=== PATIENT | male | born 1955 | race Caucasian/White ===

== ENCOUNTER → 2017-10-15 | Outpatient (CLI) | payer OTHER ==
[2017-10-15 14:40] LABS: HCT 49.4 % (39.0-53.0); HGB 15.8 gm/dL (13.0-17.5); MCHC 31.9 g/dL (31.0-37.0); Mean Platelet Volume 8.1; Platelet Count 183 k/uL (150-450); RBC 5.43 m/uL (4.30-5.90); RDW 12.6 % (11.5-15.5); WBC 7.9 k/uL (3.8-10.6)
[2017-10-15 14:46] LABS: Anion Gap 11 mmol/L; Blood Urea Nitrogen 20 mg/dL (9-20); Carbon Dioxide 27 mmol/L (22-30); Chloride 101 mmol/L (98-107); Potassium 4.7 mmol/L (3.5-5.1); Sodium 139 mmol/L (137-145)
== END | disposition home or self-care (01) ==
LOC: LABPAT 14:04
PROVIDERS: ATTEND Internal Medicine Interventional Cardiology
DX: Z01.812 Encounter for preprocedural laboratory examination (principal); I25.10 Atherosclerotic heart disease of native coronary artery without angina pectoris
CPT/HCPCS: 36415; 80051; 82565; 84520; 85027

== ENCOUNTER 2017-10-24 06:21 | Day surgery (SDC) | payer MEDICARE, OTHER ==
[~2017-10-24 06:21] MED LIST: ALPRAZolam 0.25 MG TAB PO PRN; ALPRAZolam 0.5 MG TAB PO PRN; ASPIRIN 325 MG TAB PO STA; ATORVASTATIN 80 MG TAB PO STA; NITROGLYCERIN SL TABS 0.4 MG TAB SUBLINGUAL PRN; SODIUM CHLORIDE 0.9% 1,000 ML in EMPTY BAG 1 BAG IV ONE
[2017-10-24] MEDS ORDERED: INSULIN ASPART 100 UNIT/ML 1 ML 10 ML VIAL SQ ONE (07:03)
[2017-10-24 07:09] LABS: Glucose,Whole Blood 298 mg/dL (75-99)
[2017-10-24] MEDS ORDERED: fentaNYL (PF) 50 MCG/ML 2 ML AMP IV ONE (07:37)
[2017-10-24] MEDS ORDERED: LIDOCAINE 2% INJ 20 MG/ML SQ ONE (07:40)
[2017-10-24] MEDS: VERAPAMIL SYRINGE (5 MG/10 ML) INTRAARTER ONE ×2 (07:48→08:04)
[2017-10-24] MEDS ORDERED: NITROGLYCERIN SL TABS 0.4 MG TAB SUBLINGUAL ONE (07:53)
[2017-10-24] MEDS: MIDAZOLAM 2 MG/2 ML VIAL IVP ONE ×2 (08:03→08:44)
[2017-10-24] MEDS ORDERED: HEPARIN SODIUM 1,000 UN/ML (10ML VL) IV ONE (08:05)
[2017-10-24] MEDS ORDERED: BIVALIRUDIN BOLUS 250 MG/50 ML IV ONE (08:19)
[2017-10-24] MEDS ORDERED: PRASUGREL 10 MG TAB PO ONE (08:21)
[2017-10-24] MEDS ORDERED: BIVALIRUDIN 250 MG in SODIUM CHLORIDE 0.9% 50 ML IV ONE ×2 (08:22→08:50)
[2017-10-24] MEDS ORDERED: NITROGLYCERIN 1000MCG/10ML SYRINGE INTRACORON ONE (08:23)
[2017-10-24] MEDS ORDERED: IOHEXOL 350 MG/ML 125ML BOTTLE INJ ONE (09:07)
[2017-10-24] MEDS ORDERED: ATROPINE SULFATE 0.1 MG/ML 10ML SYRINGE IV PRN (09:21)
[2017-10-24] MEDS ORDERED: MAG HYDROX/AL HYDROX/SIMETH 30 ML CUP PO PRN (09:21)
[2017-10-24] MEDS ORDERED: ZOLPIDEM 5 MG TAB PO PRN (09:21)
[2017-10-24] MEDS ORDERED: NITROGLYCERIN SL TABS 0.4 MG TAB SUBLINGUAL PRN (09:21)
[2017-10-24] MEDS ORDERED: RX INFO: IV CONTRAST WAS GIVEN 1 EACH MISC MISCELLANE PRN (09:21)
[2017-10-24] MEDS ORDERED: SODIUM CHLORIDE 0.9% 1,000 ML IV SCH (09:30)
[2017-10-24 10:27] VITALS: BMI 39.0
[2017-10-24] MEDS ORDERED: MORPHINE SULFATE 4 MG/ML SYRINGE IVP ONE (10:33)
--- NOTE | 2017-10-24 10:33 | CC ---
CARDIAC CATHETERIZATION REPORT Mr. Niño is a 62-year-old male with known history of coronary artery disease, status post percutaneous revascularization in 1991 and 2009, who presented with symptoms of dyspnea and had a myocardial perfusion imaging that was consistent with stress-induced ischemia involving the anterolateral wall. In view of that, recommendation was made regarding cardiac catheterization. The procedures as well as the risks and complications were discussed with the patient who is in full understanding and agreement. PROCEDURE: Patient was brought to medical lab director in a fasting semi-sedated state after receiving fentanyl and Benadryl and achieving moderate conscious sedated state. Using Xylocaine anesthesia in the Seldinger technique, a 6-Finnish sheath was introduced in the right radial artery. Selective right and left coronary angiography performed using 5- Finnish 3.5 bend right Arturo catheter and a 6-Finnish Ashwin catheter. Images of the coronary arteries were obtained. Following that, attempts to perform angioplasty and stenting of the diagonal branch were attempted. Following that and after performing the angioplasty and stenting, a 6-Finnish tight pigtail catheter was introduced in the left ventricle and a 30-degree GAY view of the left ventricle was obtained. Following that, the right radial sheath was removed. Hemostasis was obtained with deployment of a TR band. There was no immediate complication. Patient is returned to his room in stable condition. Of note, the patient received 5000 units of intravenous heparin as well as intraarterial verapamil. FINDINGS: LEFT MAIN: This is a short size vessel bifurcating left circumflex and left anterior descending artery. Left main coronary artery has no evidence of high-grade stenosis. LEFT ANTERIOR DESCENDING ARTERY: This is a large-sized vessel reaching toward the apex with a wraparound apex segment tapers down distal third. The mid segment of the LAD is stented and has 30% in-stent restenosis. The LAD gives rise to a proximal large diagonal branch that has a 90% stenosis in the proximal segment. The rest of the vessel has no high-grade stenosis LEFT CIRCUMFLEX: This is a nondominant vessel giving rise to 4 obtuse marginal branches. The second obtuse marginal branch has a plaque of 50% to 60%. The rest of the vessel has intimal disease without any high-grade stenosis. RIGHT CORONARY ARTERY: This is a large dominant vessel bifurcating PDA posterolateral segment and branches. The distal segment of the RCA is a stented and patent that has a 20% to 30% plaque. There is intimal disease in the proximal and mid right coronary artery. The PDA is small in the mid segment and has a significant stenosis, but beyond that the vessel is quite small LEFT VENTRICULOGRAM: Left ventriculogram is performed in 30-degree GAY view and revealed an anteroapical hypokinesis. Ejection fraction is estimated at 45%. There was no significant mitral regurgitation. HEMODYNAMICS: There was no gradient across the aortic valve. The left ventricle end- diastolic pressure was 16 mmHg. CONCLUSION: 1. Critical stenosis involving the first diagonal branch. 2. Mild to moderate in-stent restenosis of the left anterior descending artery and the right coronary artery. 3. Moderate disease in the obtuse marginal branch. 4. Mildly impaired left ventricular systolic function. RECOMMENDATION: In view of finding anatomy, I recommend proceeding with angioplasty and stenting of the diagonal branch. The procedure as well as the risks and complication were discussed with the patient who is in full understanding and agreement. DAVID / KAITLYNN: [id number] / MTDDc
--- NOTE | 2017-10-24 10:48 | PTCA ---
PERCUTANEOUSTRANS CORORONARY ANGIOGRAPHY Mr. Niño is a 62-year-old male with a known history of coronary artery disease who had an abnormal myocardial perfusion imaging and symptoms of dyspnea on exertion. Underwent cardiac catheterization, was found to have significant obstructive disease involving the first diagonal branch. In view of that, recommendation was made regarding angioplasty and stenting. The procedure as well as the risks and complications were discussed with the patient who is in full understanding and agreement. PROCEDURE: A 6-Nigerian EBU 3.75 guiding catheter was introduced in the system. After cannulating the left main, a 0.014 balanced medium weight J-wire was advanced across the lesion, attempt to advance a 2.25 x 15 mm Xience Alpine stent was unsuccessful and resulted in disengagement of the guiding catheter. An attempt to recannulate the LAD left main were unsuccessful with the EBU guiding catheter as well as well as a Ikari_3.75 left. At that point, a 6 Nigerian sheath using Xylocaine anesthesia in the Seldinger technique was introduced in the right femoral artery. Left coronary angiography was performed using 6-Nigerian FR4 guiding catheter. After cannulating the left main, a 0.014 balanced medium weight J-wire was advanced across the lesion and positioned distally. Then a 2.5 x 12 mm Trek balloon was advanced 1 inflation to 10 atmospheres was done. Following that, the balloon was removed and a 2.25 x 15 mm Xience Alpine stent was deployed, postdilated at 14 atmospheres. After the last inflation, after appropriate wait , the balloon and the guidewire were withdrawn back in the guiding catheter. Images were obtained, repeated. Those images reveal stable successful stenting. At that point, the guiding catheter, the balloon and the guidewire were removed and left ventriculogram was performed. Following that, catheter and sheath were removed. Hemostasis was obtained with deployment of a TR band on the right radial artery and suturing of the right femoral artery. Of note, the patient received Angiomax per protocol as well as oral loading dose of Effient. He had no chest discomfort or significant EKG changes with the inflations. RESULTS: Successful stenting of the first diagonal branch with reduction in stenosis from 90% to 0%. RECOMMENDATION: The patient will be continued on aspirin, Effient, beta howie, GHADA inhibitor, statin. The importance of dual antiplatelet treatment was discussed with the patient and his family and they are in full understand and agreement. Duration of procedure: 95 minutes. RIVERAL / VININ: [id number] / VIKY
--- NOTE | 2017-10-24 10:48 | LTR ---
October 24, 2017 Re: Naresh Niño Dear Dr. Naqvi: I had the opportunity to perform cardiac catheterization including angioplasty and stenting on Mr. Niño at [facility] on the 24 of October and a full copy of the procedure note will be forwarded to you. In brief, he was found to have significant stenosis involving the first diagonal branch and he underwent successful stenting of that vessel using drug-eluting stent. I am hopeful that this procedure will stabilize his status. Thank you again for allowing me the opportunity to participate in his care. Please feel free to call for any questions. Sincerely yours, MD RIVERA MendozaL / VININ: [id number] /
[2017-10-24 11:55] LABS: Glucose,Whole Blood 274 mg/dL (75-99)
[2017-10-24] MEDS: INSULIN ASPART 100 UNIT/ML 1 ML 10 ML VIAL SQ SCH ×2 (12:44→16:56)
[2017-10-24] MEDS: CARVEDILOL 6.25 MG TAB PO SCH (16:56)
[2017-10-24 17:01] LABS: Glucose,Whole Blood 333 mg/dL (75-99)
[2017-10-24] MEDS ORDERED: PANTOPRAZOLE 40 MG TABLET PO SCH (18:00)
[2017-10-24] MEDS: hydrALAZINE HCL 50 MG TAB PO SCH (20:09)
[2017-10-24] MEDS ORDERED: INSULIN DETEMIR 100 UNIT/ML 10 ML VIAL SQ SCH (21:00)
[2017-10-24] MEDS ORDERED: ATORVASTATIN 40 MG TAB PO SCH (21:00)
[2017-10-24 21:22] LABS: Glucose,Whole Blood 281 mg/dL (75-99)
[2017-10-25 06:07] LABS: Glucose,Whole Blood 242 mg/dL (75-99)
[2017-10-25 06:27] LABS: Anion Gap 8 mmol/L; Blood Urea Nitrogen 13 mg/dL (9-20); Calcium 8.6 mg/dL (8.4-10.2); Carbon Dioxide 27 mmol/L (22-30); Chloride 101 mmol/L (98-107); Glucose 246 mg/dL (74-99); Sodium 136 mmol/L (137-145)
[2017-10-25] MEDS ORDERED: LEVOTHYROXINE 137 MCG TAB PO SCH (06:30)
[2017-10-25] MEDS: CARVEDILOL 6.25 MG TAB PO SCH (06:31)
[2017-10-25] MEDS: INSULIN ASPART 100 UNIT/ML 1 ML 10 ML VIAL SQ SCH (06:32)
[2017-10-25] MEDS: hydrALAZINE HCL 50 MG TAB PO SCH (07:43)
--- NOTE | 2017-10-25 07:49 | PN ---
PROGRESS NOTE Mr. Niño is a 62-year-old male with known history of coronary artery disease who presented with symptoms of dyspnea and abnormal myocardial perfusion imaging, underwent cardiac catheterization and stenting of his first diagonal branch. He Is doing well this morning. Denying any chest pain. His breathing has been stable. He is denying any dizziness or palpitation. No nausea. He continued to be on aspirin once a day, Effient 10 mg daily, Lipitor 40 mg daily, Coreg 6.5 mg twice a day, hydralazine 50 mg twice a day, insulin, levothyroxine, Zestril 40 mg daily, Protonix 40 mg daily. PHYSICAL EXAMINATION: Blood pressure in the 140s to 150s with the heart rate in the 60s. LUNGS: Clear. HEART: Regular rate and rhythm. S1, S2. No S3. No rub. ABDOMEN: Soft, nontender. Right groin, no hematoma. Right radial pulse intact. EKG revealed no acute changes. LAB DATA: Lab data revealed BUN and creatinine 13 and 0.8. Potassium 4.0. IMPRESSION: 1. Status post stenting of the diagonal branch. 2. Hypertension. 3. Hyperlipidemia. 4. Diabetes mellitus. RECOMMENDATION: Patient will be discharged home today and followed as an outpatient. MMODL / IJN: [id number] /
[2017-10-25 07:53] VITALS: BP 131/80; PULSE 63; RESP 18; TEMP 97.4
[2017-10-25] MEDS ORDERED: ASPIRIN 81 MG PO SCH (09:00)
[2017-10-25] MEDS ORDERED: LISINOPRIL 20 MG TAB PO SCH (09:00)
[2017-10-25] MEDS ORDERED: PRASUGREL 10 MG TAB PO SCH (09:23)
== END 2017-10-25 09:20 | disposition home or self-care (01) ==
LOC: CATHCVL 06:21 → 6SEL 09:12 → CATHCVL 10-25 09:20
PROVIDERS: ATTEND Internal Medicine Interventional Cardiology
DX: T82.855A Stenosis of coronary artery stent, initial encounter (principal); I25.10 Atherosclerotic heart disease of native coronary artery without angina pectoris; R94.39 Abnormal result of other cardiovascular function study; I25.5 Ischemic cardiomyopathy; Z95.0 Presence of cardiac pacemaker; I10 Essential (primary) hypertension; E78.2 Mixed hyperlipidemia; E11.9 Type 2 diabetes mellitus without complications; Z95.5 Presence of coronary angioplasty implant and graft; Z82.49 Family history of ischemic heart disease and other diseases of the circulatory system; Z88.5 Allergy status to narcotic agent; Z79.82 Long term (current) use of aspirin; Z79.890 Hormone replacement therapy; Z79.4 Long term (current) use of insulin; Z79.899 Other long term (current) drug therapy; Z79.84 Long term (current) use of oral hypoglycemic drugs
CPT/HCPCS: 93458; 85347; 80048; C9600; C1769 ×3; C1887 ×3; C1894 ×2; C1725; C1874; J2001; J2250; J2270; J3010; J1644; J0583; Q9967

== ENCOUNTER → 2017-11-07 | Outpatient (CLI) | payer MEDICARE ==
[2017-11-07 11:05] LABS: ALT 35 U/L (21-72); AST 33 U/L (17-59); Cholesterol 101 mg/dL (<200); Creatine Kinase 53 U/L (55-170); HDL Cholesterol 31 mg/dL (40-60); LDL Cholesterol,Calculated 37 mg/dL (0-99); Triglycerides 165 mg/dL (<150)
== END | disposition home or self-care (01) ==
LOC: LABWHC1 09:55
PROVIDERS: ATTEND Internal Medicine Interventional Cardiology
DX: E78.2 Mixed hyperlipidemia (principal)
CPT/HCPCS: 36415; 80061; 82550; 84450; 84460

== ENCOUNTER → 2017-11-29 | Outpatient (CLI) | payer MEDICARE | END | disposition home or self-care (01) | LOC: LABWHC1 11:17 | PROVIDERS: ATTEND Internal Medicine Endocrinology, Diabetes & Metabolism | DX: E11.65 Type 2 diabetes mellitus with hyperglycemia (principal) | CPT/HCPCS: 36415; 82947; 84681 ==

== ENCOUNTER 2018-01-22 14:40 | Emergency (ER) | payer MEDICARE ==
[2018-01-22 14:43] VITALS: TEMP 97.8
[2018-01-22] MEDS ORDERED: SODIUM CHLORIDE 0.9% 500 ML IV STA (14:51)
[2018-01-22] MEDS ORDERED: MORPHINE SULFATE 4 MG/ML SYRINGE IV STA (14:51)
[2018-01-22] MEDS ORDERED: SODIUM CHLORIDE 0.9% 1,000 ML IV STA (14:51)
--- NOTE | 2018-01-22 15:23 | ED ---
General Adult HPI - General Chief complaint: Abdominal Pain Stated complaint: Kidney stone Time Seen by Provider: 01/22/18 14:49 Source: patient, RN notes reviewed, old records reviewed Mode of arrival: ambulatory Limitations: no limitations - History of Present Illness Initial comments: This is a 62-year-old male to the ER for evaluation today. The patient presents for evaluation of flank pain. Left-sided flank pain and thinks he may have kidney stone. Patient does have history of kidney stone also suffers with history of heart disease. Denies any blood in his urine. Mild nausea no vomiting. No fevers. - Related Data Home Medications Medication Instructions Recorded Confirmed Aspirin [Adult Low Dose Aspirin EC] 81 mg PO DAILY 10/22/17 01/22/18 Carvedilol [Coreg] 6.25 mg PO BID 10/22/17 01/22/18 Enalapril [Vasotec] 20 mg PO DAILY 10/22/17 01/22/18 Omeprazole Magnesium [PriLOSEC OTC] 20 mg PO DAILY 10/22/17 01/22/18 hydrALAZINE HCL [Apresoline] 50 mg PO BID 10/22/17 01/22/18 metFORMIN HCL 1,000 mg PO BID 10/22/17 01/22/18 Levothyroxine Sodium [Synthroid] 137 mcg PO DAILY 10/24/17 01/22/18 Chlorthalidone 25 mg PO MOTH 01/22/18 01/22/18 Glimepiride [Amaryl] 4 mg PO AC-BRKFST 01/22/18 01/22/18 Losartan Potassium 100 mg PO DAILY 01/22/18 01/22/18 Pioglitazone [Actos] 30 mg PO DAILY 01/22/18 01/22/18 Previous Rx's Medication Instructions Recorded Atorvastatin [Lipitor] 40 mg PO HS #90 tab 10/25/17 Prasugrel [Effient] 10 mg PO DAILY #90 tab 10/25/17 Allergies Allergy/AdvReac Type Severity Reaction Status Date / Time codeine AdvReac Nausea & Verified 01/22/18 15:17 Vomiting Review of Systems ROS Statement: Those systems with pertinent positive or pertinent negative responses have been documented in the HPI. ROS Other: All systems not noted in ROS Statement are negative. Past Medical History Past Medical History: Coronary Artery Disease (CAD), Diabetes Mellitus, GERD/ Reflux, Hyperlipidemia, Hypertension, Myocardial Infarction (AL), Sleep Apnea/ CPAP/BIPAP, Thyroid Disorder Additional Past Medical History / Comment(s): hx migraines, hx gout, flu/ bronchitis 3 weeks ago Last Myocardial Infarction Date:: 1983 History of Any Multi-Drug Resistant Organisms: MRSA Date of last positivie culture/infection: 2007 MDRO Source:: under left arm Past Surgical History: Back Surgery, Heart Catheterization With Stent, Joint Replacement, Pacemaker Additional Past Surgical History / Comment(s): 3 cardiac stents, left ankle tendon surgery, left knee "partial" replacement, radha shoulder surgery, rt hand surgery -laceration, laminectomy L5, cyst removed from back of neck, radha cataracts, Past Anesthesia/Blood Transfusion Reactions: No Reported Reaction Date of Last Stent Placement:: 2007 Type of Cardiac Device: Permanent Pacemaker Device Placement Date:: unknown Past Psychological History: No Psychological Hx Reported Smoking Status: Never smoker Past Alcohol Use History: None Reported Past Drug Use History: None Reported - Past Family History Mother Family Medical History: Cancer Father Family Medical History: Cancer General Exam Limitations: no limitations General appearance: alert, in no apparent distress Head exam: Present: atraumatic, normocephalic, normal inspection Eye exam: Present: normal appearance, PERRL, EOMI. Absent: scleral icterus, conjunctival injection, periorbital swelling ENT exam: Present: normal exam, mucous membranes moist Neck exam: Present: normal inspection. Absent: tenderness, meningismus, lymphadenopathy Respiratory exam: Present: normal lung sounds bilaterally. Absent: respiratory distress, wheezes, rales, rhonchi, stridor Cardiovascular Exam: Present: regular rate, normal rhythm, normal heart sounds. Absent: systolic murmur, diastolic murmur, rubs, gallop, clicks GI/Abdominal exam: Present: soft, normal bowel sounds. Absent: distended, tenderness, guarding, rebound, rigid Extremities exam: Present: normal inspection, full ROM, normal capillary refill. Absent: tenderness, pedal edema, joint swelling, calf tenderness Back exam: Present: normal inspection Neurological exam: Present: alert, oriented X3, CN II-XII intact Psychiatric exam: Present: normal affect, normal mood Skin exam: Present: warm, dry, intact, normal color. Absent: rash Course Vital Signs 01/22/18 14:42 Temperature 97.8 F Pulse Rate 70 Respiratory 20 Rate Blood Pressure 168/86 O2 Sat by Pulse 97 Oximetry - Reevaluation(s) Reevaluation #1: 01/22/18 16:46 Spoke with radiology, they feel clear that there is no aortic issue going on Medical Decision Making - Medical Decision Making 59 female the ER for evaluation regarding nonspecific abdominal pain. Patient states he does have a history of kidney stones which this feels similar to. No tenderness on exam. Labwork is normal, CT abdomen and pelvis is negative Patient can be discharged home - Lab Data Result diagrams: 01/22/18 15:34 01/22/18 15:34 Lab Results 01/22/18 01/22/18 01/22/18 Range/Units 15:34 15:34 15:34 WBC 6.2 (3.8-10.6) k/uL RBC 4.99 (4.30-5.90) m/uL Hgb 14.6 (13.0-17.5) gm/dL Hct 44.5 (39.0-53.0) % MCV 89.3 (80.0-100.0) fL MCH 29.4 (25.0-35.0) pg MCHC 32.9 (31.0-37.0) g/dL RDW 13.6 (11.5-15.5) % Plt Count 183 (150-450) k/uL Neutrophils % 51 % Lymphocytes % 33 % Monocytes % 8 % Eosinophils % 3 % Basophils % 1 % Neutrophils # 3.2 (1.3-7.7) k/uL Lymphocytes # 2.1 (1.0-4.8) k/uL Monocytes # 0.5 (0-1.0) k/uL Eosinophils # 0.2 (0-0.7) k/uL Basophils # 0.1 (0-0.2) k/uL Sodium 146 H (137-145) mmol/L Potassium 4.6 (3.5-5.1) mmol/L Chloride 107 (98-107) mmol/L Carbon Dioxide 24 (22-30) mmol/L Anion Gap 15 mmol/L BUN 31 H (9-20) mg/dL Creatinine 1.10 (0.66-1.25) mg/dL Est GFR (CKD-EPI)AfAm 82 (>60 ml/min/1.73 sqM) Est GFR (CKD-EPI)NonAf 71 (>60 ml/min/1.73 sqM) Glucose 74 (74-99) mg/dL Calcium 9.7 (8.4-10.2) mg/dL Total Bilirubin 1.1 (0.2-1.3) mg/dL AST 33 (17-59) U/L ALT 34 (21-72) U/L Alkaline Phosphatase 71 (38-126) U/L Total Protein 7.4 (6.3-8.2) g/dL Albumin 4.2 (3.5-5.0) g/dL Amylase 92 (30-110) U/L Lipase 128 (23-300) U/L Urine Color Yellow Urine Appearance Clear (Clear) Urine pH 5.5 (5.0-8.0) Ur Specific [place] 1.031 (1.001-1.035) Urine Protein 1+ H (Negative) Urine Glucose (UA) Negative (Negative) Urine Ketones Trace H (Negative) Urine Blood Negative (Negative) Urine Nitrite Negative (Negative) Urine Bilirubin Negative (Negative) Urine Urobilinogen 3.0 (<2.0) mg/dL Ur Leukocyte Esterase Negative (Negative) Urine RBC <1 (0-5) /hpf Urine WBC 2 (0-5) /hpf Ur Squamous Epith Cells 1 (0-4) /hpf Hyaline Casts 7 H (0-2) /lpf Urine Mucus Few H (None) /hpf - Radiology Data Radiology results: report reviewed (CT abdomen and pelvis negative for acute disease), image reviewed Disposition Clinical Impression: Abdominal pain Disposition: HOME SELF-CARE Condition: Good Is patient prescribed a controlled substance at d/c from ED?: No Referrals: Mikal Naqvi DO [Primary Care Provider] - 1-2 days
--- NOTE | 2018-01-22 15:37 | CT ---
EXAMINATION TYPE: CT abdomen pelvis wo con DATE OF EXAM: 01/22/2018 HISTORY: Right flank pain CT DLP: 1637.9 mGycm. Automated Exposure Control for Dose Reduction was Utilized. TECHNIQUE: CT scan of the abdomen and pelvis is performed without oral or IV contrast. COMPARISON: NONE FINDINGS: Within the limitations of a non-contrast study, the following observations are made. LUNG BASES: There is partial visualization of multilead pacemaker/defibrillator. LIVER/GB: Liver is diffusely low dense suggesting fatty infiltration. PANCREAS: No significant abnormality is seen. SPLEEN: No significant abnormality is seen. ADRENALS: No significant abnormality is seen. KIDNEYS: No renal stones or hydronephrosis is present bilaterally. Bladder is poorly distended and th us suboptimally evaluated. No intraluminal calculus is clearly seen. BOWEL: A few diverticula are seen in the left and sigmoid colon. There is no suspicious small or larg e bowel dilatation. Normal-appearing appendix is seen from base of cecum. There is some prominence of fecal material in the right and transverse colon. GENITAL ORGANS: No gross abnormality seen. LYMPH NODES: No greater than 1cm abdominal or pelvic lymph nodes are appreciated. OSSEOUS STRUCTURES: There is multilevel vacuum disc phenomenon in the lower lumbar spine. There is tr ansitional-type L6 vertebra at lumbosacral junction. Multilevel spurring in the spine is present. Pos terior spur disc complexes are effacing anterior thecal sac at L3-L4 and L4-L5 levels on sagittal dedra ge 62. There is multilevel facet arthropathy in the lower lumbar spine. OTHER: There is moderate to severe calcified plaque of aorta extending into branch vessels. IMPRESSION: 1. No renal stones or hydronephrosis is seen bilaterally. 2. Perhaps mild proximal colonic fecal stasis. No bowel obstruction. No significant acute finding oth erwise seen to account for patient's symptoms.
[2018-01-22 15:52] LABS: Basophils # (A) 0.1 k/uL (0-0.2); Basophils % (A) 1 %; Eosinophils # (A) 0.2 k/uL (0-0.7); Eosinophils % (A) 3 %; HCT 44.5 % (39.0-53.0); HGB 14.6 gm/dL (13.0-17.5); Lymphocytes # (A) 2.1 k/uL (1.0-4.8); Lymphocytes % (A) 33 %; MCH 29.4 pg (25.0-35.0); MCHC 32.9 g/dL (31.0-37.0); MCV 89.3 fL (80.0-100.0); Mean Platelet Volume 7.6; Monocytes # (A) 0.5 k/uL (0-1.0); Monocytes % (A) 8 %; Neutrophils # (A) 3.2 k/uL (1.3-7.7); Neutrophils % (A) 51 %; Platelet Count 183 k/uL (150-450); RBC 4.99 m/uL (4.30-5.90); RDW 13.6 % (11.5-15.5); WBC 6.2 k/uL (3.8-10.6)
[2018-01-22 15:59] LABS: Appearance,Urine Clear (Clear); Bilirubin,Urine Negative (Negative); Blood,Urine Negative (Negative); Color,Urine Yellow; Glucose,Urine (UA) Negative (Negative); Hyaline Casts,Urine 7 /lpf (0-2); Ketones,Urine Trace (Negative); Leukocyte Esterase,Urine Negative (Negative); Mucus,Urine Few /hpf; Nitrite,Urine Negative (Negative); PH, Urine 5.5 (5.0-8.0); Protein,Urine 1+ (Negative); RBC,Urine <1 /hpf (0-5); Specific Gravity,Urine 1.031 (1.001-1.035); Squamous Epithelial Cell,Urine 1 /hpf (0-4); WBC,Urine 2 /hpf (0-5)
[2018-01-22 16:05] LABS: Albumin 4.2 g/dL (3.5-5.0); Calcium 9.7 mg/dL (8.4-10.2); Potassium 4.6 mmol/L (3.5-5.1); Total Bilirubin 1.1 mg/dL (0.2-1.3); Total Protein 7.4 g/dL (6.3-8.2)
[2018-01-22] MEDS ORDERED: RX INFO: IV CONTRAST WAS GIVEN 1 EACH MISC MISCELLANE PRN (16:40)
[2018-01-22 17:10] VITALS: BP 163/83; PULSE 63; RESP 18
== END 2018-01-22 17:10 | disposition home or self-care (01) ==
LOC: EC 14:40
DX: R10.9 Unspecified abdominal pain (principal); R11.0 Nausea; I10 Essential (primary) hypertension; I25.10 Atherosclerotic heart disease of native coronary artery without angina pectoris; E11.9 Type 2 diabetes mellitus without complications; K21.9 Gastro-esophageal reflux disease without esophagitis; E07.9 Disorder of thyroid, unspecified; M10.9 Gout, unspecified; G47.30 Sleep apnea, unspecified; I25.2 Old myocardial infarction; Z79.82 Long term (current) use of aspirin; Z79.84 Long term (current) use of oral hypoglycemic drugs; Z79.899 Other long term (current) drug therapy; Z88.5 Allergy status to narcotic agent; Z86.14 Personal history of Methicillin resistant Staphylococcus aureus infection; Z87.442 Personal history of urinary calculi; Z99.89 Dependence on other enabling machines and devices
CPT/HCPCS: 36415; 80053; 82150; 83690; 85025; 81001; 87086; 74176; 99284; 96374; 96361; J2270

== ENCOUNTER → 2018-09-24 | Outpatient (CLI) | payer MEDICARE ==
[2018-09-24 16:29] LABS: Albumin/Globulin Ratio 1.74 (1.20-2.10); Anion Gap 9.3 mmol/L (4.00-12.00); Calcium 9.1 mg/dL (8.7-10.3); Carbon Dioxide 26.7 mmol/L (21.6-31.8); Globulin 2.3 g/dL (1.6-3.3); Potassium 4.8 mmol/L (3.5-5.5); Total Bilirubin 0.7 mg/dL (0.2-1.2); Total Protein 6.3 g/dL (6.2-8.2)
[2018-09-24 17:39] LABS: Hemoglobin A1C 7.1 % (4.0-6.0)
== END | disposition home or self-care (01) ==
LOC: LABWHC1 08:55
PROVIDERS: ATTEND Internal Medicine Endocrinology, Diabetes & Metabolism
DX: E11.65 Type 2 diabetes mellitus with hyperglycemia (principal)
CPT/HCPCS: 36415; 80053; 80061; 82043; 82570; 83036; 84443

== ENCOUNTER → 2019-01-08 | Outpatient (CLI) | payer MEDICARE ==
[2019-01-08 16:42] LABS: Albumin 4.2 g/dL (3.80-4.90); Albumin/Globulin Ratio 1.68 (1.60-3.17); Anion Gap 8.2 mmol/L (4.00-12.00); Calcium 9.2 mg/dL (8.7-10.3); Carbon Dioxide 26.8 mmol/L (21.6-31.8); Globulin 2.5 g/dL (1.6-3.3); LDL Cholesterol,Calculated 60.4 mg/dL (0.0-131.0); Potassium 4.5 mmol/L (3.5-5.5); Total Protein 6.7 g/dL (6.2-8.2); VLDL Calculation 23.6 mg/dL (5.00-40.00)
== END | disposition home or self-care (01) ==
LOC: LABWHC1 09:27
PROVIDERS: ATTEND Internal Medicine Endocrinology, Diabetes & Metabolism
DX: E11.65 Type 2 diabetes mellitus with hyperglycemia (principal)
CPT/HCPCS: 36415; 80053; 80061; 82043; 82570; 83036; 84443

== ENCOUNTER → 2019-05-02 | Outpatient (CLI) | payer MEDICARE ==
[2019-05-02 16:19] LABS: African American GFR (CKD) 66.4 (60.0-200.0); Albumin 4.1 g/dL (3.80-4.90); Albumin/Globulin Ratio 1.78 (1.60-3.17); BUN/Creat Ratio 26.15 Ratio (12.00-20.00); Calcium 9.3 mg/dL (8.7-10.3); Chol/HDL Ratio 3.31; Globulin 2.3 g/dL (1.6-3.3); LDL Cholesterol,Calculated 67.4 mg/dL (0.0-131.0); Potassium 4.7 mmol/L (3.5-5.5); Total Protein 6.4 g/dL (6.2-8.2); VLDL Calculation 22.6 mg/dL (5.00-40.00)
== END | disposition home or self-care (01) ==
LOC: LABWHC1 10:07
PROVIDERS: ATTEND Internal Medicine Interventional Cardiology
DX: E78.2 Mixed hyperlipidemia (principal)
CPT/HCPCS: 36415; 80053; 80061

== ENCOUNTER → 2019-12-30 | Outpatient (CLI) | payer MEDICARE ==
[2019-12-30 16:03] LABS: African American GFR (CKD) 66.4 (60.0-200.0); Albumin 3.9 g/dL (3.80-4.90); Albumin/Globulin Ratio 1.56 (1.60-3.17); Anion Gap 11.6 mmol/L (4.00-12.00); BUN/Creat Ratio 20.77 Ratio (12.00-20.00); Calcium 8.9 mg/dL (8.7-10.3); Carbon Dioxide 26.4 mmol/L (21.6-31.8); Chol/HDL Ratio 5.05; Globulin 2.5 g/dL (1.6-3.3); LDL Cholesterol,Calculated 143.4 mg/dL (0.0-131.0); Non-African American GFR(CKD) 57.3 (60.0-200.0); Potassium 4.8 mmol/L (3.5-5.5); Total Bilirubin 0.7 mg/dL (0.3-1.2); Total Protein 6.4 g/dL (6.2-8.2); VLDL Calculation 26.6 mg/dL (5.00-40.00)
== END | disposition home or self-care (01) ==
LOC: LABWHC1 09:31
PROVIDERS: ATTEND Internal Medicine Interventional Cardiology
DX: E78.2 Mixed hyperlipidemia (principal)
CPT/HCPCS: 36415; 80053; 80061

== ENCOUNTER → 2020-07-02 | Outpatient (CLI) | payer MEDICARE ==
[2020-07-02 19:56] LABS: African American GFR (CKD) 65.9 (60.0-200.0); Albumin 4.1 g/dL (3.80-4.90); Albumin/Globulin Ratio 1.58 (1.60-3.17); Anion Gap 7.6 mmol/L (4.00-12.00); BUN/Creat Ratio 23.08 Ratio (12.00-20.00); Calcium 9.2 mg/dL (8.7-10.3); Carbon Dioxide 26.4 mmol/L (21.6-31.8); Globulin 2.6 g/dL (1.6-3.3); LDL Cholesterol,Calculated 93.4 mg/dL (0.0-131.0); Non-African American GFR(CKD) 56.9 (60.0-200.0); Potassium 4.4 mmol/L (3.5-5.5); Total Bilirubin 1.1 mg/dL (0.2-1.2); Total Protein 6.7 g/dL (6.2-8.2); VLDL Calculation 34.6 mg/dL (5.00-40.00)
== END | disposition home or self-care (01) ==
LOC: LABWHC1 10:17
PROVIDERS: ATTEND Nurse Practitioner Adult Health
DX: E78.2 Mixed hyperlipidemia (principal)
CPT/HCPCS: 36415; 80053; 80061

== ENCOUNTER → 2020-07-12 | Outpatient (CLI) | payer MEDICARE ==
[2020-07-12 20:45] LABS: Hemoglobin A1C 10.1 % (4.0-6.0)
== END | disposition home or self-care (01) ==
LOC: LABWHC1 10:53
PROVIDERS: ATTEND Internal Medicine Endocrinology, Diabetes & Metabolism
DX: E03.8 Other specified hypothyroidism (principal); E11.65 Type 2 diabetes mellitus with hyperglycemia
CPT/HCPCS: 36415; 82043; 82570; 83036; 84443

== ENCOUNTER 2021-05-02 19:22 | Inpatient (IN) | payer MEDICARE ==
[2021-05-02] MEDS ORDERED: ACETAMINOPHEN TAB 500 MG TAB PO STA (19:51)
[2021-05-02] MEDS ORDERED: ALBUTEROL HFA INHALER INHALATION STA (19:51)
--- NOTE | 2021-05-02 20:31 | ED ---
General Adult HPI - General Chief complaint: Fever Stated complaint: fever Time Seen by Provider: 05/02/21 19:44 Source: patient Mode of arrival: wheelchair Limitations: no limitations - History of Present Illness Initial comments: 66 year-old male patient presents to the emergency department for evaluation for evaluation of fever, chills, cough, and congestion for the last 11 days. States that symptoms seem to be worsening rather than getting better. States that he has had some nausea and vomiting. Reports diarrhea. Denies taking any medication for fever today. Denies history of lung conditions. States he does have a pacemaker and history of diabetes controlled with oral medications. Has been exposed to RSV. Has not had COVID-19 vaccine. Reports white foamy sputum production. Denies wheezing. States he does get short of breath. Patient de nies any recent rash, chest pain, abdominal pain, constipation, back pain, numbness, tingling, dizziness, weakness, hematuria, dysuria, urinary urgency, urinary frequency, headache, visual changes, or any other complaints. - Related Data Home Medications Medication Instructions Recorded Confirmed Aspirin [Adult Low Dose Aspirin EC] 81 mg PO DAILY 10/22/17 05/02/21 Enalapril [Vasotec] 20 mg PO DAILY 10/22/17 05/02/21 hydrALAZINE HCL [Apresoline] 50 mg PO BID 10/22/17 05/02/21 metFORMIN HCL [Glucophage] 1,000 mg PO BID 10/22/17 05/02/21 Levothyroxine Sodium [Synthroid] 137 mcg PO DAILY 10/24/17 05/02/21 Chlorthalidone 25 mg PO MOTH 01/22/18 05/02/21 Losartan Potassium 100 mg PO DAILY 01/22/18 05/02/21 Pioglitazone [Actos] 30 mg PO DAILY 01/22/18 05/02/21 Atorvastatin Calcium [Lipitor] 10 mg PO HS 05/02/21 05/02/21 Carvedilol [Coreg] 25 mg PO BID 05/02/21 05/02/21 Ezetimibe [Zetia] 10 mg PO DAILY 05/02/21 05/02/21 Glimepiride [Amaryl] 2 mg PO DAILY 05/02/21 05/02/21 Allergies Allergy/AdvReac Type Severity Reaction Status Date / Time codeine AdvReac Nausea & Verified 05/02/21 22:39 Vomiting Review of Systems ROS Statement: Those systems with pertinent positive or pertinent negative responses have been documented in the HPI. ROS Other: All systems not noted in ROS Statement are negative. Past Medical History Past Medical History: Coronary Artery Disease (CAD), Diabetes Mellitus, GERD/Reflux, Hyperlipidemia, Hypertension, Myocardial Infarction ([place]), Sleep Apnea/CPAP/BIPAP, Thyroid Disorder Additional Past Medical History / Comment(s): hx migraines, hx gout, flu/bronchitis 3 weeks ago Last Myocardial Infarction Date:: 1983 History of Any Multi-Drug Resistant Organisms: MRSA Date of last positivie culture/infection: 2007 MDRO Source:: under left arm Past Surgical History: Back Surgery, Heart Catheterization With Stent, Joint Replacement, Pacemaker Additional Past Surgical History / Comment(s): 3 cardiac stents, left ankle tendon surgery, left knee "partial" replacement, radha shoulder surgery, rt hand surgery -laceration, laminectomy L5, cyst removed from back of neck, radha cataracts, Past Anesthesia/Blood Transfusion Reactions: No Reported Reaction Date of Last Stent Placement:: 2007 Type of Cardiac Device: Permanent Pacemaker Device Placement Date:: unknown Past Psychological History: No Psychological Hx Reported Smoking Status: Never smoker Past Alcohol Use History: None Reported Past Drug Use History: None Reported - Past Family History Mother Family Medical History: Cancer Father Family Medical History: Cancer General Exam Limitations: no limitations General appearance: alert, in no apparent distress, other (This is a well- developed, well-nourished adult male patient in no acute distress. Vital signs upon presentation are temperature 103.1F, pulse 100, respirations 24, blood pressure 146/79, pulse ox 90% on room air.) Eye exam: Present: normal appearance, PERRL, EOMI. Absent: scleral icterus, conjunctival injection, periorbital swelling ENT exam: Present: normal exam, mucous membranes moist. Absent: normal oropharynx (Pharyngeal erythema, no tonsillar hypertrophy or exudate. Uvula is midline and tonsils are symmetric.) Respiratory exam: Present: normal lung sounds bilaterally. Absent: respiratory distress, wheezes, rales, rhonchi, stridor Cardiovascular Exam: Present: normal rhythm, normal heart sounds. Absent: tachycardia, systolic murmur, diastolic murmur, rubs, gallop, clicks GI/Abdominal exam: Present: soft, normal bowel sounds. Absent: distended, tenderness, guarding, rebound, rigid Neurological exam: Present: alert, oriented X3, CN II-XII intact Psychiatric exam: Present: normal affect, normal mood Skin exam: Present: warm, dry, intact, normal color. Absent: rash Course Vital Signs 05/02/21 05/02/21 05/02/21 19:38 20:24 20:30 Temperature 103.1 F H Pulse Rate 100 109 H Respiratory 24 20 22 Rate Blood Pressure 146/79 159/77 O2 Sat by Pulse 90 L 92 L Oximetry 05/02/21 05/02/21 21:29 23:06 Temperature 99.4 F Pulse Rate 105 H 103 H Respiratory 18 18 Rate Blood Pressure 123/74 142/67 O2 Sat by Pulse 97 97 Oximetry EKG Findings - EKG Comments: EKG Findings:: EKG obtained at 2037 shows sinus tachycardia with a ventricular rate of 103, KS interval 162, QRS duration 84, QT 328, QTC 429. No evidence of ST elevation or depression. Medical Decision Making - Medical Decision Making 66-year-old male patient presents to the emergency department today for evaluation of cough, congestion, shortness of breath, fevers. He also reported vomiting and diarrhea. Physical examination did reveal clear equal lung sounds. Oxygen saturation on arrival was between 89 and 90%. Chest x-ray was unremarkable. Labs reviewed and did reveal elevated CRP and LDH. His Covid test was positive. He is given dexamethasone to the IV. Inhaler. He'll be admitted to the hospital for further evaluation and monitoring. He is agreeable with this plan. Case discussed with my attending Dr. Hammer. - Lab Data Result diagrams: 05/02/21 20:30 05/02/21 20:30 Lab Results 05/02/21 05/02/21 05/02/21 Range/Units 20:30 20:30 20:30 WBC 2.6 L (3.8-10.6) k/uL RBC 4.65 (4.30-5.90) m/uL Hgb 14.6 (13.0-17.5) gm/dL Hct 42.3 (39.0-53.0) % MCV 91.0 (80.0-100.0) fL MCH 31.5 (25.0-35.0) pg MCHC 34.6 (31.0-37.0) g/dL RDW 13.6 (11.5-15.5) % Plt Count (150-450) k/uL MPV 9.1 Neutrophils % 71 % Lymphocytes % 20 % Monocytes % 7 % Eosinophils % 0 % Basophils % 1 % Neutrophils # 1.9 (1.3-7.7) k/uL Lymphocytes # 0.5 L (1.0-4.8) k/uL Monocytes # 0.2 (0-1.0) k/uL Eosinophils # 0.0 (0-0.7) k/uL Basophils # 0.0 (0-0.2) k/uL Manual Slide Review Performed PT (9.0-12.0) sec INR (<1.2) APTT (22.0-30.0) sec Sodium 135 L (137-145) mmol/L Potassium 4.9 (3.5-5.1) mmol/L Chloride 98 (98-107) mmol/L Carbon Dioxide 26 (22-30) mmol/L Anion Gap 11 mmol/L BUN 23 H (9-20) mg/dL Creatinine 1.43 H (0.66-1.25) mg/dL Est GFR (CKD-EPI)AfAm 59 (>60 ml/min/1.73 sqM) Est GFR (CKD-EPI)NonAf 51 (>60 ml/min/1.73 sqM) Glucose 246 H (74-99) mg/dL Plasma Lactic Acid Heber 1.9 (0.7-2.0) mmol/L Calcium 8.3 L (8.4-10.2) mg/dL Magnesium 1.9 (1.6-2.3) mg/dL Total Bilirubin 0.8 (0.2-1.3) mg/dL AST 74 H (17-59) U/L ALT 42 (4-49) U/L Alkaline Phosphatase 72 (38-126) U/L Lactate Dehydrogenase 954 H (313-618) U/L C-Reactive Protein 8.3 H (<1.0) mg/dL Total Protein 6.7 (6.3-8.2) g/dL Albumin 3.7 (3.5-5.0) g/dL Coronavirus (PCR) (Not Detectd) 05/02/21 05/02/21 Range/Units 20:30 21:46 WBC (3.8-10.6) k/uL RBC (4.30-5.90) m/uL Hgb (13.0-17.5) gm/dL Hct (39.0-53.0) % MCV (80.0-100.0) fL MCH (25.0-35.0) pg MCHC (31.0-37.0) g/dL RDW (11.5-15.5) % Plt Count (150-450) k/uL MPV Neutrophils % % Lymphocytes % % Monocytes % % Eosinophils % % Basophils % % Neutrophils # (1.3-7.7) k/uL Lymphocytes # (1.0-4.8) k/uL Monocytes # (0-1.0) k/uL Eosinophils # (0-0.7) k/uL Basophils # (0-0.2) k/uL Manual Slide Review PT 10.1 (9.0-12.0) sec INR 0.9 (<1.2) APTT 23.0 (22.0-30.0) sec Sodium (137-145) mmol/L Potassium (3.5-5.1) mmol/L Chloride (98-107) mmol/L Carbon Dioxide (22-30) mmol/L Anion Gap mmol/L BUN (9-20) mg/dL Creatinine (0.66-1.25) mg/dL Est GFR (CKD-EPI)AfAm (>60 ml/min/1.73 sqM) Est GFR (CKD-EPI)NonAf (>60 ml/min/1.73 sqM) Glucose (74-99) mg/dL Plasma Lactic Acid Heber (0.7-2.0) mmol/L Calcium (8.4-10.2) mg/dL Magnesium (1.6-2.3) mg/dL Total Bilirubin (0.2-1.3) mg/dL AST (17-59) U/L ALT (4-49) U/L Alkaline Phosphatase (38-126) U/L Lactate Dehydrogenase (313-618) U/L C-Reactive Protein (<1.0) mg/dL Total Protein (6.3-8.2) g/dL Albumin (3.5-5.0) g/dL Coronavirus (PCR) Detected A (Not Detectd) - Radiology Data Radiology results: report reviewed, image reviewed Two-view x-ray of the chest is obtained. Report was reviewed in its entirety. Impression by Dr. Calvert shows no acute process per Disposition Clinical Impression: COVID-19, Hypoxia Disposition: ADMITTED IP TO THIS [facility] Condition: Serious Referrals: Mikal Naqvi DO [Primary Care Provider] - 1-2 days Decision to Admit Reason: Admit from EC Decision Date: 05/02/21 Decision Time: 23:14
[2021-05-02 21:35] LABS: Albumin 3.7 g/dL (3.5-5.0); Basophils % (A) 1 %; C Reactive Protein 8.3 mg/dL (<1.0); Calcium 8.3 mg/dL (8.4-10.2); Eosinophils % (A) 0 %; HCT 42.3 % (39.0-53.0); HGB 14.6 gm/dL (13.0-17.5); Lymphocytes # (A) 0.5 k/uL (1.0-4.8); Lymphocytes % (A) 20 %; MCH 31.5 pg (25.0-35.0); MCHC 34.6 g/dL (31.0-37.0); Magnesium 1.9 mg/dL (1.6-2.3); Mean Platelet Volume 9.1; Monocytes # (A) 0.2 k/uL (0-1.0); Monocytes % (A) 7 %; Neutrophils # (A) 1.9 k/uL (1.3-7.7); Neutrophils % (A) 71 %; Potassium 4.9 mmol/L (3.5-5.1); RBC 4.65 m/uL (4.30-5.90); RDW 13.6 % (11.5-15.5); Total Bilirubin 0.8 mg/dL (0.2-1.3); Total Protein 6.7 g/dL (6.3-8.2); WBC 2.6 k/uL (3.8-10.6)
[2021-05-02 22:15] LABS: INR 0.9 (<1.2); Prothrombin Time 10.1 sec (9.0-12.0)
--- NOTE | 2021-05-02 22:28 | XR ---
EXAMINATION TYPE: XR chest 1V portable DATE OF EXAM: 05/02/2021 COMPARISON: NONE HISTORY: Fever TECHNIQUE: Single frontal view of the chest is obtained. FINDINGS: Dual lead pacemaker is present. Cardiomediastinal silhouette appears within normal limits. No dense focal consolidation, pleural effusion, or pneumothorax. Osseous structures appear intact. IMPRESSION: No acute process.
[2021-05-02] MEDS ORDERED: NALOXONE 0.4 MG/ML 1 ML VIAL IV PRN (23:11)
[2021-05-02] MEDS ORDERED: DEXAMETHASONE SOD PHOSPHATE 10 MG/ML 1 ML VIAL IV STA (23:11)
[2021-05-02] MEDS ORDERED: ONDANSETRON 4 MG/2 ML VIAL IVP PRN (23:11)
[2021-05-03] MEDS: SODIUM CHLORIDE 0.9% 1,000 ML IV SCH ×2 (00:05→12:51)
[2021-05-03] MEDS: DEXAMETHASONE SOD PHOSPHATE 10 MG/ML 1 ML VIAL IV SCH (09:21)
[2021-05-03 11:49] LABS: Ferritin 375.8 ng/mL (22.0-322.0)
[2021-05-03 12:36] LABS: Glucose,Whole Blood 330 mg/dL (75-99)
[2021-05-03] MEDS: ENOXAPARIN 40 MG/0.4 ML SYRINGE SQ SCH (12:49)
[2021-05-03] MEDS: INSULIN ASPART (NovoLOG) 100 UNIT/ML VIAL SQ SCH ×3 (12:50→21:47)
[2021-05-03 13:22] LABS: C Reactive Protein 8.8 mg/dL (<1.0)
[2021-05-03 16:38] LABS: Glucose,Whole Blood 325 mg/dL (75-99)
--- NOTE | 2021-05-03 17:58 | P.CNPUL ---
History of Present Illness Consult date: 05/03/21 Reason for consult: dyspnea, pneumonia History of present illness: 66-year-old male patient who presented to the emergency department because of ongoing difficulties with increased fever and chills and cough has been going on for the past 11 days. The patient stated that he was not vaccinated for COVID19. No change in taste or smell. No nausea. No vomiting. No diarrhea. No abdominal pain. No skin rashes. No altered mentation. He presented to the hospital where the patient was found to be febrile with a temperature 103.1. Hemodynamically stable. He was hypoxic and he was supplemented with oxygen and currently is on 4 L of oxygen by nasal cannula. EKG was sinus rhythm. Rest of the blood work shows a white cell count of 2.6. BMI was 23 with a creatinine of 1.4. Rest of the electrolytes were normal. There was a component of mild transaminitis with an AST of 74, ALT of 42, his LDH level was 954, and the patient had a lactic acid level of 1.9. He is COVID 19 testing was positive. The patient was hospitalized accordingly. Chest x-ray showed bilateral pulmonary infiltrates consistent with Covid 19 related pneumonia. On examination, the patient is crackles in lung bases bilaterally. Start the patient on Decadron 6 mg IV every 24 hours. Outpatient medications been ordered resume. Place the metformin and Actos on hold because of his underlying renal insufficiency. Place the patient on a sliding scale coverage. He is currently on Lovenox 40 mg subcu every 24 hours. His pro calcitonin level is at 0.32. C RP level was at 8.8. LDH level was 905. D-dimer has not been checked. Review of Systems Constitutional: Reports fatigue, Reports fever, Reports weakness Eyes: denies as per HPI, denies blurred vision, denies bulging eye, denies decre ased vision, denies diplopia, denies discharge, denies dry eye, denies irritation, denies itching, denies pain, denies photophobia, denies loss of peripheral vision, denies loss of vision, denies tunnel vision/blind spots Ears: deny: decreased hearing, ear discharge, earache, tinnitus Ears, nose, mouth and throat: Reports as per HPI Breasts: absent: as per HPI, gynecomastia Cardiovascular: Reports decreased exercise tolerance Respiratory: Reports as per HPI, Reports cough, Reports dyspnea Gastrointestinal: Reports as per HPI Genitourinary: Reports as per HPI Musculoskeletal: Reports as per HPI Musculoskeletal: absent: ankle pain, ankle stiffness, ankle swelling Integumentary: Reports as per HPI Neurological: Reports as per HPI Psychiatric: Reports as per HPI Endocrine: Reports as per HPI Hematologic/Lymphatic: Reports as per HPI Allergic/Immunologic: Reports as per HPI Past Medical History Past Medical History: Coronary Artery Disease (CAD), Diabetes Mellitus, GERD/Reflux, Hyperlipidemia, Hypertension, Myocardial Infarction ([place]), Sleep Apnea/CPAP/BIPAP, Thyroid Disorder Additional Past Medical History / Comment(s): hx migraines, hx gout, Obesity, DANIEL and the patient uses a CPAP machine Last Myocardial Infarction Date:: 1983 History of Any Multi-Drug Resistant Organisms: MRSA Date of last positivie culture/infection: 2007 MDRO Source:: under left arm Past Surgical History: Back Surgery, Heart Catheterization With Stent, Joint Replacement, Pacemaker Additional Past Surgical History / Comment(s): 3 cardiac stents, left ankle tendon surgery, left knee "partial" replacement, radha shoulder surgery, rt hand surgery -laceration, laminectomy L5, cyst removed from back of neck, radha cataracts, Past Anesthesia/Blood Transfusion Reactions: No Reported Reaction Date of Last Stent Placement:: 2007 Type of Cardiac Device: Permanent Pacemaker Device Placement Date:: unknown Smoking Status: Never smoker - Past Family History Mother Family Medical History: Cancer Father Family Medical History: Cancer Medications and Allergies Home Medications Medication Instructions Recorded Confirmed Type Aspirin [Adult Low Dose Aspirin EC] 81 mg PO DAILY 10/22/17 05/02/21 History Enalapril [Vasotec] 20 mg PO DAILY 10/22/17 05/02/21 History hydrALAZINE HCL [Apresoline] 50 mg PO BID 10/22/17 05/02/21 History metFORMIN HCL [Glucophage] 1,000 mg PO BID 10/22/17 05/02/21 History Levothyroxine Sodium [Synthroid] 137 mcg PO DAILY 10/24/17 05/02/21 History Chlorthalidone 25 mg PO MOTH 01/22/18 05/02/21 History Losartan Potassium 100 mg PO DAILY 01/22/18 05/02/21 History Pioglitazone [Actos] 30 mg PO DAILY 01/22/18 05/02/21 History Atorvastatin Calcium [Lipitor] 10 mg PO HS 05/02/21 05/02/21 History Carvedilol [Coreg] 25 mg PO BID 05/02/21 05/02/21 History Ezetimibe [Zetia] 10 mg PO DAILY 05/02/21 05/02/21 History Glimepiride [Amaryl] 2 mg PO DAILY 05/02/21 05/02/21 History Allergies Allergy/AdvReac Type Severity Reaction Status Date / Time codeine AdvReac Nausea & Verified 05/02/21 22:39 Vomiting Physical Exam Vitals: Vital Signs Temp Pulse Pulse Resp BP BP Pulse Ox 05/03/21 08:23 98 F 69 18 178/85 92 L 05/03/21 08:15 95 05/03/21 06:58 98.0 F 65 18 141/68 96 05/03/21 02:30 71 18 160/85 95 05/03/21 00:11 83 18 96 05/02/21 23:06 99.4 F 103 H 18 142/67 97 05/02/21 21:29 105 H 18 123/74 97 05/02/21 20:30 22 05/02/21 20:24 109 H 20 159/77 92 L 05/02/21 19:38 103.1 F H 100 24 146/79 90 L Intake and Output 05/02/21 05/03/21 05/03/21 22:59 06:59 14:59 Other: Weight 126.099 kg 126.099 kg Gen. appearance the patient is calm and comfortable, the patient is does not seem to be in acute respiratory distress, BMI 42.3 Head exam was generally normal. There was no scleral icterus or corneal arcus. Mucous membranes were moist. Neck was supple and without jugular venous distension, thyromegaly, or carotid bruits. Carotids were easily palpable bilaterally. There was no adenopathy. Lungs sounds are diminished in the patient's crackles in the lung bases bilaterally Cardiac exam revealed the PMI to be normally situated and sized. The rhythm was regular and no extrasystoles were noted during several minutes of auscultation. The first and second heart sounds were normal and physiologic splitting of the second heart sound was noted. There were no murmurs, rubs, clicks, or gallops. Abdominal exam revealed normal bowel sounds. The abdomen was soft, non-tender, and without masses, organomegaly, or appreciable enlargement of the abdominal aorta. Examination of the extremities revealed easily palpable radial, femoral and pedal pulses. There was no cyanosis, clubbing or edema. Examination of the skin revealed no evidence of significant rashes, suspicious appearing nevi or other concerning lesions. Neurologically, the patient is awake and alert and the patient does not have any focal neurological deficit. Cranial nerves are essentially intact. Results - Laboratory Findings CBC and BMP: 05/02/21 20:30 05/02/21 20:30 PT/INR, D-dimer PT 10.1 sec (9.0-12.0) 05/02/21 21:46 INR 0.9 (<1.2) 05/02/21 21:46 Abnormal lab findings: Abnormal Labs 05/02/21 05/02/21 05/02/21 20:30 20:30 20:30 WBC 2.6 L Lymphocytes # 0.5 L Sodium 135 L BUN 23 H Creatinine 1.43 H Glucose 246 H Calcium 8.3 L Ferritin 375.8 H AST 74 H Lactate Dehydrogenase 954 H C-Reactive Protein 8.3 H Coronavirus (PCR) Detected A Assessment and Plan Plan: 1 acute COVID 19 infection/pneumonia with secondary hypoxic respiratory failure, as the patient became symptomatic approximately 11-12 days ago. Condition progressed and the patient is currently presented with worsening shortness of breath currently on 42 x 2 by nasal cannula. 2 acute hypoxic respiratory failure, currently on 4 L of oxygen by nasal cannula 3 coronary artery disease with previous coronary stenting 4 history of pacemaker insertion 5 hypertension 6 hyperlipidemia 7 history obstructive sleep apnea maintained on CPAP on outpatient basis 8 migraines 9 gout 10 obesity with BMI 42.3 11 acute on chronic kidney injury, creatinine of 1.4 12 acute elevation of inflammatory markers secondary to COVID 19 related pneumonia 13 leukopenia 14 hypothyroidism Plan Continue Decadron 6 mg IV every 24 hours Monitor the oxygenation Monitor inflammatory markers Monitor the blood sugar and cover this patient with a sliding scale insulin coverage Monitor the patient's renal function Resume the rest of the home medication Allow the patient utilizes CPAP machine from home Wean down the FiO2 as tolerated to maintain a saturation above 90% We'll continue to follow.
[2021-05-03 20:00] LABS: Glucose,Whole Blood 329 mg/dL (75-99)
[2021-05-03] MEDS ORDERED: TEMAZEPAM 7.5 MG CAP PO PRN (20:36)
[2021-05-03] MEDS ORDERED: NON FORMULARY DRUG (Metformin Hcl [Glucophage] 1,000 MG Tablet) PO SCH (21:00)
[2021-05-03] MEDS: ATORVASTATIN 10 MG TAB PO SCH (21:47)
[2021-05-03] MEDS: hydrALAZINE HCL 50 MG TAB PO SCH (21:47)
[2021-05-03] MEDS: carvediloL 12.5 MG TAB PO SCH (21:47)
[2021-05-04] MEDS: SODIUM CHLORIDE 0.9% 1,000 ML IV SCH ×2 (03:53→19:57)
[2021-05-04] MEDS: LEVOTHYROXINE 137 MCG TAB PO SCH (05:48)
[2021-05-04 06:49] LABS: Glucose,Whole Blood 253 mg/dL (75-99)
[2021-05-04] MEDS ORDERED: PIOGLITAZONE 30 MG TAB PO SCH (09:00)
[2021-05-04] MEDS: DEXAMETHASONE SOD PHOSPHATE 10 MG/ML 1 ML VIAL IV SCH (09:09)
[2021-05-04] MEDS: lisinopriL 20 MG TAB PO SCH (09:10)
[2021-05-04] MEDS: INSULIN ASPART (NovoLOG) 100 UNIT/ML VIAL SQ SCH ×4 (09:10→21:27)
[2021-05-04] MEDS: carvediloL 12.5 MG TAB PO SCH ×2 (09:10→21:28)
[2021-05-04] MEDS: ASPIRIN 81 MG PO SCH (09:10)
[2021-05-04] MEDS: LOSARTAN 50 MG TAB PO SCH (09:10)
[2021-05-04] MEDS: EZETIMIBE 10 MG TAB PO SCH (09:11)
[2021-05-04] MEDS: ENOXAPARIN 40 MG/0.4 ML SYRINGE SQ SCH (09:11)
[2021-05-04] MEDS: hydrALAZINE HCL 50 MG TAB PO SCH ×2 (09:11→21:28)
[2021-05-04 11:36] LABS: Glucose,Whole Blood 294 mg/dL (75-99)
--- NOTE | 2021-05-04 11:56 | XR ---
EXAMINATION TYPE: XR chest 1V DATE OF EXAM: 05/04/2021 COMPARISON: 05/02/2021 HISTORY: Cough TECHNIQUE: Single frontal view of the chest is obtained. FINDINGS: Bilateral diffuse infiltrates are seen with Limited inspiration. Tiny effusions not exclud ed. Heart size stable. Cardiac device noted with no pneumothorax. IMPRESSION: Diffuse bilateral infiltrates appear progressed.
[2021-05-04] MEDS: GLIMEPIRIDE 2 MG TAB PO SCH (13:26)
--- NOTE | 2021-05-04 16:21 | P.PN ---
Subjective Progress Note Date: 05/04/21 This is 66-year-old gentleman admitted with acute hypoxic respiratory failure secondary to COVID-19 infection. Afebrile. Maintained on Covid cocktail, including Decadron IV.Inflammatory markers trending down.He stated this morning with exertion from 88% tone to 75%. Currently placed on 6 L nasal cannula, O2 sat pending. Chest x-ray reporting progression of diffuse bilateral infiltrates.Blood sugars uncontrolled, A1c 9.1. Objective - Vital Signs Vital signs: Vital Signs Temp 98.8 F 05/04/21 09:53 Pulse 64 05/04/21 09:53 Resp 17 05/04/21 09:53 BP 137/74 05/04/21 09:53 Pulse Ox 88 L 05/04/21 09:53 Intake & Output 05/03/21 05/04/21 05/04/21 18:59 06:59 18:59 Weight 126.099 kg Other: Voiding Method Toilet Toilet Urinal Urinal # Voids 1 1 # Bowel Movements 0 - Exam PHYSICAL EXAM: VITAL SIGNS: As above GENERAL: Sitting up in bed, respiratory effort increased. HEENT: Conjunctivae normal. eyes normal. NECK: No JVD. No thyroid enlargement. No LNs CARDIOVASCULAR: S1, S2 regular. No murmur RESPIRATION: Breath sounds diminished in the bases. Coarse rhonchi with bibasilar crackles. ABDOMEN: Soft, nontender. No guarding. no masses palpable. No ascites, No hepatosplenomegaly.Bowel sounds heard. LEGS: No edema. no swelling PSYCHIATRY: Alert and oriented X3, mood and affect normal. NERVOUS SYSTEM: Cranial N 2-12 grossly normal. Moves all 4 limbs. Diffuse weakness No focal deficits. Strength and sensation grossly intact.. Skin: no lesions, no rash Joints: No active swelling. No inflammation. Lymphatic system. No LN neck axilla or groin. - Labs CBC & Chem 7: 05/02/21 20:30 05/02/21 20:30 Labs: Abnormal Lab Results - Last 24 Hours (Table) 05/02/21 05/03/21 05/03/21 Range/Units 20:30 16:35 18:18 D-Dimer 0.66 H (<0.60) mg/L FEU POC Glucose (mg/dL) 325 H (75-99) mg/dL Hemoglobin A1c (4.0-6.0) % Lactate Dehydrogenase (120-246) U/L C-Reactive Protein (0.0-0.8) mg/dL Procalcitonin 0.32 H (0.02-0.09) ng/mL 05/03/21 05/04/21 05/04/21 Range/Units 19:57 06:30 06:30 D-Dimer (<0.60) mg/L FEU POC Glucose (mg/dL) 329 H (75-99) mg/dL Hemoglobin A1c 9.1 H (4.0-6.0) % Lactate Dehydrogenase 392 H (120-246) U/L C-Reactive Protein 6.0 H (0.0-0.8) mg/dL Procalcitonin (0.02-0.09) ng/mL 05/04/21 05/04/21 Range/Units 06:46 11:34 D-Dimer (<0.60) mg/L FEU POC Glucose (mg/dL) 253 H 294 H (75-99) mg/dL Hemoglobin A1c (4.0-6.0) % Lactate Dehydrogenase (120-246) U/L C-Reactive Protein (0.0-0.8) mg/dL Procalcitonin (0.02-0.09) ng/mL Microbiology - Last 24 Hours (Table) 05/02/21 20:30 Blood Culture - Preliminary Blood No Growth after 24 hours 05/02/21 20:30 Blood Culture - Preliminary Blood No Growth after 24 hours Assessment and Plan Assessment: Acute COVID-19 infection, pneumonia Acute hypoxic respiratory failure secondary to the above Acute on chronic kidney failure, stage III Leukopenia Diabetes mellitus, uncontrolled, hyperglycemic, hemoglobin A1c 9.1 Obstructive sleep apnea, on CPAP outpatient CAD with history of stenting, permanent pacemaker Hypertension Hyperlipidemia Hypothyroidism Morbid obesity, BMI 42.3 Plan: Continue on current medication regime ,monitoring and symptomatic treatment. Levemir added to med.regimen, close monitoring of Accu-Cheks. Maintain COVID cocktail/Decadron. Close monitoring of renal function. electrolytes, with repeat labs ordered for a.m. follow closely with pulmonary. Prognosis guarded given multiple complex medical issues. The impression and plan of care has been dictated as directed. : I performed a history and examination of this patient, discussed the same with the dictator. I agree with the dictator's note ,documented as a scribe. Any additional findings or plans will be noted.
[2021-05-04 16:35] LABS: Glucose,Whole Blood 318 mg/dL (75-99)
--- NOTE | 2021-05-04 19:16 | P.PN ---
Subjective Progress Note Date: 05/04/21 Principal diagnosis: On 05/04/2021 patient seen in follow-up on selective care unit. His oxygen demand has increased, he is currently on 100 percent nonrebreather, his oxygen saturations are ranging between 82 and 88%, is having low-grade fevers this afternoon, blood pressures stable. Inflammatory markers are improving on today's labs, LDH is down to 392, CRP is 6.0, pro calcitonin level was 0.32. D- dimer was 0.66. Blood cultures have been negative. Patient remains on de xamethasone 6 mg daily, he is on prophylactic dose Lovenox 40 mg daily. His chest x-ray point diffuse bilateral infiltrates that appear to be progress. Objective - Vital Signs Vital signs: Vital Signs Temp 99 F 05/04/21 17:14 Pulse 68 05/04/21 17:14 Resp 17 05/04/21 17:14 BP 150/78 05/04/21 17:14 Pulse Ox 88 L 05/04/21 17:30 Intake & Output 05/04/21 05/04/21 05/05/21 06:59 18:59 06:59 Intake Total 975 Balance 975 Intake: Intake, IV Titration 600 Amount Sodium Chloride 0.9% 1, 600 000 ml @ 75 mls/hr IV . [id number] [facility] Rx#:[id number] Oral 375 Other: Voiding Method Toilet Toilet Urinal Urinal # Voids 1 4 # Bowel Movements 0 - Exam GENERAL EXAM: Alert, very pleasant, 66-year-old white female, on 100% nonrebreather with a pulse ox between 82-88%, comfortable in no apparent distress. HEAD: Normocephalic/atraumatic. EYES: Normal reaction of pupils, equal size. Conjunctiva pink, sclera white. NOSE: Clear with pink turbinates. THROAT: No erythema or exudates. NECK: No masses, no JVD, no thyroid enlargement, no adenopathy. CHEST: No chest wall deformity. Symmetrical expansion. LUNGS: Equal air entry with diffuse crackles CVS: Regular rate and rhythm, normal S1 and S2, no gallops, no murmurs, no rubs ABDOMEN: Soft, nontender. No hepatosplenomegaly, normal bowel sounds, no guar ding or rigidity. EXTREMITIES: No clubbing, no edema, no cyanosis, 2+ pulses and upper and lower extremities. MUSCULOSKELETAL: Muscle strength and tone normal. SPINE: No scoliosis or deformity SKIN: No rashes CENTRAL NERVOUS SYSTEM: Alert and oriented -3. No focal deficits, tone is normal in all 4 extremities. PSYCHIATRIC: Alert and oriented -3. Appropriate affect. Intact judgment and insight. - Labs CBC & Chem 7: 05/02/21 20:30 05/02/21 20:30 Labs: Abnormal Lab Results - Last 24 Hours (Table) 05/03/21 05/04/21 05/04/21 Range/Units 19:57 06:30 06:30 POC Glucose (mg/dL) 329 H (75-99) mg/dL Hemoglobin A1c 9.1 H (4.0-6.0) % Lactate Dehydrogenase 392 H (120-246) U/L C-Reactive Protein 6.0 H (0.0-0.8) mg/dL 05/04/21 05/04/21 05/04/21 Range/Units 06:46 11:34 16:32 POC Glucose (mg/dL) 253 H 294 H 318 H (75-99) mg/dL Hemoglobin A1c (4.0-6.0) % Lactate Dehydrogenase (120-246) U/L C-Reactive Protein (0.0-0.8) mg/dL Microbiology - Last 24 Hours (Table) 05/02/21 20:30 Blood Culture - Preliminary Blood No Growth after 24 hours 05/02/21 20:30 Blood Culture - Preliminary Blood No Growth after 24 hours Assessment and Plan Plan: Assessment: #1. Acute COVID-19 pneumonia, with acute hypoxic respiratory failure, with symptom onset 11-12 days after presentation. Patient is of the window for Remdesivir. His hypoxia has progressed, and patient will be considered for Bariticinib #2. Increased inflammatory markers, related to the above, improved since ad mission #3. Coronary artery disease with previous coronary artery stenting #4. History of permanent pacemaker insertion #5. History of hypertension 6. Hyperlipidemia #7. History of obstructive sleep apnea on CPAP on an outpatient basis #8. Migraine headache #9. Acute on chronic kidney injury #10. Obesity with BMI 42.3 #11. Acute elevation of inflammatory markers, currently improving #12. Hypothyroidism Plan: Patient's oxygenation has worsened, and patient is currently requiring nonrebreather mask Today's chest x-ray shows progression of bilateral infiltrates However patient is not in any respiratory distress Continue Decadron, Continue Lovenox His inflammatory markers seem to be improving In view of his worsening oxygenation we will consider the patient for Baricitini b Continue monitoring for worsening dyspnea Obtain inflammatory markers obtain CBC and BMP tomorrow I performed a history & physical examination of the patient and discussed their management with my nurse practitioner, Penelope Vallejo. I reviewed the nurse practitioner's note and agree with the documented findings and plan of care. Lung sounds are positive for bibasilar infiltrates throughout the lung gaviria. The findings and the impression was discussed with the patient. I attest to the documentation by the nurse practitioner. Time with Patient: Less than 30
[2021-05-04 20:46] LABS: Glucose,Whole Blood 304 mg/dL (75-99)
[2021-05-04] MEDS: ATORVASTATIN 10 MG TAB PO SCH (21:28)
[2021-05-04] MEDS: BARICITINIB 2 MG TABLET PO SCH (21:29)
[2021-05-04] MEDS: ALPRAZolam 0.5 MG TAB PO PRN (23:12)
[2021-05-05] MEDS: SODIUM CHLORIDE 0.9% 1,000 ML IV SCH ×2 (06:24→17:45)
[2021-05-05] MEDS: LEVOTHYROXINE 137 MCG TAB PO SCH (06:24)
[2021-05-05 06:45] LABS: Glucose,Whole Blood 231 mg/dL (75-99)
[2021-05-05] MEDS: INSULIN ASPART (NovoLOG) 100 UNIT/ML VIAL SQ SCH ×5 (08:18→21:19)
[2021-05-05] MEDS: INSULIN DETEMIR (LEVEMIR) 100 UNIT/ML SYR SQ SCH (08:18)
[2021-05-05] MEDS: ENOXAPARIN 40 MG/0.4 ML SYRINGE SQ SCH (08:19)
[2021-05-05] MEDS: lisinopriL 20 MG TAB PO SCH (08:19)
[2021-05-05] MEDS: DEXAMETHASONE SOD PHOSPHATE 10 MG/ML 1 ML VIAL IV SCH (08:19)
[2021-05-05] MEDS: LOSARTAN 50 MG TAB PO SCH (08:19)
[2021-05-05] MEDS: ALPRAZolam 0.5 MG TAB PO PRN (08:19)
[2021-05-05] MEDS: ASPIRIN 81 MG PO SCH (08:19)
[2021-05-05] MEDS: hydrALAZINE HCL 50 MG TAB PO SCH ×3 (08:19→21:20)
[2021-05-05] MEDS: carvediloL 12.5 MG TAB PO SCH ×2 (08:19→21:20)
[2021-05-05] MEDS: GLIMEPIRIDE 2 MG TAB PO SCH (08:20)
[2021-05-05] MEDS: EZETIMIBE 10 MG TAB PO SCH (08:20)
[2021-05-05 09:17] LABS: Basophils # (A) 0.01 X 10*3/uL (0.00-0.10); Basophils % (A) 0.1 %; Eosinophils # (A) 0 X 10*3/uL (0.04-0.35); Eosinophils % (A) 0 %; HCT 39.9 % (39.6-50.0); HGB 12.6 g/dL (13.0-17.0); Lymphocytes # (A) 1.27 X 10*3/uL (0.90-5.00); Lymphocytes % (A) 15.9 %; MCH 28.7 pg (27.0-32.0); MCHC 31.6 g/dL (32.0-37.0); MCV 90.9 fL (80.0-97.0); Mean Platelet Volume 11.6 fL (9.5-12.2); Monocytes # (A) 0.54 X 10*3/uL (0.20-1.00); Monocytes % (A) 6.8 %; Neutrophils # (A) 6.12 X 10*3/uL (1.80-7.70); Neutrophils % (A) 76.6 %; Platelet Count 193 X 10*3/uL (140-440); RBC 4.39 X 10*6/uL (4.40-5.60); RDW 13.3 % (11.5-14.5); WBC 7.99 X 10*3/uL (4.50-10.00)
--- NOTE | 2021-05-05 10:00 | XR ---
EXAMINATION TYPE: XR chest 1V portable DATE OF EXAM: 05/05/2021 COMPARISON: 05/04/2021 HISTORY: Cough TECHNIQUE: Single frontal view of the chest is obtained. FINDINGS: Diffuse bilateral infiltrate stable. Cardiac device noted. Limited inspiration. Heart size stable. No sizable pneumothorax. IMPRESSION: Stable diffuse bilateral infiltrate
[2021-05-05 11:37] LABS: Glucose,Whole Blood 291 mg/dL (75-99)
[2021-05-05] MEDS ORDERED: CHLORTHALIDONE 25 MG TAB PO SCH (12:18)
[2021-05-05 14:15] LABS: Glucose,Whole Blood 270 mg/dL (75-99)
[2021-05-05 14:44] LABS: African American GFR (CKD) 50.9 (60.0-200.0); Albumin 3.5 g/dL (3.80-4.90); Albumin/Globulin Ratio 1.46 (1.60-3.17); Anion Gap 5.7 mmol/L (4.00-12.00); BUN/Creat Ratio 22.5 Ratio (12.00-20.00); C Reactive Protein 6.8 mg/dL (0.0-0.8); Calcium 7.9 mg/dL (8.7-10.3); Carbon Dioxide 27.3 mmol/L (21.6-31.8); Globulin 2.4 g/dL (1.6-3.3); Non-African American GFR(CKD) 43.9 (60.0-200.0); Potassium 4.7 mmol/L (3.5-5.5); Total Bilirubin 0.5 mg/dL (0.2-1.2); Total Protein 5.9 g/dL (6.2-8.2)
[2021-05-05] MEDS ORDERED: LORazepam 1 MG TAB PO PRN (16:15)
--- NOTE | 2021-05-05 16:33 | P.PN ---
Subjective Progress Note Date: 05/05/21 This is 66-year-old gentleman admitted with acute hypoxic respiratory failure secondary to COVID-19 infection. Afebrile. Maintained on Covid cocktail, including Decadron IV.Inflammatory markers trending down.He stated this morning with exertion from 88% tone to 75%. Currently placed on 6 L nasal cannula, O2 sat pending. Chest x-ray reporting progression of diffuse bilateral infiltrates.Blood sugars uncontrolled, A1c 9.1. 05/05/2021 respiratory status worsened yesterday, requiring nonrebreather. Th roughout the night, increased anxiety, patient pulling off masks, requiring minimal of 45 minutes to recover O2 saturation. Xanax initiated for anxiety, patient unable to tolerate, reported nausea/ vomiting. Received Ativan, tolerated well. Currently on BiPAP maintaining O2 sats in the 80s. Continues on Covid regimen. Renal function trending up, creatinine 1.6. Denies chest pain, palpitations. Objective - Vital Signs Vital signs: Vital Signs Temp 98.8 F 05/05/21 14:15 Pulse 68 05/05/21 16:00 Resp 26 H 05/05/21 16:00 BP 147/77 05/05/21 16:00 Pulse Ox 89 L 05/05/21 16:00 Intake & Output 05/04/21 05/05/21 05/05/21 18:59 06:59 18:59 Intake Total 975 40 Output Total 500 Balance 975 -500 40 Weight 126.099 kg Intake: Intake, IV Titration 600 40 Amount Sodium Chloride 0.9% 1, 600 40 000 ml @ 75 mls/hr IV . [id number] [facility] Rx#:[id number] Oral 375 Output: Urine 500 Other: Voiding Method Toilet Urinal Urinal Urinal # Voids 4 - Exam PHYSICAL EXAM: VITAL SIGNS: As above GENERAL: Sitting up in bed, respiratory effort increased. HEENT: Conjunctivae normal. eyes normal. Wearing BiPAP NECK: No JVD. No thyroid enlargement. No LNs CARDIOVASCULAR: S1, S2 regular. No murmur RESPIRATION: Breath sounds diminished in the bases. Coarse rhonchi with bibasilar crackles. ABDOMEN: Soft, nontender. No guarding. no masses palpable. Bowel sounds heard. LEGS: No edema. no swelling. PSYCHIATRY: Alert and oriented X3, mood and affect normal. NERVOUS SYSTEM: Cranial N 2-12 grossly normal. Moves all 4 limbs.No focal deficits. Strength and sensation grossly intact.. Skin: Warm and dry, no rash - Labs CBC & Chem 7: 05/05/21 06:41 05/05/21 06:41 Labs: Abnormal Lab Results - Last 24 Hours (Table) 05/04/21 05/04/21 05/05/21 Range/Units 16:32 20:44 06:41 RBC 4.39 L (4.40-5.60) X 10*6/uL Hgb 12.6 L (13.0-17.0) g/dL MCHC 31.6 L (32.0-37.0) g/dL Immature Gran # 0.05 H (0.00-0.04) X 10*3/uL Eosinophils # 0 L (0.04-0.35) X 10*3/uL BUN (9.0-27.0) mg/dL Creatinine (0.6-1.5) mg/dL Est GFR (CKD-EPI)AfAm (60.0-200.0) Est GFR (CKD-EPI)NonAf (60.0-200.0) BUN/Creatinine Ratio (12.00-20.00) Ratio Glucose (70-110) mg/dL POC Glucose (mg/dL) 318 H 304 H (75-99) mg/dL Calcium (8.7-10.3) mg/dL AST (14-35) U/L Lactate Dehydrogenase (120-246) U/L C-Reactive Protein (0.0-0.8) mg/dL Total Protein (6.2-8.2) g/dL Albumin (3.80-4.90) g/dL Albumin/Globulin Ratio (1.60-3.17) g/dL 05/05/21 05/05/21 05/05/21 Range/Units 06:41 06:42 11:35 RBC (4.40-5.60) X 10*6/uL Hgb (13.0-17.0) g/dL MCHC (32.0-37.0) g/dL Immature Gran # (0.00-0.04) X 10*3/uL Eosinophils # (0.04-0.35) X 10*3/uL BUN 36.0 H (9.0-27.0) mg/dL Creatinine 1.6 H (0.6-1.5) mg/dL Est GFR (CKD-EPI)AfAm 50.9 L (60.0-200.0) Est GFR (CKD-EPI)NonAf 43.9 L (60.0-200.0) BUN/Creatinine Ratio 22.50 H (12.00-20.00) Ratio Glucose 241 H (70-110) mg/dL POC Glucose (mg/dL) 231 H 291 H (75-99) mg/dL Calcium 7.9 L (8.7-10.3) mg/dL AST 63 H (14-35) U/L Lactate Dehydrogenase 560 H (120-246) U/L C-Reactive Protein 6.8 H (0.0-0.8) mg/dL Total Protein 5.9 L (6.2-8.2) g/dL Albumin 3.50 L (3.80-4.90) g/dL Albumin/Globulin Ratio 1.46 L (1.60-3.17) g/dL /05/17 Range/Units 14:14 RBC (4.40-5.60) X 10*6/uL Hgb (13.0-17.0) g/dL MCHC (32.0-37.0) g/dL Immature Gran # (0.00-0.04) X 10*3/uL Eosinophils # (0.04-0.35) X 10*3/uL BUN (9.0-27.0) mg/dL Creatinine (0.6-1.5) mg/dL Est GFR (CKD-EPI)AfAm (60.0-200.0) Est GFR (CKD-EPI)NonAf (60.0-200.0) BUN/Creatinine Ratio (12.00-20.00) Ratio Glucose (70-110) mg/dL POC Glucose (mg/dL) 270 H (75-99) mg/dL Calcium (8.7-10.3) mg/dL AST (14-35) U/L Lactate Dehydrogenase (120-246) U/L C-Reactive Protein (0.0-0.8) mg/dL Total Protein (6.2-8.2) g/dL Albumin (3.80-4.90) g/dL Albumin/Globulin Ratio (1.60-3.17) g/dL Microbiology - Last 24 Hours (Table) 05/02/21 20:30 Blood Culture - Preliminary Blood No Growth after 48 hours 05/02/21 20:30 Blood Culture - Preliminary Blood No Growth after 48 hours Assessment and Plan Assessment: Acute COVID-19 infection, pneumonia Acute hypoxic respiratory failure secondary to the above Acute on chronic kidney failure, stage III Leukopenia Diabetes mellitus, uncontrolled, hyperglycemic, hemoglobin A1c 9.1 Obstructive sleep apnea, on CPAP outpatient CAD with history of stenting, permanent pacemaker Hypertension Hyperlipidemia Hypothyroidism Morbid obesity, BMI 42.3 Plan: Continue on current medication regime ,monitoring and symptomatic treatment. Levemir added to med.regimen yesterday, apparently did not receive first dose until today-therefore will not increase dose at this time. close monitoring of Accu-Cheks. Premeal insulin added. Maintain COVID cocktail.Close monitoring of renal function. electrolytes, with repeat labs ordered for a.m. follow closely with pulmonary. GHADA inhibitor, Cozaar discontinued, hydralazine increased secondary to worsening renal function. Prognosis guarded given m ultiple complex medical issues. The impression and plan of care has been dictated as directed. : I performed a history and examination of this patient, discussed the same with the dictator. I agree with the dictator's note ,documented as a scribe. Any additional findings or plans will be noted.
--- NOTE | 2021-05-05 16:36 | P.PN ---
Subjective Progress Note Date: 05/05/21 Principal diagnosis: On 05/04/2021 patient seen in follow-up on selective care unit. His oxygen demand has increased, he is currently on 100 percent nonrebreather, his oxygen saturations are ranging between 82 and 88%, is having low-grade fevers this afternoon, blood pressures stable. Inflammatory markers are improving on today's labs, LDH is down to 392, CRP is 6.0, pro calcitonin level was 0.32. D- dimer was 0.66. Blood cultures have been negative. Patient remains on de xamethasone 6 mg daily, he is on prophylactic dose Lovenox 40 mg daily. His chest x-ray point diffuse bilateral infiltrates that appear to be progress. Patient could not tolerate high flow nasal cannula and was desaturating on it. On today's evaluation of 05/05/2021 patient seen in follow-up on medical surgical floor. Overnight patient was placed on BiPAP support for worsening dyspnea and hypoxia, with pressures of 12/5, and FiO2 of 100%, and his pulse ox is around 89%. Patient is currently up in the chair, is short of breath with any exertion, he was started on bariticinib yesterday, and he continues on Decadron 6 mg daily, and Lovenox 80 mg once daily, his chest x-ray has been reviewed showing stable diffuse bilateral infiltrates. Today's labs have been reviewed, white blood cell count is not 7.9, hemoglobin is 12.6, his lymphocyte count is 1.27, electrolytes are within normal limits, B1 is 36, creatinine is 1.6, his LDH is up slightly to 560 from 392 one yesterday his labs, CRP is relatively stable with 6.8. Pro-calcitonin level was 0.32. His had no fever or chills overnight, but cultures were negative. In view of his progressive oxygen demand and shortness of breath, we recommended transfer to the intensive care unit for closer monitoring Objective - Vital Signs Vital signs: Vital Signs Temp 98.8 F 05/05/21 14:15 Pulse 68 05/05/21 16:00 Resp 26 H 05/05/21 16:00 BP 147/77 05/05/21 16:00 Pulse Ox 89 L 05/05/21 16:00 Intake & Output 05/04/21 05/05/21 05/05/21 18:59 06:59 18:59 Intake Total 975 40 Output Total 500 Balance 975 -500 40 Weight 126.099 kg Intake: Intake, IV Titration 600 40 Amount Sodium Chloride 0.9% 1, 600 40 000 ml @ 75 mls/hr IV . [id number] [facility] Rx#:[id number] Oral 375 Output: Urine 500 Other: Voiding Method Toilet Urinal Urinal Urinal # Voids 4 - Exam GENERAL EXAM: Alert, very pleasant, 66-year-old white female, on on First Wave s upport, with pressures of 12/5, and FiO2 of 100% comfortable in no apparent distress. HEAD: Normocephalic/atraumatic. EYES: Normal reaction of pupils, equal size. Conjunctiva pink, sclera white. NOSE: Clear with pink turbinates. THROAT: No erythema or exudates. NECK: No masses, no JVD, no thyroid enlargement, no adenopathy. CHEST: No chest wall deformity. Symmetrical expansion. LUNGS: Equal air entry with diffuse crackles CVS: Regular rate and rhythm, normal S1 and S2, no gallops, no murmurs, no rubs ABDOMEN: Soft, nontender. No hepatosplenomegaly, normal bowel sounds, no guarding or rigidity. EXTREMITIES: No clubbing, no edema, no cyanosis, 2+ pulses and upper and lower extremities. MUSCULOSKELETAL: Muscle strength and tone normal. SPINE: No scoliosis or deformity SKIN: No rashes CENTRAL NERVOUS SYSTEM: Alert and oriented -3. No focal deficits, tone is normal in all 4 extremities. PSYCHIATRIC: Alert and oriented -3. Appropriate affect. Intact judgment and insight. - Labs CBC & Chem 7: 05/05/21 06:41 05/05/21 06:41 Labs: Abnormal Lab Results - Last 24 Hours (Table) 05/04/21 05/04/21 05/05/21 Range/Units 16:32 20:44 06:41 RBC 4.39 L (4.40-5.60) X 10*6/uL Hgb 12.6 L (13.0-17.0) g/dL MCHC 31.6 L (32.0-37.0) g/dL Immature Gran # 0.05 H (0.00-0.04) X 10*3/uL Eosinophils # 0 L (0.04-0.35) X 10*3/uL BUN (9.0-27.0) mg/dL Creatinine (0.6-1.5) mg/dL Est GFR (CKD-EPI)AfAm (60.0-200.0) Est GFR (CKD-EPI)NonAf (60.0-200.0) BUN/Creatinine Ratio (12.00-20.00) Ratio Glucose (70-110) mg/dL POC Glucose (mg/dL) 318 H 304 H (75-99) mg/dL Calcium (8.7-10.3) mg/dL AST (14-35) U/L Lactate Dehydrogenase (120-246) U/L C-Reactive Protein (0.0-0.8) mg/dL Total Protein (6.2-8.2) g/dL Albumin (3.80-4.90) g/dL Albumin/Globulin Ratio (1.60-3.17) g/dL 05/05/21 05/05/21 05/05/21 Range/Units 06:41 06:42 11:35 RBC (4.40-5.60) X 10*6/uL Hgb (13.0-17.0) g/dL MCHC (32.0-37.0) g/dL Immature Gran # (0.00-0.04) X 10*3/uL Eosinophils # (0.04-0.35) X 10*3/uL BUN 36.0 H (9.0-27.0) mg/dL Creatinine 1.6 H (0.6-1.5) mg/dL Est GFR (CKD-EPI)AfAm 50.9 L (60.0-200.0) Est GFR (CKD-EPI)NonAf 43.9 L (60.0-200.0) BUN/Creatinine Ratio 22.50 H (12.00-20.00) Ratio Glucose 241 H (70-110) mg/dL POC Glucose (mg/dL) 231 H 291 H (75-99) mg/dL Calcium 7.9 L (8.7-10.3) mg/dL AST 63 H (14-35) U/L Lactate Dehydrogenase 560 H (120-246) U/L C-Reactive Protein 6.8 H (0.0-0.8) mg/dL Total Protein 5.9 L (6.2-8.2) g/dL Albumin 3.50 L (3.80-4.90) g/dL Albumin/Globulin Ratio 1.46 L (1.60-3.17) g/dL 05/05/21 Range/Units 14:14 RBC (4.40-5.60) X 10*6/uL Hgb (13.0-17.0) g/dL MCHC (32.0-37.0) g/dL Immature Gran # (0.00-0.04) X 10*3/uL Eosinophils # (0.04-0.35) X 10*3/uL BUN (9.0-27.0) mg/dL Creatinine (0.6-1.5) mg/dL Est GFR (CKD-EPI)AfAm (60.0-200.0) Est GFR (CKD-EPI)NonAf (60.0-200.0) BUN/Creatinine Ratio (12.00-20.00) Ratio Glucose (70-110) mg/dL POC Glucose (mg/dL) 270 H (75-99) mg/dL Calcium (8.7-10.3) mg/dL AST (14-35) U/L Lactate Dehydrogenase (120-246) U/L C-Reactive Protein (0.0-0.8) mg/dL Total Protein (6.2-8.2) g/dL Albumin (3.80-4.90) g/dL Albumin/Globulin Ratio (1.60-3.17) g/dL Microbiology - Last 24 Hours (Table) 05/02/21 20:30 Blood Culture - Preliminary Blood No Growth after 48 hours 05/02/21 20:30 Blood Culture - Preliminary Blood No Growth after 48 hours Assessment and Plan Plan: Assessment: #1. Acute COVID-19 pneumonia, with acute hypoxic respiratory failure, with symptom onset 11-12 days after presentation. Patient is of the window for Remdesivir. His hypoxia has progressed, and patient will be considered for Bariticinib #2. Increased inflammatory markers, related to the above, improved since admission #3. Coronary artery disease with previous coronary artery stenting #4. History of permanent pacemaker insertion #5. History of hypertension 6. Hyperlipidemia #7. History of obstructive sleep apnea on CPAP on an outpatient basis #8. Migraine headache #9. Acute on chronic kidney injury #10. Obesity with BMI 42.3 #11. Acute elevation of inflammatory markers, currently improving #12. Hypothyroidism Plan: Patient's oxygenation has worsened, and patient is currently on BiPAP support, with FiO2 100% Yesterday's chest x-ray shows progression of bilateral infiltrates Continue Decadron, Continue Lovenox Continue Baricitinib In view of worsening oxygenation, we'll transfer the patient to the intensive care unit for closer monitoring Obtain inflammatory markers obtain CBC and BMP tomorrow I performed a history & physical examination of the patient and discussed their management with my nurse practitioner, Penelope Vallejo. I reviewed the nurse practitioner's note and agree with the documented findings and plan of care. Lung sounds are positive for bibasilar infiltrates throughout the lung gaviria. The findings and the impression was discussed with the patient. I attest to the documentation by the nurse practitioner. Time with Patient: Less than 30
[2021-05-05 17:23] LABS: Glucose,Whole Blood 281 mg/dL (75-99)
[2021-05-05] MEDS: BARICITINIB 2 MG TABLET PO SCH (17:47)
[2021-05-05 21:14] LABS: Glucose,Whole Blood 262 mg/dL (75-99)
[2021-05-05] MEDS: ATORVASTATIN 10 MG TAB PO SCH (21:20)
--- NOTE | 2021-05-05 21:37 | P.HPIM ---
History of Present Illness H&P Date: 05/03/21 66 year-old male patient admitted from the emergency department for evaluation for evaluation of fever, chills, cough, and congestion for the last 11 days. States that symptoms seem to be worsening rather than getting better. States that he has had some nausea and vomiting. Reports diarrhea. Denies taking any medication for fever today. Denies history of lung conditions. States he does have a pacemaker and history of diabetes controlled with oral medications. Has been exposed to RSV. Has not had COVID-19 vaccine. Reports white foamy sputum production. Denies wheezing. States he does get short of breath. He tested positive for Covid 19.. Review of Systems GENERAL: Patient denies fever. Denies chills. EYES: Denies blurred vision. Denies vision changes. Denies eye pain. EARS, NOSE, MOUTH, & THROAT: Denies headache. he has sore throat. Denies ear pain. RESPIRATORY: Admits to cough, shortness of breath. Denies sputum production. Denies hemoptysis. CARDIOVASCULAR: Denies chest pain or pressure. Denies palpitations. has pacemaker. GASTROINTESTINAL: Denies abdominal pain. Denies diarrhea. Denies constipation. Denies nausea. Denies vomiting. Denies heartburn. Denies blood in the stool. GENITOURINARY: Denies urinary frequency. Denies burning. Denies dysuria. Denies cloudy urine. Denies blood in the urine. MUSCULOSKELETAL: Denies myalgias. Denies joint swelling. Denies decreased range of motion beyond patients baseline. INTEGUMENTARY: Denies pruitis. Denies rash. PSYCHIATRIC: Denies suicidal or homicial ideations. ENDOCRINE: admits to obesity Denies polydipsia. Denies polyuria. HEMATOLOGIC: Denies bleeding disorders. Past Medical History Past Medical History: Coronary Artery Disease (CAD), Diabetes Mellitus, GERD/Reflux, Hyperlipidemia, Hypertension, Myocardial Infarction (AL), Sleep Apnea/CPAP/BIPAP, Thyroid Disorder Additional Past Medical History / Comment(s): hx migraines, hx gout, Obesity, DANIEL and the patient uses a CPAP machine Last Myocardial Infarction Date:: 1983 History of Any Multi-Drug Resistant Organisms: MRSA Date of last positivie culture/infection: 2007 MDRO Source:: under left arm Past Surgical History: Back Surgery, Heart Catheterization With Stent, Joint Replacement, Pacemaker Additional Past Surgical History / Comment(s): 3 cardiac stents, left ankle tendon surgery, left knee "partial" replacement, radha shoulder surgery, rt hand surgery -laceration, laminectomy L5, cyst removed from back of neck, radha cataracts, Past Anesthesia/Blood Transfusion Reactions: No Reported Reaction Date of Last Stent Placement:: 2007 Type of Cardiac Device: Permanent Pacemaker Device Placement Date:: unknown Smoking Status: Never smoker - Past Family History Mother Family Medical History: Cancer Father Family Medical History: Cancer Medications and Allergies Home Medications Medication Instructions Recorded Confirmed Type Aspirin [Adult Low Dose Aspirin EC] 81 mg PO DAILY 10/22/17 05/02/21 History Enalapril [Vasotec] 20 mg PO DAILY 10/22/17 05/02/21 History hydrALAZINE HCL [Apresoline] 50 mg PO BID 10/22/17 05/02/21 History metFORMIN HCL [Glucophage] 1,000 mg PO BID 10/22/17 05/02/21 History Levothyroxine Sodium [Synthroid] 137 mcg PO DAILY 10/24/17 05/02/21 History Chlorthalidone 25 mg PO MOTH 01/22/18 05/02/21 History Losartan Potassium 100 mg PO DAILY 01/22/18 05/02/21 History Pioglitazone [Actos] 30 mg PO DAILY 01/22/18 05/02/21 History Atorvastatin Calcium [Lipitor] 10 mg PO HS 05/02/21 05/02/21 History Carvedilol [Coreg] 25 mg PO BID 05/02/21 05/02/21 History Ezetimibe [Zetia] 10 mg PO DAILY 05/02/21 05/02/21 History Glimepiride [Amaryl] 2 mg PO DAILY 05/02/21 05/02/21 History Allergies Allergy/AdvReac Type Severity Reaction Status Date / Time codeine AdvReac Nausea & Verified 05/02/21 22:39 Vomiting Physical Exam Osteopathic Statement: *. No significant issues noted on an osteopathic structu ral exam other than those noted in the History and Physical/Consult. Vitals: Vital Signs Temp Pulse Pulse Resp BP BP Pulse Ox 05/03/21 17:34 98.7 F 66 17 169/74 94 L 05/03/21 13:39 98.3 F 66 18 170/69 95 05/03/21 08:23 98 F 69 18 178/85 92 L 05/03/21 08:15 95 05/03/21 06:58 98.0 F 65 18 141/68 96 05/03/21 02:30 71 18 160/85 95 05/03/21 00:11 83 18 96 05/02/21 23:06 99.4 F 103 H 18 142/67 97 05/02/21 21:29 105 H 18 123/74 97 05/02/21 20:30 22 05/02/21 20:24 109 H 20 159/77 92 L 05/02/21 19:38 103.1 F H 100 24 146/79 90 L Intake and Output 05/03/21 05/03/21 05/03/21 06:59 14:59 22:59 Other: # Voids 1 Weight 126.099 kg VITAL SIGNS: As above GENERAL: Sitting up in bed, respiratory effort increased. HEENT: Conjunctivae normal. eyes normal. NECK: No JVD. No thyroid enlargement. No LNs CARDIOVASCULAR: S1, S2 regular. No murmur RESPIRATION: Breath sounds diminished in the bases. Coarse rhonchi with bibasilar crackles. ABDOMEN: Soft, nontender. No guarding. no masses palpable. No ascites, No hepatosplenomegaly.Bowel sounds heard. LEGS: No edema. no swelling PSYCHIATRY: Alert and oriented X3, mood and affect normal. NERVOUS SYSTEM: Cranial N 2-12 grossly normal. Moves all 4 limbs. Diffuse weakness No focal deficits. Strength and sensation grossly intact.. Skin: no lesions, no rash Joints: No active swelling. No inflammation. Lymphatic system. No LN neck axilla or groin. Results CBC & Chem 7: 05/05/21 06:41 05/05/21 06:41 Labs: Abnormal Lab Results - Last 24 Hours (Table) 05/02/21 05/02/21 05/02/21 Range/Units 20:30 20:30 20:30 WBC 2.6 L (3.8-10.6) k/uL Lymphocytes # 0.5 L (1.0-4.8) k/uL D-Dimer (<0.60) mg/L FEU Sodium 135 L (137-145) mmol/L BUN 23 H (9-20) mg/dL Creatinine 1.43 H (0.66-1.25) mg/dL Glucose 246 H (74-99) mg/dL POC Glucose (mg/dL) (75-99) mg/dL Calcium 8.3 L (8.4-10.2) mg/dL Ferritin 375.8 H (22.0-322.0) ng/mL AST 74 H (17-59) U/L Lactate Dehydrogenase 954 H (313-618) U/L C-Reactive Protein 8.3 H (<1.0) mg/dL Procalcitonin (0.02-0.09) ng/mL Coronavirus (PCR) Detected A (Not Detectd) 05/02/21 05/03/21 05/03/21 Range/Units 20:30 12:34 12:52 WBC (3.8-10.6) k/uL Lymphocytes # (1.0-4.8) k/uL D-Dimer (<0.60) mg/L FEU Sodium (137-145) mmol/L BUN (9-20) mg/dL Creatinine (0.66-1.25) mg/dL Glucose (74-99) mg/dL POC Glucose (mg/dL) 330 H (75-99) mg/dL Calcium (8.4-10.2) mg/dL Ferritin (22.0-322.0) ng/mL AST (17-59) U/L Lactate Dehydrogenase 905 H (313-618) U/L C-Reactive Protein 8.8 H (<1.0) mg/dL Procalcitonin 0.32 H (0.02-0.09) ng/mL Coronavirus (PCR) (Not Detectd) 05/03/21 05/03/21 Range/Units 16:35 18:18 WBC (3.8-10.6) k/uL Lymphocytes # (1.0-4.8) k/uL D-Dimer 0.66 H (<0.60) mg/L FEU Sodium (137-145) mmol/L BUN (9-20) mg/dL Creatinine (0.66-1.25) mg/dL Glucose (74-99) mg/dL POC Glucose (mg/dL) 325 H (75-99) mg/dL Calcium (8.4-10.2) mg/dL Ferritin (22.0-322.0) ng/mL AST (17-59) U/L Lactate Dehydrogenase (313-618) U/L C-Reactive Protein (<1.0) mg/dL Procalcitonin (0.02-0.09) ng/mL Coronavirus (PCR) (Not Detectd) Thrombosis Risk Factor Assmnt - Choose All That Apply Any of the Below Risk Factors Present?: Yes Each Factor Represents 1 point: Obesity (BMI >25), Serious lung disease incl. pneumonia (< 1month) Other Risk Factors: Yes Each Risk Factor Represents 2 Points: Age 61-74 years Other congenital or acquired thrombophilia - If yes, enter type in comment: No Thrombosis Risk Factor Assessment Total Risk Factor Score: 4 Thrombosis Risk Factor Assessment Level: Moderate Risk Assessment and Plan (1) COVID-19 Current Visit: Yes Status: Acute Code(s): U07.1 - COVID-19 SNOMED Code(s): 221989175 (2) Hypoxia Current Visit: Yes Status: Acute Code(s): R09.02 - HYPOXEMIA SNOMED Code(s): 641370504 (3) [id number] kidney injury Current Visit: Yes Status: Acute Code(s): N17.9 - ACUTE KIDNEY FAILURE, UNSPECIFIED; N18.9 - CHRONIC KIDNEY DISEASE, UNSPECIFIED SNOMED Code(s): 247833692 (4) Coronary artery disease Current Visit: Yes Status: Acute Code(s): I25.10 - ATHSCL HEART DISEASE OF [place] CORONARY ARTERY W/O ANG PCTRS SNOMED Code(s): 79486589 (5) Morbid exogenous obesity Current Visit: Yes Status: Acute Code(s): E66.01 - MORBID (SEVERE) OBESITY DUE TO EXCESS CALORIES SNOMED Code(s): 173817554 (6) Acute respiratory disease due to COVID-19 virus Current Visit: Yes Status: Acute Code(s): U07.1 - COVID-19; J06.9 - ACUTE UPPER RESPIRATORY INFECTION, UNSPECIFIED SNOMED Code(s): 139550602 Plan: Admit patient to the hospital with pulmonary support and IV hydration steroids and oxygen patient has multiple core morbid conditions and is at high risk for developing severe problems.
[2021-05-06 05:09] LABS: Basophils % (A) 0 %; Eosinophils % (A) 0 %; HCT 41.2 % (39.0-53.0); HGB 13.8 gm/dL (13.0-17.5); Lymphocytes % (A) 11 %; MCH 30.2 pg (25.0-35.0); MCHC 33.6 g/dL (31.0-37.0); MCV 90.1 fL (80.0-100.0); Mean Platelet Volume 8.7; Monocytes # (A) 0.6 k/uL (0-1.0); Monocytes % (A) 6 %; Neutrophils # (A) 7.6 k/uL (1.3-7.7); Neutrophils % (A) 82 %; Platelet Count 226 k/uL (150-450); RBC 4.57 m/uL (4.30-5.90); RDW 13.1 % (11.5-15.5); WBC 9.4 k/uL (3.8-10.6)
[2021-05-06 05:24] LABS: C Reactive Protein 6.9 mg/dL (<1.0); Calcium 8.4 mg/dL (8.4-10.2); Potassium 4.7 mmol/L (3.5-5.1)
[2021-05-06 06:36] LABS: Glucose,Whole Blood 233 mg/dL (75-99)
[2021-05-06] MEDS: SODIUM CHLORIDE 0.9% 1,000 ML IV SCH ×2 (06:42→21:20)
[2021-05-06] MEDS: LEVOTHYROXINE 137 MCG TAB PO SCH (06:42)
[2021-05-06] MEDS: INSULIN DETEMIR (LEVEMIR) 100 UNIT/ML SYR SQ SCH ×2 (06:42→21:21)
[2021-05-06] MEDS: INSULIN ASPART (NovoLOG) 100 UNIT/ML VIAL SQ SCH ×7 (06:42→21:21)
[2021-05-06] MEDS: carvediloL 12.5 MG TAB PO SCH ×2 (07:50→21:20)
[2021-05-06] MEDS: hydrALAZINE HCL 50 MG TAB PO SCH ×3 (07:50→21:20)
[2021-05-06] MEDS: DEXAMETHASONE SOD PHOSPHATE 10 MG/ML 1 ML VIAL IV SCH (07:51)
[2021-05-06] MEDS: EZETIMIBE 10 MG TAB PO SCH (07:51)
[2021-05-06] MEDS: ASPIRIN 81 MG PO SCH (07:54)
--- NOTE | 2021-05-06 08:23 | XR ---
EXAMINATION TYPE: XR chest 1V portable DATE OF EXAM: 05/06/2021 COMPARISON: 9921 HISTORY: Cough TECHNIQUE: Single frontal view of the chest is obtained. FINDINGS: Diffuse bilateral infiltrates with small effusion. No pneumothorax. Heart size stable. Car diac device noted. IMPRESSION: Diffuse bilateral infiltrate stable.
[2021-05-06] MEDS: ENOXAPARIN 40 MG/0.4 ML SYRINGE SQ SCH (09:11)
[2021-05-06] MEDS: ACETAMINOPHEN TAB 325 MG TAB PO PRN (09:21)
--- NOTE | 2021-05-06 10:04 | P.PN ---
Subjective Progress Note Date: 05/06/21 Principal diagnosis: On 05/04/2021 patient seen in follow-up on [facility] care unit. His oxygen demand has increased, he is currently on 100 percent nonrebreather, his oxygen saturations are ranging between 82 and 88%, is having low-grade fevers this afternoon, blood pressures stable. Inflammatory markers are improving on today's labs, LDH is down to 392, CRP is 6.0, pro calcitonin level was 0.32. D- dimer was 0.66. Blood cultures have been negative. Patient remains on de xamethasone 6 mg daily, he is on prophylactic dose Lovenox 40 mg daily. His chest x-ray point diffuse bilateral infiltrates that appear to be progress. Patient could not tolerate high flow nasal cannula and was desaturating on it. On today's evaluation of 05/05/2021 patient seen in follow-up on medical surgical floor. Overnight patient was placed on BiPAP support for worsening dyspnea and hypoxia, with pressures of 12/5, and FiO2 of 100%, and his pulse ox is around 89%. Patient is currently up in the chair, is short of breath with any exertion, he was started on bariticinib yesterday, and he continues on Decadron 6 mg daily, and Lovenox 80 mg once daily, his chest x-ray has been reviewed showing stable diffuse bilateral infiltrates. Today's labs have been reviewed, white blood cell count is not 7.9, hemoglobin is 12.6, his lymphocyte count is 1.27, electrolytes are within normal limits, B1 is 36, creatinine is 1.6, his LDH is up slightly to 560 from 392 one yesterday his labs, CRP is relatively stable with 6.8. Pro-calcitonin level was 0.32. His had no fever or chills overnight, but cultures were negative. In view of his progressive oxygen demand and shortness of breath, we recommended transfer to the intensive care unit for closer monitoring On 05/06/2021 patient seen in follow-up in the intensive care unit where she was transferred yesterday from [facility]. in view of his worsening hypoxia, patient is currently on BiPAP support with pressures of 12/10 and FiO2 100%, his pulse ox is ranging between 86-91%, he sitting up in the recliner where he slept last night, he does not appear to be in any acute distress, however he does desaturate down to 68 when he removes the BiPAP mask even briefly to take a bite of food, or his medication. Is currently on IV fluids with 0.9, secondary to 20 ML per hour. He continues on Baricitinib 2 mg daily, and today is day 2 of charlie tment, in addition he is on IV Decadron 6 mg daily, is on prophylactic dose of Lovenox 40 mg daily, he is receiving when necessary doses of Ativan for anxiety and breathlessness. Today's chest x-ray has been reviewed showing diffuse bilateral infiltrates that are stable in appearance. Today's labs have been reviewed showing CBC within normal limits, electrolytes were unremarkable, BUN is 39, creatinine is 1.41. Inflammatory markers seems to have increased as far as LDH is up to 1792, and CRP is relatively stable 6.9. His d-dimer today is 0.59. He appears to be sleepy, but no acute distress, he is answering questions appropriately, denies any chest discomfort. He is been in his chair for the most part. His been using the urinal to urinate, he is trying to keep up his oral intake and take bites of food. No other acute events overnight. Objective - Vital Signs Vital signs: Vital Signs Temp 98.5 F 05/06/21 08:00 Pulse 68 05/06/21 09:00 Resp 24 05/06/21 09:00 BP 133/76 05/06/21 09:00 Pulse Ox 92 L 05/06/21 09:00 Intake & Output 05/05/21 05/06/21 05/06/21 18:59 06:59 18:59 Intake Total 100 290 60 Output Total 450 300 Balance 100 -160 -240 Weight 126.099 kg Intake: IV 220 60 0.9 220 60 Intake, IV Titration 100 20 Amount Sodium Chloride 0.9% 1, 100 20 000 ml @ 75 mls/hr IV . [id number] MYLES Rx#:[id number] Oral 50 Output: Urine 450 300 Other: Voiding Method Urinal Urinal # Voids 1 - Exam GENERAL EXAM: Alert, very pleasant, 66-year-old white male, on on BiPAP support, with pressures of 12/10, and FiO2 of 100% comfortable in no apparent distress. HEAD: Normocephalic/atraumatic. EYES: Normal reaction of pupils, equal size. Conjunctiva pink, sclera white. NOSE: Clear with pink turbinates. THROAT: No erythema or exudates. NECK: No masses, no JVD, no thyroid enlargement, no adenopathy. CHEST: No chest wall deformity. Symmetrical expansion. LUNGS: Equal air entry with diffuse crackles CVS: Regular rate and rhythm, normal S1 and S2, no gallops, no murmurs, no rubs ABDOMEN: Soft, nontender. No hepatosplenomegaly, normal bowel sounds, no guarding or rigidity. EXTREMITIES: No clubbing, no edema, no cyanosis, 2+ pulses and upper and lower extremities. MUSCULOSKELETAL: Muscle strength and tone normal. SPINE: No scoliosis or deformity SKIN: No rashes CENTRAL NERVOUS SYSTEM: Alert and oriented -3. No focal deficits, tone is normal in all 4 extremities. PSYCHIATRIC: Alert and oriented -3. Appropriate affect. Intact judgment and insight. - Labs CBC & Chem 7: 05/06/21 04:34 05/06/21 04:34 Labs: Abnormal Lab Results - Last 24 Hours (Table) 05/05/21 05/05/21 05/05/21 Range/Units 06:41 11:35 14:14 BUN 36.0 H (9.0-27.0) mg/dL Creatinine 1.6 H (0.6-1.5) mg/dL Est GFR (CKD-EPI)AfAm 50.9 L (60.0-200.0) Est GFR (CKD-EPI)NonAf 43.9 L (60.0-200.0) BUN/Creatinine Ratio 22.50 H (12.00-20.00) Ratio Glucose 241 H (70-110) mg/dL POC Glucose (mg/dL) 291 H 270 H (75-99) mg/dL Calcium 7.9 L (8.7-10.3) mg/dL AST 63 H (14-35) U/L Lactate Dehydrogenase 560 H (120-246) U/L C-Reactive Protein 6.8 H (0.0-0.8) mg/dL Total Protein 5.9 L (6.2-8.2) g/dL Albumin 3.50 L (3.80-4.90) g/dL Albumin/Globulin Ratio 1.46 L (1.60-3.17) g/dL 05/05/21 05/05/21 05/06/21 Range/Units 17:21 21:13 04:34 BUN 39 H (9.0-27.0) mg/dL Creatinine 1.41 H (0.6-1.5) mg/dL Est GFR (CKD-EPI)AfAm (60.0-200.0) Est GFR (CKD-EPI)NonAf (60.0-200.0) BUN/Creatinine Ratio (12.00-20.00) Ratio Glucose 227 H (70-110) mg/dL POC Glucose (mg/dL) 281 H 262 H (75-99) mg/dL Calcium (8.7-10.3) mg/dL AST (14-35) U/L Lactate Dehydrogenase 1792 H (120-246) U/L C-Reactive Protein 6.9 H (0.0-0.8) mg/dL Total Protein (6.2-8.2) g/dL Albumin (3.80-4.90) g/dL Albumin/Globulin Ratio (1.60-3.17) g/dL 05/06/21 Range/Units 06:35 BUN (9.0-27.0) mg/dL Creatinine (0.6-1.5) mg/dL Est GFR (CKD-EPI)AfAm (60.0-200.0) Est GFR (CKD-EPI)NonAf (60.0-200.0) BUN/Creatinine Ratio (12.00-20.00) Ratio Glucose (70-110) mg/dL POC Glucose (mg/dL) 233 H (75-99) mg/dL Calcium (8.7-10.3) mg/dL AST (14-35) U/L Lactate Dehydrogenase (120-246) U/L C-Reactive Protein (0.0-0.8) mg/dL Total Protein (6.2-8.2) g/dL Albumin (3.80-4.90) g/dL Albumin/Globulin Ratio (1.60-3.17) g/dL Microbiology - Last 24 Hours (Table) 05/02/21 20:30 Blood Culture - Preliminary Blood No Growth after 72 hours 05/02/21 20:30 Blood Culture - Preliminary Blood No Growth after 72 hours Assessment and Plan Plan: Assessment: #1. Acute COVID-19 pneumonia, with acute hypoxic respiratory failure, with symptom onset 11-12 days after presentation. Patient is of the window for Shaniqua rockwell. His hypoxia has progressed, and patient was started on Bariticinib on 05/03/2021. Transfer to the intensive care unit on 05/05/2021 #2. Increased inflammatory markers, related to the above, improved since admission #3. Coronary artery disease with previous coronary artery stenting #4. History of permanent pacemaker insertion #5. History of hypertension 6. Hyperlipidemia #7. History of obstructive sleep apnea on CPAP on an outpatient basis #8. Migraine headache #9. Acute on chronic kidney injury #10. Obesity with BMI 42.3 #11. Acute elevation of inflammatory markers, currently improving #12. Hypothyroidism Plan: Patient is tolerating BiPAP support Desats quite rapidly off the BiPAP, and at this time she is pretty much BiPAP dependent Continue Decadron, Continue Lovenox Continue Baricitinib Today's chest x-ray showing stable pulmonary infiltrates Vital signs have been stable no fever Today's labs have been noted, LDH is on the rise Clinically he appears to be the same, does not seem to be in any acute distress Continue close monitoring in the intensive care unit I performed a history & physical examination of the patient and discussed their management with my nurse practitioner, Penelope Vallejo. I reviewed the nurse practitioner's note and agree with the documented findings and plan of care. Lung sounds are positive for bibasilar infiltrates throughout the lung gaviria. The findings and the impression was discussed with the patient. I attest to the documentation by the nurse practitioner. Time with Patient: Less than 30
[2021-05-06 10:56] LABS: Ferritin 765.8 ng/mL (22.0-322.0)
[2021-05-06] MEDS ORDERED: LIDOCAINE 1% INJ 10MG/ML (20 ML MDV) ONE (11:32)
[2021-05-06 11:59] LABS: Glucose,Whole Blood 214 mg/dL (75-99)
[2021-05-06] MEDS: LIDOCAINE 1% INJ 10MG/ML (20 ML MDV) SQ ONE ×2 (12:20→12:39)
--- NOTE | 2021-05-06 13:05 | XR ---
EXAMINATION TYPE: XR chest 1V confirm line plcmt, XR chest 1V confirm line plcmt DATE OF EXAM: 05/06/2021 HISTORY: Shortness of breath. COMPARISON: 05/06/21 12:26pm and 12:42 pm TECHNIQUE: Single view of the chest is submitted. FINDINGS: Second radiograph obtained demonstrates a right-sided PICC line overlies the distal SVC. No pneumotho rax seen. Bilateral infiltrates persist. The heart is stable. Hilar and mediastinal structures are within normal limits. Degenerative changes are seen of the dorsal spine. IMPRESSION: 1. Second radiograph obtained demonstrates a right-sided PICC line overlies the distal SVC. No pneum othorax seen. Bilateral infiltrates persist.
--- NOTE | 2021-05-06 13:12 | IR ---
PICC LINE PLACEMENT: HISTORY: Infection requiring long-term antibiotic therapy PROCEDURE: Ultrasound guidance of PICC line placement. 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 1% Lidocaine locally. FINDINGS/TECHNIQUE: The procedure was explained to the patient. The risks, complications, benefits and alternatives were discussed and any questions were answered. Informed consent was obtained. The patient was placed supine on the fluoroscopic table and prepped and draped in the usual sterile fash ion. Utilizing a 21 gauge needle and sonographic guidance, access in the right basilic vein was ach ieved and there is placement of a 0.018 guidewire. The vein is patent. A 5-F. sheath was placed ove r the guidewire. The guidewire and dilator were removed and a 5-F. Double lumen PICC line was placed through the sheath with the chest x-ray confirming the tip at the level of the SVC. The sheath was removed, the catheter was flushed and sutured into position. The patient was stable throughout the p rocedure and remained stable upon discharge from the Department of Radiology. The vein puncture was patent under ultrasound. A flores scale image was obtained to document patency of the vein punctured. All elements of the maximal barrier technique were utilized. IMPRESSION: 1. Successful PICC line placement under ultrasound performed bedside within the ICU.
--- NOTE | 2021-05-06 13:23 | P.PN ---
Subjective Progress Note Date: 05/06/21 This is 66-year-old gentleman admitted with acute hypoxic respiratory failure secondary to COVID-19 infection. Afebrile. Maintained on Covid cocktail, including Decadron IV.Inflammatory markers trending down.He stated this morning with exertion from 88% tone to 75%. Currently placed on 6 L nasal cannula, O2 sat pending. Chest x-ray reporting progression of diffuse bilateral infiltrates.Blood sugars uncontrolled, A1c 9.1. 05/05/2021 respiratory status worsened yesterday, requiring nonrebreather. Th roughout the night, increased anxiety, patient pulling off masks, requiring minimal of 45 minutes to recover O2 saturation. Xanax initiated for anxiety, patient unable to tolerate, reported nausea/ vomiting. Received Ativan, tolerated well. Currently on BiPAP maintaining O2 sats in the 80s. Continues on Covid regimen. Renal function trending up, creatinine 1.6. Denies chest pain, palpitations. 05/06/2021 transferred into the ICU yesterday afternoon related to worsening hypoxia on BiPAP. Slept in the recliner, maintaining O2 sats mid 80s to low 90s. Chest x-ray reporting persistent bilateral infiltrates. Reports feels less shortness of breath, less anxiety on oral Ativan. Maintained on Covid regimen including Baricitinib. Inflammatory markers increased with the exception of d-dimer. Afebrile, normal WBC. Yesterday GHADA inhibitor, Cozaar discontinued, hydralazine increased secondary to worsening renal function-renal function improving. Hyperglycemic, blood sugars in the mid to low 200s. Objective - Vital Signs Vital signs: Vital Signs Temp 98.5 F 05/06/21 08:00 Pulse 61 05/06/21 12:00 Resp 31 H 05/06/21 12:00 BP 137/68 05/06/21 12:00 Pulse Ox 88 L 05/06/21 12:00 Intake & Output 05/05/21 05/06/21 05/06/21 18:59 06:59 18:59 Intake Total 100 290 120 Output Total 450 300 Balance 100 -160 -180 Weight 126.099 kg Intake: IV 220 120 0.9 220 120 Intake, IV Titration 100 20 Amount Sodium Chloride 0.9% 1, 100 20 000 ml @ 75 mls/hr IV . [id number] [facility] Rx#:[id number] Oral 50 Output: Urine 450 300 Other: Voiding Method Urinal Urinal Urinal # Voids 1 - Exam PHYSICAL EXAM: VITAL SIGNS: As above GENERAL: Sitting up in chair, respiratory effort increased. HEENT: Conjunctivae normal. eyes normal. Wearing BiPAP NECK: Supple No JVD. CARDIOVASCULAR: S1, S2 regular. No murmur RESPIRATION: Breath sounds diminished in the bases with bibasilar crackles. ABDOMEN: Soft, nontender. No guarding. no masses palpable. Bowel sounds heard. LEGS: No edema. no swelling. PSYCHIATRY: Alert and oriented X3, mood and affect normal. NERVOUS SYSTEM: Cranial N 2-12 grossly normal. Moves all 4 limbs.No focal deficits. Strength and sensation grossly intact. Skin: Warm and dry, no rash - Labs CBC & Chem 7: 05/06/21 04:34 05/06/21 04:34 Labs: Abnormal Lab Results - Last 24 Hours (Table) 05/05/21 05/05/21 05/05/21 Range/Units 06:41 14:14 17:21 BUN 36.0 H (9.0-27.0) mg/dL Creatinine 1.6 H (0.6-1.5) mg/dL Est GFR (CKD-EPI)AfAm 50.9 L (60.0-200.0) Est GFR (CKD-EPI)NonAf 43.9 L (60.0-200.0) BUN/Creatinine Ratio 22.50 H (12.00-20.00) Ratio Glucose 241 H (70-110) mg/dL POC Glucose (mg/dL) 270 H 281 H (75-99) mg/dL Calcium 7.9 L (8.7-10.3) mg/dL Ferritin (22.0-322.0) ng/mL AST 63 H (14-35) U/L Lactate Dehydrogenase 560 H (120-246) U/L C-Reactive Protein 6.8 H (0.0-0.8) mg/dL Total Protein 5.9 L (6.2-8.2) g/dL Albumin 3.50 L (3.80-4.90) g/dL Albumin/Globulin Ratio 1.46 L (1.60-3.17) g/dL 05/05/21 05/06/21 05/06/21 Range/Units 21:13 04:34 06:35 BUN 39 H (9.0-27.0) mg/dL Creatinine 1.41 H (0.6-1.5) mg/dL Est GFR (CKD-EPI)AfAm (60.0-200.0) Est GFR (CKD-EPI)NonAf (60.0-200.0) BUN/Creatinine Ratio (12.00-20.00) Ratio Glucose 227 H (70-110) mg/dL POC Glucose (mg/dL) 262 H 233 H (75-99) mg/dL Calcium (8.7-10.3) mg/dL Ferritin 765.8 H (22.0-322.0) ng/mL AST (14-35) U/L Lactate Dehydrogenase 1792 H (120-246) U/L C-Reactive Protein 6.9 H (0.0-0.8) mg/dL Total Protein (6.2-8.2) g/dL Albumin (3.80-4.90) g/dL Albumin/Globulin Ratio (1.60-3.17) g/dL 05/06/21 Range/Units 11:57 BUN (9.0-27.0) mg/dL Creatinine (0.6-1.5) mg/dL Est GFR (CKD-EPI)AfAm (60.0-200.0) Est GFR (CKD-EPI)NonAf (60.0-200.0) BUN/Creatinine Ratio (12.00-20.00) Ratio Glucose (70-110) mg/dL POC Glucose (mg/dL) 214 H (75-99) mg/dL Calcium (8.7-10.3) mg/dL Ferritin (22.0-322.0) ng/mL AST (14-35) U/L Lactate Dehydrogenase (120-246) U/L C-Reactive Protein (0.0-0.8) mg/dL Total Protein (6.2-8.2) g/dL Albumin (3.80-4.90) g/dL Albumin/Globulin Ratio (1.60-3.17) g/dL Microbiology - Last 24 Hours (Table) 05/02/21 20:30 Blood Culture - Preliminary Blood No Growth after 72 hours 05/02/21 20:30 Blood Culture - Preliminary Blood No Growth after 72 hours Assessment and Plan Assessment: Acute COVID-19 infection, pneumonia. Acute hypoxic respiratory failure secondary to the above, progressed requiring transfer to ICU. Acute on chronic kidney failure, stage III Leukopenia Diabetes mellitus, uncontrolled, hyperglycemic, hemoglobin A1c 9.1 Obstructive sleep apnea, on CPAP outpatient CAD with history of stenting, permanent pacemaker Hypertension Hyperlipidemia Hypothyroidism Morbid obesity, BMI 42.3 Anxiety Plan: Continue on current medication regime ,monitoring and symptomatic treatment. Additional Levemir added to med.regimen at bedtime, close monitoring of Accu-Cheks. Maintain COVID cocktail, including Baricitinib.Close monitoring of renal function. ICU management as per drug and alcohol counselor. Prognosis gu arded given multiple complex medical issues. The impression and plan of care has been dictated as directed. : I performed a history and examination of this patient, discussed the same with the dictator. I agree with the dictator's note ,documented as a scribe. Any additional findings or plans will be noted.
[2021-05-06 16:45] LABS: Glucose,Whole Blood 184 mg/dL (75-99)
[2021-05-06] MEDS: BARICITINIB 2 MG TABLET PO SCH (17:02)
[2021-05-06 21:15] LABS: Glucose,Whole Blood 152 mg/dL (75-99)
[2021-05-06] MEDS: ATORVASTATIN 10 MG TAB PO SCH (21:20)
[2021-05-07] MEDS: ACETAMINOPHEN TAB 325 MG TAB PO PRN ×2 (02:04→21:26)
[2021-05-07 04:43] LABS: Basophils % (A) 0 %; Eosinophils % (A) 0 %; HCT 41.7 % (39.0-53.0); HGB 13.9 gm/dL (13.0-17.5); Lymphocytes # (A) 0.8 k/uL (1.0-4.8); Lymphocytes % (A) 8 %; MCH 29.9 pg (25.0-35.0); MCHC 33.2 g/dL (31.0-37.0); Mean Platelet Volume 8.1; Monocytes # (A) 0.6 k/uL (0-1.0); Monocytes % (A) 6 %; Neutrophils # (A) 9.2 k/uL (1.3-7.7); Neutrophils % (A) 85 %; Platelet Count 304 k/uL (150-450); RBC 4.64 m/uL (4.30-5.90); RDW 13.6 % (11.5-15.5); WBC 10.9 k/uL (3.8-10.6)
[2021-05-07 04:58] LABS: Calcium 8.4 mg/dL (8.4-10.2); Potassium 4.5 mmol/L (3.5-5.1)
[2021-05-07 05:51] LABS: C Reactive Protein 6.9 mg/dL (<1.0)
--- NOTE | 2021-05-07 06:37 | XR ---
EXAMINATION TYPE: XR chest 1V portable DATE OF EXAM: 05/07/2021 CLINICAL HISTORY: Difficulty breathing progress study. TECHNIQUE: Single AP portable upright view of the chest is obtained. COMPARISON: Chest x-ray from one day earlier FINDINGS: Stable right-sided PICC line. Persistent low lung volumes and cardiomegaly with dual lead pacemaker. Persistent bilateral multifocal areas of increased opacity with some improved appearance o f the upper lungs. IMPRESSION: As above. Findings consistent with covid-19 infection. Improved opacities upper lungs tavares pected product of change from supine to upright technique versus resolving infiltrates.
[2021-05-07] MEDS: INSULIN ASPART (NovoLOG) 100 UNIT/ML VIAL SQ SCH ×7 (06:39→21:26)
[2021-05-07 06:40] LABS: Glucose,Whole Blood 128 mg/dL (75-99)
[2021-05-07] MEDS: LEVOTHYROXINE 137 MCG TAB PO SCH (06:42)
[2021-05-07] MEDS: INSULIN DETEMIR (LEVEMIR) 100 UNIT/ML SYR SQ SCH ×2 (06:42→21:26)
[2021-05-07] MEDS: hydrALAZINE HCL 50 MG TAB PO SCH ×3 (09:18→21:26)
[2021-05-07] MEDS: EZETIMIBE 10 MG TAB PO SCH (09:18)
[2021-05-07] MEDS: ASPIRIN 81 MG PO SCH (09:18)
[2021-05-07] MEDS: carvediloL 12.5 MG TAB PO SCH ×2 (09:18→21:25)
[2021-05-07] MEDS: ENOXAPARIN 40 MG/0.4 ML SYRINGE SQ SCH (09:18)
[2021-05-07] MEDS: DEXAMETHASONE SOD PHOSPHATE 10 MG/ML 1 ML VIAL IV SCH (09:19)
[2021-05-07] MEDS ORDERED: FUROSEMIDE 10 MG/ML 4 ML VIAL IV STA (09:24)
[2021-05-07 11:56] LABS: Glucose,Whole Blood 211 mg/dL (75-99)
--- NOTE | 2021-05-07 13:03 | P.PN ---
Subjective Progress Note Date: 05/07/21 Principal diagnosis: Acute hypoxic respiratory failure secondary to COVID-19 pneumonia. On 05/04/2021 patient seen in follow-up on selective care unit. His oxygen demand has increased, he is currently on 100 percent nonrebreather, his oxygen saturations are ranging between 82 and 88%, is having low-grade fevers this afternoon, blood pressures stable. Inflammatory markers are improving on today's labs, LDH is down to 392, CRP is 6.0, pro calcitonin level was 0.32. D- dimer was 0.66. Blood cultures have been negative. Patient remains on dexamethasone 6 mg daily, he is on prophylactic dose Lovenox 40 mg daily. His chest x-ray point diffuse bilateral infiltrates that appear to be progress. Patient could not tolerate high flow nasal cannula and was desaturating on it. On today's evaluation of 05/05/2021 patient seen in follow-up on medical surgical floor. Overnight patient was placed on BiPAP support for worsening dyspnea and hypoxia, with pressures of 12/5, and FiO2 of 100%, and his pulse ox is around 89%. Patient is currently up in the chair, is short of breath with any exertion, he was started on bariticinib yesterday, and he continues on Decadron 6 mg daily, and Lovenox 80 mg once daily, his chest x-ray has been reviewed showing stable diffuse bilateral infiltrates. Today's labs have been reviewed, white blood cell count is not 7.9, hemoglobin is 12.6, his lymphocyte count is 1.27, electrolytes are within normal limits, B1 is 36, creatinine is 1.6, his LDH is up slightly to 560 from 392 one yesterday his labs, CRP is relatively stable with 6.8. Pro-calcitonin level was 0.32. His had no fever or chills overnight, but cultures were negative. In view of his progressive oxygen demand and shortness of breath, we recommended transfer to the intensive care unit for closer monitoring On 05/06/2021 patient seen in follow-up in the intensive care unit where she was transferred yesterday from [facility]. in view of his worsening hypoxia, patient is cu rrently on BiPAP support with pressures of 12/10 and FiO2 100%, his pulse ox is ranging between 86-91%, he sitting up in the recliner where he slept last night, he does not appear to be in any acute distress, however he does desaturate down to 68 when he removes the BiPAP mask even briefly to take a bite of food, or his medication. Is currently on IV fluids with 0.9, secondary to 20 ML per hour. He continues on Baricitinib 2 mg daily, and today is day 2 of treatment, in addition he is on IV Decadron 6 mg daily, is on prophylactic dose of Lovenox 40 mg daily, he is receiving when necessary doses of Ativan for anxiety and breathlessness. Today's chest x-ray has been reviewed showing diffuse bilateral infiltrates that are stable in appearance. Today's labs have been reviewed showing CBC within normal limits, electrolytes were unremarkable, BUN is 39, creatinine is 1.41. Inflammatory markers seems to have increased as far as LDH is up to 1792, and CRP is relatively stable 6.9. His d-dimer today is 0.59. He appears to be sleepy, but no acute distress, he is answering questions appr opriately, denies any chest discomfort. He is been in his chair for the most part. His been using the urinal to urinate, he is trying to keep up his oral intake and take bites of food. No other acute events overnight. Reevaluated today on 05/07/2021, patient remains in the ICU, his pulmonary status is marginal at best. Patient is on BiPAP 08/03 he is also on 100% FiO2, with O2 saturation in the high 80s at best. Surprisingly however the patient seems to be in no distress, he is comfortable, sitting at a bedside chair, alert oriented 3, and I have increased his IPAP 14 instead of 12, patient seems to be extremely comfortable. Chest x-ray continues to show bilateral interstitial infiltrates. WBC count is 10.9 hemoglobin 13.9 d-dimer is 0.96 electrolytes are normal LDH 2093 and C-reactive protein is 6. Objective - Vital Signs Vital signs: Vital Signs Temp 98.5 F 05/07/21 08:00 Pulse 64 05/07/21 12:00 Resp 35 H 05/07/21 12:00 BP 166/83 05/07/21 12:00 Pulse Ox 87 L 05/07/21 12:00 Intake & Output 05/06/21 05/07/21 05/07/21 18:59 06:59 18:59 Intake Total 240 290 270 Output Total 958 527 2914 Balance -772 -221 -3313 Intake: IV 240 240 120 0.9 240 240 120 Oral 50 150 Output: Urine 360 042 6850 Other: Voiding Method Urinal Urinal Urinal # Voids 1 1 - Exam GENERAL EXAM: Alert, very pleasant, 66-year-old white male, on on BiPAP support, not noted to be in distress. HEAD: Normocephalic/atraumatic. HEENT: PERRLA, EOMI, anicteric, no neck masses, no JVD, no stridor, patient does have short obese neck. CHEST: No chest wall deformity. Symmetrical expansion. LUNGS: Equal air entry fine crackles at the bases. CVS: Regular rate and rhythm, normal S1 and S2, no gallops, no murmurs, no rubs ABDOMEN: Soft, nontender. No hepatosplenomegaly, normal bowel sounds, no guarding or rigidity. EXTREMITIES: No clubbing, no edema, no cyanosis, 2+ pulses and upper and lower extremities. MUSCULOSKELETAL: Muscle strength and tone normal. SPINE: No scoliosis or deformity SKIN: No rashes CENTRAL NERVOUS SYSTEM: Alert and oriented 3 focal deficits.. PSYCHIATRIC: Normal mood, affect and normal mental status examination. - Labs CBC & Chem 7: 05/07/21 04:28 05/07/21 04:28 Labs: Abnormal Lab Results - Last 24 Hours (Table) 05/06/21 05/06/21 05/07/21 Range/Units 16:44 21:12 04:28 WBC 10.9 H (3.8-10.6) k/uL Neutrophils # 9.2 H (1.3-7.7) k/uL Lymphocytes # 0.8 L (1.0-4.8) k/uL D-Dimer (<0.60) mg/L FEU Chloride (98-107) mmol/L BUN (9-20) mg/dL Glucose (74-99) mg/dL POC Glucose (mg/dL) 184 H 152 H (75-99) mg/dL Lactate Dehydrogenase (313-618) U/L C-Reactive Protein (<1.0) mg/dL 05/07/21 05/07/21 05/07/21 Range/Units 04:28 04:28 06:37 WBC (3.8-10.6) k/uL Neutrophils # (1.3-7.7) k/uL Lymphocytes # (1.0-4.8) k/uL D-Dimer 0.96 H (<0.60) mg/L FEU Chloride 108 H (98-107) mmol/L BUN 40 H (9-20) mg/dL Glucose 139 H (74-99) mg/dL POC Glucose (mg/dL) 128 H (75-99) mg/dL Lactate Dehydrogenase 2093 H (313-618) U/L C-Reactive Protein 6.9 H (<1.0) mg/dL 05/07/21 Range/Units 11:55 WBC (3.8-10.6) k/uL Neutrophils # (1.3-7.7) k/uL Lymphocytes # (1.0-4.8) k/uL D-Dimer (<0.60) mg/L FEU Chloride (98-107) mmol/L BUN (9-20) mg/dL Glucose (74-99) mg/dL POC Glucose (mg/dL) 211 H (75-99) mg/dL Lactate Dehydrogenase (313-618) U/L C-Reactive Protein (<1.0) mg/dL Microbiology - Last 24 Hours (Table) 05/02/21 20:30 Blood Culture - Preliminary Blood No Growth after 96 hours 05/02/21 20:30 Blood Culture - Preliminary Blood No Growth after 96 hours Assessment and Plan Assessment: #1. Acute COVID-19 pneumonia, with acute hypoxic respiratory failure, with symptom onset 11-12 days after presentation. Patient is of the window for Remdesivir. His hypoxia has progressed, and patient was started on Bariticinib on 05/03/2021. Transfer to the intensive care unit on 05/05/2021 #2. Increased inflammatory markers, related to the above, improved since admission #3. Coronary artery disease with previous coronary artery stenting #4. History of permanent pacemaker insertion #5. History of hypertension 6. Hyperlipidemia #7. History of obstructive sleep apnea on CPAP on an outpatient basis #8. Migraine headache #9. Acute on chronic kidney injury #10. Obesity with BMI 42.3 #11. Acute elevation of inflammatory markers, currently improving #12. Hypothyroidism Recommendation: Continue to monitor the patient is ICU. Continue BiPAP. Continue Decadron. Continue baricitinib Continue to monitor inflammatory markers. Adjust Lovenox dose based on the d-dimer level. Prognosis remains poor and guarded, patient is marginal at best. We'll continue to monitor and treat in the ICU. Time with Patient: Less than 30
--- NOTE | 2021-05-07 15:21 | P.PN ---
Subjective Progress Note Date: 05/07/21 Principal diagnosis: Acute hypoxic respiratory failure secondary to COVID-19 pneumonia This is 66-year-old gentleman admitted with acute hypoxic respiratory failure secondary to COVID-19 infection. Afebrile. Maintained on Covid cocktail, including Decadron IV.Inflammatory markers trending down.He stated this morning with exertion from 88% tone to 75%. Currently placed on 6 L nasal cannula, O2 sat pending. Chest x-ray reporting progression of diffuse bilateral infiltrates.Blood sugars uncontrolled, A1c 9.1. 05/05/2021 respiratory status worsened yesterday, requiring nonrebreather. Throughout the night, increased anxiety, patient pulling off masks, requiring minimal of 45 minutes to recover O2 saturation. Xanax initiated for anxiety, patient unable to tolerate, reported nausea/ vomiting. Received Ativan, tolerated well. Currently on BiPAP maintaining O2 sats in the 80s. Continues on Covid regimen. Renal function trending up, creatinine 1.6. Denies chest pain, palpitations. 05/06/2021 transferred into the ICU yesterday afternoon related to worsening hypoxia on BiPAP. Slept in the recliner, maintaining O2 sats mid 80s to low 90s. Chest x-ray reporting persistent bilateral infiltrates. Reports feels less shortness of breath, less anxiety on oral Ativan. Maintained on Covid regimen including Baricitinib. Inflammatory markers increased with the exception of d- dimer. Afebrile, normal WBC. Yesterday GHADA inhibitor, Cozaar discontinued, hydralazine increased secondary to worsening renal function-renal function improving. Hyperglycemic, blood sugars in the mid to low 200s. 05/07/2021 Patient is currently on BiPAP. Sitting on a chair. Awake alert and oriented 3. No complaints of chest pain. Patient has been afebrile. Chest x-ray showed bilateral interstitial infiltrates. Patient is being continued on Baricitanib, dexamethasone Lovenox. Continued on breathing treatments and insulin regimen. Laboratory data showed WBC 10.9 hemoglobin 13.9 and platelets 304, d-dimer 0.96 Sodium 141 potassium 4.5 chloride 108 BUN 40 and creatinine 1.25, LDH 2093 CRP 6.9 Active Medications Generic Name Dose Route Start Last Admin Trade Name Freq PRN Reason Stop Dose Admin Acetaminophen 650 mg 05/06/21 08:35 05/07/21 02:04 Acetaminophen Tab 325 Mg Tab PO 650 mg Q6HR PRN Administration Fever and/ or Pain Aspirin 81 mg 05/04/21 09:00 05/07/21 09:18 Aspirin 81 Mg PO 81 mg DAILY MYLES Administration Atorvastatin Calcium 10 mg 05/03/21 21:00 05/06/21 21:20 Atorvastatin 10 Mg Tab PO 10 mg HS MYLES Administration Baricitinib 2 mg 05/04/21 20:00 05/06/21 17:02 Baricitinib 2 Mg Tablet PO 05/17/21 18:01 2 mg DAILY@1800 MYLES Administration Carvedilol 25 mg 05/03/21 21:00 05/07/21 09:18 Carvedilol 12.5 Mg Tab PO 25 mg BID MYLES Administration Dexamethasone Sodium Phosphate 6 mg 05/03/21 09:00 05/07/21 09:19 Dexamethasone Sod Phosphate 10 Mg/Ml 1 Ml Vial IV 6 mg DAILY MYLES Administration Ezetimibe 10 mg 05/04/21 09:00 05/07/21 09:18 Ezetimibe 10 Mg Tab PO 10 mg DAILY MYLES Administration Enoxaparin Sodium 40 mg 05/03/21 12:30 05/07/21 09:18 Enoxaparin 40 Mg/0.4 Ml Syringe SQ 40 mg DAILY MYLES Administration Hydralazine HCl 50 mg 05/05/21 16:45 05/07/21 09:18 Hydralazine Hcl 50 Mg Tab PO 50 mg TID MYLES Administration Sodium Chloride 1,000 mls @ 20 mls/hr 05/02/21 23:15 05/06/21 21:20 Saline 0.9% IV 75 mls/hr .Q24H MYLES Administration Insulin Aspart 0 unit 05/03/21 12:30 05/07/21 12:38 Insulin Aspart (Novolog) 100 Unit/Ml Vial SQ 4 unit ACHS MYLES Administration Protocol Insulin Aspart 10 unit 05/06/21 17:30 05/07/21 12:38 Insulin Aspart (Novolog) 100 Unit/Ml Vial SQ 10 unit AC-TID MYLES Administration Insulin Detemir 25 unit 05/05/21 07:00 05/07/21 06:42 Insulin Detemir (Levemir) 100 Unit/Ml Syr SQ 25 unit DAILY@0700 MYLES Administration Insulin Detemir 10 unit 05/06/21 21:00 05/06/21 21:21 Insulin Detemir (Levemir) 100 Unit/Ml Syr SQ 10 unit HS MYLES Administration Levothyroxine Sodium 137 mcg 05/04/21 06:30 05/07/21 06:42 Levothyroxine 137 Mcg Tab PO 137 mcg DAILY@0630 MYLES Administration Lorazepam 0.5 mg 05/05/21 16:19 Lorazepam 0.5 Mg Tab PO Q8HR PRN Anxiety Naloxone HCl 0.2 mg 05/02/21 23:11 Naloxone 0.4 Mg/Ml 1 Ml Vial IV Q2M PRN Opioid Reversal Ondansetron HCl 4 mg 05/02/21 23:11 Ondansetron 4 Mg/2 Ml Vial IVP Q8HR PRN Nausea And Vomiting Objective - Vital Signs Vital signs: Vital Signs Temp 98.4 F 05/07/21 14:00 Pulse 64 05/07/21 15:00 Resp 37 H 05/07/21 15:00 BP 153/78 05/07/21 15:00 Pulse Ox 85 L 05/07/21 15:00 Intake & Output 05/06/21 05/07/21 05/07/21 18:59 06:59 18:59 Intake Total 240 290 310 Output Total 355 927 9356 Balance -560 -260 -1390 Intake: IV 240 240 160 0.9 240 240 160 Oral 50 150 Output: Urine 053 142 2051 Other: Voiding Method Urinal Urinal Urinal # Voids 1 1 - Exam PHYSICAL EXAMINATION: Patient is lying in the bed comfortably, no acute distress, awake alert and oriented.. Patient is on BiPAP. HEENT: Normocephalic. Neck is supple. Pupils reactive. Nostrils clear. Oral cavity is moist. Neck reveals no JVD, carotid bruits, or thyromegaly. CHEST EXAMINATION: Trachea is central. Symmetrical expansion. Bibasilar diminished sounds and basilar crackles.. CARDIAC: Normal S1, S2 with no gallops. No murmurs ABDOMEN: Soft. Bowel sounds normal. No organomegaly. No abdominal bruits. Extremities: reveal no edema. No clubbing or cyanosis Neurologically awake, alert, oriented x3 with well-coordinated movements. No focal deficits noted Skin: No rash or skin lesions. Psychiatric: Coperative. Nonsuicidal Musculoskeletal: No joint swelling or deformity. Normal range of motion. - Labs CBC & Chem 7: 05/07/21 04:28 05/07/21 04:28 Labs: Abnormal Lab Results - Last 24 Hours (Table) 05/06/21 05/06/21 05/07/21 Range/Units 16:44 21:12 04:28 WBC 10.9 H (3.8-10.6) k/uL Neutrophils # 9.2 H (1.3-7.7) k/uL Lymphocytes # 0.8 L (1.0-4.8) k/uL D-Dimer (<0.60) mg/L FEU Chloride (98-107) mmol/L BUN (9-20) mg/dL Glucose (74-99) mg/dL POC Glucose (mg/dL) 184 H 152 H (75-99) mg/dL Lactate Dehydrogenase (313-618) U/L C-Reactive Protein (<1.0) mg/dL 05/07/21 05/07/21 05/07/21 Range/Units 04:28 04:28 06:37 WBC (3.8-10.6) k/uL Neutrophils # (1.3-7.7) k/uL Lymphocytes # (1.0-4.8) k/uL D-Dimer 0.96 H (<0.60) mg/L FEU Chloride 108 H (98-107) mmol/L BUN 40 H (9-20) mg/dL Glucose 139 H (74-99) mg/dL POC Glucose (mg/dL) 128 H (75-99) mg/dL Lactate Dehydrogenase 2093 H (313-618) U/L C-Reactive Protein 6.9 H (<1.0) mg/dL 05/07/21 Range/Units 11:55 WBC (3.8-10.6) k/uL Neutrophils # (1.3-7.7) k/uL Lymphocytes # (1.0-4.8) k/uL D-Dimer (<0.60) mg/L FEU Chloride (98-107) mmol/L BUN (9-20) mg/dL Glucose (74-99) mg/dL POC Glucose (mg/dL) 211 H (75-99) mg/dL Lactate Dehydrogenase (313-618) U/L C-Reactive Protein (<1.0) mg/dL Microbiology - Last 24 Hours (Table) 05/02/21 20:30 Blood Culture - Preliminary Blood No Growth after 96 hours 05/02/21 20:30 Blood Culture - Preliminary Blood No Growth after 96 hours Assessment and Plan Assessment: Acute COVID-19 infection, pneumonia. Acute hypoxic respiratory failure secondary to COVID-19 pneumonia requiring BiPAP. Acute on chronic kidney failure, stage III Leukopenia Diabetes mellitus, uncontrolled, hyperglycemic, hemoglobin A1c 9.1 Obstructive sleep apnea, on CPAP outpatient CAD with history of stenting, permanent pacemaker Hypertension Hyperlipidemia Hypothyroidism Morbid obesity, BMI 42.3 Anxiety DVT prophylaxis on Lovenox Plan: Continue on current medication regime ,monitoring and symptomatic treatment. Patient is being continued on Levemir 25 units subcu daily and insulin sliding scale.. Continue with dexamethasone, Lovenox, including Baricitinib. Close monitoring of renal function. ICU management as per sighter. Follow-up information. Prognosis guarded given multiple complex medical issues. Time with Patient: Greater than 30
[2021-05-07] MEDS: SODIUM CHLORIDE 0.9% 1,000 ML IV SCH (15:28)
[2021-05-07 16:48] LABS: Glucose,Whole Blood 239 mg/dL (75-99)
[2021-05-07] MEDS: BARICITINIB 2 MG TABLET PO SCH (17:23)
[2021-05-07 21:12] LABS: Glucose,Whole Blood 234 mg/dL (75-99)
[2021-05-07] MEDS: ATORVASTATIN 10 MG TAB PO SCH (21:26)
[2021-05-08 04:55] LABS: Basophils % (A) 0 %; Eosinophils % (A) 0 %; HCT 40.4 % (39.0-53.0); HGB 13.8 gm/dL (13.0-17.5); Lymphocytes # (A) 0.8 k/uL (1.0-4.8); Lymphocytes % (A) 7 %; MCH 30.3 pg (25.0-35.0); MCV 89.1 fL (80.0-100.0); Mean Platelet Volume 8.6; Monocytes # (A) 0.6 k/uL (0-1.0); Monocytes % (A) 5 %; Neutrophils # (A) 10.1 k/uL (1.3-7.7); Neutrophils % (A) 87 %; Platelet Count 315 k/uL (150-450); RBC 4.54 m/uL (4.30-5.90); WBC 11.6 k/uL (3.8-10.6)
[2021-05-08 05:09] LABS: Calcium 8.5 mg/dL (8.4-10.2); Potassium 4.5 mmol/L (3.5-5.1)
[2021-05-08 06:45] LABS: Glucose,Whole Blood 144 mg/dL (75-99)
[2021-05-08] MEDS: INSULIN DETEMIR (LEVEMIR) 100 UNIT/ML SYR SQ SCH ×2 (06:49→21:29)
[2021-05-08] MEDS: LEVOTHYROXINE 137 MCG TAB PO SCH (06:49)
[2021-05-08] MEDS: INSULIN ASPART (NovoLOG) 100 UNIT/ML VIAL SQ SCH ×7 (06:49→21:30)
--- NOTE | 2021-05-08 07:30 | XR ---
EXAMINATION TYPE: XR chest 1V portable DATE OF EXAM: 05/08/2021 CLINICAL HISTORY: Difficulty breathing progress study. TECHNIQUE: Single AP portable upright view of the chest is obtained. COMPARISON: Chest x-ray from one day earlier and older studies. FINDINGS: Stable right-sided PICC line. Persistent low lung volumes and cardiomegaly with dual lead pacemaker. Persistent bilateral multifoca l and confluent areas of increased opacities. Osseous structures are intact. IMPRESSION: Low lung volumes and cardiomegaly with bilateral multifocal and confluent opacities consi stent with covid-19 infection, no significant change from one day earlier.
[2021-05-08] MEDS: hydrALAZINE HCL 50 MG TAB PO SCH ×3 (08:01→21:29)
[2021-05-08] MEDS: carvediloL 12.5 MG TAB PO SCH ×2 (08:01→21:29)
[2021-05-08] MEDS: ASPIRIN 81 MG PO SCH (08:01)
[2021-05-08] MEDS: ENOXAPARIN 40 MG/0.4 ML SYRINGE SQ SCH (08:03)
[2021-05-08] MEDS: EZETIMIBE 10 MG TAB PO SCH (08:04)
[2021-05-08] MEDS ORDERED: FUROSEMIDE 10 MG/ML 4 ML VIAL IV STA (08:13)
[2021-05-08] MEDS: DEXAMETHASONE SOD PHOSPHATE 10 MG/ML 1 ML VIAL IV SCH (09:56)
[2021-05-08 11:40] LABS: Glucose,Whole Blood 195 mg/dL (75-99)
[2021-05-08] MEDS: SODIUM CHLORIDE 0.9% 1,000 ML IV SCH (12:13)
--- NOTE | 2021-05-08 13:18 | P.PN ---
Subjective Progress Note Date: 05/08/21 Principal diagnosis: Acute hypoxic respiratory failure secondary to COVID-19 pneumonia. On 05/04/2021 patient seen in follow-up on selective care unit. His oxygen demand has increased, he is currently on 100 percent nonrebreather, his oxygen saturations are ranging between 82 and 88%, is having low-grade fevers this afternoon, blood pressures stable. Inflammatory markers are improving on today's labs, LDH is down to 392, CRP is 6.0, pro calcitonin level was 0.32. D- dimer was 0.66. Blood cultures have been negative. Patient remains on dexamethasone 6 mg daily, he is on prophylactic dose Lovenox 40 mg daily. His chest x-ray point diffuse bilateral infiltrates that appear to be progress. Patient could not tolerate high flow nasal cannula and was desaturating on it. On today's evaluation of 05/05/2021 patient seen in follow-up on medical surgical floor. Overnight patient was placed on BiPAP support for worsening dyspnea and hypoxia, with pressures of 12/5, and FiO2 of 100%, and his pulse ox is around 89%. Patient is currently up in the chair, is short of breath with any exertion, he was started on bariticinib yesterday, and he continues on Decadron 6 mg daily, and Lovenox 80 mg once daily, his chest x-ray has been reviewed showing stable diffuse bilateral infiltrates. Today's labs have been reviewed, white blood cell count is not 7.9, hemoglobin is 12.6, his lymphocyte count is 1.27, electrolytes are within normal limits, B1 is 36, creatinine is 1.6, his LDH is up slightly to 560 from 392 one yesterday his labs, CRP is relatively stable with 6.8. Pro-calcitonin level was 0.32. His had no fever or chills overnight, but cultures were negative. In view of his progressive oxygen demand and shortness of breath, we recommended transfer to the intensive care unit for closer monitoring On 05/06/2021 patient seen in follow-up in the intensive care unit where she was transferred yesterday from [facility]. in view of his worsening hypoxia, patient is cu rrently on BiPAP support with pressures of 12/10 and FiO2 100%, his pulse ox is ranging between 86-91%, he sitting up in the recliner where he slept last night, he does not appear to be in any acute distress, however he does desaturate down to 68 when he removes the BiPAP mask even briefly to take a bite of food, or his medication. Is currently on IV fluids with 0.9, secondary to 20 ML per hour. He continues on Baricitinib 2 mg daily, and today is day 2 of treatment, in addition he is on IV Decadron 6 mg daily, is on prophylactic dose of Lovenox 40 mg daily, he is receiving when necessary doses of Ativan for anxiety and breathlessness. Today's chest x-ray has been reviewed showing diffuse bilateral infiltrates that are stable in appearance. Today's labs have been reviewed showing CBC within normal limits, electrolytes were unremarkable, BUN is 39, creatinine is 1.41. Inflammatory markers seems to have increased as far as LDH is up to 1792, and CRP is relatively stable 6.9. His d-dimer today is 0.59. He appears to be sleepy, but no acute distress, he is answering questions appr opriately, denies any chest discomfort. He is been in his chair for the most part. His been using the urinal to urinate, he is trying to keep up his oral intake and take bites of food. No other acute events overnight. Reevaluated today on 05/07/2021, patient remains in the ICU, his pulmonary status is marginal at best. Patient is on BiPAP 08/03 he is also on 100% FiO2, with O2 saturation in the high 80s at best. Surprisingly however the patient seems to be in no distress, he is comfortable, sitting at a bedside chair, alert oriented 3, and I have increased his IPAP 14 instead of 12, patient seems to be extremely comfortable. Chest x-ray continues to show bilateral interstitial infiltrates. WBC count is 10.9 hemoglobin 13.9 d-dimer is 0.96 electrolytes are normal LDH 2092 and C-reactive protein is 6. Reevaluated today on 05/08/2021, remains in the ICU, remains on BiPAP, he is on IPAP of 14 and EPAP of 8 and FiO2 of 100%. Patient O2 saturation is marginal in the 80s most of the time. Surprisingly, the patient is not complaining of any shortness of breath, he seems to be comfortable, and relatively asymptomatic. Does not seem to be in distress. Chest x-ray is basically about the same, hence I ordered another Lasix dose to be given today 40 mg IV push 1, although BNP level is not elevated, but I would like to keep him on the dry side as much as possible. Patient remains on Lovenox 40 mg subcu daily, he is on Decadron, Glucerna was ordered, and he remains on baricitinib. CBC is relatively normal left lites are normal renal profile showed a BUN of 45 creatinine 1.16. Improving compared to his baseline on admission Objective - Vital Signs Vital signs: Vital Signs Temp 99.1 F 05/08/21 12:00 Pulse 64 05/08/21 13:00 Resp 12 05/08/21 13:00 BP 109/64 05/08/21 13:00 Pulse Ox 92 L 05/08/21 13:00 Intake & Output 05/07/21 05/08/21 05/08/21 18:59 06:59 18:59 Intake Total 590 240 140 Output Total 2225 450 1250 Balance -1635 -210 -1110 Weight 132.9 kg Intake: IV 240 240 140 0.9 240 240 140 Oral 350 Output: Urine 2225 450 1250 Other: Voiding Method Urinal Urinal Urinal # Voids 1 1 1 - Exam GENERAL EXAM: Alert, very pleasant, 66-year-old white male, on BiPAP not in distress. HEAD: Normocephalic/atraumatic. HEENT: PERRLA, EOMI, anicteric, no neck masses, no JVD, no stridor, patient does have short obese neck. CHEST: No chest wall deformity. Symmetrical expansion. LUNGS: Equal air entry fine crackles at the bases. CVS: Regular rate and rhythm, normal S1 and S2, no gallops, no murmurs, no rubs ABDOMEN: Soft, nontender. No hepatosplenomegaly, normal bowel sounds, no guarding or rigidity. EXTREMITIES: No clubbing, no edema, no cyanosis, 2+ pulses and upper and lower extremities. MUSCULOSKELETAL: Muscle strength and tone normal. SPINE: No scoliosis or deformity SKIN: No rashes CENTRAL NERVOUS SYSTEM: Alert and oriented 3 focal deficits.. PSYCHIATRIC: Normal mood, affect and normal mental status examination. - Labs CBC & Chem 7: 05/08/21 04:38 05/08/21 04:38 Labs: Abnormal Lab Results - Last 24 Hours (Table) 05/07/21 05/07/21 05/08/21 Range/Units 16:46 21:11 04:38 WBC 11.6 H (3.8-10.6) k/uL Neutrophils # 10.1 H (1.3-7.7) k/uL Lymphocytes # 0.8 L (1.0-4.8) k/uL D-Dimer (<0.60) mg/L FEU BUN (9-20) mg/dL Glucose (74-99) mg/dL POC Glucose (mg/dL) 239 H 234 H (75-99) mg/dL 05/08/21 05/08/21 05/08/21 Range/Units 04:38 04:38 06:44 WBC (3.8-10.6) k/uL Neutrophils # (1.3-7.7) k/uL Lymphocytes # (1.0-4.8) k/uL D-Dimer 1.66 H (<0.60) mg/L FEU BUN 45 H (9-20) mg/dL Glucose 167 H (74-99) mg/dL POC Glucose (mg/dL) 144 H (75-99) mg/dL 05/08/21 Range/Units 11:39 WBC (3.8-10.6) k/uL Neutrophils # (1.3-7.7) k/uL Lymphocytes # (1.0-4.8) k/uL D-Dimer (<0.60) mg/L FEU BUN (9-20) mg/dL Glucose (74-99) mg/dL POC Glucose (mg/dL) 195 H (75-99) mg/dL Microbiology - Last 24 Hours (Table) 05/02/21 20:30 Blood Culture - Preliminary Blood No Growth after 120 hours 05/02/21 20:30 Blood Culture - Preliminary Blood No Growth after 120 hours Assessment and Plan Assessment: #1. Acute COVID-19 pneumonia, with acute hypoxic respiratory failure, with symptom onset 11-12 days after presentation. Patient is out of the window for Remdesivir. His hypoxia has progressed, and patient was started on Bariticinib on 05/03/2021. Transferwd to the intensive care unit on 05/05/2021 #2. Increased inflammatory markers, related to the above, improved since admission #3. Coronary artery disease with previous coronary artery stenting #4. History of permanent pacemaker insertion #5. History of hypertension 6. Hyperlipidemia #7. History of obstructive sleep apnea on CPAP on an outpatient basis #8. Migraine headache #9. Acute on chronic kidney injury #10. Obesity with BMI 42.3 #11. Acute elevation of inflammatory markers, currently improving #12. Hypothyroidism Recommendation: Trial of Lasix 40 mg IV push 1. Continue to monitor the patient is ICU. Continue BiPAP. Continue Decadron. Continue baricitinib Continue to monitor inflammatory markers. Adjust Lovenox dose based on the d-dimer level. Is clear on 40 mg subcu daily. Prognosis remains poor and guarded, patient is marginal at best. We'll continue to monitor and treat in the ICU. Time with Patient: Less than 30
[2021-05-08] MEDS: ACETAMINOPHEN TAB 325 MG TAB PO PRN (13:27)
[2021-05-08 17:08] LABS: Glucose,Whole Blood 254 mg/dL (75-99)
[2021-05-08] MEDS: BARICITINIB 2 MG TABLET PO SCH (17:41)
[2021-05-08 20:27] LABS: Glucose,Whole Blood 262 mg/dL (75-99)
[2021-05-08] MEDS: ATORVASTATIN 10 MG TAB PO SCH (21:29)
[2021-05-08] MEDS ORDERED: INSULIN DETEMIR (LEVEMIR) 100 UNIT/ML SYR SQ ONE (21:45)
--- NOTE | 2021-05-08 22:57 | P.PN ---
Subjective Progress Note Date: 05/08/21 Principal diagnosis: Acute hypoxic respiratory failure secondary to COVID-19 pneumonia This is 66-year-old gentleman admitted with acute hypoxic respiratory failure secondary to COVID-19 infection. Afebrile. Maintained on Covid cocktail, including Decadron IV.Inflammatory markers trending down.He stated this morning with exertion from 88% tone to 75%. Currently placed on 6 L nasal cannula, O2 sat pending. Chest x-ray reporting progression of diffuse bilateral infiltrates.Blood sugars uncontrolled, A1c 9.1. 05/05/2021 respiratory status worsened yesterday, requiring nonrebreather. Throughout the night, increased anxiety, patient pulling off masks, requiring minimal of 45 minutes to recover O2 saturation. Xanax initiated for anxiety, patient unable to tolerate, reported nausea/ vomiting. Received Ativan, tolerated well. Currently on BiPAP maintaining O2 sats in the 80s. Continues on Covid regimen. Renal function trending up, creatinine 1.6. Denies chest pain, palpitations. 05/06/2021 transferred into the ICU yesterday afternoon related to worsening hypoxia on BiPAP. Slept in the recliner, maintaining O2 sats mid 80s to low 90s. Chest x-ray reporting persistent bilateral infiltrates. Reports feels less shortness of breath, less anxiety on oral Ativan. Maintained on Covid regimen including Baricitinib. Inflammatory markers increased with the exception of d- dimer. Afebrile, normal WBC. Yesterday GHADA inhibitor, Cozaar discontinued, hydralazine increased secondary to worsening renal function-renal function improving. Hyperglycemic, blood sugars in the mid to low 200s. 05/07/2021 Patient is currently on BiPAP. Sitting on a chair. Awake alert and oriented 3. No complaints of chest pain. Patient has been afebrile. Chest x-ray showed bilateral interstitial infiltrates. Patient is being continued on Baricitanib, dexamethasone Lovenox. Continued on breathing treatments and insulin regimen. Laboratory data showed WBC 10.9 hemoglobin 13.9 and platelets 304, d-dimer 0.96 Sodium 141 potassium 4.5 chloride 108 BUN 40 and creatinine 1.25, LDH 2093 CRP 6.9 05/08/2021 Patient is currently sitting in chair and on BiPAP 12 x 8. Patient has been afebrile. Denies any complaints of shortness of breath. No chest pain. Chest x-ray today showed low lung volumes and cardiomegaly with bilateral multifocal and confluent opacities., Consistent with COVID-19 infection. No significant change from 1 day earlier. Patient is medically dexamethasone, Lovenox and blood pressure medication. Laboratory data showed WBC 11.6 hemoglobin 13.8 and platelets 87 D-dimer is 1.66 BUN 45 creatinine 1.16 and blood sugar is 167 this morning proBNP 686. Active Medications Generic Name Dose Route Start Last Admin Trade Name Freawais PRN Reason Stop Dose Admin Acetaminophen 650 mg 05/06/21 08:35 05/07/21 02:04 Acetaminophen Tab 325 Mg Tab PO 650 mg Q6HR PRN Administration Fever and/ or Pain Aspirin 81 mg 05/04/21 09:00 05/07/21 09:18 Aspirin 81 Mg PO 81 mg DAILY MYLES Administration Atorvastatin Calcium 10 mg 05/03/21 21:00 05/06/21 21:20 Atorvastatin 10 Mg Tab PO 10 mg HS MYLES Administration Baricitinib 2 mg 05/04/21 20:00 05/06/21 17:02 Baricitinib 2 Mg Tablet PO 05/17/21 18:01 2 mg DAILY@1800 MYLES Administration Carvedilol 25 mg 05/03/21 21:00 05/07/21 09:18 Carvedilol 12.5 Mg Tab PO 25 mg BID MYLES Administration Dexamethasone Sodium Phosphate 6 mg 05/03/21 09:00 05/07/21 09:19 Dexamethasone Sod Phosphate 10 Mg/Ml 1 Ml Vial IV 6 mg DAILY MYLES Administration Ezetimibe 10 mg 05/04/21 09:00 05/07/21 09:18 Ezetimibe 10 Mg Tab PO 10 mg DAILY MYLES Administration Enoxaparin Sodium 40 mg 05/03/21 12:30 05/07/21 09:18 Enoxaparin 40 Mg/0.4 Ml Syringe SQ 40 mg DAILY MYLES Administration Hydralazine HCl 50 mg 05/05/21 16:45 05/07/21 09:18 Hydralazine Hcl 50 Mg Tab PO 50 mg TID MYLES Administration Sodium Chloride 1,000 mls @ 20 mls/hr 05/02/21 23:15 05/06/21 21:20 Saline 0.9% IV 75 mls/hr .Q24H MYLES Administration Insulin Aspart 0 unit 05/03/21 12:30 05/07/21 12:38 Insulin Aspart (Novolog) 100 Unit/Ml Vial SQ 4 unit ACHS MYLES Administration Protocol Insulin Aspart 10 unit 05/06/21 17:30 05/07/21 12:38 Insulin Aspart (Novolog) 100 Unit/Ml Vial SQ 10 unit AC-TID MYLES Administration Insulin Detemir 25 unit 05/05/21 07:00 05/07/21 06:42 Insulin Detemir (Levemir) 100 Unit/Ml Syr SQ 25 unit DAILY@0700 MYLES Administration Insulin Detemir 10 unit 05/06/21 21:00 05/06/21 21:21 Insulin Detemir (Levemir) 100 Unit/Ml Syr SQ 10 unit HS MYLES Administration Levothyroxine Sodium 137 mcg 05/04/21 06:30 05/07/21 06:42 Levothyroxine 137 Mcg Tab PO 137 mcg DAILY@0630 [facility] Administration Lorazepam 0.5 mg 05/05/21 16:19 Lorazepam 0.5 Mg Tab PO Q8HR PRN Anxiety Naloxone HCl 0.2 mg 05/02/21 23:11 Naloxone 0.4 Mg/Ml 1 Ml Vial IV Q2M PRN Opioid Reversal Ondansetron HCl 4 mg 05/02/21 23:11 Ondansetron 4 Mg/2 Ml Vial IVP Q8HR PRN Nausea And Vomiting Objective - Vital Signs Vital signs: Vital Signs Temp 99.6 F 05/08/21 16:00 Pulse 64 05/08/21 20:00 Resp 3 L 05/08/21 20:00 BP 151/70 05/08/21 20:00 Pulse Ox 88 L 05/08/21 20:00 Intake & Output 05/08/21 05/08/21 05/09/21 06:59 18:59 06:59 Intake Total 240 240 40 Output Total 450 1250 0 Balance -210 -1010 40 Weight 132.9 kg Intake: IV 240 240 40 0.9 240 240 40 Output: Urine 450 1250 0 Other: Voiding Method Urinal Urinal # Voids 1 1 - Exam PHYSICAL EXAMINATION: Patient is lying in the bed comfortably, no acute distress, awake alert and oriented.. Patient is on BiPAP. HEENT: Normocephalic. Neck is supple. Pupils reactive. Nostrils clear. Oral cavity is moist. Neck reveals no JVD, carotid bruits, or thyromegaly. CHEST EXAMINATION: Trachea is central. Symmetrical expansion. Bibasilar diminished sounds and basilar crackles.. CARDIAC: Normal S1, S2 with no gallops. No murmurs ABDOMEN: Soft. Bowel sounds normal. No organomegaly. No abdominal bruits. Extremities: reveal no edema. No clubbing or cyanosis Neurologically awake, alert, oriented x3 with well-coordinated movements. No focal deficits noted Skin: No rash or skin lesions. Psychiatric: Coperative. Nonsuicidal Musculoskeletal: No joint swelling or deformity. Normal range of motion. - Labs CBC & Chem 7: 05/08/21 04:38 05/08/21 04:38 Labs: Abnormal Lab Results - Last 24 Hours (Table) 05/07/21 05/08/21 05/08/21 Range/Units 21:11 04:38 04:38 WBC 11.6 H (3.8-10.6) k/uL Neutrophils # 10.1 H (1.3-7.7) k/uL Lymphocytes # 0.8 L (1.0-4.8) k/uL D-Dimer (<0.60) mg/L FEU BUN 45 H (9-20) mg/dL Glucose 167 H (74-99) mg/dL POC Glucose (mg/dL) 234 H (75-99) mg/dL 05/08/21 05/08/21 05/08/21 Range/Units 04:38 06:44 11:39 WBC (3.8-10.6) k/uL Neutrophils # (1.3-7.7) k/uL Lymphocytes # (1.0-4.8) k/uL D-Dimer 1.66 H (<0.60) mg/L FEU BUN (9-20) mg/dL Glucose (74-99) mg/dL POC Glucose (mg/dL) 144 H 195 H (75-99) mg/dL 05/08/21 05/08/21 Range/Units 17:06 20:26 WBC (3.8-10.6) k/uL Neutrophils # (1.3-7.7) k/uL Lymphocytes # (1.0-4.8) k/uL D-Dimer (<0.60) mg/L FEU BUN (9-20) mg/dL Glucose (74-99) mg/dL POC Glucose (mg/dL) 254 H 262 H (75-99) mg/dL Microbiology - Last 24 Hours (Table) 05/02/21 20:30 Blood Culture - Preliminary Blood No Growth after 120 hours 05/02/21 20:30 Blood Culture - Preliminary Blood No Growth after 120 hours Assessment and Plan Assessment: Acute COVID-19 infection, pneumonia. Acute hypoxic respiratory failure secondary to COVID-19 pneumonia requiring BiPAP. Acute on chronic kidney failure, stage III Leukopenia Diabetes mellitus, uncontrolled, hyperglycemic, hemoglobin A1c 9.1 Obstructive sleep apnea, on CPAP outpatient CAD with history of stenting, permanent pacemaker Hypertension Hyperlipidemia Hypothyroidism Morbid obesity, BMI 42.3 Anxiety DVT prophylaxis on Lovenox Plan: Continue on current medication regime ,monitoring and symptomatic treatment. Patient is being continued on Levemir 25 units subcu daily and insulin sliding scale.. Continue with dexamethasone, Lovenox, including Baricitinib. Close monitoring of renal function. 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 Follow-up information. Prognosis guarded given multiple complex medical issues.
[2021-05-09 04:25] LABS: Basophils % (A) 0 %; Eosinophils % (A) 0 %; HCT 42.8 % (39.0-53.0); HGB 14.1 gm/dL (13.0-17.5); Lymphocytes # (A) 0.9 k/uL (1.0-4.8); Lymphocytes % (A) 8 %; MCHC 33.1 g/dL (31.0-37.0); MCV 90.8 fL (80.0-100.0); Mean Platelet Volume 8.3; Monocytes # (A) 0.7 k/uL (0-1.0); Monocytes % (A) 6 %; Neutrophils # (A) 10.4 k/uL (1.3-7.7); Neutrophils % (A) 85 %; Platelet Count 346 k/uL (150-450); RBC 4.71 m/uL (4.30-5.90); WBC 12.3 k/uL (3.8-10.6)
[2021-05-09 04:44] LABS: Calcium 8.9 mg/dL (8.4-10.2); Potassium 4.8 mmol/L (3.5-5.1)
[2021-05-09] MEDS: amLODIPine 5 MG TAB PO SCH ×2 (05:44→08:34)
[2021-05-09 06:04] LABS: Glucose,Whole Blood 121 mg/dL (75-99)
[2021-05-09] MEDS: INSULIN DETEMIR (LEVEMIR) 100 UNIT/ML SYR SQ SCH ×2 (06:30→20:56)
[2021-05-09] MEDS: LEVOTHYROXINE 137 MCG TAB PO SCH (06:30)
[2021-05-09] MEDS: INSULIN ASPART (NovoLOG) 100 UNIT/ML VIAL SQ SCH ×7 (06:30→20:56)
--- NOTE | 2021-05-09 07:46 | XR ---
EXAMINATION TYPE: XR chest 1V portable DATE OF EXAM: 05/09/2021 COMPARISON: 05/08/2021 HISTORY: Shortness of breath TECHNIQUE: Single frontal view of the chest is obtained. FINDINGS: PICC line and cardiac device stable. Diffuse interstitial pattern with basilar infiltrate and tiny effusion noted. No sizable pneumothorax. Heart size stable. Osseous structures stable. Hyper trophic changes of the spine. IMPRESSION: Diffuse predominantly interstitial infiltrate stable correlate for interstitial pneumoni a versus CHF.
[2021-05-09] MEDS: DEXAMETHASONE SOD PHOSPHATE 10 MG/ML 1 ML VIAL IV SCH (08:30)
[2021-05-09] MEDS: ENOXAPARIN 40 MG/0.4 ML SYRINGE SQ SCH (08:30)
[2021-05-09] MEDS: hydrALAZINE HCL 50 MG TAB PO SCH ×3 (08:31→20:00)
[2021-05-09] MEDS: carvediloL 12.5 MG TAB PO SCH ×2 (08:31→20:01)
[2021-05-09] MEDS: ASPIRIN 81 MG PO SCH (08:31)
[2021-05-09] MEDS: EZETIMIBE 10 MG TAB PO SCH (08:32)
[2021-05-09] MEDS: LORazepam 0.5 MG TAB PO PRN ×2 (08:50→20:01)
[2021-05-09 11:51] LABS: Glucose,Whole Blood 202 mg/dL (75-99)
--- NOTE | 2021-05-09 14:20 | P.PN ---
Subjective Progress Note Date: 05/09/21 Principal diagnosis: Acute hypoxic respiratory failure secondary to COVID-19 pneumonia. On 05/04/2021 patient seen in follow-up on selective care unit. His oxygen demand has increased, he is currently on 100 percent nonrebreather, his oxygen saturations are ranging between 82 and 88%, is having low-grade fevers this afternoon, blood pressures stable. Inflammatory markers are improving on today's labs, LDH is down to 392, CRP is 6.0, pro calcitonin level was 0.32. D- dimer was 0.66. Blood cultures have been negative. Patient remains on dexamethasone 6 mg daily, he is on prophylactic dose Lovenox 40 mg daily. His chest x-ray point diffuse bilateral infiltrates that appear to be progress. Patient could not tolerate high flow nasal cannula and was desaturating on it. On today's evaluation of 05/05/2021 patient seen in follow-up on medical surgical floor. Overnight patient was placed on BiPAP support for worsening dyspnea and hypoxia, with pressures of 12/5, and FiO2 of 100%, and his pulse ox is around 89%. Patient is currently up in the chair, is short of breath with any exertion, he was started on bariticinib yesterday, and he continues on Decadron 6 mg daily, and Lovenox 80 mg once daily, his chest x-ray has been reviewed showing stable diffuse bilateral infiltrates. Today's labs have been reviewed, white blood cell count is not 7.9, hemoglobin is 12.6, his lymphocyte count is 1.27, electrolytes are within normal limits, B1 is 36, creatinine is 1.6, his LDH is up slightly to 560 from 392 one yesterday his labs, CRP is relatively stable with 6.8. Pro-calcitonin level was 0.32. His had no fever or chills overnight, but cultures were negative. In view of his progressive oxygen demand and shortness of breath, we recommended transfer to the intensive care unit for closer monitoring On 05/06/2021 patient seen in follow-up in the intensive care unit where she was transferred yesterday from [facility]. in view of his worsening hypoxia, patient is cu rrently on BiPAP support with pressures of 12/10 and FiO2 100%, his pulse ox is ranging between 86-91%, he sitting up in the recliner where he slept last night, he does not appear to be in any acute distress, however he does desaturate down to 68 when he removes the BiPAP mask even briefly to take a bite of food, or his medication. Is currently on IV fluids with 0.9, secondary to 20 ML per hour. He continues on Baricitinib 2 mg daily, and today is day 2 of treatment, in addition he is on IV Decadron 6 mg daily, is on prophylactic dose of Lovenox 40 mg daily, he is receiving when necessary doses of Ativan for anxiety and breathlessness. Today's chest x-ray has been reviewed showing diffuse bilateral infiltrates that are stable in appearance. Today's labs have been reviewed showing CBC within normal limits, electrolytes were unremarkable, BUN is 39, creatinine is 1.41. Inflammatory markers seems to have increased as far as LDH is up to 1792, and CRP is relatively stable 6.9. His d-dimer today is 0.59. He appears to be sleepy, but no acute distress, he is answering questions appr opriately, denies any chest discomfort. He is been in his chair for the most part. His been using the urinal to urinate, he is trying to keep up his oral intake and take bites of food. No other acute events overnight. Reevaluated today on 05/07/2021, patient remains in the ICU, his pulmonary status is marginal at best. Patient is on BiPAP 08/03 he is also on 100% FiO2, with O2 saturation in the high 80s at best. Surprisingly however the patient seems to be in no distress, he is comfortable, sitting at a bedside chair, alert oriented 3, and I have increased his IPAP 14 instead of 12, patient seems to be extremely comfortable. Chest x-ray continues to show bilateral interstitial infiltrates. WBC count is 10.9 hemoglobin 13.9 d-dimer is 0.96 electrolytes are normal LDH 2092 and C-reactive protein is 6. Reevaluated today on 05/08/2021, remains in the ICU, remains on BiPAP, he is on IPAP of 14 and EPAP of 8 and FiO2 of 100%. Patient O2 saturation is marginal in the 80s most of the time. Surprisingly, the patient is not complaining of any shortness of breath, he seems to be comfortable, and relatively asymptomatic. Does not seem to be in distress. Chest x-ray is basically about the same, hence I ordered another Lasix dose to be given today 40 mg IV push 1, although BNP level is not elevated, but I would like to keep him on the dry side as much as possible. Patient remains on Lovenox 40 mg subcu daily, he is on Decadron, Glucerna was ordered, and he remains on baricitinib. CBC is relatively normal left lites are normal renal profile showed a BUN of 45 creatinine 1.16. Improving compared to his baseline on admission Reevaluated today on 05/09/2021, patient remains in the ICU, remains on BiPAP 14/8/100% FiO2 patient is basically about the same not much of a change noted over the last 24 hours. Chest x-ray is basically about the same. Patient seems to be comfortable, O2 saturations are marginal basically as high, 92%. Remains on Decadron, Lovenox, and on baricitinib WBC count is 12.3 hemoglobin is 14.1 lites are normal BUN is 53 creatinine 1.15, no Lasix was ordered today as the patient seems to be a bit prerenal Objective - Vital Signs Vital signs: Vital Signs Temp 98.2 F 05/09/21 12:00 Pulse 66 05/09/21 13:00 Resp 20 05/09/21 13:00 BP 123/67 05/09/21 13:00 Pulse Ox 87 L 05/09/21 13:00 Intake & Output 05/08/21 05/09/21 05/09/21 18:59 06:59 18:59 Intake Total 240 240 140 Output Total 1250 625 350 Balance -1010 -385 -210 Weight 133.2 kg Intake: IV 240 240 140 0.9 240 240 140 Output: Urine 1250 625 350 Other: Voiding Method Urinal Urinal # Voids 1 - Exam GENERAL EXAM: Alert, very pleasant, 66-year-old white male, on BiPAP not in distress. HEAD: Normocephalic/atraumatic. HEENT: PERRLA, EOMI, anicteric, no neck masses, no JVD, no stridor, patient does have short obese neck. CHEST: No chest wall deformity. Symmetrical expansion. LUNGS: Equal air entry fine crackles at the bases. CVS: Regular rate and rhythm, normal S1 and S2, no gallops, no murmurs, no rubs ABDOMEN: Soft, nontender. No hepatosplenomegaly, normal bowel sounds, no guarding or rigidity. EXTREMITIES: No clubbing, no edema, no cyanosis, 2+ pulses and upper and lower extremities. MUSCULOSKELETAL: Muscle strength and tone normal. SPINE: No scoliosis or deformity SKIN: No rashes CENTRAL NERVOUS SYSTEM: Alert and oriented 3 focal deficits.. PSYCHIATRIC: Normal mood, affect and normal mental status examination. - Labs CBC & Chem 7: 05/09/21 03:59 05/09/21 03:59 Labs: Abnormal Lab Results - Last 24 Hours (Table) 05/08/21 05/08/21 05/09/21 Range/Units 17:06 20:26 03:59 WBC 12.3 H (3.8-10.6) k/uL Neutrophils # 10.4 H (1.3-7.7) k/uL Lymphocytes # 0.9 L (1.0-4.8) k/uL BUN (9-20) mg/dL Glucose (74-99) mg/dL POC Glucose (mg/dL) 254 H 262 H (75-99) mg/dL 05/09/21 05/09/21 05/09/21 Range/Units 03:59 06:01 11:50 WBC (3.8-10.6) k/uL Neutrophils # (1.3-7.7) k/uL Lymphocytes # (1.0-4.8) k/uL BUN 53 H (9-20) mg/dL Glucose 146 H (74-99) mg/dL POC Glucose (mg/dL) 121 H 202 H (75-99) mg/dL Microbiology - Last 24 Hours (Table) 05/02/21 20:30 Blood Culture - Final Blood No Growth after 144 hours 05/02/21 20:30 Blood Culture - Final Blood No Growth after 144 hours Assessment and Plan Assessment: #1. Acute COVID-19 pneumonia, with acute hypoxic respiratory failure, with symptom onset 11-12 days after presentation. Patient is out of the window for Remdesivir. His hypoxia has progressed, and patient was started on Bariticinib on 05/03/2021. Transfered to the intensive care unit on 05/05/2021 #2. Increased inflammatory markers, related to the above, improved since admission #3. Coronary artery disease with previous coronary artery stenting #4. History of permanent pacemaker insertion #5. History of hypertension 6. Hyperlipidemia #7. History of obstructive sleep apnea on CPAP on an outpatient basis #8. Migraine headache #9. Acute on chronic kidney injury #10. Obesity with BMI 42.3 #11. Acute elevation of inflammatory markers, currently improving #12. Hypothyroidism Recommendation: Continue present supportive care measures. Continue to monitor the patient is ICU. Continue BiPAP. Continue Decadron. Continue baricitinib Continue to monitor inflammatory markers. Continue Lovenox. And adjust accordingly. Prognosis remains poor and guarded We'll continue to monitor and treat in the ICU. Time with Patient: Less than 30
--- NOTE | 2021-05-09 14:56 | P.PN ---
Subjective Progress Note Date: 05/09/21 This is 66-year-old gentleman admitted with acute hypoxic respiratory failure secondary to COVID-19 infection. Afebrile. Maintained on Covid cocktail, including Decadron IV.Inflammatory markers trending down.He stated this morning with exertion from 88% tone to 75%. Currently placed on 6 L nasal cannula, O2 sat pending. Chest x-ray reporting progression of diffuse bilateral infiltrates.Blood sugars uncontrolled, A1c 9.1. 05/05/2021 respiratory status worsened yesterday, requiring nonrebreather. Th roughout the night, increased anxiety, patient pulling off masks, requiring minimal of 45 minutes to recover O2 saturation. Xanax initiated for anxiety, patient unable to tolerate, reported nausea/ vomiting. Received Ativan, tolerated well. Currently on BiPAP maintaining O2 sats in the 80s. Continues on Covid regimen. Renal function trending up, creatinine 1.6. Denies chest pain, palpitations. 05/06/2021 transferred into the ICU yesterday afternoon related to worsening hypoxia on BiPAP. Slept in the recliner, maintaining O2 sats mid 80s to low 90s. Chest x-ray reporting persistent bilateral infiltrates. Reports feels less shortness of breath, less anxiety on oral Ativan. Maintained on Covid regimen including Baricitinib. Inflammatory markers increased with the exception of d-dimer. Afebrile, normal WBC. Yesterday GHADA inhibitor, Cozaar discontinued, hydralazine increased secondary to worsening renal function-renal function improving. Hyperglycemic, blood sugars in the mid to low 200s. 05/09/2021 remains on 100% BiPAP, chest x-ray reporting stable diffuse predominant interstitial infiltrates. T-max 99.1, WBC 12.3. continues on Covid regimen including Olumiant. Reports anxiety, depression. BUN 53, creatinine 1.15. Blood sugars elevated. Objective - Vital Signs Vital signs: Vital Signs Temp 97.8 F 05/09/21 00:00 Pulse 68 05/09/21 11:00 Resp 24 05/09/21 11:00 BP 139/76 05/09/21 11:00 Pulse Ox 85 L 05/09/21 11:00 Intake & Output 05/08/21 05/09/21 05/09/21 18:59 06:59 18:59 Intake Total 240 240 100 Output Total 1250 625 350 Balance -3290 -446 -051 Weight 133.2 kg Intake: IV 240 240 100 0.9 240 240 100 Output: Urine 1250 625 350 Other: Voiding Method Urinal Urinal # Voids 1 - Exam PHYSICAL EXAM: VITAL SIGNS: As above GENERAL: Sitting up in chair, respiratory effort increased. HEENT: Conjunctivae normal. eyes normal. Wearing BiPAP NECK: Supple No JVD. CARDIOVASCULAR: S1, S2 regular. No murmur RESPIRATION: Breath sounds diminished in the bases with fine bibasilar crackles. ABDOMEN: Soft, nontender. No guarding. no masses palpable. Bowel sounds heard. LEGS: No edema. no swelling. PSYCHIATRY: Alert and oriented X3, mood and affect normal. NERVOUS SYSTEM: Cranial N 2-12 grossly normal. Moves all 4 limbs.No focal deficits. Strength and sensation grossly intact. Skin: Warm and dry, no rash - Labs CBC & Chem 7: 05/09/21 03:59 05/09/21 03:59 Labs: Abnormal Lab Results - Last 24 Hours (Table) 05/08/21 05/08/21 05/09/21 Range/Units 17:06 20:26 03:59 WBC 12.3 H (3.8-10.6) k/uL Neutrophils # 10.4 H (1.3-7.7) k/uL Lymphocytes # 0.9 L (1.0-4.8) k/uL BUN (9-20) mg/dL Glucose (74-99) mg/dL POC Glucose (mg/dL) 254 H 262 H (75-99) mg/dL 05/09/21 05/09/21 05/09/21 Range/Units 03:59 06:01 11:50 WBC (3.8-10.6) k/uL Neutrophils # (1.3-7.7) k/uL Lymphocytes # (1.0-4.8) k/uL BUN 53 H (9-20) mg/dL Glucose 146 H (74-99) mg/dL POC Glucose (mg/dL) 121 H 202 H (75-99) mg/dL Microbiology - Last 24 Hours (Table) 05/02/21 20:30 Blood Culture - Final Blood No Growth after 144 hours 05/02/21 20:30 Blood Culture - Final Blood No Growth after 144 hours Assessment and Plan Assessment: Acute COVID-19 pneumonia, on Baricitinib. Acute hypoxic respiratory failure secondary to the above, progressed requiring transfer to ICU. Acute on chronic kidney failure, stage III Leukopenia Diabetes mellitus, uncontrolled, hyperglycemic, hemoglobin A1c 9.1 Obstructive sleep apnea, on CPAP outpatient CAD with history of stenting, permanent pacemaker Hypertension Hyperlipidemia Hypothyroidism Morbid obesity, BMI 42.3 Depression, Anxiety Plan: Continue on current medication regime ,monitoring and symptomatic treatment. Lexapro added to med regimen,PRN Ativan in place for anxieity. Levemir dose increased ,Close monitoring of Accu-Cheks. Maintain COVID cocktail, including Baricitinib.Close monitoring of renal function. ICU management as per straight cutter. Prognosis guarded given multiple complex medical issues. The impression and plan of care has been dictated as directed. : I performed a history and examination of this patient, discussed the same with the dictator. I agree with the dictator's note ,documented as a scribe. Any additional findings or plans will be noted.
[2021-05-09] MEDS: ESCITALOPRAM 10 MG TAB PO SCH (14:59)
[2021-05-09 16:44] LABS: Glucose,Whole Blood 239 mg/dL (75-99)
[2021-05-09] MEDS: SODIUM CHLORIDE 0.9% 1,000 ML IV SCH (16:59)
[2021-05-09] MEDS: BARICITINIB 2 MG TABLET PO SCH (17:00)
[2021-05-09 17:58] LABS: Ferritin 1020.9 ng/mL (22.0-322.0)
[2021-05-09] MEDS: ATORVASTATIN 10 MG TAB PO SCH (20:01)
[2021-05-09 20:10] LABS: Glucose,Whole Blood 215 mg/dL (75-99)
[2021-05-10 06:29] LABS: Glucose,Whole Blood 165 mg/dL (75-99)
[2021-05-10] MEDS: LEVOTHYROXINE 137 MCG TAB PO SCH (06:51)
[2021-05-10] MEDS: INSULIN DETEMIR (LEVEMIR) 100 UNIT/ML SYR SQ SCH ×2 (06:51→21:32)
[2021-05-10] MEDS: INSULIN ASPART (NovoLOG) 100 UNIT/ML VIAL SQ SCH ×7 (06:52→21:14)
[2021-05-10 07:10] LABS: Basophils # (A) 0.1 k/uL (0-0.2); Basophils % (A) 0 %; Eosinophils % (A) 0 %; HCT 43.2 % (39.0-53.0); HGB 14.5 gm/dL (13.0-17.5); Lymphocytes # (A) 0.8 k/uL (1.0-4.8); Lymphocytes % (A) 6 %; MCH 30.3 pg (25.0-35.0); MCHC 33.5 g/dL (31.0-37.0); MCV 90.6 fL (80.0-100.0); Mean Platelet Volume 8.2; Monocytes # (A) 0.5 k/uL (0-1.0); Monocytes % (A) 3 %; Neutrophils # (A) 13.8 k/uL (1.3-7.7); Neutrophils % (A) 90 %; Platelet Count 437 k/uL (150-450); RBC 4.77 m/uL (4.30-5.90); RDW 13.4 % (11.5-15.5); WBC 15.4 k/uL (3.8-10.6)
[2021-05-10 07:27] LABS: Calcium 8.8 mg/dL (8.4-10.2); Potassium 4.8 mmol/L (3.5-5.1)
[2021-05-10] MEDS: DEXAMETHASONE SOD PHOSPHATE 10 MG/ML 1 ML VIAL IV SCH (09:20)
[2021-05-10] MEDS: ASPIRIN 81 MG PO SCH (09:20)
[2021-05-10] MEDS: ENOXAPARIN 40 MG/0.4 ML SYRINGE SQ SCH (09:20)
[2021-05-10] MEDS: hydrALAZINE HCL 50 MG TAB PO SCH ×3 (09:20→21:32)
[2021-05-10] MEDS: amLODIPine 5 MG TAB PO SCH (09:21)
[2021-05-10] MEDS: carvediloL 12.5 MG TAB PO SCH ×2 (09:21→21:32)
[2021-05-10] MEDS: ESCITALOPRAM 10 MG TAB PO SCH (09:23)
[2021-05-10] MEDS: EZETIMIBE 10 MG TAB PO SCH (09:23)
[2021-05-10] MEDS ORDERED: propofoL 100 ML IV ONE (10:37)
--- NOTE | 2021-05-10 10:50 | XR ---
EXAMINATION TYPE: XR chest 1V portable DATE OF EXAM: 05/10/2021 COMPARISON: 05/09/2021 HISTORY: Shortness of breath TECHNIQUE: Single frontal view of the chest is obtained. FINDINGS: Cardiac catheter leads are noted and there is diffuse pleural-parenchymal changes with sma ll effusion. No pneumothorax. Heart size stable. IMPRESSION: Table diffuse pulmonary infiltrates correlate for CHF versus diffuse pneumonia.
[2021-05-10] MEDS ORDERED: PROPOFOL 10 MG/ML 20 ML VIAL IV ONE (10:55)
[2021-05-10] MEDS ORDERED: SUCCINYLCHOLINE CHLORIDE 100 MG/5 ML SYR IV ONE (10:55)
[2021-05-10] MEDS ORDERED: ROCURONIUM 10 MG/ML (5 ML VIAL) IV ONE (10:55)
[2021-05-10] MEDS ORDERED: NOREPINEPHRIN 4 MG-0.9% NS PMX 4 MG/250 ML ML IV ONE (11:02)
[2021-05-10] MEDS ORDERED: CISATRACURIUM 2 MG/ML 5 ML VIAL IV ONE ×2 (11:17)
[2021-05-10 11:50] LABS: ABG Base Excess 5.2 mmol/L; ABG HCO3 30 mmol/L (21-25); ABG Oxygen Saturation 85.2 % (94-97); ABG PCO2 46 mmHg (35-45); ABG PH 7.42 (7.35-7.45); ABG TCO2 31 mmol/L (19-24)
[2021-05-10 11:53] LABS: ABG PO2 51 mmHg (83-108); Allen Test Performed? no
[2021-05-10 12:00] LABS: Glucose,Whole Blood 93 mg/dL (75-99)
[2021-05-10] MEDS ORDERED: SODIUM CHLORIDE 0.9% 2,000 ML IV ONE (12:00)
[2021-05-10] MEDS ORDERED: HYDROmorphone 0.5 MG/0.5 ML SYRINGE IVP SCH (12:00)
--- NOTE | 2021-05-10 12:09 | P.PN ---
Subjective Progress Note Date: 05/10/21 Principal diagnosis: Acute COVID-19 pneumonia On 05/04/2021 patient seen in follow-up on selective care unit. His oxygen demand has increased, he is currently on 100 percent nonrebreather, his oxygen saturations are ranging between 82 and 88%, is having low-grade fevers this af ternoon, blood pressures stable. Inflammatory markers are improving on today's labs, LDH is down to 392, CRP is 6.0, pro calcitonin level was 0.32. D-dimer was 0.66. Blood cultures have been negative. Patient remains on dexamethasone 6 mg daily, he is on prophylactic dose Lovenox 40 mg daily. His chest x-ray point diffuse bilateral infiltrates that appear to be progress. Patient could not tolerate high flow nasal cannula and was desaturating on it. On today's evaluation of 05/05/2021 patient seen in follow-up on medical surgical floor. Overnight patient was placed on BiPAP support for worsening dyspnea and hypoxia, with pressures of 12/5, and FiO2 of 100%, and his pulse ox is around 89%. Patient is currently up in the chair, is short of breath with any exertion, he was started on bariticinib yesterday, and he continues on Decadron 6 mg daily, and Lovenox 80 mg once daily, his chest x-ray has been reviewed showing stable diffuse bilateral infiltrates. Today's labs have been reviewed, white blood cell count is not 7.9, hemoglobin is 12.6, his lymphocyte count is 1.27, electrolytes are within normal limits, B1 is 36, creatinine is 1.6, his LDH is up slightly to 560 from 392 one yesterday his labs, CRP is relatively stable with 6.8. Pro-calcitonin level was 0.32. His had no fever or chills overnight, but cultures were negative. In view of his progressive oxygen demand and shortness of breath, we recommended transfer to the intensive care unit for closer monitoring On 05/06/2021 patient seen in follow-up in the intensive care unit where she was transferred yesterday from [facility]. in view of his worsening hypoxia, patient is currently on BiPAP support with pressures of 12/10 and FiO2 100%, his pulse ox is ranging between 86-91%, he sitting up in the recliner where he slept last night, he does not appear to be in any acute distress, however he does desaturate down to 68 when he removes the BiPAP mask even briefly to take a bite of food, or his medication. Is currently on IV fluids with 0.9, secondary to 20 ML per hour. He continues on Baricitinib 2 mg daily, and today is day 2 of treatment, in addition he is on IV Decadron 6 mg daily, is on prophylactic dose of Lovenox 40 mg daily, he is receiving when necessary doses of Ativan for anxiety and breathlessness. Today's chest x-ray has been reviewed showing diffuse bilateral infiltrates that are stable in appearance. Today's labs have been reviewed showing CBC within normal limits, electrolytes were unremarkable, BUN is 39, creatinine is 1.41. Inflammatory markers seems to have increased as far as LDH is up to 1792, and CRP is relatively stable 6.9. His d-dimer today is 0.59. He appears to be sleepy, but no acute distress, he is answering questions appropriately, denies any chest discomfort. He is been in his chair for the most part. His been using the urinal to urinate, he is trying to keep up his oral intake and take bites of food. No other acute events overnight. Reevaluated today on 05/07/2021, patient remains in the ICU, his pulmonary status is marginal at best. Patient is on BiPAP 08/03 he is also on 100% FiO2, with O2 saturation in the high 80s at best. Surprisingly however the patient seems to be in no distress, he is comfortable, sitting at a bedside chair, alert oriented 3, and I have increased his IPAP 14 instead of 12, patient seems to be extremely comfortable. Chest x-ray continues to show bilateral interstitial infiltrates. WBC count is 10.9 hemoglobin 13.9 d-dimer is 0.96 electrolytes are normal LDH 2092 and C-reactive protein is 6. Reevaluated today on 05/08/2021, remains in the ICU, remains on BiPAP, he is on IPAP of 14 and EPAP of 8 and FiO2 of 100%. Patient O2 saturation is marginal in the 80s most of the time. Surprisingly, the patient is not complaining of any shortness of breath, he seems to be comfortable, and relatively asymptomatic. Does not seem to be in distress. Chest x-ray is basically about the same, hence I ordered another Lasix dose to be given today 40 mg IV push 1, although BNP level is not elevated, but I would like to keep him on the dry side as much as possible. Patient remains on Lovenox 40 mg subcu daily, he is on Decadron, Glucerna was ordered, and he remains on baricitinib. CBC is relatively normal left lites are normal renal profile showed a BUN of 45 creatinine 1.16. Improving compared to his baseline on admission Reevaluated today on 05/09/2021, patient remains in the ICU, remains on BiPAP 14/8/100% FiO2 patient is basically about the same not much of a change noted over the last 24 hours. Chest x-ray is basically about the same. Patient seems to be comfortable, O2 saturations are marginal basically as high, 92%. Remains on Decadron, Lovenox, and on baricitinib WBC count is 12.3 hemoglobin is 14.1 lites are normal BUN is 53 creatinine 1.15, no Lasix was ordered today as the patient seems to be a bit prerenal The patient is seen today 05/10/2021 in follow-up in the intensive care unit. Boo clay is currently sitting up in bed. Awake and alert. Initially on BiPAP support at 14/8 and 100% FiO2 to maintain O2 saturations in the high 70s low 80s. This x-ray continues to revealed diffuse pulmonary infiltrates. He remains in sinus rhythm. He is 0.9 normal saline at 20 ML's per hour. The patient is quite marginal at best. Respiratory rate in the 30s. White count 15.4. Hemoglobin 14.5. Lymphocyte 0.8. Sodium 140. Potassium 4.8. Creatinine 1.08. Throughout the morning the patient became more hypoxemic and required intubation and mechanical ventilatory support. Currently on assist control mode. Respiratory rate of 30, tidal volume 450, FiO2 100% and a PEEP of 15. Blood gases revealed a PaO2 of 51, pCO2 46, pH 7.42. He is sedated with propofol. May require paralytics. He is continued on Decadron, Lovenox, Bariticinib, vitamin supplements. Objective - Vital Signs Vital signs: Vital Signs Temp 100.4 F H 05/10/21 00:00 Pulse 60 05/10/21 07:00 Resp 20 05/10/21 07:00 BP 151/83 05/10/21 07:00 Pulse Ox 80 L 05/10/21 07:00 Intake & Output 05/09/21 05/10/21 05/10/21 18:59 06:59 18:59 Intake Total 240 240 20 Output Total 1000 650 200 Balance -760 -410 -180 Weight 126.3 kg Intake: IV 240 240 20 0.9 240 240 20 Output: Urine 1000 650 200 Other: Voiding Method Urinal Urinal - Exam GENERAL EXAM: Intubated, sedated 66-year-old male patient on the mechanical ventilator. HEAD: Normocephalic. EYES: Sluggish reaction of pupils, equal size. NOSE: Clear with pink turbinates. THROAT: Oral endotracheal and gastric tube secured in place. No erythema or exudates. NECK: No masses, no JVD. CHEST: No chest wall deformity. LUNGS: Equal air entry with crackles in the bilateral posterior bases. CVS: S1 and S2 normal with no audible murmur, regular rhythm. ABDOMEN: No hepatosplenomegaly, normal bowel sounds, no guarding or rigidity. SPINE: No scoliosis or deformity SKIN: No rashes CENTRAL NERVOUS SYSTEM: Sedated, tone is normal in all 4 extremities. EXTREMITIES: There is trace peripheral edema. No clubbing, no cyanosis. Peripheral pulses are intact. - Labs CBC & Chem 7: 05/10/21 06:37 05/10/21 06:37 Labs: Abnormal Lab Results - Last 24 Hours (Table) 05/07/21 05/09/21 05/09/21 Range/Units 04:28 16:43 20:09 WBC (3.8-10.6) k/uL Neutrophils # (1.3-7.7) k/uL Lymphocytes # (1.0-4.8) k/uL ABG pCO2 (35-45) mmHg ABG pO2 (83-108) mmHg ABG HCO3 (21-25) mmol/L ABG Total CO2 (19-24) mmol/L ABG O2 Saturation (94-97) % BUN (9-20) mg/dL Glucose (74-99) mg/dL POC Glucose (mg/dL) 239 H 215 H (75-99) mg/dL Ferritin 1020.9 H (22.0-322.0) ng/mL 05/10/21 05/10/21 05/10/21 Range/Units 06:27 06:37 06:37 WBC 15.4 H (3.8-10.6) k/uL Neutrophils # 13.8 H (1.3-7.7) k/uL Lymphocytes # 0.8 L (1.0-4.8) k/uL ABG pCO2 (35-45) mmHg ABG pO2 (83-108) mmHg ABG HCO3 (21-25) mmol/L ABG Total CO2 (19-24) mmol/L ABG O2 Saturation (94-97) % BUN 49 H (9-20) mg/dL Glucose 168 H (74-99) mg/dL POC Glucose (mg/dL) 165 H (75-99) mg/dL Ferritin (22.0-322.0) ng/mL 05/10/21 Range/Units 11:48 WBC (3.8-10.6) k/uL Neutrophils # (1.3-7.7) k/uL Lymphocytes # (1.0-4.8) k/uL ABG pCO2 46 H (35-45) mmHg ABG pO2 51 L* (83-108) mmHg ABG HCO3 30 H (21-25) mmol/L ABG Total CO2 31 H (19-24) mmol/L ABG O2 Saturation 85.2 L (94-97) % BUN (9-20) mg/dL Glucose (74-99) mg/dL POC Glucose (mg/dL) (75-99) mg/dL Ferritin (22.0-322.0) ng/mL Assessment and Plan Assessment: 1 Acute COVID-19 pneumonia, with acute hypoxic respiratory failure, with symptom onset 11-12 days before presentation. Outside the window for Remdesivir. His hypoxia has progressed, and patient was started on Bariticinib on 05/03/2021. Transferred to the intensive care unit on 05/05/2021, initially on BiPAP, then required intubation and mechanical ventilatory support on 05/10/2021. 2 Increased inflammatory markers, related to the above, improved since admission 3 Coronary artery disease with previous coronary artery stenting 4 History of permanent pacemaker insertion 5 History of hypertension 6 Hyperlipidemia 7 History of obstructive sleep apnea on CPAP on an outpatient basis 8 Migraine headache 9 Acute on chronic kidney injury 10 Obesity with BMI 42.3 11 Acute elevation of inflammatory markers, currently improving 12 Hypothyroidism Plan: The patient was seen and evaluated by Dr. Natacha The patient required intubation mechanical ventilatory support this morning Titrate the FiO2 as tolerated, currently on 100% with a PEEP of 15 Continue Baricitinib, Decadron, Lovenox Follow-up chest x-ray, ABGs and labs in a.m. Overall prognosis is quite guarded We will continue to follow and make further recommendations based on his clinical status Critical care time not including procedures: 36 minutes I, the cosigning physician, performed a history & physical examination of the patient. Lungs sounds echoes in the bilateral posterior bases. Maintaining O2 saturations in the 90s on 100% FiO2 and 15 of PEEP via mechanical ventilator. I discussed the assessment and plan of care with my nurse practitioner, Tali Rubi. I attest to the above note as dictated by her. Time with Patient: Greater than 30
[2021-05-10] MEDS: ARTIFICIAL TEARS-HYPROMELLOSE DROPS 15 ML BTL BOTH EYES SCH ×3 (12:11→21:08)
--- NOTE | 2021-05-10 12:27 | XR ---
EXAMINATION TYPE: XR chest 1V portable DATE OF EXAM: 05/10/2021 COMPARISON: 05/10/2021 HISTORY: ET tube placement TECHNIQUE: Single frontal view of the chest is obtained. FINDINGS: Diffuse interstitial pattern with bilateral infiltrates. ET tube is approximately 1.5 cm a keysha nata. NG tube seen coursing in the abdomen. Cardiac device noted. No sizable pneumothorax. PIC C line noted in good position. IMPRESSION: 1. Diffuse bilateral lung disease stable. ET tube only 1.5 cm above nata correlate clinically.
[2021-05-10] MEDS: CISATRACURIUM 200 MG in SODIUM CHLORIDE 0.9% 180 ML IV SCH (12:30)
--- NOTE | 2021-05-10 12:39 | P.PN ---
Subjective Progress Note Date: 05/10/21 This is 66-year-old gentleman admitted with acute hypoxic respiratory failure secondary to COVID-19 infection. Afebrile. Maintained on Covid cocktail, including Decadron IV.Inflammatory markers trending down.He stated this morning with exertion from 88% tone to 75%. Currently placed on 6 L nasal cannula, O2 sat pending. Chest x-ray reporting progression of diffuse bilateral infiltrates.Blood sugars uncontrolled, A1c 9.1. 05/05/2021 respiratory status worsened yesterday, requiring nonrebreather. Th roughout the night, increased anxiety, patient pulling off masks, requiring minimal of 45 minutes to recover O2 saturation. Xanax initiated for anxiety, patient unable to tolerate, reported nausea/ vomiting. Received Ativan, tolerated well. Currently on BiPAP maintaining O2 sats in the 80s. Continues on Covid regimen. Renal function trending up, creatinine 1.6. Denies chest pain, palpitations. 05/06/2021 transferred into the ICU yesterday afternoon related to worsening hypoxia on BiPAP. Slept in the recliner, maintaining O2 sats mid 80s to low 90s. Chest x-ray reporting persistent bilateral infiltrates. Reports feels less shortness of breath, less anxiety on oral Ativan. Maintained on Covid regimen including Baricitinib. Inflammatory markers increased with the exception of d-dimer. Afebrile, normal WBC. Yesterday GHADA inhibitor, Cozaar discontinued, hydralazine increased secondary to worsening renal function-renal function improving. Hyperglycemic, blood sugars in the mid to low 200s. 05/09/2021 remains on 100% BiPAP, chest x-ray reporting stable diffuse predominant interstitial infiltrates. T-max 99.1, WBC 12.3. continues on Covid regimen including Olumiant. Reports anxiety, depression. BUN 53, creatinine 1.15. Blood sugars elevated. 05/10/2021 maintained on COVID cocktail, including Baricitinib. Continues on 100% BiPAP, maintaining O2 sat 76-79%, respiratory rate in the 20s. ABGs ordered. Chest x-ray reporting persistent diffuse pulmonary infiltrates. Te lemetry sinus rhythm. T-max 100.4, WBC increased to 15.4. Blood sugars controlled. Renal function improving. Objective - Vital Signs Vital signs: Vital Signs Temp 100.4 F H 05/10/21 00:00 Pulse 60 05/10/21 07:00 Resp 20 05/10/21 07:00 BP 151/83 05/10/21 07:00 Pulse Ox 80 L 05/10/21 07:00 Intake & Output 05/09/21 05/10/21 05/10/21 18:59 06:59 18:59 Intake Total 240 240 20 Output Total 1000 650 200 Balance -760 -410 -180 Weight 126.3 kg Intake: IV 240 240 20 0.9 240 240 20 Output: Urine 1000 650 200 Other: Voiding Method Urinal Urinal - Exam PHYSICAL EXAM: VITAL SIGNS: As above GENERAL: Sitting up in chair, respiratory effort increased. HEENT: Conjunctivae normal. eyes normal. Continues on BiPAP NECK: Supple No JVD. CARDIOVASCULAR: S1, S2 regular. No murmur RESPIRATION: Breath sounds diminished in the bases with fine bibasilar crackles. ABDOMEN: Soft, nontender. No guarding. no masses palpable. Bowel sounds heard. LEGS: No edema. no swelling. PSYCHIATRY: Alert and oriented X3, mood and affect normal. NERVOUS SYSTEM: Cranial N 2-12 grossly normal.No focal deficits. Strength and sensation grossly intact. Skin: Warm and dry, no rash - Labs CBC & Chem 7: 05/10/21 06:37 05/10/21 06:37 Labs: Abnormal Lab Results - Last 24 Hours (Table) 05/07/21 05/09/21 05/09/21 Range/Units 04:28 16:43 20:09 WBC (3.8-10.6) k/uL Neutrophils # (1.3-7.7) k/uL Lymphocytes # (1.0-4.8) k/uL ABG pCO2 (35-45) mmHg ABG pO2 (83-108) mmHg ABG HCO3 (21-25) mmol/L ABG Total CO2 (19-24) mmol/L ABG O2 Saturation (94-97) % BUN (9-20) mg/dL Glucose (74-99) mg/dL POC Glucose (mg/dL) 239 H 215 H (75-99) mg/dL Ferritin 1020.9 H (22.0-322.0) ng/mL 05/10/21 05/10/21 05/10/21 Range/Units 06:27 06:37 06:37 WBC 15.4 H (3.8-10.6) k/uL Neutrophils # 13.8 H (1.3-7.7) k/uL Lymphocytes # 0.8 L (1.0-4.8) k/uL ABG pCO2 (35-45) mmHg ABG pO2 (83-108) mmHg ABG HCO3 (21-25) mmol/L ABG Total CO2 (19-24) mmol/L ABG O2 Saturation (94-97) % BUN 49 H (9-20) mg/dL Glucose 168 H (74-99) mg/dL POC Glucose (mg/dL) 165 H (75-99) mg/dL Ferritin (22.0-322.0) ng/mL 05/10/21 Range/Units 11:48 WBC (3.8-10.6) k/uL Neutrophils # (1.3-7.7) k/uL Lymphocytes # (1.0-4.8) k/uL ABG pCO2 46 H (35-45) mmHg ABG pO2 51 L* (83-108) mmHg ABG HCO3 30 H (21-25) mmol/L ABG Total CO2 31 H (19-24) mmol/L ABG O2 Saturation 85.2 L (94-97) % BUN (9-20) mg/dL Glucose (74-99) mg/dL POC Glucose (mg/dL) (75-99) mg/dL Ferritin (22.0-322.0) ng/mL Assessment and Plan Assessment: Acute COVID-19 pneumonia, on Baricitinib. Acute hypoxic respiratory failure secondary to the above, progressed requiring transfer to ICU. Acute on chronic kidney failure, stage III Leukopenia Diabetes mellitus, uncontrolled, hyperglycemic, hemoglobin A1c 9.1 Obstructive sleep apnea, on CPAP outpatient CAD with history of stenting, permanent pacemaker Hypertension Hyperlipidemia Hypothyroidism Morbid obesity, BMI 42.3 Depression, Anxiety Plan: Continue on current medication regime ,monitoring and symptomatic treatment. Anticipate intubation, currently unable to maintain O2 sats greater than 80%. ABGs pending. Maintain COVID cocktail, including Baricitinib. ICU management as per lead assembler. Prognosis guarded given multiple complex medical issues. The impression and plan of care has been dictated as directed. : I performed a history and examination of this patient, discussed the same with the dictator. I agree with the dictator's note ,documented as a scribe. Any additional findings or plans will be noted.
[2021-05-10] MEDS: NOREPINEPHRINE 8 MG in SODIUM CHLORIDE 0.9% 250 ML IV SCH (14:00)
[2021-05-10] MEDS: SODIUM CHLORIDE 0.9% 1,000 ML IV SCH ×2 (14:37→17:22)
[2021-05-10] MEDS: fentaNYL (PF). 1,000 MCG in SODIUM CHLORIDE 0.9% 80 ML IV SCH (15:52)
[2021-05-10] MEDS ORDERED: SODIUM CHLORIDE 0.9% 1,000 ML IV ONE (17:11)
[2021-05-10 18:02] LABS: Glucose,Whole Blood 104 mg/dL (75-99)
[2021-05-10] MEDS: BARICITINIB 2 MG TABLET PO SCH (18:08)
[2021-05-10 21:15] LABS: Glucose,Whole Blood 121 mg/dL (75-99)
[2021-05-10] MEDS: CHLORHEXIDINE GLUCONATE 15 ML CUP MUCOUS MEM SCH (21:32)
[2021-05-10] MEDS: ATORVASTATIN 10 MG TAB PO SCH (21:32)
[2021-05-11] MEDS: fentaNYL (PF). 1,000 MCG in SODIUM CHLORIDE 0.9% 80 ML IV SCH ×3 (02:46→17:46)
[2021-05-11] MEDS: CISATRACURIUM 200 MG in SODIUM CHLORIDE 0.9% 180 ML IV SCH (02:47)
[2021-05-11 05:22] LABS: ABG Base Excess 0.3 mmol/L; ABG HCO3 26 mmol/L (21-25); ABG Oxygen Saturation 96.2 % (94-97); ABG PCO2 46 mmHg (35-45); ABG PH 7.36 (7.35-7.45); ABG PO2 86 mmHg (83-108); ABG TCO2 27 mmol/L (19-24); Allen Test Performed? Yes
[2021-05-11] MEDS: SODIUM CHLORIDE 0.9% 1,000 ML IV SCH ×2 (05:56→17:49)
[2021-05-11] MEDS: ARTIFICIAL TEARS-HYPROMELLOSE DROPS 15 ML BTL BOTH EYES SCH ×6 (05:57→21:24)
[2021-05-11 06:15] LABS: Glucose,Whole Blood 168 mg/dL (75-99)
[2021-05-11] MEDS: INSULIN ASPART (NovoLOG) 100 UNIT/ML VIAL SQ SCH ×7 (06:25→21:25)
[2021-05-11 06:43] LABS: Basophils % (A) 0 %; Eosinophils % (A) 0 %; HGB 12.1 gm/dL (13.0-17.5); Lymphocytes # (A) 0.8 k/uL (1.0-4.8); Lymphocytes % (A) 5 %; MCH 30.3 pg (25.0-35.0); MCHC 32.8 g/dL (31.0-37.0); MCV 92.4 fL (80.0-100.0); Mean Platelet Volume 8.6; Monocytes # (A) 0.5 k/uL (0-1.0); Monocytes % (A) 3 %; Neutrophils # (A) 14.6 k/uL (1.3-7.7); Neutrophils % (A) 91 %; Platelet Count 372 k/uL (150-450); RDW 12.9 % (11.5-15.5); WBC 16.1 k/uL (3.8-10.6)
[2021-05-11 06:49] LABS: Calcium 7.4 mg/dL (8.4-10.2); Potassium 4.5 mmol/L (3.5-5.1)
[2021-05-11] MEDS: INSULIN DETEMIR (LEVEMIR) 100 UNIT/ML SYR SQ SCH ×2 (06:53→21:25)
[2021-05-11] MEDS: LEVOTHYROXINE 137 MCG TAB PO SCH (06:53)
[2021-05-11 06:55] LABS: Glucose,Whole Blood 170 mg/dL (75-99)
[2021-05-11] MEDS: EZETIMIBE 10 MG TAB PO SCH (08:47)
[2021-05-11] MEDS: ESCITALOPRAM 10 MG TAB PO SCH (08:47)
[2021-05-11] MEDS: ASPIRIN 81 MG PO SCH (08:47)
[2021-05-11] MEDS: CHLORHEXIDINE GLUCONATE 15 ML CUP MUCOUS MEM SCH ×2 (08:47→21:25)
[2021-05-11] MEDS: ENOXAPARIN 40 MG/0.4 ML SYRINGE SQ SCH ×2 (08:47→21:25)
[2021-05-11] MEDS: DEXAMETHASONE SOD PHOSPHATE 10 MG/ML 1 ML VIAL IV SCH (08:47)
[2021-05-11] MEDS: carvediloL 12.5 MG TAB PO SCH ×2 (08:48→21:25)
[2021-05-11] MEDS: amLODIPine 5 MG TAB PO SCH (08:48)
[2021-05-11] MEDS: NOREPINEPHRINE 8 MG in SODIUM CHLORIDE 0.9% 250 ML IV SCH (08:49)
[2021-05-11] MEDS: hydrALAZINE HCL 50 MG TAB PO SCH ×3 (08:52→21:25)
--- NOTE | 2021-05-11 10:56 | XR ---
EXAMINATION TYPE: XR chest 1V portable DATE OF EXAM: 05/11/2021 COMPARISON: 05/10/2021 HISTORY: Tube placement TECHNIQUE: Single frontal view of the chest is obtained. FINDINGS: ET and NG tube stable. Diffuse interstitial and alveolar pattern stable. No pneumothorax. Cardiac device noted. PICC line stable. IMPRESSION: Correlate for interstitial diffuse pneumonitis or CHF. Findings stable
--- NOTE | 2021-05-11 10:59 | P.PN ---
Subjective Progress Note Date: 05/11/21 Principal diagnosis: On 05/04/2021 patient seen in follow-up on [facility] care unit. His oxygen demand has increased, he is currently on 100 percent nonrebreather, his oxygen saturations are ranging between 82 and 88%, is having low-grade fevers this afternoon, blood pressures stable. Inflammatory markers are improving on today's labs, LDH is down to 392, CRP is 6.0, pro calcitonin level was 0.32. D- dimer was 0.66. Blood cultures have been negative. Patient remains on de xamethasone 6 mg daily, he is on prophylactic dose Lovenox 40 mg daily. His chest x-ray point diffuse bilateral infiltrates that appear to be progress. Patient could not tolerate high flow nasal cannula and was desaturating on it. On today's evaluation of 05/05/2021 patient seen in follow-up on medical surgical floor. Overnight patient was placed on BiPAP support for worsening dyspnea and hypoxia, with pressures of 12/5, and FiO2 of 100%, and his pulse ox is around 89%. Patient is currently up in the chair, is short of breath with any exertion, he was started on bariticinib yesterday, and he continues on Decadron 6 mg daily, and Lovenox 80 mg once daily, his chest x-ray has been reviewed showing stable diffuse bilateral infiltrates. Today's labs have been reviewed, white blood cell count is not 7.9, hemoglobin is 12.6, his lymphocyte count is 1.27, electrolytes are within normal limits, B1 is 36, creatinine is 1.6, his LDH is up slightly to 560 from 392 one yesterday his labs, CRP is relatively stable with 6.8. Pro-calcitonin level was 0.32. His had no fever or chills overnight, but cultures were negative. In view of his progressive oxygen demand and shortness of breath, we recommended transfer to the intensive care unit for closer monitoring On 05/06/2021 patient seen in follow-up in the intensive care unit where he was transferred yesterday from [facility]. in view of his worsening hypoxia, patient is currently on BiPAP support with pressures of 12/10 and FiO2 100%, his pulse ox is ranging between 86-91%, he sitting up in the recliner where he slept last night, he does not appear to be in any acute distress, however he does desaturate down to 68 when he removes the BiPAP mask even briefly to take a bite of food, or his medication. Is currently on IV fluids with 0.9, secondary to 20 ML per hour. He continues on Baricitinib 2 mg daily, and today is day 2 of treatment, in addition he is on IV Decadron 6 mg daily, is on prophylactic dose of Lovenox 40 mg daily, he is receiving when necessary doses of Ativan for anxiety and breathlessness. Today's chest x-ray has been reviewed showing diffuse bilateral infiltrates that are stable in appearance. Today's labs have been reviewed showing CBC within normal limits, electrolytes were unremarkable, BUN is 39, creatinine is 1.41. Inflammatory markers seems to have increased as far as LDH is up to 1792, and CRP is relatively stable 6.9. His d-dimer today is 0.59. He appears to be sleepy, but no acute distress, he is answering questions appropriately, denies any chest discomfort. He is been in his chair for the most part. His been using the urinal to urinate, he is trying to keep up his oral intake and take bites of food. No other acute events overnight. On 05/11/2021 patient seen in follow-up in the intensive care unit, he was intubated and placed on mechanical ventilator yesterday on 05/10/2021 for worsening hypoxic respiratory failure, he currently remains sedated, and paralyzed on assist-control mode of ventilation with a rate of 30, tidal I was 450, FiO2 of 90% and PEEP of 15, this morning's blood gas shows pO2 of 86, pCO2 46, and pH of 7.36. He's currently on 0.9 normal saline at 75 ML per hour, fentanyl infusion is at 1 diana per kilo per minute, and then backs is at 1 diana per kilo per minute, and improving and is at 50 mics per kilo per minute, patient has not been started on tube feedings yet. He tolerated protein quite well, this morning he still proned. Today's chest x-ray shows diffuse bilateral lung disease which is stable in appearance, and ET tube at 1.5 cm above nata. Today's labs have been reviewed, showing white blood cell count of 16.1, hemoglobin is 12.1, d-dimer is 4.5, slightly obtunded from previous level, sodium is 141, potassium is 4.5, chloride is 109, CO2 is 24, BUN of 44, creatinine is 1.18, LDH is down to 1175, appendectomy level is still pending for today. Did have some intermittent fevers last night, with a T-max of 101.4F. Remains on Baricitinib, Decadron, and Lovenox 40 mg daily. Objective - Vital Signs Vital signs: Vital Signs Temp 97.5 F L 05/11/21 04:00 Pulse 64 05/11/21 07:00 Resp 30 H 05/11/21 07:00 BP 120/77 05/10/21 11:00 Pulse Ox 96 05/11/21 07:00 Intake & Output 05/10/21 05/11/21 05/11/21 18:59 06:59 18:59 Intake Total 2625 2228.771 393.041 Output Total 560 1150 350 Balance 2065 1078.771 43.041 Weight 126.3 kg Intake: IV 2625 1900 300 0.9 625 900 300 Sodium Chloride 0.9% 1, 2000 1000 000 ml @ 999 mls/hr IV . Q1H1M [facility] Rx#:[id number] Intake, IV Titration 328.771 93.041 Amount Cisatracurium 200 mg In 108.239 Sodium Chloride 0.9% 180 ml @ 1 MCG/KG/MIN 7.578 mls/hr IV .Q24H [facility] Rx#: [id number] fentaNYL (PF). 1,000 mcg 89.462 86.726 In Sodium Chloride 0.9% 80 ml @ Per Protocol IV . Q0M [facility] Rx#:[id number] propofoL 1,000 mg In 131.07 6.315 Empty Bag 1 bag @ Titrate IV .Q0M [facility] Rx#: [id number] Output: Urine 560 1150 350 Other: Voiding Method Indwelling Catheter Indwelling Catheter # Voids 1 # Bowel Movements 0 ABP, PAP, CO, CI - Last Documented Arterial Blood Pressure 166/71 - Exam GENERAL EXAM: Intubated, sedated and paralyzed and proned 66-year-old white male, assist-control mode of ventilation, with FiO2 of 90%, and PEEP of 15 HEAD: Normocephalic/atraumatic. EYES: Normal reaction of pupils, equal size. Conjunctiva pink, sclera white. NOSE: Clear with pink turbinates. THROAT: No erythema or exudates. NECK: No masses, no JVD, no thyroid enlargement, no adenopathy. CHEST: No chest wall deformity. Symmetrical expansion. LUNGS: Equal air entry with diffuse crackles CVS: Regular rate and rhythm, normal S1 and S2, no gallops, no murmurs, no rubs ABDOMEN: Soft, nontender. No hepatosplenomegaly, normal bowel sounds, no guarding or rigidity. EXTREMITIES: No clubbing, no edema, no cyanosis, 2+ pulses and upper and lower extremities. MUSCULOSKELETAL: Muscle strength and tone normal. SPINE: No scoliosis or deformity SKIN: No rashes CENTRAL NERVOUS SYSTEM: Sedated, intubated and paralyzed. No focal deficits, tone is normal in all 4 extremities. - Labs CBC & Chem 7: 05/11/21 06:10 05/11/21 06:10 Labs: Abnormal Lab Results - Last 24 Hours (Table) 05/10/21 05/10/21 05/10/21 Range/Units 11:48 18:01 21:12 WBC (3.8-10.6) k/uL RBC (4.30-5.90) m/uL Hgb (13.0-17.5) gm/dL Hct (39.0-53.0) % Neutrophils # (1.3-7.7) k/uL Lymphocytes # (1.0-4.8) k/uL Fibrinogen (200-500) mg/dL D-Dimer (<0.60) mg/L FEU ABG pCO2 46 H (35-45) mmHg ABG pO2 51 L* (83-108) mmHg ABG HCO3 30 H (21-25) mmol/L ABG Total CO2 31 H (19-24) mmol/L ABG O2 Saturation 85.2 L (94-97) % Chloride (98-107) mmol/L BUN (9-20) mg/dL Glucose (74-99) mg/dL POC Glucose (mg/dL) 104 H 121 H (75-99) mg/dL Calcium (8.4-10.2) mg/dL Lactate Dehydrogenase (313-618) U/L CK-MB (CK-2) (0.0-2.4) ng/mL 05/11/21 05/11/21 05/11/21 Range/Units 05:20 06:10 06:10 WBC 16.1 H (3.8-10.6) k/uL RBC 4.00 L (4.30-5.90) m/uL Hgb 12.1 L (13.0-17.5) gm/dL Hct 37.0 L (39.0-53.0) % Neutrophils # 14.6 H (1.3-7.7) k/uL Lymphocytes # 0.8 L (1.0-4.8) k/uL Fibrinogen (200-500) mg/dL D-Dimer (<0.60) mg/L FEU ABG pCO2 46 H (35-45) mmHg ABG pO2 (83-108) mmHg ABG HCO3 26 H (21-25) mmol/L ABG Total CO2 27 H (19-24) mmol/L ABG O2 Saturation (94-97) % Chloride 109 H (98-107) mmol/L BUN 44 H (9-20) mg/dL Glucose 180 H (74-99) mg/dL POC Glucose (mg/dL) (75-99) mg/dL Calcium 7.4 L (8.4-10.2) mg/dL Lactate Dehydrogenase (313-618) U/L CK-MB (CK-2) (0.0-2.4) ng/mL 05/11/21 05/11/21 05/11/21 Range/Units 06:10 06:10 06:10 WBC (3.8-10.6) k/uL RBC (4.30-5.90) m/uL Hgb (13.0-17.5) gm/dL Hct (39.0-53.0) % Neutrophils # (1.3-7.7) k/uL Lymphocytes # (1.0-4.8) k/uL Fibrinogen 596 H (200-500) mg/dL D-Dimer 4.50 H (<0.60) mg/L FEU ABG pCO2 (35-45) mmHg ABG pO2 (83-108) mmHg ABG HCO3 (21-25) mmol/L ABG Total CO2 (19-24) mmol/L ABG O2 Saturation (94-97) % Chloride (98-107) mmol/L BUN (9-20) mg/dL Glucose (74-99) mg/dL POC Glucose (mg/dL) (75-99) mg/dL Calcium (8.4-10.2) mg/dL Lactate Dehydrogenase 1175 H (313-618) U/L CK-MB (CK-2) 3.0 H (0.0-2.4) ng/mL 05/11/21 05/11/21 Range/Units 06:11 06:54 WBC (3.8-10.6) k/uL RBC (4.30-5.90) m/uL Hgb (13.0-17.5) gm/dL Hct (39.0-53.0) % Neutrophils # (1.3-7.7) k/uL Lymphocytes # (1.0-4.8) k/uL Fibrinogen (200-500) mg/dL D-Dimer (<0.60) mg/L FEU ABG pCO2 (35-45) mmHg ABG pO2 (83-108) mmHg ABG HCO3 (21-25) mmol/L ABG Total CO2 (19-24) mmol/L ABG O2 Saturation (94-97) % Chloride (98-107) mmol/L BUN (9-20) mg/dL Glucose (74-99) mg/dL POC Glucose (mg/dL) 168 H 170 H (75-99) mg/dL Calcium (8.4-10.2) mg/dL Lactate Dehydrogenase (313-618) U/L CK-MB (CK-2) (0.0-2.4) ng/mL Assessment and Plan Plan: Assessment: #1. Acute COVID-19 pneumonia, with acute hypoxic respiratory failure, with symptom onset 11-12 days after presentation. Patient is of the window for Remdesivir. His hypoxia has progressed, and patient was started on Bariticinib on 05/03/2021. Transfer to the intensive care unit on 05/05/2021. Intubated on 05/10/2021, sedated and paralyzed, currently on FiO2 90%, and PEEP of 15 #2. Increased inflammatory markers, related to the above, improved since admission #3. Coronary artery disease with previous coronary artery stenting #4. History of permanent pacemaker insertion #5. History of hypertension #6. Hyperlipidemia #7. History of obstructive sleep apnea on CPAP on an outpatient basis #8. Migraine headache #9. Acute on chronic kidney injury #10. Obesity with BMI 42.3 #11. Acute elevation of inflammatory markers, currently improving #12. Hypothyroidism #13. Increased d-dimer, related to acute viral pneumonia, we will adjust his Lovenox to 40 mg twice daily and follow on a daily basis Plan: Continue same vent settings, wean FiO2 to keep O2 sats at 88% and above Continue Decadron, Increase Lovenox to 40 mg twice daily Continue Baricitinib Today's chest x-ray reviewed Continue proning the patient 16 hours a day if able to tolerate Start nutritional support tube feedings Follow d-dimer on a daily basis, inflammatory markers, basic labs Daily chest x-ray Prognosis is guarded I performed a history & physical examination of the patient and discussed their management with my nurse practitioner, Penelope Vallejo. I reviewed the nurse practitioner's note and agree with the documented findings and plan of care. Lung sounds are positive for bibasilar infiltrates throughout the lung gaviria. The findings and the impression was discussed with the patient. I attest to the documentation by the nurse practitioner. Time with Patient: Greater than 30
[2021-05-11 12:01] LABS: Glucose,Whole Blood 155 mg/dL (75-99)
[2021-05-11] MEDS: BARICITINIB 2 MG TABLET PO SCH (17:48)
[2021-05-11 17:57] LABS: Glucose,Whole Blood 195 mg/dL (75-99)
[2021-05-11 21:19] LABS: Glucose,Whole Blood 188 mg/dL (75-99)
[2021-05-11] MEDS: ATORVASTATIN 10 MG TAB PO SCH (21:25)
--- NOTE | 2021-05-11 22:25 | P.PN ---
Subjective Progress Note Date: 05/11/21 patient seen in follow-up in the intensive care unit, he was intubated and placed on mechanical ventilator yesterday on 05/10/2021 for worsening hypoxic respiratory failure.. Pt is currently prone in bed during exam. Objective - Vital Signs Vital signs: Vital Signs Temp 98.7 F 05/11/21 16:00 Pulse 68 05/11/21 19:00 Resp 30 H 05/11/21 19:00 BP 120/77 05/10/21 11:00 Pulse Ox 97 05/11/21 19:00 Intake & Output 05/11/21 05/11/21 05/12/21 06:59 18:59 06:59 Intake Total 2228.771 1323.368 125.691 Output Total 1150 920 50 Balance 1078.771 403.368 75.691 Weight 126.3 kg Intake: IV 1900 900 75 0.9 900 900 75 Sodium Chloride 0.9% 1, 1000 000 ml @ 999 mls/hr IV . Q1H1M [facility] Rx#:[id number] Intake, IV Titration 328.771 273.368 30.691 Amount Cisatracurium 200 mg In 108.239 Sodium Chloride 0.9% 180 ml @ 1 MCG/KG/MIN 7.578 mls/hr IV .Q24H [facility] Rx#: [id number] fentaNYL (PF). 1,000 mcg 89.462 186.726 In Sodium Chloride 0.9% 80 ml @ Per Protocol IV . Q0M [facility] Rx#:[id number] propofoL 1,000 mg In 131.07 86.642 30.691 Empty Bag 1 bag @ Titrate IV .Q0M [facility] Rx#: [id number] Tube Feeding 120 20 Other 30 Output: Urine 1150 920 50 Other: Voiding Method Indwelling Catheter # Voids 1 # Bowel Movements 0 ABP, PAP, CO, CI - Last Documented Arterial Blood Pressure 135/51 - Exam GENERAL EXAM: Intubated, sedated and paralyzed and proned 66-year-old white male. HEAD: Normocephalic/atraumatic. EYES: Normal reaction of pupils, equal size. Conjunctiva pink, sclera white. NOSE: Clear with pink turbinates. THROAT: No erythema or exudates. NECK: No masses, no JVD, no thyroid enlargement, no adenopathy. CHEST: No chest wall deformity. Symmetrical expansion. LUNGS: Equal air entry with diffuse crackles CVS: Regular rate and rhythm, normal S1 and S2, no gallops, no murmurs, no rubs ABDOMEN: Soft, nontender. No hepatosplenomegaly, normal bowel sounds, no guarding or rigidity. EXTREMITIES: No clubbing, no edema, no cyanosis, 2+ pulses and upper and lower extremities. MUSCULOSKELETAL: Muscle strength and tone normal. SPINE: No scoliosis or deformity SKIN: No rashes CENTRAL NERVOUS SYSTEM: Sedated, intubated and paralyzed. No focal deficits, tone is normal in all 4 extremities. - Labs CBC & Chem 7: 05/11/21 06:10 05/11/21 06:10 Labs: Abnormal Lab Results - Last 24 Hours (Table) 05/11/21 05/11/21 05/11/21 Range/Units 05:20 06:10 06:10 WBC 16.1 H (3.8-10.6) k/uL RBC 4.00 L (4.30-5.90) m/uL Hgb 12.1 L (13.0-17.5) gm/dL Hct 37.0 L (39.0-53.0) % Neutrophils # 14.6 H (1.3-7.7) k/uL Lymphocytes # 0.8 L (1.0-4.8) k/uL Fibrinogen (200-500) mg/dL D-Dimer (<0.60) mg/L FEU ABG pCO2 46 H (35-45) mmHg ABG HCO3 26 H (21-25) mmol/L ABG Total CO2 27 H (19-24) mmol/L Chloride 109 H (98-107) mmol/L BUN 44 H (9-20) mg/dL Glucose 180 H (74-99) mg/dL POC Glucose (mg/dL) (75-99) mg/dL Calcium 7.4 L (8.4-10.2) mg/dL Ferritin (22.0-322.0) ng/mL Lactate Dehydrogenase (313-618) U/L CK-MB (CK-2) (0.0-2.4) ng/mL Procalcitonin (0.02-0.09) ng/mL 05/11/21 05/11/21 05/11/21 Range/Units 06:10 06:10 06:10 WBC (3.8-10.6) k/uL RBC (4.30-5.90) m/uL Hgb (13.0-17.5) gm/dL Hct (39.0-53.0) % Neutrophils # (1.3-7.7) k/uL Lymphocytes # (1.0-4.8) k/uL Fibrinogen 596 H (200-500) mg/dL D-Dimer 4.50 H (<0.60) mg/L FEU ABG pCO2 (35-45) mmHg ABG HCO3 (21-25) mmol/L ABG Total CO2 (19-24) mmol/L Chloride (98-107) mmol/L BUN (9-20) mg/dL Glucose (74-99) mg/dL POC Glucose (mg/dL) (75-99) mg/dL Calcium (8.4-10.2) mg/dL Ferritin 1094.0 H (22.0-322.0) ng/mL Lactate Dehydrogenase 1175 H (313-618) U/L CK-MB (CK-2) 3.0 H (0.0-2.4) ng/mL Procalcitonin (0.02-0.09) ng/mL 05/11/21 05/11/21 05/11/21 Range/Units 06:10 06:11 06:54 WBC (3.8-10.6) k/uL RBC (4.30-5.90) m/uL Hgb (13.0-17.5) gm/dL Hct (39.0-53.0) % Neutrophils # (1.3-7.7) k/uL Lymphocytes # (1.0-4.8) k/uL Fibrinogen (200-500) mg/dL D-Dimer (<0.60) mg/L FEU ABG pCO2 (35-45) mmHg ABG HCO3 (21-25) mmol/L ABG Total CO2 (19-24) mmol/L Chloride (98-107) mmol/L BUN (9-20) mg/dL Glucose (74-99) mg/dL POC Glucose (mg/dL) 168 H 170 H (75-99) mg/dL Calcium (8.4-10.2) mg/dL Ferritin (22.0-322.0) ng/mL Lactate Dehydrogenase (313-618) U/L CK-MB (CK-2) (0.0-2.4) ng/mL Procalcitonin 0.51 H (0.02-0.09) ng/mL 05/11/21 05/11/21 05/11/21 Range/Units 11:59 17:54 21:18 WBC (3.8-10.6) k/uL RBC (4.30-5.90) m/uL Hgb (13.0-17.5) gm/dL Hct (39.0-53.0) % Neutrophils # (1.3-7.7) k/uL Lymphocytes # (1.0-4.8) k/uL Fibrinogen (200-500) mg/dL D-Dimer (<0.60) mg/L FEU ABG pCO2 (35-45) mmHg ABG HCO3 (21-25) mmol/L ABG Total CO2 (19-24) mmol/L Chloride (98-107) mmol/L BUN (9-20) mg/dL Glucose (74-99) mg/dL POC Glucose (mg/dL) 155 H 195 H 188 H (75-99) mg/dL Calcium (8.4-10.2) mg/dL Ferritin (22.0-322.0) ng/mL Lactate Dehydrogenase (313-618) U/L CK-MB (CK-2) (0.0-2.4) ng/mL Procalcitonin (0.02-0.09) ng/mL Assessment and Plan (1) COVID-19 Current Visit: Yes Status: Acute Code(s): U07.1 - COVID-19 SNOMED Code(s): 314334220 (2) Hypoxia Current Visit: Yes Status: Acute Code(s): R09.02 - HYPOXEMIA SNOMED Code(s): 133308824 (3) Wiegy-ce-ficpfam kidney injury Current Visit: Yes Status: Acute Code(s): N17.9 - ACUTE KIDNEY FAILURE, UNSPECIFIED; N18.9 - CHRONIC KIDNEY DISEASE, UNSPECIFIED SNOMED Code(s): 300843644 (4) Coronary artery disease Current Visit: Yes Status: Acute Code(s): I25.10 - ATHSCL HEART DISEASE OF [place] CORONARY ARTERY W/O ANG PCTRS SNOMED Code(s): 36369385 (5) Morbid exogenous obesity Current Visit: Yes Status: Acute Code(s): E66.01 - MORBID (SEVERE) OBESITY DUE TO EXCESS CALORIES SNOMED Code(s): 941536332 (6) Acute respiratory disease due to COVID-19 virus Current Visit: Yes Status: Acute Code(s): U07.1 - COVID-19; J06.9 - ACUTE UPPER RESPIRATORY INFECTION, UNSPECIFIED SNOMED Code(s): 213284085 Plan: Continue Ventilator and ICU support and condition is poor at this time patient has severe covid infection with multiple comorbid conditions.
[2021-05-12] MEDS: fentaNYL (PF). 1,000 MCG in SODIUM CHLORIDE 0.9% 80 ML IV SCH ×4 (00:41→20:45)
[2021-05-12] MEDS: ARTIFICIAL TEARS-HYPROMELLOSE DROPS 15 ML BTL BOTH EYES SCH ×6 (00:42→20:44)
[2021-05-12] MEDS: CISATRACURIUM 200 MG in SODIUM CHLORIDE 0.9% 180 ML IV SCH (00:42)
[2021-05-12 04:24] LABS: Basophils % (A) 0 %; Eosinophils % (A) 0 %; HCT 35.6 % (39.0-53.0); HGB 11.8 gm/dL (13.0-17.5); Lymphocytes # (A) 0.6 k/uL (1.0-4.8); Lymphocytes % (A) 5 %; MCH 29.9 pg (25.0-35.0); MCHC 33.2 g/dL (31.0-37.0); MCV 90.1 fL (80.0-100.0); Mean Platelet Volume 9.2; Monocytes # (A) 0.4 k/uL (0-1.0); Monocytes % (A) 3 %; Neutrophils # (A) 12.2 k/uL (1.3-7.7); Neutrophils % (A) 92 %; Platelet Count 412 k/uL (150-450); RBC 3.95 m/uL (4.30-5.90); RDW 13.2 % (11.5-15.5); WBC 13.3 k/uL (3.8-10.6)
[2021-05-12 04:39] LABS: African American GFR (CKD) >90 (>60 ml/min/1.73 sqM); Anion Gap 4 mmol/L; Blood Urea Nitrogen 39 mg/dL (9-20); Calcium 7.6 mg/dL (8.4-10.2); Carbon Dioxide 25 mmol/L (22-30); Chloride 109 mmol/L (98-107); Glucose 243 mg/dL (74-99); LDH 985 U/L (313-618); Non-African American GFR(CKD) 82 (>60 ml/min/1.73 sqM); Potassium 4.4 mmol/L (3.5-5.1); Sodium 138 mmol/L (137-145)
[2021-05-12] MEDS: SODIUM CHLORIDE 0.9% 1,000 ML IV SCH ×2 (04:48→15:38)
[2021-05-12 04:52] LABS: ABG Base Excess 1.3 mmol/L; ABG HCO3 27 mmol/L (21-25); ABG Oxygen Saturation 89.5 % (94-97); ABG PCO2 49 mmHg (35-45); ABG PH 7.35 (7.35-7.45); ABG TCO2 29 mmol/L (19-24); Allen Test Performed? Yes
[2021-05-12 04:52] LABS: C Reactive Protein 16.1 mg/dL (<1.0)
[2021-05-12 04:58] LABS: ABG PO2 59 mmHg (83-108)
[2021-05-12] MEDS: NOREPINEPHRINE 8 MG in SODIUM CHLORIDE 0.9% 250 ML IV SCH (06:16)
[2021-05-12 06:50] LABS: Glucose,Whole Blood 222 mg/dL (75-99)
[2021-05-12] MEDS: INSULIN ASPART (NovoLOG) 100 UNIT/ML VIAL SQ SCH ×7 (06:53→20:31)
[2021-05-12] MEDS: INSULIN DETEMIR (LEVEMIR) 100 UNIT/ML SYR SQ SCH (06:53)
[2021-05-12] MEDS: LEVOTHYROXINE 137 MCG TAB PO SCH (06:53)
--- NOTE | 2021-05-12 08:34 | XR ---
EXAMINATION TYPE: XR chest 1V portable DATE OF EXAM: 05/12/2021 COMPARISON: Chest x-ray 05/11/2021 HISTORY: Covid pneumonia TECHNIQUE: Single frontal view of the chest is obtained. FINDINGS: Patient is rotated. Endotracheal tube, right-sided PICC line, NG tube are again noted and are overlying stable positions. Pacemaker is unchanged. Cardiac mediastinal silhouette shows a simila r appearance. No evident pneumothorax or pleural effusion. Bilateral airspace disease persists. IMPRESSION: Correlate for pneumonia, edema, ARDS
[2021-05-12] MEDS: ENOXAPARIN 40 MG/0.4 ML SYRINGE SQ SCH ×2 (08:48→20:46)
[2021-05-12] MEDS: carvediloL 12.5 MG TAB PO SCH ×2 (08:49→20:46)
[2021-05-12] MEDS: CHLORHEXIDINE GLUCONATE 15 ML CUP MUCOUS MEM SCH ×2 (08:49→20:46)
[2021-05-12] MEDS: hydrALAZINE HCL 50 MG TAB PO SCH ×3 (08:49→20:45)
[2021-05-12] MEDS: EZETIMIBE 10 MG TAB PO SCH (08:49)
[2021-05-12] MEDS: ESCITALOPRAM 10 MG TAB PO SCH (08:49)
[2021-05-12] MEDS: ASPIRIN 81 MG PO SCH (08:49)
[2021-05-12] MEDS: DEXAMETHASONE SOD PHOSPHATE 10 MG/ML 1 ML VIAL IV SCH (08:49)
[2021-05-12] MEDS: amLODIPine 5 MG TAB PO SCH (08:49)
--- NOTE | 2021-05-12 10:35 | P.PN ---
Subjective Progress Note Date: 05/12/21 This is 66-year-old gentleman admitted with acute hypoxic respiratory failure secondary to COVID-19 infection. Afebrile. Maintained on Covid cocktail, including Decadron IV.Inflammatory markers trending down.He stated this morning with exertion from 88% tone to 75%. Currently placed on 6 L nasal cannula, O2 sat pending. Chest x-ray reporting progression of diffuse bilateral infiltrates.Blood sugars uncontrolled, A1c 9.1. 05/05/2021 respiratory status worsened yesterday, requiring nonrebreather. Th roughout the night, increased anxiety, patient pulling off masks, requiring minimal of 45 minutes to recover O2 saturation. Xanax initiated for anxiety, patient unable to tolerate, reported nausea/ vomiting. Received Ativan, tolerated well. Currently on BiPAP maintaining O2 sats in the 80s. Continues on Covid regimen. Renal function trending up, creatinine 1.6. Denies chest pain, palpitations. 05/06/2021 transferred into the ICU yesterday afternoon related to worsening hypoxia on BiPAP. Slept in the recliner, maintaining O2 sats mid 80s to low 90s. Chest x-ray reporting persistent bilateral infiltrates. Reports feels less shortness of breath, less anxiety on oral Ativan. Maintained on Covid regimen including Baricitinib. Inflammatory markers increased with the exception of d-dimer. Afebrile, normal WBC. Yesterday GHADA inhibitor, Cozaar discontinued, hydralazine increased secondary to worsening renal function-renal function improving. Hyperglycemic, blood sugars in the mid to low 200s. 05/09/2021 remains on 100% BiPAP, chest x-ray reporting stable diffuse predominant interstitial infiltrates. T-max 99.1, WBC 12.3. continues on Covid regimen including Olumiant. Reports anxiety, depression. BUN 53, creatinine 1.15. Blood sugars elevated. 05/10/2021 maintained on COVID cocktail, including Baricitinib. Continues on 100% BiPAP, maintaining O2 sat 76-79%, respiratory rate in the 20s. ABGs ordered. Chest x-ray reporting persistent diffuse pulmonary infiltrates. Te lemetry sinus rhythm. T-max 100.4, WBC increased to 15.4. Blood sugars controlled. Renal function improving. 05/11/21 patient seen in follow-up in the intensive care unit, he was intubated and placed on mechanical ventilator yesterday on 05/10/2021 for worsening hypoxic respiratory failure.. Pt is currently prone in bed during exam. 05/12/2021 and ABGs reporting pO2 59, FiO2 increased to 70%/+15 Peep. Maintained on fentanyl, diprovan, Nimbex drips. Chest x-ray reporting similar appearance, persistent bilateral airspace disease. Maintained on Covid regimen including Baricitinib and Decadron. Blood sugars elevated, in the 200s this morning. D-dimer, LDH decreasing. CRP increased, 16.1. Objective - Vital Signs Vital signs: Vital Signs Temp 97.5 F L 05/12/21 04:00 Pulse 60 05/12/21 07:00 Resp 30 H 05/12/21 07:00 BP 120/77 05/10/21 11:00 Pulse Ox 92 L 05/12/21 07:00 Intake & Output 05/11/21 05/12/21 05/12/21 18:59 06:59 18:59 Intake Total 9625.686 5770.468 297.042 Output Total 920 610 45 Balance 704.169 8033.468 252.042 Weight 126.3 kg 134.9 kg Intake: IV 900 933 78 0.9 900 900 75 Pressure bag 33 3 Intake, IV Titration 273.368 602.468 189.042 Amount Cisatracurium 200 mg In 166.085 Sodium Chloride 0.9% 180 ml @ 1 MCG/KG/MIN 7.578 mls/hr IV .Q24H [facility] Rx#: [id number] Norepinephrine 8 mg In 145.418 Sodium Chloride 0.9% 250 ml @ 0.05 MCG/KG/MIN 12. 22 mls/hr IV .Q21H7M [facility] Rx#:[id number] fentaNYL (PF). 1,000 mcg 186.726 100 100 In Sodium Chloride 0.9% 80 ml @ Per Protocol IV . Q0M [facility] Rx#:[id number] propofoL 1,000 mg In 86.642 190.965 89.042 Empty Bag 1 bag @ Titrate IV .Q0M [facility] Rx#: [id number] Tube Feeding 120 310 30 Other 30 90 Output: Urine 920 610 45 Other: Voiding Method Indwelling Catheter ABP, PAP, CO, CI - Last Documented Arterial Blood Pressure 137/59 - Exam PHYSICAL EXAM: GENERAL EXAM: Intubated, sedated and paralyzed and proned 66-year-old white male. HEENT: Normocephalic/atraumatic.Normal reaction of pupils, equal size. Conjunct negrito pink, sclera white. NECK: Supple, no JVD CHEST: No chest wall deformity. Symmetrical expansion. LUNGS: Equal air entry with diffuse bibasilar crackles. CVS: Regular rate and rhythm, normal S1 and S2, no gallops, no murmurs, no rubs ABDOMEN: Soft, nontender. No hepatosplenomegaly, normal bowel sounds. EXTREMITIES: No clubbing, no edema, no cyanosis, 2+ pulses and upper and lower extremities. SKIN: Warm and dry, No rashes CENTRAL NERVOUS SYSTEM: Sedated, intubated and paralyzed. - Labs CBC & Chem 7: 05/12/21 04:00 05/12/21 04:00 Labs: Abnormal Lab Results - Last 24 Hours (Table) 05/11/21 05/11/21 05/11/21 Range/Units 06:10 06:10 11:59 WBC (3.8-10.6) k/uL RBC (4.30-5.90) m/uL Hgb (13.0-17.5) gm/dL Hct (39.0-53.0) % Neutrophils # (1.3-7.7) k/uL Lymphocytes # (1.0-4.8) k/uL D-Dimer (<0.60) mg/L FEU ABG pCO2 (35-45) mmHg ABG pO2 (83-108) mmHg ABG HCO3 (21-25) mmol/L ABG Total CO2 (19-24) mmol/L ABG O2 Saturation (94-97) % Chloride (98-107) mmol/L BUN (9-20) mg/dL Glucose (74-99) mg/dL POC Glucose (mg/dL) 155 H (75-99) mg/dL Calcium (8.4-10.2) mg/dL Ferritin 1094.0 H (22.0-322.0) ng/mL Lactate Dehydrogenase (313-618) U/L C-Reactive Protein (<1.0) mg/dL Procalcitonin 0.51 H (0.02-0.09) ng/mL 05/11/21 05/11/21 05/12/21 Range/Units 17:54 21:18 04:00 WBC 13.3 H (3.8-10.6) k/uL RBC 3.95 L (4.30-5.90) m/uL Hgb 11.8 L (13.0-17.5) gm/dL Hct 35.6 L (39.0-53.0) % Neutrophils # 12.2 H (1.3-7.7) k/uL Lymphocytes # 0.6 L (1.0-4.8) k/uL D-Dimer (<0.60) mg/L FEU ABG pCO2 (35-45) mmHg ABG pO2 (83-108) mmHg ABG HCO3 (21-25) mmol/L ABG Total CO2 (19-24) mmol/L ABG O2 Saturation (94-97) % Chloride (98-107) mmol/L BUN (9-20) mg/dL Glucose (74-99) mg/dL POC Glucose (mg/dL) 195 H 188 H (75-99) mg/dL Calcium (8.4-10.2) mg/dL Ferritin (22.0-322.0) ng/mL Lactate Dehydrogenase (313-618) U/L C-Reactive Protein (<1.0) mg/dL Procalcitonin (0.02-0.09) ng/mL 05/12/21 05/12/21 05/12/21 Range/Units 04:00 04:00 04:38 WBC (3.8-10.6) k/uL RBC (4.30-5.90) m/uL Hgb (13.0-17.5) gm/dL Hct (39.0-53.0) % Neutrophils # (1.3-7.7) k/uL Lymphocytes # (1.0-4.8) k/uL D-Dimer 3.10 H (<0.60) mg/L FEU ABG pCO2 49 H (35-45) mmHg ABG pO2 59 L* (83-108) mmHg ABG HCO3 27 H (21-25) mmol/L ABG Total CO2 29 H (19-24) mmol/L ABG O2 Saturation 89.5 L (94-97) % Chloride 109 H (98-107) mmol/L BUN 39 H (9-20) mg/dL Glucose 243 H (74-99) mg/dL POC Glucose (mg/dL) (75-99) mg/dL Calcium 7.6 L (8.4-10.2) mg/dL Ferritin (22.0-322.0) ng/mL Lactate Dehydrogenase 985 H (313-618) U/L C-Reactive Protein 16.1 H (<1.0) mg/dL Procalcitonin (0.02-0.09) ng/mL 05/12/21 Range/Units 06:49 WBC (3.8-10.6) k/uL RBC (4.30-5.90) m/uL Hgb (13.0-17.5) gm/dL Hct (39.0-53.0) % Neutrophils # (1.3-7.7) k/uL Lymphocytes # (1.0-4.8) k/uL D-Dimer (<0.60) mg/L FEU ABG pCO2 (35-45) mmHg ABG pO2 (83-108) mmHg ABG HCO3 (21-25) mmol/L ABG Total CO2 (19-24) mmol/L ABG O2 Saturation (94-97) % Chloride (98-107) mmol/L BUN (9-20) mg/dL Glucose (74-99) mg/dL POC Glucose (mg/dL) 222 H (75-99) mg/dL Calcium (8.4-10.2) mg/dL Ferritin (22.0-322.0) ng/mL Lactate Dehydrogenase (313-618) U/L C-Reactive Protein (<1.0) mg/dL Procalcitonin (0.02-0.09) ng/mL Assessment and Plan Assessment: Acute COVID-19 pneumonia, on Baricitinib. Acute hypoxic respiratory failure secondary to the above, mechanical ventilator- dependent Acute on chronic kidney failure, stage III Leukopenia Diabetes mellitus, uncontrolled, hyperglycemic, hemoglobin A1c 9.1 Obstructive sleep apnea, on CPAP outpatient CAD with history of stenting, permanent pacemaker Hypertension Hyperlipidemia Hypothyroidism Morbid obesity, BMI 42.3 Depression, Anxiety Plan: Continue on current medication regime ,monitoring and symptomatic treatment. ICU management as per content engineer. Pronating as tolerated. COVID cocktail, including Baricitinib, Decadron. HS dose of Levemir increased, close monitoring of Accu-Cheks. Prognosis guarded given multiple complex medical issues. The impression and plan of care has been dictated as directed. : I performed a history and examination of this patient, discussed the same with the dictator. I agree with the dictator's note ,documented as a scribe. Any additional findings or plans will be noted.
[2021-05-12 12:05] LABS: Glucose,Whole Blood 221 mg/dL (75-99)
[2021-05-12] MEDS: PANTOPRAZOLE 40 MG/10 ML VIAL IVP SCH (12:20)
--- NOTE | 2021-05-12 12:45 | P.PN ---
Subjective Progress Note Date: 05/12/21 Principal diagnosis: On 05/04/2021 patient seen in follow-up on [facility] care unit. His oxygen demand has increased, he is currently on 100 percent nonrebreather, his oxygen saturations are ranging between 82 and 88%, is having low-grade fevers this afternoon, blood pressures stable. Inflammatory markers are improving on today's labs, LDH is down to 392, CRP is 6.0, pro calcitonin level was 0.32. D- dimer was 0.66. Blood cultures have been negative. Patient remains on de xamethasone 6 mg daily, he is on prophylactic dose Lovenox 40 mg daily. His chest x-ray point diffuse bilateral infiltrates that appear to be progress. Patient could not tolerate high flow nasal cannula and was desaturating on it. On today's evaluation of 05/05/2021 patient seen in follow-up on medical surgical floor. Overnight patient was placed on BiPAP support for worsening dyspnea and hypoxia, with pressures of 12/5, and FiO2 of 100%, and his pulse ox is around 89%. Patient is currently up in the chair, is short of breath with any exertion, he was started on bariticinib yesterday, and he continues on Decadron 6 mg daily, and Lovenox 80 mg once daily, his chest x-ray has been reviewed showing stable diffuse bilateral infiltrates. Today's labs have been reviewed, white blood cell count is not 7.9, hemoglobin is 12.6, his lymphocyte count is 1.27, electrolytes are within normal limits, B1 is 36, creatinine is 1.6, his LDH is up slightly to 560 from 392 one yesterday his labs, CRP is relatively stable with 6.8. Pro-calcitonin level was 0.32. His had no fever or chills overnight, but cultures were negative. In view of his progressive oxygen demand and shortness of breath, we recommended transfer to the intensive care unit for closer monitoring On 05/06/2021 patient seen in follow-up in the intensive care unit where he was transferred yesterday from [facility]. in view of his worsening hypoxia, patient is currently on BiPAP support with pressures of 12/10 and FiO2 100%, his pulse ox is ranging between 86-91%, he sitting up in the recliner where he slept last night, he does not appear to be in any acute distress, however he does desaturate down to 68 when he removes the BiPAP mask even briefly to take a bite of food, or his medication. Is currently on IV fluids with 0.9, secondary to 20 ML per hour. He continues on Baricitinib 2 mg daily, and today is day 2 of treatment, in addition he is on IV Decadron 6 mg daily, is on prophylactic dose of Lovenox 40 mg daily, he is receiving when necessary doses of Ativan for anxiety and breathlessness. Today's chest x-ray has been reviewed showing diffuse bilateral infiltrates that are stable in appearance. Today's labs have been reviewed showing CBC within normal limits, electrolytes were unremarkable, BUN is 39, creatinine is 1.41. Inflammatory markers seems to have increased as far as LDH is up to 1792, and CRP is relatively stable 6.9. His d-dimer today is 0.59. He appears to be sleepy, but no acute distress, he is answering questions appropriately, denies any chest discomfort. He is been in his chair for the most part. His been using the urinal to urinate, he is trying to keep up his oral intake and take bites of food. No other acute events overnight. On 05/11/2021 patient seen in follow-up in the intensive care unit, he was intubated and placed on mechanical ventilator yesterday on 05/10/2021 for worsening hypoxic respiratory failure, he currently remains sedated, and paralyzed on assist-control mode of ventilation with a rate of 30, tidal I was 450, FiO2 of 90% and PEEP of 15, this morning's blood gas shows pO2 of 86, pCO2 46, and pH of 7.36. He's currently on 0.9 normal saline at 75 ML per hour, fentanyl infusion is at 1 diana per kilo per minute, and then backs is at 1 diana per kilo per minute, and improving and is at 50 mics per kilo per minute, patient has not been started on tube feedings yet. He tolerated protein quite well, this morning he still proned. Today's chest x-ray shows diffuse bilateral lung disease which is stable in appearance, and ET tube at 1.5 cm above nata. Today's labs have been reviewed, showing white blood cell count of 16.1, hemoglobin is 12.1, d-dimer is 4.5, slightly obtunded from previous level, sodium is 141, potassium is 4.5, chloride is 109, CO2 is 24, BUN of 44, creatinine is 1.18, LDH is down to 1175, appendectomy level is still pending for today. Did have some intermittent fevers last night, with a T-max of 101.4F. Remains on Baricitinib, Decadron, and Lovenox 40 mg daily. On 05/12/2021 patient seen in follow-up in the intensive care unit, he remains intubated, sedated and paralyzed, on assist-control mode ventilation, with a rate of 30, tacrolimus 450, FiO2 60% and PEEP of 16, this morning's blood gas shows pO2 of 59, pCO2 49, pH is 7.35. Patient is currently on 0.9 normal saline at a rate of 75 ML per hour, fentanyl infusion is at 1 diana per kilo per minute, Nimbex is at 1 diana per kilo per minute, and improving and is at 30 mics per kilo per minute, he is receiving vital high protein at 40 ML per hour with a goal of 65, today's chest x-ray shows no evident pneumothorax, and bilateral airspace disease persistence. Patient tolerated protein well, however he did sustain some blistering in the shearing injury on his face, in his abdomen. He is currently back in the supine position. He is hemodynamically stable, in sinus mechanism with a rate of 64, not requiring any vasopressor support, his FiO2 was dropped down to 60% from 90% from yesterday. He is afebrile. His d-dimer today is 3.10, LDH is 985, and CRP is 16.1, pro-calcitonin level was 0.51. he is on Olumiant, Lovenox 40 mg twice daily, and Decadron 6 mg daily. He has been tolerating tube feedings, no other acute issues overnight. Objective - Vital Signs Vital signs: Vital Signs Temp 97.5 F L 05/12/21 04:00 Pulse 60 05/12/21 07:00 Resp 30 H 05/12/21 07:00 BP 120/77 05/10/21 11:00 Pulse Ox 92 L 05/12/21 07:00 Intake & Output 05/11/21 05/12/21 05/12/21 18:59 06:59 18:59 Intake Total 1753.628 2603.468 424.268 Output Total 920 610 45 Balance 578.488 6754.468 379.268 Weight 126.3 kg 134.9 kg Intake: IV 900 933 78 0.9 900 900 75 Pressure bag 33 3 Intake, IV Titration 273.368 602.468 316.268 Amount Cisatracurium 200 mg In 166.085 Sodium Chloride 0.9% 180 ml @ 1 MCG/KG/MIN 7.578 mls/hr IV .Q24H [facility] Rx#: [id number] Norepinephrine 8 mg In 145.418 Sodium Chloride 0.9% 250 ml @ 0.05 MCG/KG/MIN 12. 22 mls/hr IV .Q21H7M [facility] Rx#:[id number] fentaNYL (PF). 1,000 mcg 186.726 100 144.626 In Sodium Chloride 0.9% 80 ml @ Per Protocol IV . Q0M [facility] Rx#:[id number] propofoL 1,000 mg In 86.642 190.965 171.642 Empty Bag 1 bag @ Titrate IV .Q0M MYLES Rx#: [id number] Tube Feeding 120 310 30 Other 30 90 Output: Urine 920 610 45 Other: Voiding Method Indwelling Catheter ABP, PAP, CO, CI - Last Documented Arterial Blood Pressure 137/59 - Exam GENERAL EXAM: Intubated, sedated and paralyzed and proned 66-year-old white male, assist-control mode of ventilation, with FiO2 of 60%, and PEEP of 15 HEAD: Normocephalic/atraumatic. EYES: Normal reaction of pupils, equal size. Conjunctiva pink, sclera white. NOSE: Clear with pink turbinates. THROAT: No erythema or exudates. NECK: No masses, no JVD, no thyroid enlargement, no adenopathy. CHEST: No chest wall deformity. Symmetrical expansion. LUNGS: Equal air entry with diffuse crackles CVS: Regular rate and rhythm, normal S1 and S2, no gallops, no murmurs, no rubs ABDOMEN: Soft, nontender. No hepatosplenomegaly, normal bowel sounds, no guarding or rigidity. EXTREMITIES: No clubbing, no edema, no cyanosis, 2+ pulses and upper and lower extremities. MUSCULOSKELETAL: Muscle strength and tone normal. SPINE: No scoliosis or deformity SKIN: No rashes CENTRAL NERVOUS SYSTEM: Sedated, intubated and paralyzed. No focal deficits, tone is normal in all 4 extremities. - Labs CBC & Chem 7: 05/12/21 04:00 05/12/21 04:00 Labs: Abnormal Lab Results - Last 24 Hours (Table) 05/11/21 05/11/21 05/11/21 Range/Units 06:10 17:54 21:18 WBC (3.8-10.6) k/uL RBC (4.30-5.90) m/uL Hgb (13.0-17.5) gm/dL Hct (39.0-53.0) % Neutrophils # (1.3-7.7) k/uL Lymphocytes # (1.0-4.8) k/uL D-Dimer (<0.60) mg/L FEU ABG pCO2 (35-45) mmHg ABG pO2 (83-108) mmHg ABG HCO3 (21-25) mmol/L ABG Total CO2 (19-24) mmol/L ABG O2 Saturation (94-97) % Chloride (98-107) mmol/L BUN (9-20) mg/dL Glucose (74-99) mg/dL POC Glucose (mg/dL) 195 H 188 H (75-99) mg/dL Calcium (8.4-10.2) mg/dL Lactate Dehydrogenase (313-618) U/L C-Reactive Protein (<1.0) mg/dL Procalcitonin 0.51 H (0.02-0.09) ng/mL 05/12/21 05/12/21 05/12/21 Range/Units 04:00 04:00 04:00 WBC 13.3 H (3.8-10.6) k/uL RBC 3.95 L (4.30-5.90) m/uL Hgb 11.8 L (13.0-17.5) gm/dL Hct 35.6 L (39.0-53.0) % Neutrophils # 12.2 H (1.3-7.7) k/uL Lymphocytes # 0.6 L (1.0-4.8) k/uL D-Dimer 3.10 H (<0.60) mg/L FEU ABG pCO2 (35-45) mmHg ABG pO2 (83-108) mmHg ABG HCO3 (21-25) mmol/L ABG Total CO2 (19-24) mmol/L ABG O2 Saturation (94-97) % Chloride 109 H (98-107) mmol/L BUN 39 H (9-20) mg/dL Glucose 243 H (74-99) mg/dL POC Glucose (mg/dL) (75-99) mg/dL Calcium 7.6 L (8.4-10.2) mg/dL Lactate Dehydrogenase 985 H (313-618) U/L C-Reactive Protein 16.1 H (<1.0) mg/dL Procalcitonin (0.02-0.09) ng/mL 05/12/21 05/12/21 05/12/21 Range/Units 04:38 06:49 12:04 WBC (3.8-10.6) k/uL RBC (4.30-5.90) m/uL Hgb (13.0-17.5) gm/dL Hct (39.0-53.0) % Neutrophils # (1.3-7.7) k/uL Lymphocytes # (1.0-4.8) k/uL D-Dimer (<0.60) mg/L FEU ABG pCO2 49 H (35-45) mmHg ABG pO2 59 L* (83-108) mmHg ABG HCO3 27 H (21-25) mmol/L ABG Total CO2 29 H (19-24) mmol/L ABG O2 Saturation 89.5 L (94-97) % Chloride (98-107) mmol/L BUN (9-20) mg/dL Glucose (74-99) mg/dL POC Glucose (mg/dL) 222 H 221 H (75-99) mg/dL Calcium (8.4-10.2) mg/dL Lactate Dehydrogenase (313-618) U/L C-Reactive Protein (<1.0) mg/dL Procalcitonin (0.02-0.09) ng/mL Assessment and Plan Plan: Assessment: #1. Acute COVID-19 pneumonia, with acute hypoxic respiratory failure, with symptom onset 11-12 days after presentation. Patient is of the window for Remdesivir. His hypoxia has progressed, and patient was started on Bariticinib on 05/03/2021. Transfer to the intensive care unit on 05/05/2021. Intubated on 05/10/2021, sedated and paralyzed, currently on FiO2 60%, and PEEP of 15 #2. Increased inflammatory markers, related to the above, improved since a dmission #3. Coronary artery disease with previous coronary artery stenting #4. History of permanent pacemaker insertion #5. History of hypertension #6. Hyperlipidemia #7. History of obstructive sleep apnea on CPAP on an outpatient basis #8. Migraine headache #9. Acute on chronic kidney injury #10. Obesity with BMI 42.3 #11. Acute elevation of inflammatory markers, currently improving #12. Hypothyroidism #13. Increased d-dimer, related to acute viral pneumonia, we will adjust his Lovenox to 40 mg twice daily and follow on a daily basis Plan: Continue same vent settings, wean FiO2 to keep O2 sats at 88% and above Currently FiO2 is down to 60% Tolerated proning well, although sustained some shearing injury on his face and abdomen We will hold prone positioning today especially in view of his improving oxygenation Continue Decadron, Increase Lovenox to 40 mg twice daily Continue Baricitinib Today's chest x-ray reviewed Start nutritional support tube feedings Follow d-dimer on a daily basis, inflammatory markers, basic labs Daily chest x-ray Prognosis is guarded I performed a history & physical examination of the patient and discussed their management with my nurse practitioner, Penelope Vallejo. I reviewed the nurse practitioner's note and agree with the documented findings and plan of care. Lung sounds are positive for bibasilar infiltrates throughout the lung gaviria. The findings and the impression was discussed with the patient. I attest to the documentation by the nurse practitioner. Time with Patient: Greater than 30
--- NOTE | 2021-05-12 16:19 | CDI ---
Documentation Clarification Form Date: 05/12/2021 03:39:07 PM From: Prachi Turcios RN, CCDS Admit Date: 05/02/2021 11:46:00 PM Patient Name: Naresh Niño Visit Number: [id number] Discharge Date: ATTENTION: The Clinical Documentation Specialists (CDI) and [facility] Coding Staff appreciate your assistance in clarifying documentation. Please respond to the clarification below the line at the bottom and electronically sign. The CDI & [facility] Coding staff will review the response and follow-up if needed. Please note: Queries are made part of the Legal Health Record. If you have any questions, please contact the author of this message via ITS. Dr. Mikal Naqvi The patient presented on 05/02 with increased fever, chills and cough ongoing for past 11 day with temperature 103.1 on presentation to ED, CXR ruled in for pneumonia, COVID-19 positive. Additional clarification regarding the etiology/cause of the clinical indicators is requested. History/Risk Factors: Covid-19 Pneumonia, Diabetes Mellitus, Morbid obesity Clinical Indicators: 66-year-old male not vaccinated present to ED on 05/02 with fever, chills, COVID-19 positive and chest x-ray showed bilateral pulmonary infiltrates consistent with Covid 19 related pneumonia per pulmonary consult on 05/03/21. He also 05/02 WBC: 2.6, BUN 23, CR 1.43, and LDH 954 05/02 Lactic acid: 1.9 05/02 Vital signs: 146/79 100 24 103.1 90 % RA Blood cultures 05/04 CXR: Diffuse bilateral infiltrates appear progressed Treatment: Monitor O2 Sat's (titrate) Monitor Labs daily Dexamethasone 6 MG IV Q 24 HRS Baricitinib 2 mg po daily 05/04-05/10 change 4 mg po daily In your professional opinion, please clarify if these findings signify one of the following conditions: [ ] Sepsis POA [ ] Sepsis, Not POA [ ] Sepsis ruled out [ ] Severe Sepsis with organ failure [ ] Septic Shock [ ] Other, please specify [ ] Unable to determine SIRS Criteria: 2 or more of the following may indicate SIRS -Temperature < 96.8F (36C) or > 101.0F (38.3C) -Heart Rate > 90 bpm -Respiratory Rate > 20 breaths/min or PaCO2 < 32 mmHg -White Blood Cell Count > 12,000 or < 4,000 cells/mm3 or > 10% bands (Template Last Reviewed: September 2020) Sepsis secondary to progression of Covid, post admission Signed By: <Electronically signed by Marnie WAGNER> 05/13/21 1003 VIKY
[2021-05-12] MEDS: BARICITINIB 2 MG TABLET PO SCH (17:54)
[2021-05-12 18:19] LABS: Glucose,Whole Blood 279 mg/dL (75-99)
[2021-05-12 20:24] LABS: Glucose,Whole Blood 284 mg/dL (75-99)
[2021-05-12] MEDS: ATORVASTATIN 10 MG TAB PO SCH (20:45)
[2021-05-12] MEDS ORDERED: INSULIN DETEMIR (LEVEMIR) 100 UNIT/ML SYR SQ SCH (21:00)
[2021-05-13] MEDS: CISATRACURIUM 200 MG in SODIUM CHLORIDE 0.9% 180 ML IV SCH (00:09)
[2021-05-13] MEDS: ARTIFICIAL TEARS-HYPROMELLOSE DROPS 15 ML BTL BOTH EYES SCH ×7 (00:09→23:33)
[2021-05-13] MEDS: fentaNYL (PF). 1,000 MCG in SODIUM CHLORIDE 0.9% 80 ML IV SCH ×3 (00:09→16:25)
[2021-05-13] MEDS: NOREPINEPHRINE 8 MG in SODIUM CHLORIDE 0.9% 250 ML IV SCH ×2 (03:25→23:33)
[2021-05-13] MEDS: SODIUM CHLORIDE 0.9% 1,000 ML IV SCH ×2 (03:53→20:52)
[2021-05-13 04:28] LABS: Basophils % (A) 0 %; Eosinophils % (A) 0 %; HCT 37.2 % (39.0-53.0); HGB 11.9 gm/dL (13.0-17.5); Lymphocytes # (A) 0.6 k/uL (1.0-4.8); Lymphocytes % (A) 5 %; MCH 30.1 pg (25.0-35.0); MCHC 31.9 g/dL (31.0-37.0); MCV 94.1 fL (80.0-100.0); Mean Platelet Volume 9.4; Monocytes # (A) 0.4 k/uL (0-1.0); Monocytes % (A) 3 %; Neutrophils # (A) 11.5 k/uL (1.3-7.7); Neutrophils % (A) 92 %; Platelet Count 420 k/uL (150-450); RBC 3.95 m/uL (4.30-5.90); RDW 13.1 % (11.5-15.5); WBC 12.5 k/uL (3.8-10.6)
[2021-05-13 04:48] LABS: Albumin 2.2 g/dL (3.5-5.0); C Reactive Protein 6.8 mg/dL (<1.0); Calcium 7.7 mg/dL (8.4-10.2); Potassium 4.7 mmol/L (3.5-5.1); Total Bilirubin 0.3 mg/dL (0.2-1.3); Total Protein 5.1 g/dL (6.3-8.2)
[2021-05-13 06:04] LABS: ABG Base Excess 0.2 mmol/L; ABG HCO3 27 mmol/L (21-25); ABG Oxygen Saturation 92.7 % (94-97); ABG PCO2 57 mmHg (35-45); ABG PH 7.28 (7.35-7.45); ABG PO2 69 mmHg (83-108); ABG TCO2 29 mmol/L (19-24)
[2021-05-13 06:22] LABS: Allen Test Performed? no
[2021-05-13 06:45] LABS: Glucose,Whole Blood 279 mg/dL (75-99)
[2021-05-13] MEDS: INSULIN DETEMIR (LEVEMIR) 100 UNIT/ML SYR SQ SCH (06:48)
[2021-05-13] MEDS: INSULIN ASPART (NovoLOG) 100 UNIT/ML VIAL SQ SCH ×7 (06:48→21:03)
[2021-05-13] MEDS: LEVOTHYROXINE 137 MCG TAB PO SCH (06:48)
--- NOTE | 2021-05-13 08:31 | XR ---
EXAMINATION TYPE: XR chest 1V portable DATE OF EXAM: 05/13/2021 COMPARISON: Chest x-ray 05/12/2021 HISTORY: Intubated TECHNIQUE: Single frontal view of the chest is obtained. FINDINGS: Right-sided PICC line, pacemaker, NG tube are again noted and are overlying appropriate po sitions. Bilateral interstitial and airspace disease is again noted, patient is rotated. There is no evident pneumothorax or pleural effusion. IMPRESSION: Correlate for pneumonia, ARDS, congestive heart failure
[2021-05-13] MEDS: CHLORHEXIDINE GLUCONATE 15 ML CUP MUCOUS MEM SCH ×2 (09:17→21:02)
[2021-05-13] MEDS: DEXAMETHASONE SOD PHOSPHATE 10 MG/ML 1 ML VIAL IV SCH (09:17)
[2021-05-13] MEDS: ENOXAPARIN 40 MG/0.4 ML SYRINGE SQ SCH ×2 (09:17→21:03)
[2021-05-13] MEDS: ASPIRIN 81 MG PO SCH (09:17)
[2021-05-13] MEDS: PANTOPRAZOLE 40 MG/10 ML VIAL IVP SCH (09:17)
[2021-05-13] MEDS: ESCITALOPRAM 10 MG TAB PO SCH (09:18)
[2021-05-13] MEDS: EZETIMIBE 10 MG TAB PO SCH (09:18)
--- NOTE | 2021-05-13 10:03 | P.PN ---
Subjective Progress Note Date: 05/13/21 This is 66-year-old gentleman admitted with acute hypoxic respiratory failure secondary to COVID-19 infection. Afebrile. Maintained on Covid cocktail, including Decadron IV.Inflammatory markers trending down.He stated this morning with exertion from 88% tone to 75%. Currently placed on 6 L nasal cannula, O2 sat pending. Chest x-ray reporting progression of diffuse bilateral infiltrates.Blood sugars uncontrolled, A1c 9.1. 05/05/2021 respiratory status worsened yesterday, requiring nonrebreather. Th roughout the night, increased anxiety, patient pulling off masks, requiring minimal of 45 minutes to recover O2 saturation. Xanax initiated for anxiety, patient unable to tolerate, reported nausea/ vomiting. Received Ativan, tolerated well. Currently on BiPAP maintaining O2 sats in the 80s. Continues on Covid regimen. Renal function trending up, creatinine 1.6. Denies chest pain, palpitations. 05/06/2021 transferred into the ICU yesterday afternoon related to worsening hypoxia on BiPAP. Slept in the recliner, maintaining O2 sats mid 80s to low 90s. Chest x-ray reporting persistent bilateral infiltrates. Reports feels less shortness of breath, less anxiety on oral Ativan. Maintained on Covid regimen including Baricitinib. Inflammatory markers increased with the exception of d-dimer. Afebrile, normal WBC. Yesterday GHADA inhibitor, Cozaar discontinued, hydralazine increased secondary to worsening renal function-renal function improving. Hyperglycemic, blood sugars in the mid to low 200s. 05/09/2021 remains on 100% BiPAP, chest x-ray reporting stable diffuse predominant interstitial infiltrates. T-max 99.1, WBC 12.3. continues on Covid regimen including Olumiant. Reports anxiety, depression. BUN 53, creatinine 1.15. Blood sugars elevated. 05/10/2021 maintained on COVID cocktail, including Baricitinib. Continues on 100% BiPAP, maintaining O2 sat 76-79%, respiratory rate in the 20s. ABGs ordered. Chest x-ray reporting persistent diffuse pulmonary infiltrates. Te lemetry sinus rhythm. T-max 100.4, WBC increased to 15.4. Blood sugars controlled. Renal function improving. 05/11/21 patient seen in follow-up in the intensive care unit, he was intubated and placed on mechanical ventilator yesterday on 05/10/2021 for worsening hypoxic respiratory failure.. Pt is currently prone in bed during exam. 05/12/2021 and ABGs reporting pO2 59, FiO2 increased to 70%/+15 Peep. Maintained on fentanyl, diprovan, Nimbex drips. Chest x-ray reporting similar appearance, persistent bilateral airspace disease. Maintained on Covid regimen including Baricitinib and Decadron. Blood sugars elevated, in the 200s this morning. D-dimer, LDH decreasing. CRP increased, 16.1. 05/13/2021 FiO2 of 50%/+15 of PEEP. Cuff leak present.Chest x-ray reporting bilateral interstitial and airspace disease. Continues on Nimbex, diprovan fentanyl. Continues on Covid regimen with Decadron,Baricitinib. Blood sugars in the 200s. BUN 50, creatinine 1.03. Inflammatory markers trending down. Afebrile, and WBC trending down, 12.5. Objective - Vital Signs Vital signs: Vital Signs Temp 97.5 F L 05/13/21 04:00 Pulse 64 05/13/21 07:00 Resp 36 H 05/13/21 07:00 BP 120/77 05/10/21 11:00 Pulse Ox 92 L 05/13/21 07:00 Intake & Output 05/12/21 05/13/21 05/13/21 18:59 06:59 18:59 Intake Total 7678.045 3377.476 73 Output Total 575 620 40 Balance 6190.550 1349.476 33 Weight 138 kg Intake: IV 936 826 23 0.9 900 790 20 Pressure bag 36 36 3 Intake, IV Titration 439.789 510.476 Amount Cisatracurium 200 mg In 170.253 Sodium Chloride 0.9% 180 ml @ 1 MCG/KG/MIN 7.578 mls/hr IV .Q24H [facility] Rx#: [id number] fentaNYL (PF). 1,000 mcg 144.626 100 In Sodium Chloride 0.9% 80 ml @ Per Protocol IV . Q0M [facility] Rx#:[id number] propofoL 1,000 mg In 295.163 240.223 Empty Bag 1 bag @ Titrate IV .Q0M [facility] Rx#: [id number] Tube Feeding 470 590 50 Other 90 90 Output: Urine 575 620 40 Other: Voiding Method Indwelling Catheter Indwelling Catheter Indwelling Catheter ABP, PAP, CO, CI - Last Documented Arterial Blood Pressure 128/57 - Exam PHYSICAL EXAM: GENERAL EXAM: Intubated, sedated and paralyzed. HEENT: Normocephalic/atraumatic.Normal reaction of pupils, equal size. Conjunctiva pink, sclera white. NECK: Supple, no JVD CHEST: No chest wall deformity. Symmetrical expansion. LUNGS: Equal air entry with diffuse bibasilar crackles. CVS: Regular rate and rhythm, normal S1 and S2, no gallops, no murmurs, no rubs ABDOMEN: Soft, nontender. No hepatosplenomegaly, normal bowel sounds. EXTREMITIES: No clubbing, no edema, no cyanosis, 2+ pulses and upper and lower extremities. SKIN: Warm and dry, No rashes CENTRAL NERVOUS SYSTEM: Sedated, intubated and paralyzed. - Labs CBC & Chem 7: 05/13/21 04:05 05/13/21 04:05 Labs: Abnormal Lab Results - Last 24 Hours (Table) 05/12/21 05/12/21 05/12/21 Range/Units 12:04 18:17 20:22 WBC (3.8-10.6) k/uL RBC (4.30-5.90) m/uL Hgb (13.0-17.5) gm/dL Hct (39.0-53.0) % Neutrophils # (1.3-7.7) k/uL Lymphocytes # (1.0-4.8) k/uL D-Dimer (<0.60) mg/L FEU ABG pH (7.35-7.45) ABG pCO2 (35-45) mmHg ABG pO2 (83-108) mmHg ABG HCO3 (21-25) mmol/L ABG Total CO2 (19-24) mmol/L ABG O2 Saturation (94-97) % Chloride (98-107) mmol/L BUN (9-20) mg/dL Glucose (74-99) mg/dL POC Glucose (mg/dL) 221 H 279 H 284 H (75-99) mg/dL Calcium (8.4-10.2) mg/dL Lactate Dehydrogenase (313-618) U/L C-Reactive Protein (<1.0) mg/dL Total Protein (6.3-8.2) g/dL Albumin (3.5-5.0) g/dL 05/13/21 05/13/21 05/13/21 Range/Units 04:05 04:05 04:05 WBC 12.5 H (3.8-10.6) k/uL RBC 3.95 L (4.30-5.90) m/uL Hgb 11.9 L (13.0-17.5) gm/dL Hct 37.2 L (39.0-53.0) % Neutrophils # 11.5 H (1.3-7.7) k/uL Lymphocytes # 0.6 L (1.0-4.8) k/uL D-Dimer 2.52 H (<0.60) mg/L FEU ABG pH (7.35-7.45) ABG pCO2 (35-45) mmHg ABG pO2 (83-108) mmHg ABG HCO3 (21-25) mmol/L ABG Total CO2 (19-24) mmol/L ABG O2 Saturation (94-97) % Chloride 109 H (98-107) mmol/L BUN 50 H (9-20) mg/dL Glucose 288 H (74-99) mg/dL POC Glucose (mg/dL) (75-99) mg/dL Calcium 7.7 L (8.4-10.2) mg/dL Lactate Dehydrogenase 812 H (313-618) U/L C-Reactive Protein 6.8 H (<1.0) mg/dL Total Protein 5.1 L (6.3-8.2) g/dL Albumin 2.2 L (3.5-5.0) g/dL 05/13/21 05/13/21 Range/Units 06:03 06:44 WBC (3.8-10.6) k/uL RBC (4.30-5.90) m/uL Hgb (13.0-17.5) gm/dL Hct (39.0-53.0) % Neutrophils # (1.3-7.7) k/uL Lymphocytes # (1.0-4.8) k/uL D-Dimer (<0.60) mg/L FEU ABG pH 7.28 L (7.35-7.45) ABG pCO2 57 H (35-45) mmHg ABG pO2 69 L (83-108) mmHg ABG HCO3 27 H (21-25) mmol/L ABG Total CO2 29 H (19-24) mmol/L ABG O2 Saturation 92.7 L (94-97) % Chloride (98-107) mmol/L BUN (9-20) mg/dL Glucose (74-99) mg/dL POC Glucose (mg/dL) 279 H (75-99) mg/dL Calcium (8.4-10.2) mg/dL Lactate Dehydrogenase (313-618) U/L C-Reactive Protein (<1.0) mg/dL Total Protein (6.3-8.2) g/dL Albumin (3.5-5.0) g/dL Assessment and Plan Assessment: Acute COVID-19 pneumonia, on Baricitinib. Acute hypoxic respiratory failure secondary to the above, mechanical ventilator- dependent Sepsis secondary to progression of Covid, post admission Acute on chronic kidney failure, stage III Leukopenia Diabetes mellitus, uncontrolled, hyperglycemic, hemoglobin A1c 9.1 Obstructive sleep apnea, on CPAP outpatient CAD with history of stenting, permanent pacemaker Hypertension Hyperlipidemia Hypothyroidism Morbid obesity, BMI 42.3 Depression, Anxiety Plan: Continue on current medication regime ,monitoring and symptomatic treatment. ICU management as per health counselor. COVID cocktail, including Baricitinib. Further increase HS dose of Levemir. close monitoring of Accu- Cheks. Prognosis guarded given multiple complex medical issues. The impression and plan of care has been dictated as directed. : I performed a history and examination of this patient, discussed the same with the dictator. I agree with the dictator's note ,documented as a scribe. Any additional findings or plans will be noted.
[2021-05-13] MEDS: amLODIPine 5 MG TAB PO SCH (11:09)
[2021-05-13] MEDS: hydrALAZINE HCL 50 MG TAB PO SCH ×3 (11:09→21:03)
[2021-05-13 11:44] LABS: Glucose,Whole Blood 282 mg/dL (75-99)
--- NOTE | 2021-05-13 13:28 | P.PN ---
Subjective Progress Note Date: 05/13/21 Principal diagnosis: Acute COVID-19 pneumonia On 05/04/2021 patient seen in follow-up on selective care unit. His oxygen demand has increased, he is currently on 100 percent nonrebreather, his oxygen saturations are ranging between 82 and 88%, is having low-grade fevers this af ternoon, blood pressures stable. Inflammatory markers are improving on today's labs, LDH is down to 392, CRP is 6.0, pro calcitonin level was 0.32. D-dimer was 0.66. Blood cultures have been negative. Patient remains on dexamethasone 6 mg daily, he is on prophylactic dose Lovenox 40 mg daily. His chest x-ray point diffuse bilateral infiltrates that appear to be progress. Patient could not tolerate high flow nasal cannula and was desaturating on it. On today's evaluation of 05/05/2021 patient seen in follow-up on medical surgical floor. Overnight patient was placed on BiPAP support for worsening dyspnea and hypoxia, with pressures of 12/5, and FiO2 of 100%, and his pulse ox is around 89%. Patient is currently up in the chair, is short of breath with any exertion, he was started on bariticinib yesterday, and he continues on Decadron 6 mg daily, and Lovenox 80 mg once daily, his chest x-ray has been reviewed showing stable diffuse bilateral infiltrates. Today's labs have been reviewed, white blood cell count is not 7.9, hemoglobin is 12.6, his lymphocyte count is 1.27, electrolytes are within normal limits, B1 is 36, creatinine is 1.6, his LDH is up slightly to 560 from 392 one yesterday his labs, CRP is relatively stable with 6.8. Pro-calcitonin level was 0.32. His had no fever or chills overnight, but cultures were negative. In view of his progressive oxygen demand and shortness of breath, we recommended transfer to the intensive care unit for closer monitoring On 05/06/2021 patient seen in follow-up in the intensive care unit where she was transferred yesterday from [facility]. in view of his worsening hypoxia, patient is currently on BiPAP support with pressures of 12/10 and FiO2 100%, his pulse ox is ranging between 86-91%, he sitting up in the recliner where he slept last night, he does not appear to be in any acute distress, however he does desaturate down to 68 when he removes the BiPAP mask even briefly to take a bite of food, or his medication. Is currently on IV fluids with 0.9, secondary to 20 ML per hour. He continues on Baricitinib 2 mg daily, and today is day 2 of treatment, in addition he is on IV Decadron 6 mg daily, is on prophylactic dose of Lovenox 40 mg daily, he is receiving when necessary doses of Ativan for anxiety and breathlessness. Today's chest x-ray has been reviewed showing diffuse bilateral infiltrates that are stable in appearance. Today's labs have been reviewed showing CBC within normal limits, electrolytes were unremarkable, BUN is 39, creatinine is 1.41. Inflammatory markers seems to have increased as far as LDH is up to 1792, and CRP is relatively stable 6.9. His d-dimer today is 0.59. He appears to be sleepy, but no acute distress, he is answering questions appropriately, denies any chest discomfort. He is been in his chair for the most part. His been using the urinal to urinate, he is trying to keep up his oral intake and take bites of food. No other acute events overnight. Reevaluated today on 05/07/2021, patient remains in the ICU, his pulmonary status is marginal at best. Patient is on BiPAP 08/03 he is also on 100% FiO2, with O2 saturation in the high 80s at best. Surprisingly however the patient seems to be in no distress, he is comfortable, sitting at a bedside chair, alert oriented 3, and I have increased his IPAP 14 instead of 12, patient seems to be extremely comfortable. Chest x-ray continues to show bilateral interstitial infiltrates. WBC count is 10.9 hemoglobin 13.9 d-dimer is 0.96 electrolytes are normal LDH 2092 and C-reactive protein is 6. Reevaluated today on 05/08/2021, remains in the ICU, remains on BiPAP, he is on IPAP of 14 and EPAP of 8 and FiO2 of 100%. Patient O2 saturation is marginal in the 80s most of the time. Surprisingly, the patient is not complaining of any shortness of breath, he seems to be comfortable, and relatively asymptomatic. Does not seem to be in distress. Chest x-ray is basically about the same, hence I ordered another Lasix dose to be given today 40 mg IV push 1, although BNP level is not elevated, but I would like to keep him on the dry side as much as possible. Patient remains on Lovenox 40 mg subcu daily, he is on Decadron, Glucerna was ordered, and he remains on baricitinib. CBC is relatively normal left lites are normal renal profile showed a BUN of 45 creatinine 1.16. Improving compared to his baseline on admission Reevaluated today on 05/09/2021, patient remains in the ICU, remains on BiPAP 14/8/100% FiO2 patient is basically about the same not much of a change noted over the last 24 hours. Chest x-ray is basically about the same. Patient seems to be comfortable, O2 saturations are marginal basically as high, 92%. Remains on Decadron, Lovenox, and on baricitinib WBC count is 12.3 hemoglobin is 14.1 lites are normal BUN is 53 creatinine 1.15, no Lasix was ordered today as the patient seems to be a bit prerenal The patient is seen today 05/10/2021 in follow-up in the intensive care unit. Boo clay is currently sitting up in bed. Awake and alert. Initially on BiPAP support at 14/8 and 100% FiO2 to maintain O2 saturations in the high 70s low 80s. This x-ray continues to revealed diffuse pulmonary infiltrates. He remains in sinus rhythm. He is 0.9 normal saline at 20 ML's per hour. The patient is quite marginal at best. Respiratory rate in the 30s. White count 15.4. Hemoglobin 14.5. Lymphocyte 0.8. Sodium 140. Potassium 4.8. Creatinine 1.08. Throughout the morning the patient became more hypoxemic and required intubation and mechanical ventilatory support. Currently on assist control mode. Respiratory rate of 30, tidal volume 450, FiO2 100% and a PEEP of 15. Blood gases revealed a PaO2 of 51, pCO2 46, pH 7.42. He is sedated with propofol. May require paralytics. He is continued on Decadron, Lovenox, Bariticinib, vitamin supplements. On 05/11/2021 patient seen in follow-up in the intensive care unit, he was intubated and placed on mechanical ventilator yesterday on 05/10/2021 for worsening hypoxic respiratory failure, he currently remains sedated, and paralyz ed on assist-control mode of ventilation with a rate of 30, tidal I was 450, FiO2 of 90% and PEEP of 15, this morning's blood gas shows pO2 of 86, pCO2 46, and pH of 7.36. He's currently on 0.9 normal saline at 75 ML per hour, fentanyl infusion is at 1 diana per kilo per minute, and then backs is at 1 diana per kilo per minute, and improving and is at 50 mics per kilo per minute, patient has not been started on tube feedings yet. He tolerated protein quite well, this morning he still proned. Today's chest x-ray shows diffuse bilateral lung disease which is stable in appearance, and ET tube at 1.5 cm above nata. Today's labs have been reviewed, showing white blood cell count of 16.1, hemogl obin is 12.1, d-dimer is 4.5, slightly obtunded from previous level, sodium is 141, potassium is 4.5, chloride is 109, CO2 is 24, BUN of 44, creatinine is 1.18, LDH is down to 1175, appendectomy level is still pending for today. Did have some intermittent fevers last night, with a T-max of 101.4F. Remains on Baricitinib, Decadron, and Lovenox 40 mg daily. On 05/12/2021 patient seen in follow-up in the intensive care unit, he remains intubated, sedated and paralyzed, on assist-control mode ventilation, with a rate of 30, tacrolimus 450, FiO2 60% and PEEP of 16, this morning's blood gas shows pO2 of 59, pCO2 49, pH is 7.35. Patient is currently on 0.9 normal saline at a rate of 75 ML per hour, fentanyl infusion is at 1 diana per kilo per minute, Nimbex is at 1 diana per kilo per minute, and improving and is at 30 mics per kilo per minute, he is receiving vital high protein at 40 ML per hour with a goal of 65, today's chest x-ray shows no evident pneumothorax, and bilateral airspace disease persistence. Patient tolerated protein well, however he did sustain some blistering in the shearing injury on his face, in his abdomen. He is currently back in the supine position. He is hemodynamically stable, in sinus mechanism with a rate of 64, not requiring any vasopressor support, his FiO2 was dropped down to 60% from 90% from yesterday. He is afebrile. His d-dimer today is 3.10, LDH is 985, and CRP is 16.1, pro-calcitonin level was 0.51. he is on Olumiant, Lovenox 40 mg twice daily, and Decadron 6 mg daily. He has been tolerating tube feedings, no other acute issues overnight. The patient is seen today 05/13/2021 in follow-up in the intensive care unit. He remains intubated on mechanical ventilator. Currently in assist-control mode at a rate of 36, tidal volume 400, FiO2 60% and a PEEP of 16. Peak airway pressure 43. Morning blood gases revealed a PaO2 of 69, pCO2 57, pH 7.28. Currently sedated on to prevent at 30 mcg/kg/m. Nimbex at 1 mcg/kg/m. Fentanyl 1 g per hour. 0.9 normal saline at 75 ML's per hour. He is being nourished with tube feeds via vital HP at 50 MLS per hour with a goal of 65 ML's per hour. He remains in sinus rhythm. He has been proned as tolerated. There has been having issues with Endotracheal tube balloon leaking. This will be changed out by anesthesia today. Chest x-ray continues to show ARDS with bilateral interstitial and airspace disease. White count 12.5. Hemoglobin 11.9. Lymphocyte 0.6. D-dimer 2.52. Sodium 138. Potassium 4.7. Creatinine 1.03. Glucose 288. LDH 812. C-reactive protein 6.8. He remains on Baricitinib, Ecotrin, Lovenox, vitamin supplements. Objective - Vital Signs Vital signs: Vital Signs Temp 97.5 F L 05/13/21 04:00 Pulse 64 05/13/21 07:00 Resp 36 H 05/13/21 07:00 BP 120/77 05/10/21 11:00 Pulse Ox 92 L 05/13/21 07:00 Intake & Output 05/12/21 05/13/21 05/13/21 18:59 06:59 18:59 Intake Total 4689.680 7033.476 273 Output Total 575 620 40 Balance 3805.630 3562.476 233 Weight 138 kg Intake: IV 936 826 23 0.9 900 790 20 Pressure bag 36 36 3 Intake, IV Titration 439.789 510.476 200 Amount Cisatracurium 200 mg In 170.253 Sodium Chloride 0.9% 180 ml @ 1 MCG/KG/MIN 7.578 mls/hr IV .Q24H [facility] Rx#: [id number] fentaNYL (PF). 1,000 mcg 144.626 100 100 In Sodium Chloride 0.9% 80 ml @ Per Protocol IV . Q0M [facility] Rx#:[id number] propofoL 1,000 mg In 295.163 240.223 100 Empty Bag 1 bag @ Titrate IV .Q0M MYLES Rx#: [id number] Tube Feeding 470 590 50 Other 90 90 Output: Urine 575 620 40 Other: Voiding Method Indwelling Catheter Indwelling Catheter Indwelling Catheter ABP, PAP, CO, CI - Last Documented Arterial Blood Pressure 128/57 - Exam GENERAL EXAM: Intubated, sedated 66-year-old male patient on the mechanical ventilator. HEAD: Normocephalic. EYES: Sluggish reaction of pupils, equal size. NOSE: Clear with pink turbinates. THROAT: Oral endotracheal and gastric tube secured in place. No erythema or exudates. NECK: No masses, no JVD. CHEST: No chest wall deformity. LUNGS: Equal air entry with crackles in the bilateral posterior bases. CVS: S1 and S2 normal with no audible murmur, regular rhythm. ABDOMEN: No hepatosplenomegaly, normal bowel sounds, no guarding or rigidity. SPINE: No scoliosis or deformity SKIN: No rashes CENTRAL NERVOUS SYSTEM: Sedated, tone is normal in all 4 extremities. EXTREMITIES: There is trace peripheral edema. No clubbing, no cyanosis. Peripheral pulses are intact. - Labs CBC & Chem 7: 05/13/21 04:05 05/13/21 04:05 Labs: Abnormal Lab Results - Last 24 Hours (Table) 05/12/21 05/12/21 05/13/21 Range/Units 18:17 20:22 04:05 WBC (3.8-10.6) k/uL RBC (4.30-5.90) m/uL Hgb (13.0-17.5) gm/dL Hct (39.0-53.0) % Neutrophils # (1.3-7.7) k/uL Lymphocytes # (1.0-4.8) k/uL D-Dimer (<0.60) mg/L FEU ABG pH (7.35-7.45) ABG pCO2 (35-45) mmHg ABG pO2 (83-108) mmHg ABG HCO3 (21-25) mmol/L ABG Total CO2 (19-24) mmol/L ABG O2 Saturation (94-97) % Chloride 109 H (98-107) mmol/L BUN 50 H (9-20) mg/dL Glucose 288 H (74-99) mg/dL POC Glucose (mg/dL) 279 H 284 H (75-99) mg/dL Calcium 7.7 L (8.4-10.2) mg/dL Lactate Dehydrogenase 812 H (313-618) U/L C-Reactive Protein 6.8 H (<1.0) mg/dL Total Protein 5.1 L (6.3-8.2) g/dL Albumin 2.2 L (3.5-5.0) g/dL 05/13/21 05/13/21 05/13/21 Range/Units 04:05 04:05 06:03 WBC 12.5 H (3.8-10.6) k/uL RBC 3.95 L (4.30-5.90) m/uL Hgb 11.9 L (13.0-17.5) gm/dL Hct 37.2 L (39.0-53.0) % Neutrophils # 11.5 H (1.3-7.7) k/uL Lymphocytes # 0.6 L (1.0-4.8) k/uL D-Dimer 2.52 H (<0.60) mg/L FEU ABG pH 7.28 L (7.35-7.45) ABG pCO2 57 H (35-45) mmHg ABG pO2 69 L (83-108) mmHg ABG HCO3 27 H (21-25) mmol/L ABG Total CO2 29 H (19-24) mmol/L ABG O2 Saturation 92.7 L (94-97) % Chloride (98-107) mmol/L BUN (9-20) mg/dL Glucose (74-99) mg/dL POC Glucose (mg/dL) (75-99) mg/dL Calcium (8.4-10.2) mg/dL Lactate Dehydrogenase (313-618) U/L C-Reactive Protein (<1.0) mg/dL Total Protein (6.3-8.2) g/dL Albumin (3.5-5.0) g/dL 05/13/21 05/13/21 Range/Units 06:44 11:43 WBC (3.8-10.6) k/uL RBC (4.30-5.90) m/uL Hgb (13.0-17.5) gm/dL Hct (39.0-53.0) % Neutrophils # (1.3-7.7) k/uL Lymphocytes # (1.0-4.8) k/uL D-Dimer (<0.60) mg/L FEU ABG pH (7.35-7.45) ABG pCO2 (35-45) mmHg ABG pO2 (83-108) mmHg ABG HCO3 (21-25) mmol/L ABG Total CO2 (19-24) mmol/L ABG O2 Saturation (94-97) % Chloride (98-107) mmol/L BUN (9-20) mg/dL Glucose (74-99) mg/dL POC Glucose (mg/dL) 279 H 282 H (75-99) mg/dL Calcium (8.4-10.2) mg/dL Lactate Dehydrogenase (313-618) U/L C-Reactive Protein (<1.0) mg/dL Total Protein (6.3-8.2) g/dL Albumin (3.5-5.0) g/dL Assessment and Plan Assessment: 1 Acute COVID-19 pneumonia, with acute hypoxic respiratory failure, with symptom onset 11-12 days before presentation. Outside the window for Remdesivir. His hypoxia has progressed, and patient was started on Bariticinib on 05/03/2021. Transferred to the intensive care unit on 05/05/2021, initially on BiPAP, then required intubation and mechanical ventilatory support on 05/10/2021. 2 Increased inflammatory markers, related to the above, improved since admission 3 Coronary artery disease with previous coronary artery stenting 4 History of permanent pacemaker insertion 5 History of hypertension 6 Hyperlipidemia 7 History of obstructive sleep apnea on CPAP on an outpatient basis 8 Migraine headache 9 Acute on chronic kidney injury 10 Obesity with BMI 42.3 11 Acute elevation of inflammatory markers, currently improving 12 Hypothyroidism Plan: The patient was seen and evaluated by Dr. Manzano Chest x-ray, ABGs and labs reviewed Continue Baricitinib, Decadron, Lovenox, vitamin supplement Endotracheal tube to be changed out by [employer] due to leak from balloon Prone as tolerated Follow-up chest x-ray, ABGs and labs in a.m. Overall prognosis is quite guarded We will continue to follow and make further recommendations based on his clinical status Critical care time not including procedures: 38 minutes I, the cosigning physician, performed a history & physical examination of the patient. Lungs sounds crackles in the bilateral posterior bases. Maintaining O2 saturations in the 90s on 60% FiO2 and 16 of PEEP via mechanical ventilator. I discussed the assessment and plan of care with my nurse practitioner, Tali Rubi. I attest to the above note as dictated by her. Time with Patient: Greater than 30
[2021-05-13] MEDS: carvediloL 12.5 MG TAB PO SCH ×2 (16:25→21:03)
[2021-05-13 17:18] LABS: Glucose,Whole Blood 273 mg/dL (75-99)
[2021-05-13] MEDS: BARICITINIB 2 MG TABLET PO SCH (17:26)
[2021-05-13 20:48] LABS: Glucose,Whole Blood 290 mg/dL (75-99)
[2021-05-13] MEDS ORDERED: INSULIN DETEMIR (LEVEMIR) 100 UNIT/ML SYR SQ SCH (21:00)
[2021-05-13] MEDS: ATORVASTATIN 10 MG TAB PO SCH (21:02)
[2021-05-14] MEDS: fentaNYL (PF). 1,000 MCG in SODIUM CHLORIDE 0.9% 80 ML IV SCH ×2 (00:38→05:54)
[2021-05-14] MEDS: CISATRACURIUM 200 MG in SODIUM CHLORIDE 0.9% 180 ML IV SCH ×3 (00:39→22:53)
[2021-05-14] MEDS: ARTIFICIAL TEARS-HYPROMELLOSE DROPS 15 ML BTL BOTH EYES SCH ×6 (04:46→22:57)
[2021-05-14 04:53] LABS: Basophils % (A) 0 %; Eosinophils % (A) 0 %; HCT 36.8 % (39.0-53.0); HGB 11.9 gm/dL (13.0-17.5); Lymphocytes # (A) 0.8 k/uL (1.0-4.8); Lymphocytes % (A) 7 %; MCH 29.7 pg (25.0-35.0); MCHC 32.4 g/dL (31.0-37.0); MCV 91.4 fL (80.0-100.0); Mean Platelet Volume 9.2; Monocytes # (A) 0.3 k/uL (0-1.0); Monocytes % (A) 3 %; Neutrophils # (A) 11.5 k/uL (1.3-7.7); Neutrophils % (A) 90 %; Platelet Count 446 k/uL (150-450); RBC 4.02 m/uL (4.30-5.90); RDW 13.5 % (11.5-15.5); WBC 12.8 k/uL (3.8-10.6)
[2021-05-14 05:15] LABS: ABG Base Excess 1.5 mmol/L; ABG HCO3 26 mmol/L (21-25); ABG Oxygen Saturation 91.3 % (94-97); ABG PCO2 44 mmHg (35-45); ABG PH 7.39 (7.35-7.45); ABG PO2 60 mmHg (83-108); ABG TCO2 28 mmol/L (19-24); Allen Test Performed? Yes
[2021-05-14 05:59] LABS: ALT 33 U/L (4-49); AST 33 U/L (17-59); African American GFR (CKD) >90 (>60 ml/min/1.73 sqM); Albumin 2.3 g/dL (3.5-5.0); Alkaline Phosphatase 84 U/L (38-126); Anion Gap 4 mmol/L; Blood Urea Nitrogen 52 mg/dL (9-20); C Reactive Protein 6.7 mg/dL (<1.0); Calcium 7.9 mg/dL (8.4-10.2); Carbon Dioxide 25 mmol/L (22-30); Chloride 110 mmol/L (98-107); Creatine Kinase 112 U/L (55-170); Glucose 294 mg/dL (74-99); LDH 760 U/L (313-618); Non-African American GFR(CKD) 84 (>60 ml/min/1.73 sqM); Potassium 4.6 mmol/L (3.5-5.1); Sodium 139 mmol/L (137-145); Total Bilirubin 0.3 mg/dL (0.2-1.3); Total Protein 5.1 g/dL (6.3-8.2)
[2021-05-14 06:48] LABS: Glucose,Whole Blood 256 mg/dL (75-99)
[2021-05-14] MEDS: INSULIN DETEMIR (LEVEMIR) 100 UNIT/ML SYR SQ SCH ×2 (06:55→20:34)
[2021-05-14] MEDS: LEVOTHYROXINE 137 MCG TAB PO SCH (06:55)
[2021-05-14] MEDS: INSULIN ASPART (NovoLOG) 100 UNIT/ML VIAL SQ SCH ×7 (06:56→20:35)
--- NOTE | 2021-05-14 07:30 | XR ---
EXAMINATION TYPE: XR chest 1V portable DATE OF EXAM: 05/14/2021 COMPARISON: 05/13/2021 HISTORY: 66 years Male. STUDY INDICATION GIVEN: Tube placement . TECHNIQUE: Portable chest radiograph IMPRESSION: Tip of endotracheal tube in the lower thoracic trachea. Enteric tube courses into the upper abdomen. Stable dual lead cardiac device. Right upper extremity PICC seen its tip is at the junction of the ri ght innominate and SVC. Stable bilateral left greater than right airspace disease and moderate severe pulmonary edema which h as worsened. No pneumothorax or pleural effusion. Stable mild segment of the cardiac silhouette. Osseous structures are stable.
[2021-05-14] MEDS: DEXAMETHASONE SOD PHOSPHATE 10 MG/ML 1 ML VIAL IV SCH (09:28)
[2021-05-14] MEDS: PANTOPRAZOLE 40 MG/10 ML VIAL IVP SCH (09:28)
[2021-05-14] MEDS: CHLORHEXIDINE GLUCONATE 15 ML CUP MUCOUS MEM SCH ×2 (09:29→20:34)
[2021-05-14] MEDS: ENOXAPARIN 40 MG/0.4 ML SYRINGE SQ SCH ×2 (09:29→20:35)
[2021-05-14] MEDS: EZETIMIBE 10 MG TAB PO SCH (09:30)
[2021-05-14] MEDS: ESCITALOPRAM 10 MG TAB PO SCH (09:30)
[2021-05-14] MEDS: ASPIRIN 81 MG PO SCH (09:30)
[2021-05-14] MEDS: hydrALAZINE HCL 50 MG TAB PO SCH ×3 (09:30→20:35)
[2021-05-14] MEDS: carvediloL 12.5 MG TAB PO SCH ×2 (09:30→20:35)
[2021-05-14] MEDS: fentaNYL (PF) 2,500 MCG in SODIUM CHLORIDE 0.9% 200 ML IV SCH ×3 (09:55→19:58)
[2021-05-14 12:08] LABS: Glucose,Whole Blood 204 mg/dL (75-99)
[2021-05-14 12:19] LABS: Ferritin 475.5 ng/mL (22.0-322.0)
[2021-05-14] MEDS: PIPERACILLIN-TAZOBACTAM 3.375 GM in SODIUM CHLORIDE 0.9% 100 ML IVPB SCH ×2 (12:29→17:32)
[2021-05-14] MEDS: SODIUM CHLORIDE 0.9% 1,000 ML IV SCH ×2 (12:30→20:35)
--- NOTE | 2021-05-14 12:49 | P.PN ---
Subjective Progress Note Date: 05/14/21 Principal diagnosis: Acute hypoxic respiratory failure secondary to COVID-19 pneumonia. On 05/04/2021 patient seen in follow-up on selective care unit. His oxygen demand has increased, he is currently on 100 percent nonrebreather, his oxygen saturations are ranging between 82 and 88%, is having low-grade fevers this afternoon, blood pressures stable. Inflammatory markers are improving on today's labs, LDH is down to 392, CRP is 6.0, pro calcitonin level was 0.32. D- dimer was 0.66. Blood cultures have been negative. Patient remains on dexamethasone 6 mg daily, he is on prophylactic dose Lovenox 40 mg daily. His chest x-ray point diffuse bilateral infiltrates that appear to be progress. Patient could not tolerate high flow nasal cannula and was desaturating on it. On today's evaluation of 05/05/2021 patient seen in follow-up on medical surgical floor. Overnight patient was placed on BiPAP support for worsening dyspnea and hypoxia, with pressures of 12/5, and FiO2 of 100%, and his pulse ox is around 89%. Patient is currently up in the chair, is short of breath with any exertion, he was started on bariticinib yesterday, and he continues on Decadron 6 mg daily, and Lovenox 80 mg once daily, his chest x-ray has been reviewed showing stable diffuse bilateral infiltrates. Today's labs have been reviewed, white blood cell count is not 7.9, hemoglobin is 12.6, his lymphocyte count is 1.27, electrolytes are within normal limits, B1 is 36, creatinine is 1.6, his LDH is up slightly to 560 from 392 one yesterday his labs, CRP is relatively stable with 6.8. Pro-calcitonin level was 0.32. His had no fever or chills overnight, but cultures were negative. In view of his progressive oxygen demand and shortness of breath, we recommended transfer to the intensive care unit for closer monitoring On 05/06/2021 patient seen in follow-up in the intensive care unit where she was transferred yesterday from [facility]. in view of his worsening hypoxia, patient is cu rrently on BiPAP support with pressures of 12/10 and FiO2 100%, his pulse ox is ranging between 86-91%, he sitting up in the recliner where he slept last night, he does not appear to be in any acute distress, however he does desaturate down to 68 when he removes the BiPAP mask even briefly to take a bite of food, or his medication. Is currently on IV fluids with 0.9, secondary to 20 ML per hour. He continues on Baricitinib 2 mg daily, and today is day 2 of treatment, in addition he is on IV Decadron 6 mg daily, is on prophylactic dose of Lovenox 40 mg daily, he is receiving when necessary doses of Ativan for anxiety and breathlessness. Today's chest x-ray has been reviewed showing diffuse bilateral infiltrates that are stable in appearance. Today's labs have been reviewed showing CBC within normal limits, electrolytes were unremarkable, BUN is 39, creatinine is 1.41. Inflammatory markers seems to have increased as far as LDH is up to 1792, and CRP is relatively stable 6.9. His d-dimer today is 0.59. He appears to be sleepy, but no acute distress, he is answering questions appr opriately, denies any chest discomfort. He is been in his chair for the most part. His been using the urinal to urinate, he is trying to keep up his oral intake and take bites of food. No other acute events overnight. Reevaluated today on 05/07/2021, patient remains in the ICU, his pulmonary status is marginal at best. Patient is on BiPAP 08/03 he is also on 100% FiO2, with O2 saturation in the high 80s at best. Surprisingly however the patient seems to be in no distress, he is comfortable, sitting at a bedside chair, alert oriented 3, and I have increased his IPAP 14 instead of 12, patient seems to be extremely comfortable. Chest x-ray continues to show bilateral interstitial infiltrates. WBC count is 10.9 hemoglobin 13.9 d-dimer is 0.96 electrolytes are normal LDH 2092 and C-reactive protein is 6. Reevaluated today on 05/08/2021, remains in the ICU, remains on BiPAP, he is on IPAP of 14 and EPAP of 8 and FiO2 of 100%. Patient O2 saturation is marginal in the 80s most of the time. Surprisingly, the patient is not complaining of any shortness of breath, he seems to be comfortable, and relatively asymptomatic. Does not seem to be in distress. Chest x-ray is basically about the same, hence I ordered another Lasix dose to be given today 40 mg IV push 1, although BNP level is not elevated, but I would like to keep him on the dry side as much as possible. Patient remains on Lovenox 40 mg subcu daily, he is on Decadron, Glucerna was ordered, and he remains on baricitinib. CBC is relatively normal left lites are normal renal profile showed a BUN of 45 creatinine 1.16. Improving compared to his baseline on admission Reevaluated today on 05/09/2021, patient remains in the ICU, remains on BiPAP 09/04/100% FiO2 patient is basically about the same not much of a change noted over the last 24 hours. Chest x-ray is basically about the same. Patient seems to be comfortable, O2 saturations are marginal basically as high, 92%. Remains on Decadron, Lovenox, and on baricitinib WBC count is 12.3 hemoglobin is 14.1 lites are normal BUN is 53 creatinine 1.15, no Lasix was ordered today as the patient seems to be a bit prerenal On 05/11/2021 patient seen in follow-up in the intensive care unit, he was intubated and placed on mechanical ventilator yesterday on 05/10/2021 for worsening hypoxic respiratory failure, he currently remains sedated, and paralyzed on assist-control mode of ventilation with a rate of 30, tidal I was 450, FiO2 of 90% and PEEP of 15, this morning's blood gas shows pO2 of 86, pCO2 46, and pH of 7.36. He's currently on 0.9 normal saline at 75 ML per hour, fentanyl infusion is at 1 diana per kilo per minute, and then backs is at 1 diana per kilo per minute, and improving and is at 50 mics per kilo per minute, patient has not been started on tube feedings yet. He tolerated protein quite well, this morning he still proned. Today's chest x-ray shows diffuse bilateral lung disease which is stable in appearance, and ET tube at 1.5 cm above nata. Today's labs have been reviewed, showing white blood cell count of 16.1, hemoglobin is 12.1, d-dimer is 4.5, slightly obtunded from previous level, sodium is 141, potassium is 4.5, chloride is 109, CO2 is 24, BUN of 44, creatinine is 1.18, LDH is down to 1175, appendectomy level is still pending for today. Did have some intermittent fevers last night, with a T-max of 101.4F. Remains on Baricitinib, Decadron, and Lovenox 40 mg daily. On 05/12/2021 patient seen in follow-up in the intensive care unit, he remains intubated, sedated and paralyzed, on assist-control mode ventilation, with a rate of 30, tacrolimus 450, FiO2 60% and PEEP of 16, this morning's blood gas shows pO2 of 59, pCO2 49, pH is 7.35. Patient is currently on 0.9 normal saline at a rate of 75 ML per hour, fentanyl infusion is at 1 diana per kilo per minute, Nimbex is at 1 diana per kilo per minute, and improving and is at 30 mics per kilo per minute, he is receiving vital high protein at 40 ML per hour with a goal of 65, today's chest x-ray shows no evident pneumothorax, and bilateral airspace disease persistence. Patient tolerated protein well, however he did sustain some blistering in the shearing injury on his face, in his abdomen. He is currently back in the supine position. He is hemodynamically stable, in sinus mechanism with a rate of 64, not requiring any vasopressor support, his FiO2 was dropped down to 60% from 90% from yesterday. He is afebrile. His d-dimer today is 3.10, LDH is 985, and CRP is 16.1, pro-calcitonin level was 0.51. he is on Olumiant, Lovenox 40 mg twice daily, and Decadron 6 mg daily. He has been tolerating tube feedings, no other acute issues overnight. The patient is seen today 05/13/2021 in follow-up in the intensive care unit. He remains intubated on mechanical ventilator. Currently in assist-control mode at a rate of 36, tidal volume 400, FiO2 60% and a PEEP of 16. Peak airway pressure 43. Morning blood gases revealed a PaO2 of 69, pCO2 57, pH 7.28. Currently sedated on to prevent at 30 mcg/kg/m. Nimbex at 1 mcg/kg/m. Fentanyl 1 g per hour. 0.9 normal saline at 75 ML's per hour. He is being nourished with tube feeds via vital HP at 50 MLS per hour with a goal of 65 ML's per hour. He remains in sinus rhythm. He has been proned as tolerated. There has been having issues with Endotracheal tube balloon leaking. This will be changed out by anesthesia today. Chest x-ray continues to show ARDS with bilateral interstitial and airspace disease. White count 12.5. Hemoglobin 11.9. Lymphocyte 0.6. D-dimer 2.52. Sodium 138. Potassium 4.7. Creatinine 1.03. Glucose 288. LDH 812. C-reactive protein 6.8. He remains on Baricitinib, Ecotrin, Lovenox, vitamin supplements. Reevaluated today on 05/14/2021, patient remains in the ICU, intubated and mechanically ventilated. He is on assist control rate of 36 tidal volume 4:30 FiO2 of 60% PEEP of 16. ABG showed a pO2 of 60 pCO2 44 pH of 7.39. Patient remains on propofol at 30 Nimbex at 1 and fentanyl at 2 mcg/kg/h. Patient had his endotracheal tube change yesterday by anesthesia because there was a significant leak. Today there is no evidence of leaking from the endotracheal tube. Peak airway pressure remains high at 37, plateau pressure is in the low 30s. His x-ray continues to be about the same, continues to have bilateral interstitial infiltrates. WBC count today is 12.8 hemoglobin is 11.9. D-dimer is 2.29. Slightly lower compared to the last 4 days. LDH is down to 760 and C- reactive protein is 6.7 Objective - Vital Signs Vital signs: Vital Signs Temp 97.5 F L 05/14/21 12:00 Pulse 60 05/14/21 12:00 Resp 36 H 05/14/21 12:00 BP 148/80 05/14/21 10:00 Pulse Ox 88 L 05/14/21 12:00 Intake & Output 05/13/21 05/14/21 05/14/21 18:59 06:59 18:59 Intake Total 4804.888 6767.843 1008 Output Total 945 875 490 Balance 4750.758 5579.843 518 Weight 138 kg 138 kg Intake: IV 881 936 468 0.9 845 900 450 Pressure bag 36 36 18 Intake, IV Titration 291.778 642.843 100 Amount Cisatracurium 200 mg In 185.156 Sodium Chloride 0.9% 180 ml @ 1 MCG/KG/MIN 7.578 mls/hr IV .Q24H [facility] Rx#: [id number] fentaNYL (PF). 1,000 mcg 191.778 179.253 In Sodium Chloride 0.9% 80 ml @ Per Protocol IV . Q0M [facility] Rx#:[id number] propofoL 1,000 mg In 100 278.434 100 Empty Bag 1 bag @ Titrate IV .Q0M [facility] Rx#: [id number] Tube Feeding 700 650 350 Other 90 120 90 Output: Urine 945 875 490 Other: Voiding Method Indwelling Catheter Indwelling Catheter Indwelling Catheter ABP, PAP, CO, CI - Last Documented Arterial Blood Pressure 159/65 - Exam GENERAL EXAM: 66-year-old white male, intubated and mechanically ventilated. HEAD: Normocephalic/atraumatic. HEENT: PERRLA, EOMI, anicteric, no neck masses, no JVD, endotracheal tube and orogastric tube are intact CHEST: No chest wall deformity. Symmetrical expansion. LUNGS: Crackles persist at the bases. No rhonchi no wheezes. CVS: Regular rate and rhythm, normal S1 and S2, no gallops, no murmurs, no rubs ABDOMEN: Soft, nontender. No hepatosplenomegaly, normal bowel sounds, no guarding or rigidity. EXTREMITIES: No clubbing, no edema, no cyanosis, 2+ pulses and upper and lower extremities. MUSCULOSKELETAL: A au is sedated and paralyzed SKIN: No rashes CENTRAL NERVOUS SYSTEM: Could not assess sedated and paralyzed. PSYCHIATRIC: Could not assess sedated and paralyzed. - Labs CBC & Chem 7: 05/14/21 04:38 05/14/21 04:38 Labs: Abnormal Lab Results - Last 24 Hours (Table) 05/13/21 05/13/21 05/14/21 Range/Units 17:16 20:47 04:38 WBC (3.8-10.6) k/uL RBC (4.30-5.90) m/uL Hgb (13.0-17.5) gm/dL Hct (39.0-53.0) % Neutrophils # (1.3-7.7) k/uL Lymphocytes # (1.0-4.8) k/uL Fibrinogen (200-500) mg/dL D-Dimer (<0.60) mg/L FEU ABG pO2 (83-108) mmHg ABG HCO3 (21-25) mmol/L ABG Total CO2 (19-24) mmol/L ABG O2 Saturation (94-97) % Chloride 110 H (98-107) mmol/L BUN 52 H (9-20) mg/dL Glucose 294 H (74-99) mg/dL POC Glucose (mg/dL) 273 H 290 H (75-99) mg/dL Calcium 7.9 L (8.4-10.2) mg/dL Ferritin 475.5 H (22.0-322.0) ng/mL Lactate Dehydrogenase 760 H (313-618) U/L C-Reactive Protein 6.7 H (<1.0) mg/dL Total Protein 5.1 L (6.3-8.2) g/dL Albumin 2.3 L (3.5-5.0) g/dL 05/14/21 05/14/21 05/14/21 Range/Units 04:38 04:38 05:12 WBC 12.8 H (3.8-10.6) k/uL RBC 4.02 L (4.30-5.90) m/uL Hgb 11.9 L (13.0-17.5) gm/dL Hct 36.8 L (39.0-53.0) % Neutrophils # 11.5 H (1.3-7.7) k/uL Lymphocytes # 0.8 L (1.0-4.8) k/uL Fibrinogen 528 H (200-500) mg/dL D-Dimer 2.29 H (<0.60) mg/L FEU ABG pO2 60 L (83-108) mmHg ABG HCO3 26 H (21-25) mmol/L ABG Total CO2 28 H (19-24) mmol/L ABG O2 Saturation 91.3 L (94-97) % Chloride (98-107) mmol/L BUN (9-20) mg/dL Glucose (74-99) mg/dL POC Glucose (mg/dL) (75-99) mg/dL Calcium (8.4-10.2) mg/dL Ferritin (22.0-322.0) ng/mL Lactate Dehydrogenase (313-618) U/L C-Reactive Protein (<1.0) mg/dL Total Protein (6.3-8.2) g/dL Albumin (3.5-5.0) g/dL 05/14/21 05/14/21 Range/Units 06:46 12:06 WBC (3.8-10.6) k/uL RBC (4.30-5.90) m/uL Hgb (13.0-17.5) gm/dL Hct (39.0-53.0) % Neutrophils # (1.3-7.7) k/uL Lymphocytes # (1.0-4.8) k/uL Fibrinogen (200-500) mg/dL D-Dimer (<0.60) mg/L FEU ABG pO2 (83-108) mmHg ABG HCO3 (21-25) mmol/L ABG Total CO2 (19-24) mmol/L ABG O2 Saturation (94-97) % Chloride (98-107) mmol/L BUN (9-20) mg/dL Glucose (74-99) mg/dL POC Glucose (mg/dL) 256 H 204 H (75-99) mg/dL Calcium (8.4-10.2) mg/dL Ferritin (22.0-322.0) ng/mL Lactate Dehydrogenase (313-618) U/L C-Reactive Protein (<1.0) mg/dL Total Protein (6.3-8.2) g/dL Albumin (3.5-5.0) g/dL Assessment and Plan Assessment: 1 Acute COVID-19 pneumonia, with acute hypoxic respiratory failure, with symptom onset 11-12 days before presentation. Outside the window for Remdesivir. His hypoxia has progressed, and patient was started on Bariticinib on 05/03/2021. Transferred to the intensive care unit on 05/05/2021, initially on BiPAP, then required intubation and mechanical ventilatory support on 05/10/2021. Suspect ongoing ARDS secondary to COVID-19 pneumonia 2 Increased inflammatory markers, related to the above, improved since admission 3 Coronary artery disease with previous coronary artery stenting 4 History of permanent pacemaker insertion 5 History of hypertension 6 Hyperlipidemia 7 History of obstructive sleep apnea on CPAP on an outpatient basis 8 Migraine headache 9 Acute on chronic kidney injury 10 Obesity with BMI 42.3 11 Acute elevation of inflammatory markers, currently improving 12 Hypothyroidism 13 ARDS secondary to COVID-19 pneumonia. Recommendation: Continue ventilatory support. Continue present meds as listed including Lovenox, Decadron, and baricitinib Continue the COVID-19 cocktail. Continue GI and DVT prophylaxis. Continue enteral feedings Titrate oxygen accordingly. Patient did not tolerate placement in the prone position and he developed significant abrasions throughout his body from proning position. Overall prognosis remains relatively poor and guarded. Critical care time is over 30 minutes. Time with Patient: Greater than 30
[2021-05-14 17:16] LABS: Glucose,Whole Blood 207 mg/dL (75-99)
--- NOTE | 2021-05-14 18:30 | PN ---
PROGRESS NOTE DATE OF SERVICE: 05/14/2021. I am covering for Dr. Naqvi. HISTORY: This 66-year-old gentleman was admitted with acute community acquired pneumonia, acute hypoxic respiratory failure on mechanical ventilated. The patient was started on broad- spectrum IV antibiotics also. The patient had symptoms 11 to 12 days prior to the presentation. D-dimer elevated to 0.29. Blood sugar is also elevated. The patient also had elevated inflammatory markers for Covid-19 as well. PAST MEDICAL HISTORY: Could not be taken. The patient is on mechanical ventilation. CURRENT MEDICATIONS: Reviewed include Tylenol, Artificial Tears, aspirin, Lipitor, Coreg, Peridex, dexamethasone, Lovenox, Lexapro, Zetia, NovoLog scale, Levemir 25 units subcu daily and 25 units subcu q.h.s., norepinephrine, Zosyn IV. Doses reviewed. PHYSICAL EXAMINATION: Patient is on mechanical ventilation, the vent settings are noted. Pulse is 64, blood pressure 140/62, respirations 20, temperature 97.4, pulse ox an 88% on 60% FiO2. HEENT: Conjunctivae normal. HEART: S1, S2 muffled. RESPIRATORY SYSTEM: Breath sounds diminished at the bases. Few scattered rhonchi. ABDOMEN: Soft obese. NERVOUS SYSTEM: Patient is mechanically sedated. LAB STUDIES: WBC 12.8, hemoglobin 7.9, sodium 130, potassium 4.6. ASSESSMENT: 1. Acute Covid19 infection with acute bilateral interstitial pneumonia and acute hypoxic respiratory failure on mechanical ventilation as well as sepsis present on admission. 2. Elevated inflammatory markers. 3. History of CAD with stenting. 4. History of permanent pacemaker. 5. Hypertension. 6. Hyperlipidemia. 7. History of sleep apnea. 8. History of migraine headaches. 9. History of chronic kidney disease stage 3. 10.History of obesity. 11.Hypothyroidism. 12.Diabetes mellitus type 2 with hyperglycemia uncontrolled. 13.Elevated D-dimer. 14.Elevated increased WBC. 15.Full code. 16.Obesity with body mass index 46.3. RECOMMENDATIONS: In this 66-year-old gentleman who presented with multiple complex medical issues, we will monitor the patient closely, continue the current medications and bronchodilators. Continue with DVT prophylaxis. The patient is on Lovenox 40 subcu b.i.d. Continue with IV antibiotics. The cultures are negative so far. The blood sugar has been elevated. I would recommend increase the dose of Levemir to 30 units q.h.s. Further recommendations to follow. MMODL / IJN: [id number] /
[2021-05-14 20:21] LABS: Glucose,Whole Blood 235 mg/dL (75-99)
[2021-05-14] MEDS: ATORVASTATIN 10 MG TAB PO SCH (20:35)
[2021-05-14] MEDS: NOREPINEPHRINE 8 MG in SODIUM CHLORIDE 0.9% 250 ML IV SCH (20:35)
[2021-05-15] MEDS: PIPERACILLIN-TAZOBACTAM 3.375 GM in SODIUM CHLORIDE 0.9% 100 ML IVPB SCH ×3 (01:16→17:38)
[2021-05-15 04:25] LABS: Basophils % (A) 0 %; Eosinophils % (A) 0 %; HCT 35.5 % (39.0-53.0); HGB 11.2 gm/dL (13.0-17.5); Lymphocytes # (A) 0.5 k/uL (1.0-4.8); Lymphocytes % (A) 4 %; MCH 29.2 pg (25.0-35.0); MCHC 31.7 g/dL (31.0-37.0); MCV 92.1 fL (80.0-100.0); Monocytes # (A) 0.3 k/uL (0-1.0); Monocytes % (A) 3 %; Neutrophils # (A) 11.7 k/uL (1.3-7.7); Neutrophils % (A) 92 %; Platelet Count 395 k/uL (150-450); RBC 3.85 m/uL (4.30-5.90); RDW 13.2 % (11.5-15.5); WBC 12.6 k/uL (3.8-10.6)
[2021-05-15] MEDS: ARTIFICIAL TEARS-HYPROMELLOSE DROPS 15 ML BTL BOTH EYES SCH ×6 (04:36→23:52)
[2021-05-15 04:41] LABS: ALT 35 U/L (4-49); AST 32 U/L (17-59); African American GFR (CKD) >90 (>60 ml/min/1.73 sqM); Albumin 2.2 g/dL (3.5-5.0); Alkaline Phosphatase 79 U/L (38-126); Anion Gap 4 mmol/L; Blood Urea Nitrogen 47 mg/dL (9-20); C Reactive Protein 7.3 mg/dL (<1.0); Calcium 7.9 mg/dL (8.4-10.2); Carbon Dioxide 25 mmol/L (22-30); Chloride 110 mmol/L (98-107); Creatine Kinase 62 U/L (55-170); Glucose 206 mg/dL (74-99); Non-African American GFR(CKD) >90 (>60 ml/min/1.73 sqM); Potassium 4.5 mmol/L (3.5-5.1); Sodium 139 mmol/L (137-145); Total Bilirubin 0.4 mg/dL (0.2-1.3); Total Protein 5.1 g/dL (6.3-8.2)
[2021-05-15] MEDS: fentaNYL (PF) 2,500 MCG in SODIUM CHLORIDE 0.9% 200 ML IV SCH ×3 (04:42→22:47)
[2021-05-15 05:16] LABS: ABG Base Excess 2.3 mmol/L; ABG HCO3 27 mmol/L (21-25); ABG Oxygen Saturation 89.6 % (94-97); ABG PCO2 43 mmHg (35-45); ABG PH 7.41 (7.35-7.45); ABG TCO2 28 mmol/L (19-24); Allen Test Performed? Yes
[2021-05-15 05:20] LABS: ABG PO2 56 mmHg (83-108)
[2021-05-15 06:50] LABS: Glucose,Whole Blood 190 mg/dL (75-99)
[2021-05-15] MEDS: INSULIN DETEMIR (LEVEMIR) 100 UNIT/ML SYR SQ SCH ×2 (06:53→20:59)
[2021-05-15] MEDS: LEVOTHYROXINE 137 MCG TAB PO SCH (06:53)
[2021-05-15] MEDS: INSULIN ASPART (NovoLOG) 100 UNIT/ML VIAL SQ SCH ×7 (06:53→20:24)
[2021-05-15] MEDS: PANTOPRAZOLE 40 MG/10 ML VIAL IVP SCH (09:04)
[2021-05-15] MEDS: DEXAMETHASONE SOD PHOSPHATE 10 MG/ML 1 ML VIAL IV SCH (09:04)
[2021-05-15] MEDS: carvediloL 12.5 MG TAB PO SCH (09:04)
--- NOTE | 2021-05-15 09:04 | XR ---
EXAMINATION TYPE: XR chest 1V portable DATE OF EXAM: 05/15/2021 Comparison: 05/14/2021 Clinical History: 66-year-old male Tube placement Findings: ET tube tip is 1.9 cm from the nata. NG tube courses below the diaphragm. Left anterior chest wall pacemaker generator with right atrial and ventricular leads. Heart upper limits of normal in size. Di ffuse interstitial and bilateral airspace disease persists. Right PICC tip not well seen, at least to the lower SVC level. Impression: 1. ET tube tip 1.9 cm from the nata. Pull back 1.5 cm and reassessed at follow-up. 2. Diffuse interstitial and airspace disease is unchanged.
[2021-05-15] MEDS: hydrALAZINE HCL 50 MG TAB PO SCH ×2 (09:05→17:32)
[2021-05-15] MEDS: EZETIMIBE 10 MG TAB PO SCH (09:05)
[2021-05-15] MEDS: ASPIRIN 81 MG PO SCH (09:05)
[2021-05-15] MEDS: ESCITALOPRAM 10 MG TAB PO SCH (09:05)
[2021-05-15] MEDS: CHLORHEXIDINE GLUCONATE 15 ML CUP MUCOUS MEM SCH ×2 (09:05→20:24)
[2021-05-15] MEDS: ENOXAPARIN 40 MG/0.4 ML SYRINGE SQ SCH ×2 (09:05→20:24)
[2021-05-15 12:39] LABS: Glucose,Whole Blood 193 mg/dL (75-99)
--- NOTE | 2021-05-15 13:22 | P.PN ---
Subjective Progress Note Date: 05/15/21 Principal diagnosis: Acute hypoxic respiratory failure secondary to COVID-19 pneumonia. On 05/04/2021 patient seen in follow-up on selective care unit. His oxygen demand has increased, he is currently on 100 percent nonrebreather, his oxygen saturations are ranging between 82 and 88%, is having low-grade fevers this afternoon, blood pressures stable. Inflammatory markers are improving on today's labs, LDH is down to 392, CRP is 6.0, pro calcitonin level was 0.32. D- dimer was 0.66. Blood cultures have been negative. Patient remains on dexamethasone 6 mg daily, he is on prophylactic dose Lovenox 40 mg daily. His chest x-ray point diffuse bilateral infiltrates that appear to be progress. Patient could not tolerate high flow nasal cannula and was desaturating on it. On today's evaluation of 05/05/2021 patient seen in follow-up on medical surgical floor. Overnight patient was placed on BiPAP support for worsening dyspnea and hypoxia, with pressures of 12/5, and FiO2 of 100%, and his pulse ox is around 89%. Patient is currently up in the chair, is short of breath with any exertion, he was started on bariticinib yesterday, and he continues on Decadron 6 mg daily, and Lovenox 80 mg once daily, his chest x-ray has been reviewed showing stable diffuse bilateral infiltrates. Today's labs have been reviewed, white blood cell count is not 7.9, hemoglobin is 12.6, his lymphocyte count is 1.27, electrolytes are within normal limits, B1 is 36, creatinine is 1.6, his LDH is up slightly to 560 from 392 one yesterday his labs, CRP is relatively stable with 6.8. Pro-calcitonin level was 0.32. His had no fever or chills overnight, but cultures were negative. In view of his progressive oxygen demand and shortness of breath, we recommended transfer to the intensive care unit for closer monitoring On 05/06/2021 patient seen in follow-up in the intensive care unit where she was transferred yesterday from [facility]. in view of his worsening hypoxia, patient is cu rrently on BiPAP support with pressures of 12/10 and FiO2 100%, his pulse ox is ranging between 86-91%, he sitting up in the recliner where he slept last night, he does not appear to be in any acute distress, however he does desaturate down to 68 when he removes the BiPAP mask even briefly to take a bite of food, or his medication. Is currently on IV fluids with 0.9, secondary to 20 ML per hour. He continues on Baricitinib 2 mg daily, and today is day 2 of treatment, in addition he is on IV Decadron 6 mg daily, is on prophylactic dose of Lovenox 40 mg daily, he is receiving when necessary doses of Ativan for anxiety and breathlessness. Today's chest x-ray has been reviewed showing diffuse bilateral infiltrates that are stable in appearance. Today's labs have been reviewed showing CBC within normal limits, electrolytes were unremarkable, BUN is 39, creatinine is 1.41. Inflammatory markers seems to have increased as far as LDH is up to 1792, and CRP is relatively stable 6.9. His d-dimer today is 0.59. He appears to be sleepy, but no acute distress, he is answering questions appr opriately, denies any chest discomfort. He is been in his chair for the most part. His been using the urinal to urinate, he is trying to keep up his oral intake and take bites of food. No other acute events overnight. Reevaluated today on 05/07/2021, patient remains in the ICU, his pulmonary status is marginal at best. Patient is on BiPAP 08/03 he is also on 100% FiO2, with O2 saturation in the high 80s at best. Surprisingly however the patient seems to be in no distress, he is comfortable, sitting at a bedside chair, alert oriented 3, and I have increased his IPAP 14 instead of 12, patient seems to be extremely comfortable. Chest x-ray continues to show bilateral interstitial infiltrates. WBC count is 10.9 hemoglobin 13.9 d-dimer is 0.96 electrolytes are normal LDH 2092 and C-reactive protein is 6. Reevaluated today on 05/08/2021, remains in the ICU, remains on BiPAP, he is on IPAP of 14 and EPAP of 8 and FiO2 of 100%. Patient O2 saturation is marginal in the 80s most of the time. Surprisingly, the patient is not complaining of any shortness of breath, he seems to be comfortable, and relatively asymptomatic. Does not seem to be in distress. Chest x-ray is basically about the same, hence I ordered another Lasix dose to be given today 40 mg IV push 1, although BNP level is not elevated, but I would like to keep him on the dry side as much as possible. Patient remains on Lovenox 40 mg subcu daily, he is on Decadron, Glucerna was ordered, and he remains on baricitinib. CBC is relatively normal left lites are normal renal profile showed a BUN of 45 creatinine 1.16. Improving compared to his baseline on admission Reevaluated today on 05/09/2021, patient remains in the ICU, remains on BiPAP 09/04/100% FiO2 patient is basically about the same not much of a change noted over the last 24 hours. Chest x-ray is basically about the same. Patient seems to be comfortable, O2 saturations are marginal basically as high, 92%. Remains on Decadron, Lovenox, and on baricitinib WBC count is 12.3 hemoglobin is 14.1 lites are normal BUN is 53 creatinine 1.15, no Lasix was ordered today as the patient seems to be a bit prerenal On 05/11/2021 patient seen in follow-up in the intensive care unit, he was intubated and placed on mechanical ventilator yesterday on 05/10/2021 for worsening hypoxic respiratory failure, he currently remains sedated, and paralyzed on assist-control mode of ventilation with a rate of 30, tidal I was 450, FiO2 of 90% and PEEP of 15, this morning's blood gas shows pO2 of 86, pCO2 46, and pH of 7.36. He's currently on 0.9 normal saline at 75 ML per hour, fentanyl infusion is at 1 diana per kilo per minute, and then backs is at 1 diana per kilo per minute, and improving and is at 50 mics per kilo per minute, patient has not been started on tube feedings yet. He tolerated protein quite well, this morning he still proned. Today's chest x-ray shows diffuse bilateral lung disease which is stable in appearance, and ET tube at 1.5 cm above nata. Today's labs have been reviewed, showing white blood cell count of 16.1, hemoglobin is 12.1, d-dimer is 4.5, slightly obtunded from previous level, sodium is 141, potassium is 4.5, chloride is 109, CO2 is 24, BUN of 44, creatinine is 1.18, LDH is down to 1175, appendectomy level is still pending for today. Did have some intermittent fevers last night, with a T-max of 101.4F. Remains on Baricitinib, Decadron, and Lovenox 40 mg daily. On 05/12/2021 patient seen in follow-up in the intensive care unit, he remains intubated, sedated and paralyzed, on assist-control mode ventilation, with a rate of 30, tacrolimus 450, FiO2 60% and PEEP of 16, this morning's blood gas shows pO2 of 59, pCO2 49, pH is 7.35. Patient is currently on 0.9 normal saline at a rate of 75 ML per hour, fentanyl infusion is at 1 diana per kilo per minute, Nimbex is at 1 diana per kilo per minute, and improving and is at 30 mics per kilo per minute, he is receiving vital high protein at 40 ML per hour with a goal of 65, today's chest x-ray shows no evident pneumothorax, and bilateral airspace disease persistence. Patient tolerated protein well, however he did sustain some blistering in the shearing injury on his face, in his abdomen. He is currently back in the supine position. He is hemodynamically stable, in sinus mechanism with a rate of 64, not requiring any vasopressor support, his FiO2 was dropped down to 60% from 90% from yesterday. He is afebrile. His d-dimer today is 3.10, LDH is 985, and CRP is 16.1, pro-calcitonin level was 0.51. he is on Olumiant, Lovenox 40 mg twice daily, and Decadron 6 mg daily. He has been tolerating tube feedings, no other acute issues overnight. The patient is seen today 05/13/2021 in follow-up in the intensive care unit. He remains intubated on mechanical ventilator. Currently in assist-control mode at a rate of 36, tidal volume 400, FiO2 60% and a PEEP of 16. Peak airway pressure 43. Morning blood gases revealed a PaO2 of 69, pCO2 57, pH 7.28. Currently sedated on to prevent at 30 mcg/kg/m. Nimbex at 1 mcg/kg/m. Fentanyl 1 g per hour. 0.9 normal saline at 75 ML's per hour. He is being nourished with tube feeds via vital HP at 50 MLS per hour with a goal of 65 ML's per hour. He remains in sinus rhythm. He has been proned as tolerated. There has been having issues with Endotracheal tube balloon leaking. This will be changed out by anesthesia today. Chest x-ray continues to show ARDS with bilateral interstitial and airspace disease. White count 12.5. Hemoglobin 11.9. Lymphocyte 0.6. D-dimer 2.52. Sodium 138. Potassium 4.7. Creatinine 1.03. Glucose 288. LDH 812. C-reactive protein 6.8. He remains on Baricitinib, Ecotrin, Lovenox, vitamin supplements. Reevaluated today on 05/14/2021, patient remains in the ICU, intubated and mechanically ventilated. He is on assist control rate of 36 tidal volume 4:30 FiO2 of 60% PEEP of 16. ABG showed a pO2 of 60 pCO2 44 pH of 7.39. Patient remains on propofol at 30 Nimbex at 1 and fentanyl at 2 mcg/kg/h. Patient had his endotracheal tube change yesterday by anesthesia because there was a significant leak. Today there is no evidence of leaking from the endotracheal tube. Peak airway pressure remains high at 37, plateau pressure is in the low 30s. His x-ray continues to be about the same, continues to have bilateral interstitial infiltrates. WBC count today is 12.8 hemoglobin is 11.9. D-dimer is 2.29. Slightly lower compared to the last 4 days. LDH is down to 760 and C- reactive protein is 6.7 Reevaluated today on 05/15/2021, patient remains in the ICU, intubated and mechanically ventilated. He is on assist control rate of 36 tidal volume 430 FiO2 70% and PEEP of 16 ABG showed a pO2 of 56 pCO2 43 pH of 7.41. Remains on Nimbex at 1 mcg/kg/m, fentanyl at 2 mcg/kg/h, propofol at 30 mcg/kg/m, IV fluid at 0.9 normal saline 75 mL/h receiving vital HP at 50/50. Not much of a change noted on the chest x-ray today, not much of a change noted in his clinical status over the last 24 hours. Patient had poor tolerance to proning, hence no further proning was done d-dimer today is 1.72, CBC is relatively normal. Electrolytes are normal. Renal profile is normal. C-reactive protein is 7.3. Not to changing much in the last 3 days. No LDH done today. Liver enzymes are normal Objective - Vital Signs Vital signs: Vital Signs Temp 97.8 F 05/15/21 12:00 Pulse 68 05/15/21 12:00 Resp 36 H 05/15/21 12:00 BP 148/80 05/15/21 12:00 Pulse Ox 86 L 05/15/21 12:00 Intake & Output 05/14/21 05/15/21 05/15/21 18:59 06:59 18:59 Intake Total 2323.016 2189.797 1108 Output Total 1000 945 365 Balance 6006.317 4773.797 743 Weight 141.3 kg Intake: IV 936 858 468 0.9 900 825 450 Pressure bag 36 33 18 Intake, IV Titration 567.016 611.797 200 Amount Cisatracurium 200 mg In 127.816 40.669 Sodium Chloride 0.9% 180 ml @ 1 MCG/KG/MIN 7.578 mls/hr IV .Q24H [facility] Rx#: [id number] fentaNYL (PF) 2,500 mcg 239.2 279.22 In Sodium Chloride 0.9% 200 ml @ Per Protocol IV .Q0M [facility] Rx#:[id number] propofoL 1,000 mg In 200 291.908 200 Empty Bag 1 bag @ Titrate IV .Q0M MYLES Rx#: [id number] Tube Feeding 700 600 350 Other 120 120 90 Output: Urine 1000 945 365 Other: Voiding Method Indwelling Catheter Indwelling Catheter Indwelling Catheter ABP, PAP, CO, CI - Last Documented Arterial Blood Pressure 152/66 - Exam GENERAL EXAM: 66-year-old white male, intubated and mechanically ventilated. HEAD: Normocephalic/atraumatic. HEENT: PERRLA, EOMI, anicteric, no neck masses, no JVD, endotracheal tube and orogastric tube are intact CHEST: No chest wall deformity. Symmetrical expansion. LUNGS: Crackles persist at the bases. No rhonchi no wheezes. CVS: Regular rate and rhythm, normal S1 and S2, no gallops, no murmurs, no rubs ABDOMEN: Soft, nontender. No hepatosplenomegaly, normal bowel sounds, no guarding or rigidity. EXTREMITIES: No clubbing, no edema, no cyanosis, 2+ pulses and upper and lower extremities. MUSCULOSKELETAL: sedated and paralyzed SKIN: No rashes CENTRAL NERVOUS SYSTEM: Could not assess sedated and paralyzed. PSYCHIATRIC: Could not assess sedated and paralyzed. - Labs CBC & Chem 7: 05/15/21 04:08 05/15/21 04:08 Labs: Abnormal Lab Results - Last 24 Hours (Table) 05/14/21 05/14/21 05/15/21 Range/Units 17:15 20:19 04:08 WBC 12.6 H (3.8-10.6) k/uL RBC 3.85 L (4.30-5.90) m/uL Hgb 11.2 L (13.0-17.5) gm/dL Hct 35.5 L (39.0-53.0) % Neutrophils # 11.7 H (1.3-7.7) k/uL Lymphocytes # 0.5 L (1.0-4.8) k/uL Fibrinogen (200-500) mg/dL D-Dimer (<0.60) mg/L FEU ABG pO2 (83-108) mmHg ABG HCO3 (21-25) mmol/L ABG Total CO2 (19-24) mmol/L ABG O2 Saturation (94-97) % Chloride (98-107) mmol/L BUN (9-20) mg/dL Glucose (74-99) mg/dL POC Glucose (mg/dL) 207 H 235 H (75-99) mg/dL Calcium (8.4-10.2) mg/dL C-Reactive Protein (<1.0) mg/dL Total Protein (6.3-8.2) g/dL Albumin (3.5-5.0) g/dL 05/15/21 05/15/21 05/15/21 Range/Units 04:08 04:08 05:12 WBC (3.8-10.6) k/uL RBC (4.30-5.90) m/uL Hgb (13.0-17.5) gm/dL Hct (39.0-53.0) % Neutrophils # (1.3-7.7) k/uL Lymphocytes # (1.0-4.8) k/uL Fibrinogen 547 H (200-500) mg/dL D-Dimer 1.72 H (<0.60) mg/L FEU ABG pO2 56 L* (83-108) mmHg ABG HCO3 27 H (21-25) mmol/L ABG Total CO2 28 H (19-24) mmol/L ABG O2 Saturation 89.6 L (94-97) % Chloride 110 H (98-107) mmol/L BUN 47 H (9-20) mg/dL Glucose 206 H (74-99) mg/dL POC Glucose (mg/dL) (75-99) mg/dL Calcium 7.9 L (8.4-10.2) mg/dL C-Reactive Protein 7.3 H (<1.0) mg/dL Total Protein 5.1 L (6.3-8.2) g/dL Albumin 2.2 L (3.5-5.0) g/dL 05/15/21 05/15/21 Range/Units 06:48 12:37 WBC (3.8-10.6) k/uL RBC (4.30-5.90) m/uL Hgb (13.0-17.5) gm/dL Hct (39.0-53.0) % Neutrophils # (1.3-7.7) k/uL Lymphocytes # (1.0-4.8) k/uL Fibrinogen (200-500) mg/dL D-Dimer (<0.60) mg/L FEU ABG pO2 (83-108) mmHg ABG HCO3 (21-25) mmol/L ABG Total CO2 (19-24) mmol/L ABG O2 Saturation (94-97) % Chloride (98-107) mmol/L BUN (9-20) mg/dL Glucose (74-99) mg/dL POC Glucose (mg/dL) 190 H 193 H (75-99) mg/dL Calcium (8.4-10.2) mg/dL C-Reactive Protein (<1.0) mg/dL Total Protein (6.3-8.2) g/dL Albumin (3.5-5.0) g/dL Assessment and Plan Assessment: 1 Acute COVID-19 pneumonia, with acute hypoxic respiratory failure, with symptom onset 11-12 days before presentation. Outside the window for Remdesivir. His hypoxia has progressed, and patient was started on Bariticinib on 05/03/2021. Transferred to the intensive care unit on 05/05/2021, initially on BiPAP, then required intubation and mechanical ventilatory support on 05/10/2021. Suspect ongoing ARDS secondary to COVID-19 pneumonia 2 Increased inflammatory markers, related to the above, improved since admission 3 Coronary artery disease with previous coronary artery stenting 4 History of permanent pacemaker insertion 5 History of hypertension 6 Hyperlipidemia 7 History of obstructive sleep apnea on CPAP on an outpatient basis 8 Migraine headache 9 Acute on chronic kidney injury 10 Obesity with BMI 42.3 11 Acute elevation of inflammatory markers, currently improving 12 Hypothyroidism 13 ARDS secondary to COVID-19 pneumonia. Recommendation: Continue ventilatory support. Continue present meds as listed including Lovenox, Decadron, and baricitinib Continue the COVID-19 cocktail. Continue GI and DVT prophylaxis. Continue enteral feedings Titrate oxygen accordingly. Patient is requiring relatively high FiO2 and high PEEP today. Patient did not tolerate placement in the prone position and he developed significant abrasions throughout his body from proning position. Patient remains critically ill. Critical care time is over 30 minutes. Time with Patient: Greater than 30
[2021-05-15] MEDS: SODIUM CHLORIDE 0.9% 1,000 ML IV SCH ×2 (13:50→21:44)
[2021-05-15 13:59] LABS: Ferritin 532.6 ng/mL (22.0-322.0)
[2021-05-15 17:24] LABS: Glucose,Whole Blood 224 mg/dL (75-99)
[2021-05-15] MEDS ORDERED: amLODIPine 10 MG TAB PO SCH (18:15)
[2021-05-15] MEDS: CLEVIDIPINE BUTYRATE 25 MG in EMPTY BAG 1 BAG IV SCH (18:43)
--- NOTE | 2021-05-15 19:38 | PN ---
PROGRESS NOTE DATE OF SERVICE: May 15, 2021 I am covering for Dr. Naqvi. HISTORY OF PRESENT ILLNESS: This 66-year-old gentleman who was admitted with acute Covid 19 pneumonia and as well as acute hypoxic respiratory failure on mechanical ventilation. Patient continues to be sedated and mechanically ventilated. Multiple consultants are following the patient closely. The most recent chest x-ray which was personally reviewed by me showed bilateral significant pneumonic process, mainly confined to the lower lobe. Dr. Manzano is following the patient. PAST MEDICAL HISTORY: Reviewed. REVIEW OF SYMPTOMS: Could not be taken. CURRENT MEDICATIONS: Reviewed and include Tylenol, aspirin, Lipitor, Coreg, Peridex, dexamethasone, other medications and doses reviewed. PHYSICAL EXAMINATION: Alert and oriented times three. Pulse is 64. Blood pressure is 160/74, respiration 30, temperature normal, pulse ox 88 percent on 35% on mechanical ventilation, HEENT: Conjunctivae normal. NECK: No JVD. CARDIOVASCULAR: S1, S2 muffled. RESPIRATORY: Breath sounds diminished in the bases. A few scattered rhonchi and crackles. ABDOMEN: Soft, obese. LEGS: No edema. No swelling. NERVOUS SYSTEM: No focal deficits. LABS: WBC 12.0, hemoglobin 11. Other labs are noted. ASSESSMENT: 1. Acute Covid 19 infection with acute bilateral interstitial pneumonia with acute hypoxic respiratory failure on mechanical ventilation as well as sepsis, present on admission. 2. Elevated inflammatory markers of COVID-19. 3. History of CAD stenting. 4. History of permanent pacemaker. 5. Hypertension. 6. Hyperlipidemia. 7. History of sleep apnea. 8. History of migraine headaches. 9. History of chronic kidney disease stage 3. 10.History of obesity. 11.Hypothyroidism. 12.Diabetes type 2 with hyperglycemia uncontrolled. 13.Elevated D-dimer. 14.Elevated WBC. 15.Obesity with body mass index 46.3. 16.FULL CODE. RECOMMENDATIONS AND DISCUSSION: Continue current medications, management and symptomatic treatment. DVT prophylaxis. Continue with antibiotics. Add Norvasc to the current regimen. Monitor blood pressure closely. Otherwise Dr. Naqvi will follow tomorrow. Further recommendations to follow. Prognosis guarded. MMODL / IJN: [id number] / MTDD
[2021-05-15 20:01] LABS: Glucose,Whole Blood 229 mg/dL (75-99)
[2021-05-15] MEDS: NOREPINEPHRINE 8 MG in SODIUM CHLORIDE 0.9% 250 ML IV SCH (20:14)
[2021-05-15] MEDS: ATORVASTATIN 10 MG TAB PO SCH (20:24)
[2021-05-15] MEDS: CISATRACURIUM 200 MG in SODIUM CHLORIDE 0.9% 180 ML IV SCH (22:30)
[2021-05-16] MEDS: PIPERACILLIN-TAZOBACTAM 3.375 GM in SODIUM CHLORIDE 0.9% 100 ML IVPB SCH ×3 (01:25→17:37)
[2021-05-16] MEDS: ARTIFICIAL TEARS-HYPROMELLOSE DROPS 15 ML BTL BOTH EYES SCH ×5 (04:59→19:53)
[2021-05-16] MEDS: CLEVIDIPINE BUTYRATE 25 MG in EMPTY BAG 1 BAG IV SCH ×4 (05:05→21:30)
[2021-05-16 05:07] LABS: Basophils % (A) 0 %; Eosinophils % (A) 0 %; HCT 34.4 % (39.0-53.0); HGB 11.4 gm/dL (13.0-17.5); Lymphocytes # (A) 0.5 k/uL (1.0-4.8); Lymphocytes % (A) 4 %; MCH 29.7 pg (25.0-35.0); MCHC 33.3 g/dL (31.0-37.0); MCV 89.2 fL (80.0-100.0); Mean Platelet Volume 9.4; Monocytes # (A) 0.3 k/uL (0-1.0); Monocytes % (A) 2 %; Neutrophils # (A) 12.1 k/uL (1.3-7.7); Neutrophils % (A) 93 %; Platelet Count 448 k/uL (150-450); RBC 3.85 m/uL (4.30-5.90); RDW 13.4 % (11.5-15.5); WBC 13.1 k/uL (3.8-10.6)
[2021-05-16 05:18] LABS: ABG Base Excess 1.9 mmol/L; ABG HCO3 27 mmol/L (21-25); ABG Oxygen Saturation 87.6 % (94-97); ABG PCO2 47 mmHg (35-45); ABG PH 7.37 (7.35-7.45); ABG TCO2 29 mmol/L (19-24); Allen Test Performed? Yes
[2021-05-16 05:26] LABS: ABG PO2 55 mmHg (83-108)
[2021-05-16 05:27] LABS: ALT 37 U/L (4-49); AST 32 U/L (17-59); African American GFR (CKD) >90 (>60 ml/min/1.73 sqM); Albumin 2.1 g/dL (3.5-5.0); Alkaline Phosphatase 83 U/L (38-126); Anion Gap 3 mmol/L; Blood Urea Nitrogen 45 mg/dL (9-20); Calcium 8.1 mg/dL (8.4-10.2); Carbon Dioxide 26 mmol/L (22-30); Chloride 110 mmol/L (98-107); Glucose 190 mg/dL (74-99); Non-African American GFR(CKD) >90 (>60 ml/min/1.73 sqM); Potassium 4.3 mmol/L (3.5-5.1); Sodium 139 mmol/L (137-145); Total Bilirubin 0.4 mg/dL (0.2-1.3); Total Protein 4.9 g/dL (6.3-8.2)
[2021-05-16] MEDS ORDERED: FUROSEMIDE 10 MG/ML 4 ML VIAL IV STA (06:23)
[2021-05-16 06:30] LABS: Glucose,Whole Blood 180 mg/dL (75-99)
[2021-05-16] MEDS: INSULIN DETEMIR (LEVEMIR) 100 UNIT/ML SYR SQ SCH ×2 (06:33→20:25)
[2021-05-16] MEDS: LEVOTHYROXINE 137 MCG TAB PO SCH (06:33)
[2021-05-16] MEDS: INSULIN ASPART (NovoLOG) 100 UNIT/ML VIAL SQ SCH ×7 (06:33→20:25)
[2021-05-16] MEDS: CHLORHEXIDINE GLUCONATE 15 ML CUP MUCOUS MEM SCH ×2 (08:29→20:25)
[2021-05-16] MEDS: DEXAMETHASONE SOD PHOSPHATE 10 MG/ML 1 ML VIAL IV SCH (08:29)
[2021-05-16] MEDS: ASPIRIN 81 MG PO SCH (08:29)
[2021-05-16] MEDS: ENOXAPARIN 40 MG/0.4 ML SYRINGE SQ SCH ×2 (08:30→20:25)
[2021-05-16] MEDS: ESCITALOPRAM 10 MG TAB PO SCH (08:30)
[2021-05-16] MEDS: PANTOPRAZOLE 40 MG/10 ML VIAL IVP SCH (08:30)
[2021-05-16] MEDS: EZETIMIBE 10 MG TAB PO SCH (08:30)
--- NOTE | 2021-05-16 08:36 | XR ---
EXAMINATION TYPE: XR chest 1V portable DATE OF EXAM: 05/16/2021 COMPARISON: Chest x-ray 05/15/2021 HISTORY: Intubated TECHNIQUE: Single frontal view of the chest is obtained. FINDINGS: Endotracheal tube, orogastric tube, right-sided PICC line are overlying appropriate positi ons, stable. Pacemaker is unchanged. No evident pneumothorax or pleural effusion. Bilateral airspace disease persists. Cardiac mediastinal silhouette is stable. IMPRESSION: No significant change. Correlate for pneumonia, edema, ARDS
[2021-05-16] MEDS: fentaNYL (PF) 2,500 MCG in SODIUM CHLORIDE 0.9% 200 ML IV SCH ×2 (09:46→17:47)
--- NOTE | 2021-05-16 10:30 | P.PN ---
Subjective Progress Note Date: 05/16/21 Principal diagnosis: Coronavirus pneumonia. Acute hypoxic respiratory failure secondary to COVID-19 pneumonia. On 05/04/2021 patient seen in follow-up on selective care unit. His oxygen demand has increased, he is currently on 100 percent nonrebreather, his oxygen saturations are ranging between 82 and 88%, is having low-grade fevers this afternoon, blood pressures stable. Inflammatory markers are improving on today's labs, LDH is down to 392, CRP is 6.0, pro calcitonin level was 0.32. D- dimer was 0.66. Blood cultures have been negative. Patient remains on dexamethasone 6 mg daily, he is on prophylactic dose Lovenox 40 mg daily. His chest x-ray point diffuse bilateral infiltrates that appear to be progress. Patient could not tolerate high flow nasal cannula and was desaturating on it. On today's evaluation of 05/05/2021 patient seen in follow-up on medical chou rgical floor. Overnight patient was placed on BiPAP support for worsening dyspnea and hypoxia, with pressures of 12/5, and FiO2 of 100%, and his pulse ox is around 89%. Patient is currently up in the chair, is short of breath with any exertion, he was started on bariticinib yesterday, and he continues on Decadron 6 mg daily, and Lovenox 80 mg once daily, his chest x-ray has been reviewed showing stable diffuse bilateral infiltrates. Today's labs have been reviewed, white blood cell count is not 7.9, hemoglobin is 12.6, his lymphocyte count is 1.27, electrolytes are within normal limits, B1 is 36, creatinine is 1.6, his LDH is up slightly to 560 from 392 one yesterday his labs, CRP is rela tively stable with 6.8. Pro-calcitonin level was 0.32. His had no fever or chills overnight, but cultures were negative. In view of his progressive oxygen demand and shortness of breath, we recommended transfer to the intensive care unit for closer monitoring On 05/06/2021 patient seen in follow-up in the intensive care unit where she was transferred yesterday from [facility]. in view of his worsening hypoxia, patient is currently on BiPAP support with pressures of 12/10 and FiO2 100%, his pulse ox is ranging between 86-91%, he sitting up in the recliner where he slept last night, he does not appear to be in any acute distress, however he does desaturate down to 68 when he removes the BiPAP mask even briefly to take a bite of food, or his medication. Is currently on IV fluids with 0.9, secondary to 20 ML per hour. He continues on Baricitinib 2 mg daily, and today is day 2 of treatment, in addition he is on IV Decadron 6 mg daily, is on prophylactic dose of Lovenox 40 mg daily, he is receiving when necessary doses of Ativan for anxiety and breathlessness. Today's chest x-ray has been reviewed showing diffuse bilateral infiltrates that are stable in appearance. Today's labs have been reviewed showing CBC within normal limits, electrolytes were unremarkable, BUN is 39, creatinine is 1.41. Inflammatory markers seems to have increased as far as LDH is up to 1792, and CRP is relatively stable 6.9. His d-dimer today is 0.59. He appears to be sleepy, but no acute distress, he is answering questions appropriately, denies any chest discomfort. He is been in his chair for the most part. His been using the urinal to urinate, he is trying to keep up his oral intake and take bites of food. No other acute events overnight. Reevaluated today on 05/07/2021, patient remains in the ICU, his pulmonary status is marginal at best. Patient is on BiPAP 08/03 he is also on 100% FiO2, with O2 saturation in the high 80s at best. Surprisingly however the patient seems to be in no distress, he is comfortable, sitting at a bedside chair, alert oriented 3, and I have increased his IPAP 14 instead of 12, patient seems to be extremely comfortable. Chest x-ray continues to show bilateral interstitial infiltrates. WBC count is 10.9 hemoglobin 13.9 d-dimer is 0.96 electrolytes are normal LDH 2092 and C-reactive protein is 6. Reevaluated today on 05/08/2021, remains in the ICU, remains on BiPAP, he is on IPAP of 14 and EPAP of 8 and FiO2 of 100%. Patient O2 saturation is marginal in the 80s most of the time. Surprisingly, the patient is not complaining of any shortness of breath, he seems to be comfortable, and relatively asymptomatic. Does not seem to be in distress. Chest x-ray is basically about the same, hence I ordered another Lasix dose to be given today 40 mg IV push 1, although BNP level is not elevated, but I would like to keep him on the dry side as much as p ossible. Patient remains on Lovenox 40 mg subcu daily, he is on Decadron, Glucerna was ordered, and he remains on baricitinib. CBC is relatively normal left lites are normal renal profile showed a BUN of 45 creatinine 1.16. Improving compared to his baseline on admission Reevaluated today on 05/09/2021, patient remains in the ICU, remains on BiPAP 09/04/100% FiO2 patient is basically about the same not much of a change noted over the last 24 hours. Chest x-ray is basically about the same. Patient seems to be comfortable, O2 saturations are marginal basically as high, 92%. Remains on Decadron, Lovenox, and on baricitinib WBC count is 12.3 hemoglobin is 14.1 lites are normal BUN is 53 creatinine 1.15, no Lasix was ordered today as the patient seems to be a bit prerenal On 05/11/2021 patient seen in follow-up in the intensive care unit, he was intubated and placed on mechanical ventilator yesterday on 05/10/2021 for worsening hypoxic respiratory failure, he currently remains sedated, and paralyzed on assist-control mode of ventilation with a rate of 30, tidal I was 450, FiO2 of 90% and PEEP of 15, this morning's blood gas shows pO2 of 86, pCO2 46, and pH of 7.36. He's currently on 0.9 normal saline at 75 ML per hour, fentanyl infusion is at 1 diana per kilo per minute, and then backs is at 1 diana per kilo per minute, and improving and is at 50 mics per kilo per minute, patient has not been started on tube feedings yet. He tolerated protein quite well, this morning he still proned. Today's chest x-ray shows diffuse bilateral lung disease which is stable in appearance, and ET tube at 1.5 cm above nata. Today's labs have been reviewed, showing white blood cell count of 16.1, hemoglobin is 12.1, d-dimer is 4.5, slightly obtunded from previous level, sodium is 141, potassium is 4.5, chloride is 109, CO2 is 24, BUN of 44, creatinine is 1.18, LDH is down to 1175, appendectomy level is still pending for today. Did have some intermittent fevers last night, with a T-max of 101.4F. Remains on Baricitinib, Decadron, and Lovenox 40 mg daily. On 05/12/2021 patient seen in follow-up in the intensive care unit, he remains intubated, sedated and paralyzed, on assist-control mode ventilation, with a rate of 30, tacrolimus 450, FiO2 60% and PEEP of 16, this morning's blood gas shows pO2 of 59, pCO2 49, pH is 7.35. Patient is currently on 0.9 normal saline at a rate of 75 ML per hour, fentanyl infusion is at 1 diana per kilo per minute, Nimbex is at 1 diana per kilo per minute, and improving and is at 30 mics per kilo per minute, he is receiving vital high protein at 40 ML per hour with a goal of 65, today's chest x-ray shows no evident pneumothorax, and bilateral airspace disease persistence. Patient tolerated protein well, however he did sustain some blistering in the shearing injury on his face, in his abdomen. He is currently back in the supine position. He is hemodynamically stable, in sinus mechanism with a rate of 64, not requiring any vasopressor support, his FiO2 was dropped down to 60% from 90% from yesterday. He is afebrile. His d-dimer today is 3.10, LDH is 985, and CRP is 16.1, pro-calcitonin level was 0.51. he is on Olumiant, Lovenox 40 mg twice daily, and Decadron 6 mg daily. He has been tolerating tube feedings, no other acute issues overnight. The patient is seen today 05/13/2021 in follow-up in the intensive care unit. He remains intubated on mechanical ventilator. Currently in assist-control mode at a rate of 36, tidal volume 400, FiO2 60% and a PEEP of 16. Peak airway pressure 43. Morning blood gases revealed a PaO2 of 69, pCO2 57, pH 7.28. Currently sedated on to prevent at 30 mcg/kg/m. Nimbex at 1 mcg/kg/m. Fentanyl 1 g per hour. 0.9 normal saline at 75 ML's per hour. He is being nourished with tube feeds via vital HP at 50 MLS per hour with a goal of 65 ML's per hour. He remains in sinus rhythm. He has been proned as tolerated. There has been having issues with Endotracheal tube balloon leaking. This will be changed out by anesthesia today. Chest x-ray continues to show ARDS with bilateral in terstitial and airspace disease. White count 12.5. Hemoglobin 11.9. Lymphocyte 0.6. D-dimer 2.52. Sodium 138. Potassium 4.7. Creatinine 1.03. Glucose 288. LDH 812. C-reactive protein 6.8. He remains on Baricitinib, Ecotrin, Lovenox, vitamin supplements. Reevaluated today on 05/14/2021, patient remains in the ICU, intubated and mechanically ventilated. He is on assist control rate of 36 tidal volume 4:30 FiO2 of 60% PEEP of 16. ABG showed a pO2 of 60 pCO2 44 pH of 7.39. Patient rem ains on propofol at 30 Nimbex at 1 and fentanyl at 2 mcg/kg/h. Patient had his endotracheal tube change yesterday by anesthesia because there was a significant leak. Today there is no evidence of leaking from the endotracheal tube. Peak airway pressure remains high at 37, plateau pressure is in the low 30s. His x- ray continues to be about the same, continues to have bilateral interstitial infiltrates. WBC count today is 12.8 hemoglobin is 11.9. D-dimer is 2.29. Slightly lower compared to the last 4 days. LDH is down to 760 and C-reactive protein is 6.7 Reevaluated today on 05/15/2021, patient remains in the ICU, intubated and mechanically ventilated. He is on assist control rate of 36 tidal volume 430 FiO2 70% and PEEP of 16 ABG showed a pO2 of 56 pCO2 43 pH of 7.41. Remains on N imbex at 1 mcg/kg/m, fentanyl at 2 mcg/kg/h, propofol at 30 mcg/kg/m, IV fluid at 0.9 normal saline 75 mL/h receiving vital HP at 50/50. Not much of a change noted on the chest x-ray today, not much of a change noted in his clinical status over the last 24 hours. Patient had poor tolerance to proning, hence no further proning was done d-dimer today is 1.72, CBC is relatively normal. Electrolytes are normal. Renal profile is normal. C-reactive protein is 7.3. Not to changing much in the last 3 days. No LDH done today. Liver enzymes are normal Progress note dated 05/16/2021. The patient is again seen in the intensive care unit, room 260. The patient was admitted to the hospital on May 02. He came to the intensive care unit on May 05. He came with acute hypoxemic respiratory failure secondary to coronavirus associated pneumonia. The patient was intubated on May 10, and had a change of his endotracheal tube, on May 13. The patient remains in the intensive care unit on the ventilator. He is on the volume assist control mode, rate 36, tidal L[place] 4:30, FiO2 90%, and PEEP of 16. Blood gases show pO2 of 55, pCO2 47, and pH is 7.37. Those blood gases were done on 80%. The patient did receive both the Decadron and Lovenox. He was not a candidate for REM. He did receive some WENDY, but it was subsequently discontinued. Currently, the patient's getting saline at 75 mL an hour, a fentanyl drip at 2 mcg/kg/h, Nimbex drip at 1 mcg/kg/m, propofol at 30 mcg/kg/m, vital high protein at 50 mL an hour, which is goal, and Cleveprex at 2 mg an hour. Lab data includes a white count of 13.1, hemoglobin 11.4, hematocrit 34.4, platelet count 448,000. Sodium 139, potassium 4.3, chlorides 110, CO2 26, anion gap 3, BUN 45, and creatinine 0.82. Chest x-ray is consistent with diffuse bilateral infiltrates. Objective - Vital Signs Vital signs: Vital Signs Temp 97.8 F 05/16/21 04:00 Pulse 63 05/16/21 07:00 Resp 36 H 05/16/21 07:00 BP 148/80 05/15/21 18:00 Pulse Ox 90 L 05/16/21 07:00 Intake & Output 05/15/21 05/16/21 05/16/21 18:59 06:59 18:59 Intake Total 2198 2311.699 512.667 Output Total 820 1115 110 Balance 1378 1196.699 402.667 Intake: IV 858 858 78 0.9 825 825 75 Pressure bag 33 33 3 Intake, IV Titration 550 783.699 354.667 Amount Cisatracurium 200 mg In 178.967 Sodium Chloride 0.9% 180 ml @ 1 MCG/KG/MIN 7.578 mls/hr IV .Q24H [facility]LES Rx#: [id number] Clevidipine Butyrate 25 80.034 11.833 mg In Empty Bag 1 bag @ 1 MG/HR 2 mls/hr IV .Q24H [facility] Rx#:[id number] fentaNYL (PF) 2,500 mcg 250 246.56 250 In Sodium Chloride 0.9% 200 ml @ Per Protocol IV .Q0M MYLES Rx#:[id number] propofoL 1,000 mg In 300 278.138 92.834 Empty Bag 1 bag @ Titrate IV .Q0M MYLES Rx#: [id number] Tube Feeding 700 550 50 Other 90 120 30 Output: Urine 820 1115 110 Other: Voiding Method Indwelling Catheter Indwelling Catheter ABP, PAP, CO, CI - Last Documented Arterial Blood Pressure 131/57 - Exam No acute distress, intubated, sedated, and paralyzed. An orally placed endotracheal tube is noted. HEENT examination is grossly unremarkable. Neck supple. Full range of motion. No adenopathy thyromegaly or neck vein distention. Cardiovascular examination reveals regular rhythm and rate. S1-S2 normal. No S3 or S4. No discernible murmur noted. Heart sounds are distant. Heart rate 63 bpm. Lungs reveal coarse bilateral rhonchi. Breath sounds are diminished. No wheezes or crackles. Breath sounds equal bilaterally. Abdomen soft, with bowel sounds. No masses noted. Extremities are intact. No cyanosis clubbing or edema. Skin is without rash or lesion. Neurologic examination cannot be adequately assessed as the patient's currently sedated and paralyzed. - Labs CBC & Chem 7: 05/16/21 04:51 05/16/21 04:51 Labs: Abnormal Lab Results - Last 24 Hours (Table) 05/15/21 05/15/21 05/15/21 Range/Units 04:08 12:37 17:22 WBC (3.8-10.6) k/uL RBC (4.30-5.90) m/uL Hgb (13.0-17.5) gm/dL Hct (39.0-53.0) % Neutrophils # (1.3-7.7) k/uL Lymphocytes # (1.0-4.8) k/uL ABG pCO2 (35-45) mmHg ABG pO2 (83-108) mmHg ABG HCO3 (21-25) mmol/L ABG Total CO2 (19-24) mmol/L ABG O2 Saturation (94-97) % Chloride (98-107) mmol/L BUN (9-20) mg/dL Glucose (74-99) mg/dL POC Glucose (mg/dL) 193 H 224 H (75-99) mg/dL Calcium (8.4-10.2) mg/dL Ferritin 532.6 H (22.0-322.0) ng/mL Total Protein (6.3-8.2) g/dL Albumin (3.5-5.0) g/dL 05/15/21 05/16/21 05/16/21 Range/Units 20:00 04:51 04:51 WBC 13.1 H (3.8-10.6) k/uL RBC 3.85 L (4.30-5.90) m/uL Hgb 11.4 L (13.0-17.5) gm/dL Hct 34.4 L (39.0-53.0) % Neutrophils # 12.1 H (1.3-7.7) k/uL Lymphocytes # 0.5 L (1.0-4.8) k/uL ABG pCO2 (35-45) mmHg ABG pO2 (83-108) mmHg ABG HCO3 (21-25) mmol/L ABG Total CO2 (19-24) mmol/L ABG O2 Saturation (94-97) % Chloride 110 H (98-107) mmol/L BUN 45 H (9-20) mg/dL Glucose 190 H (74-99) mg/dL POC Glucose (mg/dL) 229 H (75-99) mg/dL Calcium 8.1 L (8.4-10.2) mg/dL Ferritin (22.0-322.0) ng/mL Total Protein 4.9 L (6.3-8.2) g/dL Albumin 2.1 L (3.5-5.0) g/dL 05/16/21 05/16/21 Range/Units 05:06 06:28 WBC (3.8-10.6) k/uL RBC (4.30-5.90) m/uL Hgb (13.0-17.5) gm/dL Hct (39.0-53.0) % Neutrophils # (1.3-7.7) k/uL Lymphocytes # (1.0-4.8) k/uL ABG pCO2 47 H (35-45) mmHg ABG pO2 55 L* (83-108) mmHg ABG HCO3 27 H (21-25) mmol/L ABG Total CO2 29 H (19-24) mmol/L ABG O2 Saturation 87.6 L (94-97) % Chloride (98-107) mmol/L BUN (9-20) mg/dL Glucose (74-99) mg/dL POC Glucose (mg/dL) 180 H (75-99) mg/dL Calcium (8.4-10.2) mg/dL Ferritin (22.0-322.0) ng/mL Total Protein (6.3-8.2) g/dL Albumin (3.5-5.0) g/dL Microbiology - Last 24 Hours (Table) 05/15/21 15:30 Fungal Culture - Preliminary Trachea Assessment and Plan Assessment: Acute hypoxemic respiratory failure secondary to coronavirus infection/pneumo andrei, with intubation and mechanical ventilation beginning on May 10. Acute respiratory distress syndrome. Coronary artery disease, with previous coronary artery stenting. Status post permanent pacemaker insertion. History of essential hypertension. History of hyperlipidemia. History of obstructive sleep apnea syndrome, on CPAP. Migraine cephalgia. Acute on chronic kidney disease. Obesity, BMI 42.3. Hypothyroidism. Plan: Plan dated 05/16/2021. The patient is currently on 90% oxygen, and PEEP of 16. The patient is also being sedated with propofol, receiving narcotics in the form of fentanyl, and is chemically paralyzed with Nimbex. The patient is receiving appropriate medications. This includes Lovenox, and Decadron. The patient is being nourished, at goal, with vital high protein. Additional recommendations and suggestions are forthcoming. Prognosis is guarded. The patient doesn't show any significant improvements, he may be headed towards tracheostomy. We will continue to follow make recommendations where appropriate. A pro-calcitonin level will be done, and if normal, antibiotics will be discontinued. The dayna jarquin is currently on Zosyn. Time with Patient: Greater than 30
[2021-05-16] MEDS: NOREPINEPHRINE 8 MG in SODIUM CHLORIDE 0.9% 250 ML IV SCH (10:57)
[2021-05-16] MEDS: ALBUTEROL HFA INHALER INHALATION SCH ×3 (11:11→19:51)
[2021-05-16 11:42] LABS: Glucose,Whole Blood 201 mg/dL (75-99)
[2021-05-16] MEDS: SODIUM CHLORIDE 0.9% 1,000 ML IV SCH (11:54)
--- NOTE | 2021-05-16 13:40 | P.PN ---
Subjective Progress Note Date: 05/16/21 This is 66-year-old gentleman admitted with acute hypoxic respiratory failure secondary to COVID-19 infection. Afebrile. Maintained on Covid cocktail, including Decadron IV.Inflammatory markers trending down.He stated this morning with exertion from 88% tone to 75%. Currently placed on 6 L nasal cannula, O2 sat pending. Chest x-ray reporting progression of diffuse bilateral infiltrates.Blood sugars uncontrolled, A1c 9.1. 05/05/2021 respiratory status worsened yesterday, requiring nonrebreather. Th roughout the night, increased anxiety, patient pulling off masks, requiring minimal of 45 minutes to recover O2 saturation. Xanax initiated for anxiety, patient unable to tolerate, reported nausea/ vomiting. Received Ativan, tolerated well. Currently on BiPAP maintaining O2 sats in the 80s. Continues on Covid regimen. Renal function trending up, creatinine 1.6. Denies chest pain, palpitations. 05/06/2021 transferred into the ICU yesterday afternoon related to worsening hypoxia on BiPAP. Slept in the recliner, maintaining O2 sats mid 80s to low 90s. Chest x-ray reporting persistent bilateral infiltrates. Reports feels less shortness of breath, less anxiety on oral Ativan. Maintained on Covid regimen including Baricitinib. Inflammatory markers increased with the exception of d-dimer. Afebrile, normal WBC. Yesterday GHADA inhibitor, Cozaar discontinued, hydralazine increased secondary to worsening renal function-renal function improving. Hyperglycemic, blood sugars in the mid to low 200s. 05/09/2021 remains on 100% BiPAP, chest x-ray reporting stable diffuse predominant interstitial infiltrates. T-max 99.1, WBC 12.3. continues on Covid regimen including Olumiant. Reports anxiety, depression. BUN 53, creatinine 1.15. Blood sugars elevated. 05/10/2021 maintained on COVID cocktail, including Baricitinib. Continues on 100% BiPAP, maintaining O2 sat 76-79%, respiratory rate in the 20s. ABGs ordered. Chest x-ray reporting persistent diffuse pulmonary infiltrates. Te lemetry sinus rhythm. T-max 100.4, WBC increased to 15.4. Blood sugars controlled. Renal function improving. 05/11/21 patient seen in follow-up in the intensive care unit, he was intubated and placed on mechanical ventilator yesterday on 05/10/2021 for worsening hypoxic respiratory failure.. Pt is currently prone in bed during exam. 05/12/2021 and ABGs reporting pO2 59, FiO2 increased to 70%/+15 Peep. Maintained on fentanyl, diprovan, Nimbex drips. Chest x-ray reporting similar appearance, persistent bilateral airspace disease. Maintained on Covid regimen including Baricitinib and Decadron. Blood sugars elevated, in the 200s this morning. D-dimer, LDH decreasing. CRP increased, 16.1. 05/13/2021 FiO2 of 50%/+15 of PEEP. Cuff leak present.Chest x-ray reporting bilateral interstitial and airspace disease. Continues on Nimbex, diprovan fentanyl. Continues on Covid regimen with Decadron,Baricitinib. Blood sugars in the 200s. BUN 50, creatinine 1.03. Inflammatory markers trending down. Afebrile, and WBC trending down, 12.5. 05/16/2021 endotracheal tube changed on 05/13 secondary to cuff leak. ABGs noted with pCO2 55. FiO2 increased to 90, PEEP +16. Maintained on fentanyl, Nimbex, diprovan and Cleviprex drips. Continues on IV fluid hydration of 0.9 at 75 MLS per hour. Chest x-ray reporting no significant change, bilateral airspace disease persists. Afebrile, WBC 13.1. Tolerating tube feeds with minimal to no residuals. Blood sugars currently ranging 180-200. Objective - Vital Signs Vital signs: Vital Signs Temp 96.9 F L 05/16/21 08:00 Pulse 60 05/16/21 11:00 Resp 36 H 05/16/21 11:00 BP 148/80 05/15/21 18:00 Pulse Ox 89 L 05/16/21 11:00 Intake & Output 05/15/21 05/16/21 05/16/21 18:59 06:59 18:59 Intake Total 2198 2311.699 1054.667 Output Total 820 1115 1185 Balance 1378 1196.699 -130.333 Intake: IV 858 858 390 0.9 825 825 375 Pressure bag 33 33 15 Intake, IV Titration 550 783.699 354.667 Amount Cisatracurium 200 mg In 178.967 Sodium Chloride 0.9% 180 ml @ 1 MCG/KG/MIN 7.578 mls/hr IV .Q24H [facility] Rx#: [id number] Clevidipine Butyrate 25 80.034 11.833 mg In Empty Bag 1 bag @ 1 MG/HR 2 mls/hr IV .Q24H [facility] Rx#:[id number] fentaNYL (PF) 2,500 mcg 250 246.56 250 In Sodium Chloride 0.9% 200 ml @ Per Protocol IV .Q0M [facility] Rx#:[id number] propofoL 1,000 mg In 300 278.138 92.834 Empty Bag 1 bag @ Titrate IV .Q0M [facility] Rx#: [id number] Tube Feeding 700 550 250 Other 90 120 60 Output: Urine 820 1115 1185 Other: Voiding Method Indwelling Catheter Indwelling Catheter ABP, PAP, CO, CI - Last Documented Arterial Blood Pressure 144/58 - Exam PHYSICAL EXAM: GENERAL EXAM: Intubated, sedated and paralyzed. HEENT: Normocephalic/atraumatic.Normal reaction of pupils, equal size. Conjunctiva pink, sclera white. NECK: Supple, no JVD CHEST: No chest wall deformity. Symmetrical expansion. LUNGS: Equal air entry with coarse rhonchi with bilateral bases diminished. CVS: Regular rate and rhythm, normal S1 and S2, no gallops, no murmurs, no rubs ABDOMEN: Soft, nondistended, no masses palpable, normal bowel sounds. EXTREMITIES: No clubbing, no edema, no cyanosis, 2+ pulses and upper and lower extremities. SKIN: Warm and dry, No rashes CENTRAL NERVOUS SYSTEM: Sedated, intubated and paralyzed. - Labs CBC & Chem 7: 05/16/21 04:51 05/16/21 04:51 Labs: Abnormal Lab Results - Last 24 Hours (Table) 05/15/21 05/15/21 05/15/21 Range/Units 04:08 12:37 17:22 WBC (3.8-10.6) k/uL RBC (4.30-5.90) m/uL Hgb (13.0-17.5) gm/dL Hct (39.0-53.0) % Neutrophils # (1.3-7.7) k/uL Lymphocytes # (1.0-4.8) k/uL ABG pCO2 (35-45) mmHg ABG pO2 (83-108) mmHg ABG HCO3 (21-25) mmol/L ABG Total CO2 (19-24) mmol/L ABG O2 Saturation (94-97) % Chloride (98-107) mmol/L BUN (9-20) mg/dL Glucose (74-99) mg/dL POC Glucose (mg/dL) 193 H 224 H (75-99) mg/dL Calcium (8.4-10.2) mg/dL Ferritin 532.6 H (22.0-322.0) ng/mL Total Protein (6.3-8.2) g/dL Albumin (3.5-5.0) g/dL 05/15/21 05/16/21 05/16/21 Range/Units 20:00 04:51 04:51 WBC 13.1 H (3.8-10.6) k/uL RBC 3.85 L (4.30-5.90) m/uL Hgb 11.4 L (13.0-17.5) gm/dL Hct 34.4 L (39.0-53.0) % Neutrophils # 12.1 H (1.3-7.7) k/uL Lymphocytes # 0.5 L (1.0-4.8) k/uL ABG pCO2 (35-45) mmHg ABG pO2 (83-108) mmHg ABG HCO3 (21-25) mmol/L ABG Total CO2 (19-24) mmol/L ABG O2 Saturation (94-97) % Chloride 110 H (98-107) mmol/L BUN 45 H (9-20) mg/dL Glucose 190 H (74-99) mg/dL POC Glucose (mg/dL) 229 H (75-99) mg/dL Calcium 8.1 L (8.4-10.2) mg/dL Ferritin (22.0-322.0) ng/mL Total Protein 4.9 L (6.3-8.2) g/dL Albumin 2.1 L (3.5-5.0) g/dL 05/16/21 05/16/21 Range/Units 05:06 06:28 WBC (3.8-10.6) k/uL RBC (4.30-5.90) m/uL Hgb (13.0-17.5) gm/dL Hct (39.0-53.0) % Neutrophils # (1.3-7.7) k/uL Lymphocytes # (1.0-4.8) k/uL ABG pCO2 47 H (35-45) mmHg ABG pO2 55 L* (83-108) mmHg ABG HCO3 27 H (21-25) mmol/L ABG Total CO2 29 H (19-24) mmol/L ABG O2 Saturation 87.6 L (94-97) % Chloride (98-107) mmol/L BUN (9-20) mg/dL Glucose (74-99) mg/dL POC Glucose (mg/dL) 180 H (75-99) mg/dL Calcium (8.4-10.2) mg/dL Ferritin (22.0-322.0) ng/mL Total Protein (6.3-8.2) g/dL Albumin (3.5-5.0) g/dL Microbiology - Last 24 Hours (Table) 05/15/21 21:23 Blood Fungal Culture - Preliminary Blood 05/15/21 15:30 Fungal Culture - Preliminary Trachea Assessment and Plan Assessment: Acute COVID-19 pneumonia, status post Baricitinib. Acute hypoxic respiratory failure secondary to the above, mechanical ventilator- dependent Sepsis post admission secondary to progression of Covid Acute on chronic kidney failure, stage III Leukopenia Diabetes mellitus, uncontrolled, hyperglycemic, hemoglobin A1c 9.1 Obstructive sleep apnea, on CPAP outpatient CAD with history of stenting, permanent pacemaker Hypertension Hyperlipidemia Hypothyroidism Morbid obesity, BMI 42.3 Depression, Anxiety Plan: Continue on current medication regime ,monitoring and symptomatic treatment. ICU management as per elementary principal. COVID cocktail. Possible tracheostomy and PEG being discussed. Prognosis guarded given multiple complex medical issues. The impression and plan of care has been dictated as directed. : I performed a history and examination of this patient, discussed the same with the dictator. I agree with the dictator's note ,documented as a scribe. Any additional findings or plans will be noted.
[2021-05-16 16:55] LABS: Glucose,Whole Blood 183 mg/dL (75-99)
[2021-05-16 17:19] LABS: Glucose,Whole Blood 227 mg/dL (75-99)
[2021-05-16 20:15] LABS: Glucose,Whole Blood 237 mg/dL (75-99)
[2021-05-16] MEDS: ATORVASTATIN 10 MG TAB PO SCH (20:25)
[2021-05-17] MEDS: ARTIFICIAL TEARS-HYPROMELLOSE DROPS 15 ML BTL BOTH EYES SCH ×6 (01:28→21:21)
[2021-05-17] MEDS: PIPERACILLIN-TAZOBACTAM 3.375 GM in SODIUM CHLORIDE 0.9% 100 ML IVPB SCH ×3 (01:32→18:05)
[2021-05-17] MEDS: fentaNYL (PF) 2,500 MCG in SODIUM CHLORIDE 0.9% 200 ML IV SCH ×3 (03:20→22:37)
[2021-05-17] MEDS: CLEVIDIPINE BUTYRATE 25 MG in EMPTY BAG 1 BAG IV SCH ×3 (03:30→23:43)
[2021-05-17] MEDS: SODIUM CHLORIDE 0.9% 1,000 ML IV SCH ×2 (04:02→18:05)
[2021-05-17 04:35] LABS: Basophils % (A) 0 %; Eosinophils # (A) 0.1 k/uL (0-0.7); Eosinophils % (A) 0 %; HCT 34.6 % (39.0-53.0); HGB 10.9 gm/dL (13.0-17.5); Lymphocytes # (A) 0.8 k/uL (1.0-4.8); Lymphocytes % (A) 6 %; MCH 29.3 pg (25.0-35.0); MCHC 31.6 g/dL (31.0-37.0); MCV 92.8 fL (80.0-100.0); Mean Platelet Volume 9.5; Monocytes # (A) 0.5 k/uL (0-1.0); Monocytes % (A) 4 %; Neutrophils # (A) 11.6 k/uL (1.3-7.7); Neutrophils % (A) 89 %; Platelet Count 383 k/uL (150-450); RBC 3.73 m/uL (4.30-5.90); RDW 13.4 % (11.5-15.5)
[2021-05-17 04:50] LABS: ABG HCO3 27 mmol/L (21-25); ABG Oxygen Saturation 89.6 % (94-97); ABG PCO2 47 mmHg (35-45); ABG PH 7.37 (7.35-7.45); ABG TCO2 29 mmol/L (19-24); Allen Test Performed? Yes
[2021-05-17 04:55] LABS: ABG PO2 58 mmHg (83-108)
[2021-05-17 04:58] LABS: ALT 41 U/L (4-49); AST 30 U/L (17-59); African American GFR (CKD) >90 (>60 ml/min/1.73 sqM); Albumin 2.2 g/dL (3.5-5.0); Alkaline Phosphatase 88 U/L (38-126); Anion Gap 5 mmol/L; Blood Urea Nitrogen 52 mg/dL (9-20); Calcium 8.1 mg/dL (8.4-10.2); Carbon Dioxide 25 mmol/L (22-30); Chloride 109 mmol/L (98-107); Glucose 200 mg/dL (74-99); Non-African American GFR(CKD) 82 (>60 ml/min/1.73 sqM); Potassium 4.5 mmol/L (3.5-5.1); Sodium 139 mmol/L (137-145); Total Bilirubin 0.4 mg/dL (0.2-1.3); Total Protein 5.1 g/dL (6.3-8.2)
[2021-05-17 06:21] LABS: Glucose,Whole Blood 177 mg/dL (75-99)
[2021-05-17] MEDS: LEVOTHYROXINE 137 MCG TAB PO SCH (06:24)
[2021-05-17] MEDS: INSULIN DETEMIR (LEVEMIR) 100 UNIT/ML SYR SQ SCH ×2 (06:24→21:20)
[2021-05-17] MEDS: INSULIN ASPART (NovoLOG) 100 UNIT/ML VIAL SQ SCH ×7 (06:47→21:20)
[2021-05-17] MEDS: ALBUTEROL HFA INHALER INHALATION SCH ×4 (08:01→19:30)
--- NOTE | 2021-05-17 08:10 | XR ---
EXAMINATION TYPE: XR chest 1V portable DATE OF EXAM: 05/17/2021 COMPARISON: 05/16/2021 HISTORY: Shortness of breath TECHNIQUE: Single frontal view of the chest is obtained. FINDINGS: Endotracheal tube, orogastric tube, right-sided PICC line are overlying appropriate positi ons, stable. Pacemaker is unchanged. No evident pneumothorax or pleural effusion. Bilateral airspace disease persists. Cardiac mediastinal silhouette is stable. Hypertrophic changes of the vertebral col umn. IMPRESSION: No significant change. Correlate for pneumonia, edema, ARDS
[2021-05-17] MEDS: PANTOPRAZOLE 40 MG/10 ML VIAL IVP SCH (08:30)
[2021-05-17] MEDS: FUROSEMIDE 10 MG/ML 4 ML VIAL IV SCH ×2 (08:31→21:20)
[2021-05-17] MEDS: ESCITALOPRAM 10 MG TAB PO SCH (08:31)
[2021-05-17] MEDS: EZETIMIBE 10 MG TAB PO SCH (08:31)
[2021-05-17] MEDS: ASPIRIN 81 MG PO SCH (08:31)
[2021-05-17] MEDS: ENOXAPARIN 40 MG/0.4 ML SYRINGE SQ SCH ×2 (08:31→21:20)
[2021-05-17] MEDS: DEXAMETHASONE SOD PHOSPHATE 10 MG/ML 1 ML VIAL IV SCH (08:31)
[2021-05-17] MEDS: CHLORHEXIDINE GLUCONATE 15 ML CUP MUCOUS MEM SCH ×2 (08:31→21:20)
--- NOTE | 2021-05-17 09:53 | P.PN ---
Subjective Progress Note Date: 05/17/21 Principal diagnosis: Coronavirus pneumonia. Acute hypoxic respiratory failure secondary to COVID-19 pneumonia. On 05/04/2021 patient seen in follow-up on selective care unit. His oxygen demand has increased, he is currently on 100 percent nonrebreather, his oxygen saturations are ranging between 82 and 88%, is having low-grade fevers this afternoon, blood pressures stable. Inflammatory markers are improving on today's labs, LDH is down to 392, CRP is 6.0, pro calcitonin level was 0.32. D- dimer was 0.66. Blood cultures have been negative. Patient remains on dexamethasone 6 mg daily, he is on prophylactic dose Lovenox 40 mg daily. His chest x-ray point diffuse bilateral infiltrates that appear to be progress. Patient could not tolerate high flow nasal cannula and was desaturating on it. On today's evaluation of 05/05/2021 patient seen in follow-up on medical chou rgical floor. Overnight patient was placed on BiPAP support for worsening dyspnea and hypoxia, with pressures of 12/5, and FiO2 of 100%, and his pulse ox is around 89%. Patient is currently up in the chair, is short of breath with any exertion, he was started on bariticinib yesterday, and he continues on Decadron 6 mg daily, and Lovenox 80 mg once daily, his chest x-ray has been reviewed showing stable diffuse bilateral infiltrates. Today's labs have been reviewed, white blood cell count is not 7.9, hemoglobin is 12.6, his lymphocyte count is 1.27, electrolytes are within normal limits, B1 is 36, creatinine is 1.6, his LDH is up slightly to 560 from 392 one yesterday his labs, CRP is rela tively stable with 6.8. Pro-calcitonin level was 0.32. His had no fever or chills overnight, but cultures were negative. In view of his progressive oxygen demand and shortness of breath, we recommended transfer to the intensive care unit for closer monitoring On 05/06/2021 patient seen in follow-up in the intensive care unit where she was transferred yesterday from [facility]. in view of his worsening hypoxia, patient is currently on BiPAP support with pressures of 12/10 and FiO2 100%, his pulse ox is ranging between 86-91%, he sitting up in the recliner where he slept last night, he does not appear to be in any acute distress, however he does desaturate down to 68 when he removes the BiPAP mask even briefly to take a bite of food, or his medication. Is currently on IV fluids with 0.9, secondary to 20 ML per hour. He continues on Baricitinib 2 mg daily, and today is day 2 of treatment, in addition he is on IV Decadron 6 mg daily, is on prophylactic dose of Lovenox 40 mg daily, he is receiving when necessary doses of Ativan for anxiety and breathlessness. Today's chest x-ray has been reviewed showing diffuse bilateral infiltrates that are stable in appearance. Today's labs have been reviewed showing CBC within normal limits, electrolytes were unremarkable, BUN is 39, creatinine is 1.41. Inflammatory markers seems to have increased as far as LDH is up to 1792, and CRP is relatively stable 6.9. His d-dimer today is 0.59. He appears to be sleepy, but no acute distress, he is answering questions appropriately, denies any chest discomfort. He is been in his chair for the most part. His been using the urinal to urinate, he is trying to keep up his oral intake and take bites of food. No other acute events overnight. Reevaluated today on 05/07/2021, patient remains in the ICU, his pulmonary status is marginal at best. Patient is on BiPAP 08/03 he is also on 100% FiO2, with O2 saturation in the high 80s at best. Surprisingly however the patient seems to be in no distress, he is comfortable, sitting at a bedside chair, alert oriented 3, and I have increased his IPAP 14 instead of 12, patient seems to be extremely comfortable. Chest x-ray continues to show bilateral interstitial infiltrates. WBC count is 10.9 hemoglobin 13.9 d-dimer is 0.96 electrolytes are normal LDH 2092 and C-reactive protein is 6. Reevaluated today on 05/08/2021, remains in the ICU, remains on BiPAP, he is on IPAP of 14 and EPAP of 8 and FiO2 of 100%. Patient O2 saturation is marginal in the 80s most of the time. Surprisingly, the patient is not complaining of any shortness of breath, he seems to be comfortable, and relatively asymptomatic. Does not seem to be in distress. Chest x-ray is basically about the same, hence I ordered another Lasix dose to be given today 40 mg IV push 1, although BNP level is not elevated, but I would like to keep him on the dry side as much as p ossible. Patient remains on Lovenox 40 mg subcu daily, he is on Decadron, Glucerna was ordered, and he remains on baricitinib. CBC is relatively normal left lites are normal renal profile showed a BUN of 45 creatinine 1.16. Improving compared to his baseline on admission Reevaluated today on 05/09/2021, patient remains in the ICU, remains on BiPAP 09/04/100% FiO2 patient is basically about the same not much of a change noted over the last 24 hours. Chest x-ray is basically about the same. Patient seems to be comfortable, O2 saturations are marginal basically as high, 92%. Remains on Decadron, Lovenox, and on baricitinib WBC count is 12.3 hemoglobin is 14.1 lites are normal BUN is 53 creatinine 1.15, no Lasix was ordered today as the patient seems to be a bit prerenal On 05/11/2021 patient seen in follow-up in the intensive care unit, he was intubated and placed on mechanical ventilator yesterday on 05/10/2021 for worsening hypoxic respiratory failure, he currently remains sedated, and paralyzed on assist-control mode of ventilation with a rate of 30, tidal I was 450, FiO2 of 90% and PEEP of 15, this morning's blood gas shows pO2 of 86, pCO2 46, and pH of 7.36. He's currently on 0.9 normal saline at 75 ML per hour, fentanyl infusion is at 1 diana per kilo per minute, and then backs is at 1 diana per kilo per minute, and improving and is at 50 mics per kilo per minute, patient has not been started on tube feedings yet. He tolerated protein quite well, this morning he still proned. Today's chest x-ray shows diffuse bilateral lung disease which is stable in appearance, and ET tube at 1.5 cm above nata. Today's labs have been reviewed, showing white blood cell count of 16.1, hemoglobin is 12.1, d-dimer is 4.5, slightly obtunded from previous level, sodium is 141, potassium is 4.5, chloride is 109, CO2 is 24, BUN of 44, creatinine is 1.18, LDH is down to 1175, appendectomy level is still pending for today. Did have some intermittent fevers last night, with a T-max of 101.4F. Remains on Baricitinib, Decadron, and Lovenox 40 mg daily. On 05/12/2021 patient seen in follow-up in the intensive care unit, he remains intubated, sedated and paralyzed, on assist-control mode ventilation, with a rate of 30, tacrolimus 450, FiO2 60% and PEEP of 16, this morning's blood gas shows pO2 of 59, pCO2 49, pH is 7.35. Patient is currently on 0.9 normal saline at a rate of 75 ML per hour, fentanyl infusion is at 1 diana per kilo per minute, Nimbex is at 1 diana per kilo per minute, and improving and is at 30 mics per kilo per minute, he is receiving vital high protein at 40 ML per hour with a goal of 65, today's chest x-ray shows no evident pneumothorax, and bilateral airspace disease persistence. Patient tolerated protein well, however he did sustain some blistering in the shearing injury on his face, in his abdomen. He is currently back in the supine position. He is hemodynamically stable, in sinus mechanism with a rate of 64, not requiring any vasopressor support, his FiO2 was dropped down to 60% from 90% from yesterday. He is afebrile. His d-dimer today is 3.10, LDH is 985, and CRP is 16.1, pro-calcitonin level was 0.51. he is on Olumiant, Lovenox 40 mg twice daily, and Decadron 6 mg daily. He has been tolerating tube feedings, no other acute issues overnight. The patient is seen today 05/13/2021 in follow-up in the intensive care unit. He remains intubated on mechanical ventilator. Currently in assist-control mode at a rate of 36, tidal volume 400, FiO2 60% and a PEEP of 16. Peak airway pressure 43. Morning blood gases revealed a PaO2 of 69, pCO2 57, pH 7.28. Currently sedated on to prevent at 30 mcg/kg/m. Nimbex at 1 mcg/kg/m. Fentanyl 1 g per hour. 0.9 normal saline at 75 ML's per hour. He is being nourished with tube feeds via vital HP at 50 MLS per hour with a goal of 65 ML's per hour. He remains in sinus rhythm. He has been proned as tolerated. There has been having issues with Endotracheal tube balloon leaking. This will be changed out by anesthesia today. Chest x-ray continues to show ARDS with bilateral in terstitial and airspace disease. White count 12.5. Hemoglobin 11.9. Lymphocyte 0.6. D-dimer 2.52. Sodium 138. Potassium 4.7. Creatinine 1.03. Glucose 288. LDH 812. C-reactive protein 6.8. He remains on Baricitinib, Ecotrin, Lovenox, vitamin supplements. Reevaluated today on 05/14/2021, patient remains in the ICU, intubated and mechanically ventilated. He is on assist control rate of 36 tidal volume 4:30 FiO2 of 60% PEEP of 16. ABG showed a pO2 of 60 pCO2 44 pH of 7.39. Patient rem ains on propofol at 30 Nimbex at 1 and fentanyl at 2 mcg/kg/h. Patient had his endotracheal tube change yesterday by anesthesia because there was a significant leak. Today there is no evidence of leaking from the endotracheal tube. Peak airway pressure remains high at 37, plateau pressure is in the low 30s. His x- ray continues to be about the same, continues to have bilateral interstitial infiltrates. WBC count today is 12.8 hemoglobin is 11.9. D-dimer is 2.29. Slightly lower compared to the last 4 days. LDH is down to 760 and C-reactive protein is 6.7 Reevaluated today on 05/15/2021, patient remains in the ICU, intubated and mechanically ventilated. He is on assist control rate of 36 tidal volume 430 FiO2 70% and PEEP of 16 ABG showed a pO2 of 56 pCO2 43 pH of 7.41. Remains on N imbex at 1 mcg/kg/m, fentanyl at 2 mcg/kg/h, propofol at 30 mcg/kg/m, IV fluid at 0.9 normal saline 75 mL/h receiving vital HP at 50/50. Not much of a change noted on the chest x-ray today, not much of a change noted in his clinical status over the last 24 hours. Patient had poor tolerance to proning, hence no further proning was done d-dimer today is 1.72, CBC is relatively normal. Electrolytes are normal. Renal profile is normal. C-reactive protein is 7.3. Not to changing much in the last 3 days. No LDH done today. Liver enzymes are normal Progress note dated 05/16/2021. The patient is again seen in the intensive care unit, room 260. The patient was admitted to the hospital on May 02. He came to the intensive care unit on May 05. He came with acute hypoxemic respiratory failure secondary to coronavirus associated pneumonia. The patient was intubated on May 10, and had a change of his endotracheal tube, on May 13. The patient remains in the intensive care unit on the ventilator. He is on the volume assist control mode, rate 36, tidal Lyme 4:30, FiO2 90%, and PEEP of 16. Blood gases show pO2 of 55, pCO2 47, and pH is 7.37. Those blood gases were done on 80%. The patient did receive both the Decadron and Lovenox. He was not a candidate for REM. He did receive some WENDY, but it was subsequently discontinued. Currently, the patient's getting saline at 75 mL an hour, a fentanyl drip at 2 mcg/kg/h, Nimbex drip at 1 mcg/kg/m, propofol at 30 mcg/kg/m, vital high protein at 50 mL an hour, which is goal, and Cleveprex at 2 mg an hour. Lab data includes a white count of 13.1, hemoglobin 11.4, hematocrit 34.4, platelet count 448,000. Sodium 139, potassium 4.3, chlorides 110, CO2 26, anion gap 3, BUN 45, and creatinine 0.82. Chest x-ray is consistent with diffuse bilateral infiltrates. Progress note dated 05/17/2021. 66-year-old male, seen in the intensive care unit, room 260. The patient was admitted to the hospital on May 02, and came to the intensive care unit on May 05. Because of acute hypoxemic respiratory failure and coronavirus associated pneumonia, the patient was intubated on May 10 and had a change in his endotracheal tube on May 13 he remains on the ventilator. He is on the volume assist control mode rate of 36, tidal volume 4:30, FiO2 90%, and PEEP of 16. Blood gases show a pO2 of 58, pCO2 47, and pH is 7.37. The patient is currently on Cleveprex 2 mg an hour, Nimbex at 1 mcg/kg/m, propofol at 30 mcg/kg/m, fentanyl at 2 mcg/kg/h, saline at 75 mL an hour, and vital high protein at 50 mL an hour, which is goal. We are going to give the patient some Lasix 40 mg IV push to 12 hours, as the appears that looking at his I's and O's over the last number of days, the patient has been receiving quite a bit of fluids. Current labs include a white count of 13, hemoglobin 10.9, hematocrit 34.6, and platelet count 383,000. Sodium 139, potassium 4.5, chlorides 109, CO2 25, anion gap 5, BUN 52, and creatinine 0.96. Albumin is 2.2. Objective - Vital Signs Vital signs: Vital Signs Temp 98.8 F 05/17/21 04:00 Pulse 68 05/17/21 07:00 Resp 36 H 05/17/21 07:00 BP 148/80 05/15/21 18:00 Pulse Ox 88 L 05/17/21 07:00 Intake & Output 05/16/21 05/17/21 05/17/21 18:59 06:59 18:59 Intake Total 2180.667 2088.15 263.641 Output Total 2185 940 60 Balance -4.333 1148.15 203.641 Weight 141.3 kg Intake: IV 936 936 78 0.9 900 75 Pressure bag 36 36 3 Sodium Chloride 0.9% 1, 825 75 000 ml @ 75 mls/hr IV . [id number] [facility] Rx#:[id number] Intake, IV Titration 554.667 592.15 105.641 Amount Clevidipine Butyrate 25 11.833 65 22.133 mg In Empty Bag 1 bag @ 1 MG/HR 2 mls/hr IV .Q24H [facility] Rx#:[id number] fentaNYL (PF) 2,500 mcg 250 In Sodium Chloride 0.9% 200 ml @ Per Protocol IV .Q0M [facility] Rx#:[id number] fentaNYL (PF) 2,500 mcg 250 In Sodium Chloride 0.9% 200 ml @ Per Protocol IV .Q0M [facility] Rx#:[id number] propofoL 1,000 mg In 292.834 277.15 83.508 Empty Bag 1 bag @ Titrate IV .Q0M [facility] Rx#: [id number] Tube Feeding 600 500 50 Other 90 60 30 Output: Urine 2185 940 60 Other: Voiding Method Indwelling Catheter Indwelling Catheter ABP, PAP, CO, CI - Last Documented Arterial Blood Pressure 130/57 - Exam No acute distress, intubated, sedated, and paralyzed. An orally placed endotracheal tube is noted. HEENT examination is grossly unremarkable. Neck supple. Full range of motion. No adenopathy thyromegaly or neck vein distention. Cardiovascular examination reveals regular rhythm and rate. S1-S2 normal. No S3 or S4. No discernible murmur noted. Heart sounds are distant. Heart rate 68 bpm. Lungs reveal coarse bilateral rhonchi. Breath sounds are diminished. No wheezes or crackles. Breath sounds equal bilaterally. Saturations are between 88 and 91 %. Abdomen soft, with bowel sounds. No masses noted. Extremities are intact. No cyanosis clubbing or edema. Skin is without rash or lesion. Neurologic examination cannot be adequately assessed as the patient's currently sedated and paralyzed. - Labs CBC & Chem 7: 05/17/21 04:19 05/17/21 04:19 Labs: Abnormal Lab Results - Last 24 Hours (Table) 05/15/21 05/16/21 05/16/21 Range/Units 04:08 04:51 11:41 WBC (3.8-10.6) k/uL RBC (4.30-5.90) m/uL Hgb (13.0-17.5) gm/dL Hct (39.0-53.0) % Neutrophils # (1.3-7.7) k/uL Lymphocytes # (1.0-4.8) k/uL ABG pCO2 (35-45) mmHg ABG pO2 (83-108) mmHg ABG HCO3 (21-25) mmol/L ABG Total CO2 (19-24) mmol/L ABG O2 Saturation (94-97) % Chloride (98-107) mmol/L BUN (9-20) mg/dL Glucose (74-99) mg/dL POC Glucose (mg/dL) 201 H (75-99) mg/dL Calcium (8.4-10.2) mg/dL Total Protein (6.3-8.2) g/dL Albumin (3.5-5.0) g/dL Procalcitonin 0.17 H 0.15 H (0.02-0.09) ng/mL 05/16/21 05/16/21 05/16/21 Range/Units 16:54 17:17 20:13 WBC (3.8-10.6) k/uL RBC (4.30-5.90) m/uL Hgb (13.0-17.5) gm/dL Hct (39.0-53.0) % Neutrophils # (1.3-7.7) k/uL Lymphocytes # (1.0-4.8) k/uL ABG pCO2 (35-45) mmHg ABG pO2 (83-108) mmHg ABG HCO3 (21-25) mmol/L ABG Total CO2 (19-24) mmol/L ABG O2 Saturation (94-97) % Chloride (98-107) mmol/L BUN (9-20) mg/dL Glucose (74-99) mg/dL POC Glucose (mg/dL) 183 H 227 H 237 H (75-99) mg/dL Calcium (8.4-10.2) mg/dL Total Protein (6.3-8.2) g/dL Albumin (3.5-5.0) g/dL Procalcitonin (0.02-0.09) ng/mL 05/17/21 05/17/21 05/17/21 Range/Units 04:19 04:19 04:39 WBC 13.0 H (3.8-10.6) k/uL RBC 3.73 L (4.30-5.90) m/uL Hgb 10.9 L (13.0-17.5) gm/dL Hct 34.6 L (39.0-53.0) % Neutrophils # 11.6 H (1.3-7.7) k/uL Lymphocytes # 0.8 L (1.0-4.8) k/uL ABG pCO2 47 H (35-45) mmHg ABG pO2 58 L* (83-108) mmHg ABG HCO3 27 H (21-25) mmol/L ABG Total CO2 29 H (19-24) mmol/L ABG O2 Saturation 89.6 L (94-97) % Chloride 109 H (98-107) mmol/L BUN 52 H (9-20) mg/dL Glucose 200 H (74-99) mg/dL POC Glucose (mg/dL) (75-99) mg/dL Calcium 8.1 L (8.4-10.2) mg/dL Total Protein 5.1 L (6.3-8.2) g/dL Albumin 2.2 L (3.5-5.0) g/dL Procalcitonin (0.02-0.09) ng/mL 05/17/21 Range/Units 06:20 WBC (3.8-10.6) k/uL RBC (4.30-5.90) m/uL Hgb (13.0-17.5) gm/dL Hct (39.0-53.0) % Neutrophils # (1.3-7.7) k/uL Lymphocytes # (1.0-4.8) k/uL ABG pCO2 (35-45) mmHg ABG pO2 (83-108) mmHg ABG HCO3 (21-25) mmol/L ABG Total CO2 (19-24) mmol/L ABG O2 Saturation (94-97) % Chloride (98-107) mmol/L BUN (9-20) mg/dL Glucose (74-99) mg/dL POC Glucose (mg/dL) 177 H (75-99) mg/dL Calcium (8.4-10.2) mg/dL Total Protein (6.3-8.2) g/dL Albumin (3.5-5.0) g/dL Procalcitonin (0.02-0.09) ng/mL Microbiology - Last 24 Hours (Table) 05/15/21 21:23 Blood Fungal Culture - Preliminary Blood Assessment and Plan Assessment: Acute hypoxemic respiratory failure secondary to coronavirus infection/pneumoni a, with intubation and mechanical ventilation beginning on May 10. Acute respiratory distress syndrome. Coronary artery disease, with previous coronary artery stenting. Status post permanent pacemaker insertion. History of essential hypertension. History of hyperlipidemia. History of obstructive sleep apnea syndrome, on CPAP. Migraine cephalgia. Acute on chronic kidney disease. Obesity, BMI 42.3. Hypothyroidism. Plan: Plan dated 05/16/2021. The patient is currently on 90% oxygen, and PEEP of 16. The patient is also being sedated with propofol, receiving narcotics in the form of fentanyl, and is chemically paralyzed with Nimbex. The patient is receiving appropriate medications. This includes Lovenox, and Decadron. The patient is being nourished, at goal, with vital high protein. Additional recommendations and suggestions are forthcoming. Prognosis is guarded. The patient doesn't show any significant improvements, he may be headed towards tracheostomy. We will continue to follow make recommendations where appropriate. A pro-calcitonin level will be done, and if normal, antibiotics will be discontinued. The patient is currently on Zosyn. Plan dated 05/17/2021. The patient will get Lasix 40 mg IV push every 12 hours. We will attempt to wean the current medications that he is on including the fentanyl, and Nimbex, if possible. In addition, it blood pressure is more stable, we will wean the Cleveprex. The patient's overall condition is quite complex, and his prognosis is very guarded. If the patient does not make any progress towards weaning and extubation, he will likely require a tracheostomy and PEG tube by the end of the week. The patient remains on Zosyn, and the microbiologic studies have been all negative. Time with Patient: Greater than 30
--- NOTE | 2021-05-17 11:13 | P.PN ---
Subjective Progress Note Date: 05/17/21 This is 66-year-old gentleman admitted with acute hypoxic respiratory failure secondary to COVID-19 infection. Afebrile. Maintained on Covid cocktail, including Decadron IV.Inflammatory markers trending down.He stated this morning with exertion from 88% tone to 75%. Currently placed on 6 L nasal cannula, O2 sat pending. Chest x-ray reporting progression of diffuse bilateral infiltrates.Blood sugars uncontrolled, A1c 9.1. 05/05/2021 respiratory status worsened yesterday, requiring nonrebreather. Th roughout the night, increased anxiety, patient pulling off masks, requiring minimal of 45 minutes to recover O2 saturation. Xanax initiated for anxiety, patient unable to tolerate, reported nausea/ vomiting. Received Ativan, tolerated well. Currently on BiPAP maintaining O2 sats in the 80s. Continues on Covid regimen. Renal function trending up, creatinine 1.6. Denies chest pain, palpitations. 05/06/2021 transferred into the ICU yesterday afternoon related to worsening hypoxia on BiPAP. Slept in the recliner, maintaining O2 sats mid 80s to low 90s. Chest x-ray reporting persistent bilateral infiltrates. Reports feels less shortness of breath, less anxiety on oral Ativan. Maintained on Covid regimen including Baricitinib. Inflammatory markers increased with the exception of d-dimer. Afebrile, normal WBC. Yesterday GHADA inhibitor, Cozaar discontinued, hydralazine increased secondary to worsening renal function-renal function improving. Hyperglycemic, blood sugars in the mid to low 200s. 05/09/2021 remains on 100% BiPAP, chest x-ray reporting stable diffuse predominant interstitial infiltrates. T-max 99.1, WBC 12.3. continues on Covid regimen including Olumiant. Reports anxiety, depression. BUN 53, creatinine 1.15. Blood sugars elevated. 05/10/2021 maintained on COVID cocktail, including Baricitinib. Continues on 100% BiPAP, maintaining O2 sat 76-79%, respiratory rate in the 20s. ABGs ordered. Chest x-ray reporting persistent diffuse pulmonary infiltrates. Te lemetry sinus rhythm. T-max 100.4, WBC increased to 15.4. Blood sugars controlled. Renal function improving. 05/11/21 patient seen in follow-up in the intensive care unit, he was intubated and placed on mechanical ventilator yesterday on 05/10/2021 for worsening hypoxic respiratory failure.. Pt is currently prone in bed during exam. 05/12/2021 and ABGs reporting pO2 59, FiO2 increased to 70%/+15 Peep. Maintained on fentanyl, diprovan, Nimbex drips. Chest x-ray reporting similar appearance, persistent bilateral airspace disease. Maintained on Covid regimen including Baricitinib and Decadron. Blood sugars elevated, in the 200s this morning. D-dimer, LDH decreasing. CRP increased, 16.1. 05/13/2021 FiO2 of 50%/+15 of PEEP. Cuff leak present.Chest x-ray reporting bilateral interstitial and airspace disease. Continues on Nimbex, diprovan fentanyl. Continues on Covid regimen with Decadron,Baricitinib. Blood sugars in the 200s. BUN 50, creatinine 1.03. Inflammatory markers trending down. Afebrile, and WBC trending down, 12.5. 05/16/2021 endotracheal tube changed on 05/13 secondary to cuff leak. ABGs noted with pCO2 55. FiO2 increased to 90, PEEP +16. Maintained on fentanyl, Nimbex, diprovan and Cleviprex drips. Continues on IV fluid hydration of 0.9 at 75 MLS per hour. Chest x-ray reporting no significant change, bilateral airspace disease persists. Afebrile, WBC 13.1. Tolerating tube feeds with minimal to no residuals. Blood sugars currently ranging 180-200. 05/17/2021 FiO2 90% and PEEP 16. Maintained on Cleviprex, Nimbex, propofol, fentanyl drips as well as IV fluid hydration with saline. Puffy extremities, 24-hour I&O reflecting a positive fluid balance. Tolerating tube feeds at goal with minimal to no residual. Continues on Zosyn. Afebrile, WBC 13. Hemoglobin 10.9, platelets 383. Objective - Vital Signs Vital signs: Vital Signs Temp 97.7 F 05/17/21 08:00 Pulse 68 05/17/21 11:00 Resp 36 H 05/17/21 11:00 BP 148/80 05/15/21 18:00 Pulse Ox 89 L 05/17/21 11:00 Intake & Output 05/16/21 05/17/21 05/17/21 18:59 06:59 18:59 Intake Total 2180.667 2088.15 747.641 Output Total 2185 940 510 Balance -4.333 1148.15 237.641 Weight 141.3 kg Intake: IV 936 936 312 0.9 900 75 Pressure bag 36 36 12 Sodium Chloride 0.9% 1, 825 300 000 ml @ 75 mls/hr IV . [id number] [facility] Rx#:[id number] Intake, IV Titration 554.667 592.15 205.641 Amount Clevidipine Butyrate 25 11.833 65 22.133 mg In Empty Bag 1 bag @ 1 MG/HR 2 mls/hr IV .Q24H [facility] Rx#:[id number] Piperacillin-Tazobactam 3 100 .375 gm In Sodium Chloride 0.9% 100 ml @ 25 mls/hr IVPB Q8H [facility] Rx#: [id number] fentaNYL (PF) 2,500 mcg 250 In Sodium Chloride 0.9% 200 ml @ Per Protocol IV .Q0M [facility] Rx#:[id number] fentaNYL (PF) 2,500 mcg 250 In Sodium Chloride 0.9% 200 ml @ Per Protocol IV .Q0M [facility] Rx#:[id number] propofoL 1,000 mg In 292.834 277.15 83.508 Empty Bag 1 bag @ Titrate IV .Q0M [facility] Rx#: [id number] Tube Feeding 600 500 200 Other 90 60 30 Output: Urine 2185 940 510 Other: Voiding Method Indwelling Catheter Indwelling Catheter Indwelling Catheter ABP, PAP, CO, CI - Last Documented Arterial Blood Pressure 135/60 - Exam PHYSICAL EXAM: GENERAL EXAM: Intubated, sedated and paralyzed. HEENT: Normocephalic/atraumatic.Normal reaction of pupils, equal size. Conjunctiva pink, sclera white. NECK: Supple, no JVD CHEST: No chest wall deformity. Symmetrical expansion. LUNGS: Equal air entry with coarse rhonchi with bilateral bases diminished. CVS: Regular rate and rhythm, normal S1 and S2, no gallops, no murmurs, no rubs ABDOMEN: Soft, nondistended, no masses palpable, normal bowel sounds. EXTREMITIES: Mild puffiness/edema, no cyanosis, 2+ pulses and upper and lower extremities. SKIN: Warm and dry, No rashes CENTRAL NERVOUS SYSTEM: Sedated, intubated and paralyzed. Microbiology 05/15/21 21:23 Blood Blood Fungal Culture - Preliminary 05/15/21 15:30 Trachea Fungal Culture - Preliminary 05/02/21 20:30 Blood Blood Culture - Final No Growth after 144 hours 05/02/21 20:30 Blood Blood Culture - Final No Growth after 144 hours - Labs CBC & Chem 7: 05/17/21 04:19 05/17/21 04:19 Labs: Abnormal Lab Results - Last 24 Hours (Table) 05/15/21 05/16/21 05/16/21 Range/Units 04:08 04:51 11:41 WBC (3.8-10.6) k/uL RBC (4.30-5.90) m/uL Hgb (13.0-17.5) gm/dL Hct (39.0-53.0) % Neutrophils # (1.3-7.7) k/uL Lymphocytes # (1.0-4.8) k/uL ABG pCO2 (35-45) mmHg ABG pO2 (83-108) mmHg ABG HCO3 (21-25) mmol/L ABG Total CO2 (19-24) mmol/L ABG O2 Saturation (94-97) % Chloride (98-107) mmol/L BUN (9-20) mg/dL Glucose (74-99) mg/dL POC Glucose (mg/dL) 201 H (75-99) mg/dL Calcium (8.4-10.2) mg/dL Total Protein (6.3-8.2) g/dL Albumin (3.5-5.0) g/dL Procalcitonin 0.17 H 0.15 H (0.02-0.09) ng/mL 05/16/21 05/16/21 05/16/21 Range/Units 16:54 17:17 20:13 WBC (3.8-10.6) k/uL RBC (4.30-5.90) m/uL Hgb (13.0-17.5) gm/dL Hct (39.0-53.0) % Neutrophils # (1.3-7.7) k/uL Lymphocytes # (1.0-4.8) k/uL ABG pCO2 (35-45) mmHg ABG pO2 (83-108) mmHg ABG HCO3 (21-25) mmol/L ABG Total CO2 (19-24) mmol/L ABG O2 Saturation (94-97) % Chloride (98-107) mmol/L BUN (9-20) mg/dL Glucose (74-99) mg/dL POC Glucose (mg/dL) 183 H 227 H 237 H (75-99) mg/dL Calcium (8.4-10.2) mg/dL Total Protein (6.3-8.2) g/dL Albumin (3.5-5.0) g/dL Procalcitonin (0.02-0.09) ng/mL 05/17/21 05/17/21 05/17/21 Range/Units 04:19 04:19 04:39 WBC 13.0 H (3.8-10.6) k/uL RBC 3.73 L (4.30-5.90) m/uL Hgb 10.9 L (13.0-17.5) gm/dL Hct 34.6 L (39.0-53.0) % Neutrophils # 11.6 H (1.3-7.7) k/uL Lymphocytes # 0.8 L (1.0-4.8) k/uL ABG pCO2 47 H (35-45) mmHg ABG pO2 58 L* (83-108) mmHg ABG HCO3 27 H (21-25) mmol/L ABG Total CO2 29 H (19-24) mmol/L ABG O2 Saturation 89.6 L (94-97) % Chloride 109 H (98-107) mmol/L BUN 52 H (9-20) mg/dL Glucose 200 H (74-99) mg/dL POC Glucose (mg/dL) (75-99) mg/dL Calcium 8.1 L (8.4-10.2) mg/dL Total Protein 5.1 L (6.3-8.2) g/dL Albumin 2.2 L (3.5-5.0) g/dL Procalcitonin (0.02-0.09) ng/mL 05/17/21 Range/Units 06:20 WBC (3.8-10.6) k/uL RBC (4.30-5.90) m/uL Hgb (13.0-17.5) gm/dL Hct (39.0-53.0) % Neutrophils # (1.3-7.7) k/uL Lymphocytes # (1.0-4.8) k/uL ABG pCO2 (35-45) mmHg ABG pO2 (83-108) mmHg ABG HCO3 (21-25) mmol/L ABG Total CO2 (19-24) mmol/L ABG O2 Saturation (94-97) % Chloride (98-107) mmol/L BUN (9-20) mg/dL Glucose (74-99) mg/dL POC Glucose (mg/dL) 177 H (75-99) mg/dL Calcium (8.4-10.2) mg/dL Total Protein (6.3-8.2) g/dL Albumin (3.5-5.0) g/dL Procalcitonin (0.02-0.09) ng/mL Microbiology - Last 24 Hours (Table) 05/15/21 21:23 Blood Fungal Culture - Preliminary Blood Assessment and Plan Assessment: Acute COVID-19 pneumonia, status post Baricitinib. Acute hypoxic respiratory failure secondary to the above, mechanical ventilator- dependent Sepsis post admission secondary to progression of Covid Acute on chronic kidney failure, stage III Leukopenia Diabetes mellitus, uncontrolled, hyperglycemic, hemoglobin A1c 9.1 Obstructive sleep apnea, on CPAP outpatient CAD with history of stenting, permanent pacemaker Hypertension Hyperlipidemia Hypothyroidism Morbid obesity, BMI 42.3 Depression, Anxiety Plan: Continue on current medication regime ,monitoring and symptomatic treatment. Diuretics ordered. COVID cocktail. Possible tracheostomy and PEG b eing discussed for later this week. Prognosis guarded given multiple complex medical issues. The impression and plan of care has been dictated as directed. : I performed a history and examination of this patient, discussed the same with the dictator. I agree with the dictator's note ,documented as a scribe. Any additional findings or plans will be noted.
[2021-05-17 11:49] LABS: Glucose,Whole Blood 180 mg/dL (75-99)
[2021-05-17] MEDS: CISATRACURIUM 200 MG in SODIUM CHLORIDE 0.9% 180 ML IV SCH (12:01)
[2021-05-17] MEDS: NOREPINEPHRINE 8 MG in SODIUM CHLORIDE 0.9% 250 ML IV SCH (13:37)
[2021-05-17 17:57] LABS: Glucose,Whole Blood 189 mg/dL (75-99)
[2021-05-17 21:08] LABS: Glucose,Whole Blood 180 mg/dL (75-99)
[2021-05-17] MEDS: ATORVASTATIN 10 MG TAB PO SCH (21:21)
[2021-05-18] MEDS: ARTIFICIAL TEARS-HYPROMELLOSE DROPS 15 ML BTL BOTH EYES SCH ×6 (00:04→20:16)
[2021-05-18] MEDS: PIPERACILLIN-TAZOBACTAM 3.375 GM in SODIUM CHLORIDE 0.9% 100 ML IVPB SCH ×3 (02:15→16:39)
[2021-05-18 04:08] LABS: Basophils % (A) 0 %; Eosinophils # (A) 0.1 k/uL (0-0.7); Eosinophils % (A) 1 %; HCT 35.2 % (39.0-53.0); HGB 11.2 gm/dL (13.0-17.5); Lymphocytes # (A) 0.8 k/uL (1.0-4.8); Lymphocytes % (A) 6 %; MCHC 31.7 g/dL (31.0-37.0); MCV 91.6 fL (80.0-100.0); Mean Platelet Volume 9.5; Monocytes # (A) 0.5 k/uL (0-1.0); Monocytes % (A) 4 %; Neutrophils # (A) 10.5 k/uL (1.3-7.7); Neutrophils % (A) 88 %; Platelet Count 408 k/uL (150-450); RBC 3.85 m/uL (4.30-5.90); RDW 13.4 % (11.5-15.5); WBC 11.9 k/uL (3.8-10.6)
[2021-05-18 04:19] LABS: African American GFR (CKD) >90 (>60 ml/min/1.73 sqM); Anion Gap 6 mmol/L; Blood Urea Nitrogen 51 mg/dL (9-20); Calcium 8.1 mg/dL (8.4-10.2); Carbon Dioxide 27 mmol/L (22-30); Chloride 106 mmol/L (98-107); Glucose 167 mg/dL (74-99); Non-African American GFR(CKD) 86 (>60 ml/min/1.73 sqM); Sodium 139 mmol/L (137-145)
[2021-05-18 05:38] LABS: ABG Base Excess 5.5 mmol/L; ABG HCO3 30 mmol/L (21-25); ABG Oxygen Saturation 92.3 % (94-97); ABG PCO2 45 mmHg (35-45); ABG PH 7.43 (7.35-7.45); ABG PO2 62 mmHg (83-108); ABG TCO2 31 mmol/L (19-24); Allen Test Performed? Yes
[2021-05-18 06:13] LABS: Glucose,Whole Blood 132 mg/dL (75-99)
[2021-05-18] MEDS: INSULIN DETEMIR (LEVEMIR) 100 UNIT/ML SYR SQ SCH ×2 (06:28→20:35)
[2021-05-18] MEDS: INSULIN ASPART (NovoLOG) 100 UNIT/ML VIAL SQ SCH ×7 (06:28→20:35)
[2021-05-18] MEDS: LEVOTHYROXINE 137 MCG TAB PO SCH (06:28)
[2021-05-18] MEDS: SODIUM CHLORIDE 0.9% 1,000 ML IV SCH ×2 (06:29→20:16)
[2021-05-18] MEDS: ALBUTEROL HFA INHALER INHALATION SCH ×4 (07:44→20:09)
--- NOTE | 2021-05-18 08:15 | XR ---
EXAMINATION TYPE: XR chest 1V portable DATE OF EXAM: 05/18/2021 COMPARISON: Chest x-ray 05/17/2021 HISTORY: Intubated, shortness of breath TECHNIQUE: Single frontal view of the chest is obtained. FINDINGS: Endotracheal tube, NG tube, right-sided PICC line are all again noted, similar to prior ex am. Bilateral airspace disease persists, cardiomediastinal silhouette is stable. There is no evident pneumothorax or pleural effusion. IMPRESSION: Findings are similar, correlate for pneumonia, edema, ARDS
[2021-05-18] MEDS: fentaNYL (PF) 2,500 MCG in SODIUM CHLORIDE 0.9% 200 ML IV SCH (08:43)
[2021-05-18] MEDS: FUROSEMIDE 10 MG/ML 4 ML VIAL IV SCH ×2 (08:44→20:17)
[2021-05-18] MEDS: CHLORHEXIDINE GLUCONATE 15 ML CUP MUCOUS MEM SCH ×2 (08:44→20:34)
[2021-05-18] MEDS: DEXAMETHASONE SOD PHOSPHATE 10 MG/ML 1 ML VIAL IV SCH (08:44)
[2021-05-18] MEDS: ENOXAPARIN 40 MG/0.4 ML SYRINGE SQ SCH ×2 (08:44→20:34)
[2021-05-18] MEDS: ASPIRIN 81 MG PO SCH (08:44)
[2021-05-18] MEDS: PANTOPRAZOLE 40 MG/10 ML VIAL IVP SCH (08:44)
[2021-05-18] MEDS: ESCITALOPRAM 10 MG TAB PO SCH (08:45)
[2021-05-18] MEDS: EZETIMIBE 10 MG TAB PO SCH (08:46)
[2021-05-18] MEDS: CISATRACURIUM 200 MG in SODIUM CHLORIDE 0.9% 180 ML IV SCH (09:18)
[2021-05-18] MEDS: hydrALAZINE HCL 50 MG TAB NG-TUBE SCH ×2 (09:28→20:17)
[2021-05-18 09:36] LABS: ABG Base Excess 4.3 mmol/L; ABG HCO3 31 mmol/L (21-25); ABG Oxygen Saturation 90.4 % (94-97); ABG PCO2 67 mmHg (35-45); ABG PH 7.28 (7.35-7.45); ABG PO2 69 mmHg (83-108); ABG TCO2 33 mmol/L (19-24)
[2021-05-18 09:37] LABS: Allen Test Performed? NO
--- NOTE | 2021-05-18 10:14 | P.PN ---
Subjective Progress Note Date: 05/18/21 Principal diagnosis: Coronavirus pneumonia. Acute hypoxic respiratory failure secondary to COVID-19 pneumonia. On 05/04/2021 patient seen in follow-up on selective care unit. His oxygen demand has increased, he is currently on 100 percent nonrebreather, his oxygen saturations are ranging between 82 and 88%, is having low-grade fevers this afternoon, blood pressures stable. Inflammatory markers are improving on today's labs, LDH is down to 392, CRP is 6.0, pro calcitonin level was 0.32. D- dimer was 0.66. Blood cultures have been negative. Patient remains on dexamethasone 6 mg daily, he is on prophylactic dose Lovenox 40 mg daily. His chest x-ray point diffuse bilateral infiltrates that appear to be progress. Patient could not tolerate high flow nasal cannula and was desaturating on it. On today's evaluation of 05/05/2021 patient seen in follow-up on medical cohu rgical floor. Overnight patient was placed on BiPAP support for worsening dyspnea and hypoxia, with pressures of 12/5, and FiO2 of 100%, and his pulse ox is around 89%. Patient is currently up in the chair, is short of breath with any exertion, he was started on bariticinib yesterday, and he continues on Decadron 6 mg daily, and Lovenox 80 mg once daily, his chest x-ray has been reviewed showing stable diffuse bilateral infiltrates. Today's labs have been reviewed, white blood cell count is not 7.9, hemoglobin is 12.6, his lymphocyte count is 1.27, electrolytes are within normal limits, B1 is 36, creatinine is 1.6, his LDH is up slightly to 560 from 392 one yesterday his labs, CRP is rela tively stable with 6.8. Pro-calcitonin level was 0.32. His had no fever or chills overnight, but cultures were negative. In view of his progressive oxygen demand and shortness of breath, we recommended transfer to the intensive care unit for closer monitoring On 05/06/2021 patient seen in follow-up in the intensive care unit where she was transferred yesterday from [facility]. in view of his worsening hypoxia, patient is currently on BiPAP support with pressures of 12/10 and FiO2 100%, his pulse ox is ranging between 86-91%, he sitting up in the recliner where he slept last night, he does not appear to be in any acute distress, however he does desaturate down to 68 when he removes the BiPAP mask even briefly to take a bite of food, or his medication. Is currently on IV fluids with 0.9, secondary to 20 ML per hour. He continues on Baricitinib 2 mg daily, and today is day 2 of treatment, in addition he is on IV Decadron 6 mg daily, is on prophylactic dose of Lovenox 40 mg daily, he is receiving when necessary doses of Ativan for anxiety and breathlessness. Today's chest x-ray has been reviewed showing diffuse bilateral infiltrates that are stable in appearance. Today's labs have been reviewed showing CBC within normal limits, electrolytes were unremarkable, BUN is 39, creatinine is 1.41. Inflammatory markers seems to have increased as far as LDH is up to 1792, and CRP is relatively stable 6.9. His d-dimer today is 0.59. He appears to be sleepy, but no acute distress, he is answering questions appropriately, denies any chest discomfort. He is been in his chair for the most part. His been using the urinal to urinate, he is trying to keep up his oral intake and take bites of food. No other acute events overnight. Reevaluated today on 05/07/2021, patient remains in the ICU, his pulmonary status is marginal at best. Patient is on BiPAP 08/03 he is also on 100% FiO2, with O2 saturation in the high 80s at best. Surprisingly however the patient seems to be in no distress, he is comfortable, sitting at a bedside chair, alert oriented 3, and I have increased his IPAP 14 instead of 12, patient seems to be extremely comfortable. Chest x-ray continues to show bilateral interstitial infiltrates. WBC count is 10.9 hemoglobin 13.9 d-dimer is 0.96 electrolytes are normal LDH 2092 and C-reactive protein is 6. Reevaluated today on 05/08/2021, remains in the ICU, remains on BiPAP, he is on IPAP of 14 and EPAP of 8 and FiO2 of 100%. Patient O2 saturation is marginal in the 80s most of the time. Surprisingly, the patient is not complaining of any shortness of breath, he seems to be comfortable, and relatively asymptomatic. Does not seem to be in distress. Chest x-ray is basically about the same, hence I ordered another Lasix dose to be given today 40 mg IV push 1, although BNP level is not elevated, but I would like to keep him on the dry side as much as p ossible. Patient remains on Lovenox 40 mg subcu daily, he is on Decadron, Glucerna was ordered, and he remains on baricitinib. CBC is relatively normal left lites are normal renal profile showed a BUN of 45 creatinine 1.16. Improving compared to his baseline on admission Reevaluated today on 05/09/2021, patient remains in the ICU, remains on BiPAP 09/04/100% FiO2 patient is basically about the same not much of a change noted over the last 24 hours. Chest x-ray is basically about the same. Patient seems to be comfortable, O2 saturations are marginal basically as high, 92%. Remains on Decadron, Lovenox, and on baricitinib WBC count is 12.3 hemoglobin is 14.1 lites are normal BUN is 53 creatinine 1.15, no Lasix was ordered today as the patient seems to be a bit prerenal On 05/11/2021 patient seen in follow-up in the intensive care unit, he was intubated and placed on mechanical ventilator yesterday on 05/10/2021 for worsening hypoxic respiratory failure, he currently remains sedated, and paralyzed on assist-control mode of ventilation with a rate of 30, tidal I was 450, FiO2 of 90% and PEEP of 15, this morning's blood gas shows pO2 of 86, pCO2 46, and pH of 7.36. He's currently on 0.9 normal saline at 75 ML per hour, fentanyl infusion is at 1 diana per kilo per minute, and then backs is at 1 diana per kilo per minute, and improving and is at 50 mics per kilo per minute, patient has not been started on tube feedings yet. He tolerated protein quite well, this morning he still proned. Today's chest x-ray shows diffuse bilateral lung disease which is stable in appearance, and ET tube at 1.5 cm above nata. Today's labs have been reviewed, showing white blood cell count of 16.1, hemoglobin is 12.1, d-dimer is 4.5, slightly obtunded from previous level, sodium is 141, potassium is 4.5, chloride is 109, CO2 is 24, BUN of 44, creatinine is 1.18, LDH is down to 1175, appendectomy level is still pending for today. Did have some intermittent fevers last night, with a T-max of 101.4F. Remains on Baricitinib, Decadron, and Lovenox 40 mg daily. On 05/12/2021 patient seen in follow-up in the intensive care unit, he remains intubated, sedated and paralyzed, on assist-control mode ventilation, with a rate of 30, tacrolimus 450, FiO2 60% and PEEP of 16, this morning's blood gas shows pO2 of 59, pCO2 49, pH is 7.35. Patient is currently on 0.9 normal saline at a rate of 75 ML per hour, fentanyl infusion is at 1 diana per kilo per minute, Nimbex is at 1 diana per kilo per minute, and improving and is at 30 mics per kilo per minute, he is receiving vital high protein at 40 ML per hour with a goal of 65, today's chest x-ray shows no evident pneumothorax, and bilateral airspace disease persistence. Patient tolerated protein well, however he did sustain some blistering in the shearing injury on his face, in his abdomen. He is currently back in the supine position. He is hemodynamically stable, in sinus mechanism with a rate of 64, not requiring any vasopressor support, his FiO2 was dropped down to 60% from 90% from yesterday. He is afebrile. His d-dimer today is 3.10, LDH is 985, and CRP is 16.1, pro-calcitonin level was 0.51. he is on Olumiant, Lovenox 40 mg twice daily, and Decadron 6 mg daily. He has been tolerating tube feedings, no other acute issues overnight. The patient is seen today 05/13/2021 in follow-up in the intensive care unit. He remains intubated on mechanical ventilator. Currently in assist-control mode at a rate of 36, tidal volume 400, FiO2 60% and a PEEP of 16. Peak airway pressure 43. Morning blood gases revealed a PaO2 of 69, pCO2 57, pH 7.28. Currently sedated on to prevent at 30 mcg/kg/m. Nimbex at 1 mcg/kg/m. Fentanyl 1 g per hour. 0.9 normal saline at 75 ML's per hour. He is being nourished with tube feeds via vital HP at 50 MLS per hour with a goal of 65 ML's per hour. He remains in sinus rhythm. He has been proned as tolerated. There has been having issues with Endotracheal tube balloon leaking. This will be changed out by anesthesia today. Chest x-ray continues to show ARDS with bilateral in terstitial and airspace disease. White count 12.5. Hemoglobin 11.9. Lymphocyte 0.6. D-dimer 2.52. Sodium 138. Potassium 4.7. Creatinine 1.03. Glucose 288. LDH 812. C-reactive protein 6.8. He remains on Baricitinib, Ecotrin, Lovenox, vitamin supplements. Reevaluated today on 05/14/2021, patient remains in the ICU, intubated and mechanically ventilated. He is on assist control rate of 36 tidal volume 4:30 FiO2 of 60% PEEP of 16. ABG showed a pO2 of 60 pCO2 44 pH of 7.39. Patient rem ains on propofol at 30 Nimbex at 1 and fentanyl at 2 mcg/kg/h. Patient had his endotracheal tube change yesterday by anesthesia because there was a significant leak. Today there is no evidence of leaking from the endotracheal tube. Peak airway pressure remains high at 37, plateau pressure is in the low 30s. His x- ray continues to be about the same, continues to have bilateral interstitial infiltrates. WBC count today is 12.8 hemoglobin is 11.9. D-dimer is 2.29. Slightly lower compared to the last 4 days. LDH is down to 760 and C-reactive protein is 6.7 Reevaluated today on 05/15/2021, patient remains in the ICU, intubated and mechanically ventilated. He is on assist control rate of 36 tidal volume 430 FiO2 70% and PEEP of 16 ABG showed a pO2 of 56 pCO2 43 pH of 7.41. Remains on N imbex at 1 mcg/kg/m, fentanyl at 2 mcg/kg/h, propofol at 30 mcg/kg/m, IV fluid at 0.9 normal saline 75 mL/h receiving vital HP at 50/50. Not much of a change noted on the chest x-ray today, not much of a change noted in his clinical status over the last 24 hours. Patient had poor tolerance to proning, hence no further proning was done d-dimer today is 1.72, CBC is relatively normal. Electrolytes are normal. Renal profile is normal. C-reactive protein is 7.3. Not to changing much in the last 3 days. No LDH done today. Liver enzymes are normal Progress note dated 05/16/2021. The patient is again seen in the intensive care unit, room 260. The patient was admitted to the hospital on May 02. He came to the intensive care unit on May 05. He came with acute hypoxemic respiratory failure secondary to coronavirus associated pneumonia. The patient was intubated on May 10, and had a change of his endotracheal tube, on May 13. The patient remains in the intensive care unit on the ventilator. He is on the volume assist control mode, rate 36, tidal [place] 4:30, FiO2 90%, and PEEP of 16. Blood gases show pO2 of 55, pCO2 47, and pH is 7.37. Those blood gases were done on 80%. The patient did receive both the Decadron and Lovenox. He was not a candidate for REM. He did receive some WENDY, but it was subsequently discontinued. Currently, the patient's getting saline at 75 mL an hour, a fentanyl drip at 2 mcg/kg/h, Nimbex drip at 1 mcg/kg/m, propofol at 30 mcg/kg/m, vital high protein at 50 mL an hour, which is goal, and Cleveprex at 2 mg an hour. Lab data includes a white count of 13.1, hemoglobin 11.4, hematocrit 34.4, platelet count 448,000. Sodium 139, potassium 4.3, chlorides 110, CO2 26, anion gap 3, BUN 45, and creatinine 0.82. Chest x-ray is consistent with diffuse bilateral infiltrates. Progress note dated 05/17/2021. 66-year-old male, seen in the intensive care unit, room 260. The patient was admitted to the hospital on May 02, and came to the intensive care unit on May 05. Because of acute hypoxemic respiratory failure and coronavirus associated pneumonia, the patient was intubated on May 10 and had a change in his endotracheal tube on May 13 he remains on the ventilator. He is on the volume assist control mode rate of 36, tidal volume 4:30, FiO2 90%, and PEEP of 16. Blood gases show a pO2 of 58, pCO2 47, and pH is 7.37. The patient is currently on Cleveprex 2 mg an hour, Nimbex at 1 mcg/kg/m, propofol at 30 mcg/kg/m, fentanyl at 2 mcg/kg/h, saline at 75 mL an hour, and vital high protein at 50 mL an hour, which is goal. We are going to give the patient some Lasix 40 mg IV push to 12 hours, as the appears that looking at his I's and O's over the last number of days, the patient has been receiving quite a bit of fluids. Current labs include a white count of 13, hemoglobin 10.9, hematocrit 34.6, and platelet count 383,000. Sodium 139, potassium 4.5, chlorides 109, CO2 25, anion gap 5, BUN 52, and creatinine 0.96. Albumin is 2.2. Progress note dated 05/18/2021. 66-year-old male, again seen in the intensive care unit, room 260. The patient was admitted to the hospital on May 02 and came to the intensive care unit on May 05. 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 Currently, the patient remains on the ventilator. He is on the volume assist control mode, rate 36, tidal volume 430, FiO2 90%, PEEP of 16. Arterial blood gases show a PaO2 of 62, pCO2 45, pH is 7.43. The patient will be tried on pressure assist control modality, with an inspiratory pressure of 20 cm water, and an inspiratory time, 0.9 seconds. He blood gas will be done an hour after the change. Currently, the patient's on propofol at 30 mcg/kg/m, Cleveprex at 1 mg an hour, Nimbex at 1.5 mcg/kg/m, saline at 75 mL an hour, to be reduced down to KVO, fentanyl at 2 mcg/kg/h, and vital high pro tein at 38 mL an hour, which is goal. White count 11.9, hemoglobin 11.2, hematocrit 35.2, and platelet count 408,000. Sodium 139, potassium 4, chlorides 106, CO2 27, anion gap 6, BUN 51, and creatinine 0.92. The repeat blood gas after switched to a pressure assist control modality, shows a pO2 of 69, a pCO2 of 67, and a pH is 7.28. These blood gases are perfectly okay, and the mild acidosis, moves the oxyhemoglobin dissociation curve to the right. Chest x-ray shows diffuse bilateral infiltrates consistent with acute respiratory distress syndrome. Objective - Vital Signs Vital signs: Vital Signs Temp 97.5 F L 05/18/21 08:00 Pulse 64 05/18/21 10:00 Resp 36 H 05/18/21 10:00 BP 148/80 05/18/21 07:00 Pulse Ox 87 L 05/18/21 10:00 Intake & Output 05/17/21 05/18/21 05/18/21 18:59 06:59 18:59 Intake Total 2221.165 2168.454 738.350 Output Total 2510 2485 275 Balance -288.835 -316.546 463.350 Weight 142.5 kg Intake: IV 936 936 240 Pressure bag 36 36 15 Sodium Chloride 0.9% 1, 900 900 225 000 ml @ 20 mls/hr IV . Q24H [facility] Rx#:[id number] Intake, IV Titration 691.165 762.454 354.350 Amount Cisatracurium 200 mg In 0.758 199.242 Sodium Chloride 0.9% 180 ml @ 1 MCG/KG/MIN 7.578 mls/hr IV .Q24H [facility] Rx#: [id number] Clevidipine Butyrate 25 25.066 27.967 4.733 mg In Empty Bag 1 bag @ 1 MG/HR 2 mls/hr IV .Q24H [facility] Rx#:[id number] Piperacillin-Tazobactam 3 100 .375 gm In Sodium Chloride 0.9% 100 ml @ 25 mls/hr IVPB Q8H [facility] Rx#: [id number] fentaNYL (PF) 2,500 mcg 250 250 250 In Sodium Chloride 0.9% 200 ml @ Per Protocol IV .Q0M [facility] Rx#:[id number] propofoL 1,000 mg In 315.341 285.245 99.617 Empty Bag 1 bag @ Titrate IV .Q0M [facility] Rx#: [id number] Tube Feeding 504 380 114 Other 90 90 30 Output: Urine 2510 2485 275 Other: Voiding Method Indwelling Catheter Indwelling Catheter # Bowel Movements 0 ABP, PAP, CO, CI - Last Documented Arterial Blood Pressure 97/41 - Exam No acute distress, intubated, sedated, and paralyzed. An orally placed endotracheal tube is noted. HEENT examination is grossly unremarkable. Neck supple. Full range of motion. No adenopathy thyromegaly or neck vein distention. Cardiovascular examination reveals regular rhythm and rate. S1-S2 normal. No S3 or S4. No discernible murmur noted. Heart sounds are distant. Heart rate 64 bpm. Lungs reveal coarse bilateral rhonchi. Breath sounds are diminished. No wheezes or crackles. Breath sounds equal bilaterally. Saturations are between 88 and 92 %. Abdomen soft, with bowel sounds. No masses noted. Extremities are intact. No cyanosis clubbing or edema. Skin is without rash or lesion. Neurologic examination cannot be adequately assessed as the patient's currently sedated and paralyzed. - Labs CBC & Chem 7: 05/18/21 03:45 05/18/21 03:45 Labs: Abnormal Lab Results - Last 24 Hours (Table) 05/17/21 05/17/21 05/17/21 Range/Units 11:48 17:55 21:07 WBC (3.8-10.6) k/uL RBC (4.30-5.90) m/uL Hgb (13.0-17.5) gm/dL Hct (39.0-53.0) % Neutrophils # (1.3-7.7) k/uL Lymphocytes # (1.0-4.8) k/uL ABG pH (7.35-7.45) ABG pCO2 (35-45) mmHg ABG pO2 (83-108) mmHg ABG HCO3 (21-25) mmol/L ABG Total CO2 (19-24) mmol/L ABG O2 Saturation (94-97) % BUN (9-20) mg/dL Glucose (74-99) mg/dL POC Glucose (mg/dL) 180 H 189 H 180 H (75-99) mg/dL Calcium (8.4-10.2) mg/dL 05/18/21 05/18/21 05/18/21 Range/Units 03:45 03:45 05:33 WBC 11.9 H (3.8-10.6) k/uL RBC 3.85 L (4.30-5.90) m/uL Hgb 11.2 L (13.0-17.5) gm/dL Hct 35.2 L (39.0-53.0) % Neutrophils # 10.5 H (1.3-7.7) k/uL Lymphocytes # 0.8 L (1.0-4.8) k/uL ABG pH (7.35-7.45) ABG pCO2 (35-45) mmHg ABG pO2 62 L (83-108) mmHg ABG HCO3 30 H (21-25) mmol/L ABG Total CO2 31 H (19-24) mmol/L ABG O2 Saturation 92.3 L (94-97) % BUN 51 H (9-20) mg/dL Glucose 167 H (74-99) mg/dL POC Glucose (mg/dL) (75-99) mg/dL Calcium 8.1 L (8.4-10.2) mg/dL 05/18/21 05/18/21 Range/Units 06:12 09:33 WBC (3.8-10.6) k/uL RBC (4.30-5.90) m/uL Hgb (13.0-17.5) gm/dL Hct (39.0-53.0) % Neutrophils # (1.3-7.7) k/uL Lymphocytes # (1.0-4.8) k/uL ABG pH 7.28 L (7.35-7.45) ABG pCO2 67 H (35-45) mmHg ABG pO2 69 L (83-108) mmHg ABG HCO3 31 H (21-25) mmol/L ABG Total CO2 33 H (19-24) mmol/L ABG O2 Saturation 90.4 L (94-97) % BUN (9-20) mg/dL Glucose (74-99) mg/dL POC Glucose (mg/dL) 132 H (75-99) mg/dL Calcium (8.4-10.2) mg/dL Assessment and Plan Assessment: Acute hypoxemic respiratory failure secondary to coronavirus inf ection/pneumonia, with intubation and mechanical ventilation beginning on May 10. Acute respiratory distress syndrome. Coronary artery disease, with previous coronary artery stenting. Status post permanent pacemaker insertion. History of essential hypertension. History of hyperlipidemia. History of obstructive sleep apnea syndrome, on CPAP. Migraine cephalgia. Acute on chronic kidney disease. Obesity, BMI 42.3. Hypothyroidism. Plan: Plan dated 05/16/2021. The patient is currently on 90% oxygen, and PEEP of 16. The patient is also susana ng sedated with propofol, receiving narcotics in the form of fentanyl, and is chemically paralyzed with Nimbex. The patient is receiving appropriate medications. This includes Lovenox, and Decadron. The patient is being nourished, at goal, with vital high protein. Additional recommendations and suggestions are forthcoming. Prognosis is guarded. The patient doesn't show any significant improvements, he may be headed towards tracheostomy. We will continue to follow make recommendations where appropriate. A pro-calcitonin level will be done, and if normal, antibiotics will be discontinued. The patient is currently on Zosyn. Plan dated 05/17/2021. The patient will get Lasix 40 mg IV push every 12 hours. We will attempt to wean the current medications that he is on including the fentanyl, and Nimbex, if possible. In addition, it blood pressure is more stable, we will wean the Cleveprex. The patient's overall condition is quite complex, and his prognosis is very guarded. If the patient does not make any progress towards weaning and extubation, he will likely require a tracheostomy and PEG tube by the end of the week. The patient remains on Zosyn, and the microbiologic studies have been all negative. Plan dated 05/18/2021. The patient may end up getting his tracheostomy and PEG tube placed today. The patient was converted over to pressure assist control, with inspiratory pressure of 20 cm water, and inspiratory time of 0.9 seconds. Repeat blood gases are more than adequate. The patient remains on propofol, Cleveprex, Nimbex, fentanyl, and tube feeds. The patient's overall prognosis is guarded. Microbiology is currently negative. Pro-calcitonin level is 0.17 and 0.15. The patient's Zosyn can be discontinued tomorrow. We will continue to follow make recommendations where appropriate. For the time being, the patient will stay on pressure assist control modality. Time with Patient: Greater than 30
[2021-05-18 11:21] LABS: Glucose,Whole Blood 145 mg/dL (75-99)
[2021-05-18] MEDS: NOREPINEPHRINE 8 MG in SODIUM CHLORIDE 0.9% 250 ML IV SCH (12:10)
--- NOTE | 2021-05-18 13:54 | P.PN ---
Subjective Progress Note Date: 05/18/21 This is 66-year-old gentleman admitted with acute hypoxic respiratory failure secondary to COVID-19 infection. Afebrile. Maintained on Covid cocktail, including Decadron IV.Inflammatory markers trending down.He stated this morning with exertion from 88% tone to 75%. Currently placed on 6 L nasal cannula, O2 sat pending. Chest x-ray reporting progression of diffuse bilateral infiltrates.Blood sugars uncontrolled, A1c 9.1. 05/05/2021 respiratory status worsened yesterday, requiring nonrebreather. Th roughout the night, increased anxiety, patient pulling off masks, requiring minimal of 45 minutes to recover O2 saturation. Xanax initiated for anxiety, patient unable to tolerate, reported nausea/ vomiting. Received Ativan, tolerated well. Currently on BiPAP maintaining O2 sats in the 80s. Continues on Covid regimen. Renal function trending up, creatinine 1.6. Denies chest pain, palpitations. 05/06/2021 transferred into the ICU yesterday afternoon related to worsening hypoxia on BiPAP. Slept in the recliner, maintaining O2 sats mid 80s to low 90s. Chest x-ray reporting persistent bilateral infiltrates. Reports feels less shortness of breath, less anxiety on oral Ativan. Maintained on Covid regimen including Baricitinib. Inflammatory markers increased with the exception of d-dimer. Afebrile, normal WBC. Yesterday GHADA inhibitor, Cozaar discontinued, hydralazine increased secondary to worsening renal function-renal function improving. Hyperglycemic, blood sugars in the mid to low 200s. 05/09/2021 remains on 100% BiPAP, chest x-ray reporting stable diffuse predominant interstitial infiltrates. T-max 99.1, WBC 12.3. continues on Covid regimen including Olumiant. Reports anxiety, depression. BUN 53, creatinine 1.15. Blood sugars elevated. 05/10/2021 maintained on COVID cocktail, including Baricitinib. Continues on 100% BiPAP, maintaining O2 sat 76-79%, respiratory rate in the 20s. ABGs ordered. Chest x-ray reporting persistent diffuse pulmonary infiltrates. Te lemetry sinus rhythm. T-max 100.4, WBC increased to 15.4. Blood sugars controlled. Renal function improving. 05/11/21 patient seen in follow-up in the intensive care unit, he was intubated and placed on mechanical ventilator yesterday on 05/10/2021 for worsening hypoxic respiratory failure.. Pt is currently prone in bed during exam. 05/12/2021 and ABGs reporting pO2 59, FiO2 increased to 70%/+15 Peep. Maintained on fentanyl, diprovan, Nimbex drips. Chest x-ray reporting similar appearance, persistent bilateral airspace disease. Maintained on Covid regimen including Baricitinib and Decadron. Blood sugars elevated, in the 200s this morning. D-dimer, LDH decreasing. CRP increased, 16.1. 05/13/2021 FiO2 of 50%/+15 of PEEP. Cuff leak present.Chest x-ray reporting bilateral interstitial and airspace disease. Continues on Nimbex, diprovan fentanyl. Continues on Covid regimen with Decadron,Baricitinib. Blood sugars in the 200s. BUN 50, creatinine 1.03. Inflammatory markers trending down. Afebrile, and WBC trending down, 12.5. 05/16/2021 endotracheal tube changed on 05/13 secondary to cuff leak. ABGs noted with pCO2 55. FiO2 increased to 90, PEEP +16. Maintained on fentanyl, Nimbex, diprovan and Cleviprex drips. Continues on IV fluid hydration of 0.9 at 75 MLS per hour. Chest x-ray reporting no significant change, bilateral airspace disease persists. Afebrile, WBC 13.1. Tolerating tube feeds with minimal to no residuals. Blood sugars currently ranging 180-200. 05/17/2021 FiO2 90% and PEEP 16. Maintained on Cleviprex, Nimbex, propofol, fentanyl drips as well as IV fluid hydration with saline. Puffy extremities, 24-hour I&O reflecting a positive fluid balance. Tolerating tube feeds at goal with minimal to no residual. Continues on Zosyn. Afebrile, WBC 13. Hemoglobin 10.9, platelets 383. 05/18/2021 FiO2 90%/+16 of PEEP. Currently on pressure control with ABGs in 1 hour. Chest x-ray reporting similar bilateral airspace disease.Telemetry sinus rhythm. Continues on fentanyl ,Nimbex, diprovan and Cleviprex drips. Afebrile, WBC count 11.9.Tracheostomy and PEG tube placement pending. Objective - Vital Signs Vital signs: Vital Signs Temp 97.5 F L 05/18/21 08:00 Pulse 64 05/18/21 13:00 Resp 36 H 05/18/21 13:00 BP 148/80 05/18/21 07:00 Pulse Ox 87 L 05/18/21 13:00 Intake & Output 05/17/21 05/18/21 05/18/21 18:59 06:59 18:59 Intake Total 2221.165 2168.454 1001.252 Output Total 2510 2485 725 Balance -288.835 -316.546 276.252 Weight 142.5 kg 142.5 kg Intake: IV 936 936 335 Pressure bag 36 36 30 Sodium Chloride 0.9% 1, 900 900 305 000 ml @ 20 mls/hr IV . Q24H [facility] Rx#:[id number] Intake, IV Titration 691.165 762.454 484.252 Amount Cisatracurium 200 mg In 0.758 199.242 Sodium Chloride 0.9% 180 ml @ 1 MCG/KG/MIN 7.578 mls/hr IV .Q24H [facility] Rx#: [id number] Clevidipine Butyrate 25 25.066 27.967 4.733 mg In Empty Bag 1 bag @ 1 MG/HR 2 mls/hr IV .Q24H [facility] Rx#:[id number] Piperacillin-Tazobactam 3 100 .375 gm In Sodium Chloride 0.9% 100 ml @ 25 mls/hr IVPB Q8H [facility] Rx#: [id number] fentaNYL (PF) 2,500 mcg 250 250 302.752 In Sodium Chloride 0.9% 200 ml @ Per Protocol IV .Q0M [facility] Rx#:[id number] propofoL 1,000 mg In 315.341 285.245 176.767 Empty Bag 1 bag @ Titrate IV .Q0M [facility] Rx#: [id number] Tube Feeding 504 380 152 Other 90 90 30 Output: Urine 2510 2485 725 Other: Voiding Method Indwelling Catheter Indwelling Catheter Indwelling Catheter # Bowel Movements 0 ABP, PAP, CO, CI - Last Documented Arterial Blood Pressure 98/44 - Exam PHYSICAL EXAM: GENERAL EXAM: Intubated, sedated and paralyzed. HEENT: Normocephalic/atraumatic.Normal reaction of pupils, equal size. Conjun ctiva pink, sclera white. NECK: Supple, no JVD CHEST: No chest wall deformity. Symmetrical expansion. LUNGS: Equal air entry with coarse rhonchi with bilateral bases diminished. CVS: Regular rate and rhythm, normal S1 and S2, no gallops, no murmurs, no rubs ABDOMEN: Soft, nondistended, no masses palpable, normal bowel sounds. EXTREMITIES: Mild puffiness/edema, no cyanosis, 2+ pulses and upper and lower extremities. SKIN: Warm and dry, No rashes CENTRAL NERVOUS SYSTEM: Sedated, intubated and paralyzed. Microbiology 05/15/21 21:23 Blood Blood Fungal Culture - Preliminary 05/15/21 15:30 Trachea Fungal Culture - Preliminary 05/02/21 20:30 Blood Blood Culture - Final No Growth after 144 hours 05/02/21 20:30 Blood Blood Culture - Final No Growth after 144 hours - Labs CBC & Chem 7: 05/18/21 03:45 05/18/21 03:45 Labs: Abnormal Lab Results - Last 24 Hours (Table) 05/17/21 05/17/21 05/18/21 Range/Units 17:55 21:07 03:45 WBC 11.9 H (3.8-10.6) k/uL RBC 3.85 L (4.30-5.90) m/uL Hgb 11.2 L (13.0-17.5) gm/dL Hct 35.2 L (39.0-53.0) % Neutrophils # 10.5 H (1.3-7.7) k/uL Lymphocytes # 0.8 L (1.0-4.8) k/uL ABG pH (7.35-7.45) ABG pCO2 (35-45) mmHg ABG pO2 (83-108) mmHg ABG HCO3 (21-25) mmol/L ABG Total CO2 (19-24) mmol/L ABG O2 Saturation (94-97) % BUN (9-20) mg/dL Glucose (74-99) mg/dL POC Glucose (mg/dL) 189 H 180 H (75-99) mg/dL Calcium (8.4-10.2) mg/dL 05/18/21 05/18/21 05/18/21 Range/Units 03:45 05:33 06:12 WBC (3.8-10.6) k/uL RBC (4.30-5.90) m/uL Hgb (13.0-17.5) gm/dL Hct (39.0-53.0) % Neutrophils # (1.3-7.7) k/uL Lymphocytes # (1.0-4.8) k/uL ABG pH (7.35-7.45) ABG pCO2 (35-45) mmHg ABG pO2 62 L (83-108) mmHg ABG HCO3 30 H (21-25) mmol/L ABG Total CO2 31 H (19-24) mmol/L ABG O2 Saturation 92.3 L (94-97) % BUN 51 H (9-20) mg/dL Glucose 167 H (74-99) mg/dL POC Glucose (mg/dL) 132 H (75-99) mg/dL Calcium 8.1 L (8.4-10.2) mg/dL 05/18/21 05/18/21 Range/Units 09:33 11:19 WBC (3.8-10.6) k/uL RBC (4.30-5.90) m/uL Hgb (13.0-17.5) gm/dL Hct (39.0-53.0) % Neutrophils # (1.3-7.7) k/uL Lymphocytes # (1.0-4.8) k/uL ABG pH 7.28 L (7.35-7.45) ABG pCO2 67 H (35-45) mmHg ABG pO2 69 L (83-108) mmHg ABG HCO3 31 H (21-25) mmol/L ABG Total CO2 33 H (19-24) mmol/L ABG O2 Saturation 90.4 L (94-97) % BUN (9-20) mg/dL Glucose (74-99) mg/dL POC Glucose (mg/dL) 145 H (75-99) mg/dL Calcium (8.4-10.2) mg/dL Assessment and Plan Assessment: Acute COVID-19 pneumonia, status post Baricitinib. Acute hypoxic respiratory failure secondary to the above, mechanical ventilator- dependent Sepsis post admission secondary to progression of Covid Acute on chronic kidney failure, stage III Leukopenia Diabetes mellitus, uncontrolled, hyperglycemic, hemoglobin A1c 9.1 Obstructive sleep apnea, on CPAP outpatient CAD with history of stenting, permanent pacemaker Hypertension Hyperlipidemia Hypothyroidism Morbid obesity, BMI 42.3 Depression, Anxiety Plan: Continue on current medication regime ,monitoring and symptomatic treatment. Discussed with bulk fluids handler, will resume patient's hydralazine and hopefully be able to wean off Cleviprex .Tracheostomy/peg pending. COVID cocktail. Prognosis guarded given multiple complex medical issues. The impression and plan of care has been dictated as directed. : I performed a history and examination of this patient, discussed the same with the dictator. I agree with the dictator's note ,documented as a scribe. Any additional findings or plans will be noted.
--- NOTE | 2021-05-18 14:02 | P.GSCN ---
History of Present Illness Consult date: 05/18/21 History of present illness: CHIEF COMPLAINT: Covid pneumonia HISTORY OF PRESENT ILLNESS: This is a 66-year-old male who was limited to the hospital with acute hypoxic respiratory failure secondary to COVID-19 pneumonia. Patient has required to be intubated and sedated. He is in the ICU. He was intubated on 05/10/2021. He did not receive his Covid immunization. Patient is currently at FiO2 90% with PEEP of 16. He remains intubated and sedated. Afebrile. Surgical service has been consult for tracheostomy and PEG tube placement. PAST MEDICAL HISTORY: See list. PAST SURGICAL HISTORY: See list. MEDICATIONS: See list. ALLERGIES: See list. SOCIAL HISTORY: No illicit drug use. REVIEW OF SYSTEMS: CONSTITUTIONAL: Denies fever or chills. HEENT: Denies blurred vision, vision changes, or eye pain. Denies hemoptysis CARDIOVASCULAR: Denies chest pain or pressure. RESPIRATORY: No shortness of breath. GASTROINTESTINAL: See HPI for pertinent findings HEMATOLOGIC: Denies bleeding disorders. GENITOURINARY: Denies any blood in urine or increased urinary frequency. SKIN: Denies pruitis. Denies rash. PHYSICAL EXAM: VITAL SIGNS: Reviewed GENERAL: Well-developed in no acute distress. HEENT: No sclera icterus. Extraocular movements grossly intact. Moist buccal mucosa. Head is atraumatic, normocephalic. No nasal drainage. ABDOMEN: Soft. Nondistended. Nontender NEUROLOGIC: Alert and oriented. Cranial nerves II through XII grossly intact. LABORATORY DATA: WBC is 11.9 hemoglobin 11.2 platelets 408 Sodium 139 potassium is 4 creatinine 0.92 glucose 167 Albumin 2.2 IMAGING: ASSESSMENT: 1. Acute hypoxic respiratory failure secondary to COVID-19 pneumonia 2. Severe protein calorie malnutrition PLAN: -Patient is scheduled for tracheostomy and PEG tube placement today with Dr. rolle -Continue ICU management -Continue supportive care Thank you for this consultation Physician Cemetery Warden note has been reviewed by physician. Signing provider agrees with the documented findings, assessment, and plan of care. Past Medical History Past Medical History: Coronary Artery Disease (CAD), Diabetes Mellitus, GERD/Reflux, Hyperlipidemia, Hypertension, Myocardial Infarction (MA), Sleep Apnea/CPAP/BIPAP, Thyroid Disorder Additional Past Medical History / Comment(s): hx migraines, hx gout, Obesity, DANIEL and the patient uses a CPAP machine Last Myocardial Infarction Date:: 1983 History of Any Multi-Drug Resistant Organisms: MRSA Year Discovered:: 2007 MDRO Source:: under left arm Past Surgical History: Back Surgery, Heart Catheterization With Stent, Joint Replacement, Pacemaker Additional Past Surgical History / Comment(s): 3 cardiac stents, left ankle tendon surgery, left knee "partial" replacement, radha shoulder surgery, rt hand surgery -laceration, laminectomy L5, cyst removed from back of neck, radha cataracts, Past Anesthesia/Blood Transfusion Reactions: No Reported Reaction Date of Last Stent Placement:: 2007 Type of Cardiac Device: Permanent Pacemaker Device Placement Date:: unknown Smoking Status: Never smoker - Past Family History Mother Family Medical History: Cancer Father Family Medical History: Cancer Medications and Allergies Home Medications Medication Instructions Recorded Confirmed Type Aspirin [Adult Low Dose Aspirin EC] 81 mg PO DAILY 10/22/17 05/02/21 History Enalapril [Vasotec] 20 mg PO DAILY 10/22/17 05/02/21 History hydrALAZINE HCL [Apresoline] 50 mg PO BID 10/22/17 05/02/21 History metFORMIN HCL [Glucophage] 1,000 mg PO BID 10/22/17 05/02/21 History Levothyroxine Sodium [Synthroid] 137 mcg PO DAILY 10/24/17 05/02/21 History Chlorthalidone 25 mg PO MOTH 01/22/18 05/02/21 History Losartan Potassium 100 mg PO DAILY 01/22/18 05/02/21 History Pioglitazone [Actos] 30 mg PO DAILY 01/22/18 05/02/21 History Atorvastatin Calcium [Lipitor] 10 mg PO HS 05/02/21 05/02/21 History Carvedilol [Coreg] 25 mg PO BID 05/02/21 05/02/21 History Ezetimibe [Zetia] 10 mg PO DAILY 05/02/21 05/02/21 History Glimepiride [Amaryl] 2 mg PO DAILY 05/02/21 05/02/21 History Allergies Allergy/AdvReac Type Severity Reaction Status Date / Time codeine AdvReac Nausea & Verified 05/02/21 22:39 Vomiting Surgical - Exam Vital Signs Temp Pulse Resp BP Pulse Ox 103.1 F H 100 24 146/79 90 L 05/02/21 19:38 05/02/21 19:38 05/02/21 19:38 05/02/21 19:38 05/02/21 19:38 Results - Labs 05/18/21 03:45 05/18/21 03:45 Abnormal Lab Results - Last 24 Hours (Table) 05/17/21 05/17/21 05/18/21 Range/Units 17:55 21:07 03:45 WBC 11.9 H (3.8-10.6) k/uL RBC 3.85 L (4.30-5.90) m/uL Hgb 11.2 L (13.0-17.5) gm/dL Hct 35.2 L (39.0-53.0) % Neutrophils # 10.5 H (1.3-7.7) k/uL Lymphocytes # 0.8 L (1.0-4.8) k/uL ABG pH (7.35-7.45) ABG pCO2 (35-45) mmHg ABG pO2 (83-108) mmHg ABG HCO3 (21-25) mmol/L ABG Total CO2 (19-24) mmol/L ABG O2 Saturation (94-97) % BUN (9-20) mg/dL Glucose (74-99) mg/dL POC Glucose (mg/dL) 189 H 180 H (75-99) mg/dL Calcium (8.4-10.2) mg/dL 05/18/21 05/18/21 05/18/21 Range/Units 03:45 05:33 06:12 WBC (3.8-10.6) k/uL RBC (4.30-5.90) m/uL Hgb (13.0-17.5) gm/dL Hct (39.0-53.0) % Neutrophils # (1.3-7.7) k/uL Lymphocytes # (1.0-4.8) k/uL ABG pH (7.35-7.45) ABG pCO2 (35-45) mmHg ABG pO2 62 L (83-108) mmHg ABG HCO3 30 H (21-25) mmol/L ABG Total CO2 31 H (19-24) mmol/L ABG O2 Saturation 92.3 L (94-97) % BUN 51 H (9-20) mg/dL Glucose 167 H (74-99) mg/dL POC Glucose (mg/dL) 132 H (75-99) mg/dL Calcium 8.1 L (8.4-10.2) mg/dL 05/18/21 05/18/21 Range/Units 09:33 11:19 WBC (3.8-10.6) k/uL RBC (4.30-5.90) m/uL Hgb (13.0-17.5) gm/dL Hct (39.0-53.0) % Neutrophils # (1.3-7.7) k/uL Lymphocytes # (1.0-4.8) k/uL ABG pH 7.28 L (7.35-7.45) ABG pCO2 67 H (35-45) mmHg ABG pO2 69 L (83-108) mmHg ABG HCO3 31 H (21-25) mmol/L ABG Total CO2 33 H (19-24) mmol/L ABG O2 Saturation 90.4 L (94-97) % BUN (9-20) mg/dL Glucose (74-99) mg/dL POC Glucose (mg/dL) 145 H (75-99) mg/dL Calcium (8.4-10.2) mg/dL Diabetes panel 05/18/21 Range/Units 03:45 Sodium 139 (137-145) mmol/L Potassium 4.0 (3.5-5.1) mmol/L Chloride 106 (98-107) mmol/L Carbon Dioxide 27 (22-30) mmol/L BUN 51 H (9-20) mg/dL Creatinine 0.92 (0.66-1.25) mg/dL Glucose 167 H (74-99) mg/dL Calcium 8.1 L (8.4-10.2) mg/dL Calcium panel 05/18/21 Range/Units 03:45 Calcium 8.1 L (8.4-10.2) mg/dL Pituitary panel 05/18/21 Range/Units 03:45 Sodium 139 (137-145) mmol/L Potassium 4.0 (3.5-5.1) mmol/L Chloride 106 (98-107) mmol/L Carbon Dioxide 27 (22-30) mmol/L BUN 51 H (9-20) mg/dL Creatinine 0.92 (0.66-1.25) mg/dL Glucose 167 H (74-99) mg/dL Calcium 8.1 L (8.4-10.2) mg/dL Adrenal panel 05/18/21 Range/Units 03:45 Sodium 139 (137-145) mmol/L Potassium 4.0 (3.5-5.1) mmol/L Chloride 106 (98-107) mmol/L Carbon Dioxide 27 (22-30) mmol/L BUN 51 H (9-20) mg/dL Creatinine 0.92 (0.66-1.25) mg/dL Glucose 167 H (74-99) mg/dL Calcium 8.1 L (8.4-10.2) mg/dL
[2021-05-18] MEDS ORDERED: SODIUM CHLORIDE 0.9% 1,000 ML IV ONE (14:43)
[2021-05-18] MEDS ORDERED: IV FLUID CONTINUATION 1,000 ML IV ONE (15:08)
--- NOTE | 2021-05-18 16:17 | P.OP ---
Date of Procedure: 05/18/21 Preoperative Diagnosis: Respiratory failure Postoperative Diagnosis: Respiratory failure Procedure(s) Performed: Tracheostomy Anesthesia: MEGAN Surgeon: Rei Sterling Estimated Blood Loss (ml): 5 Pathology: none sent Condition: stable Disposition: ICU Description of Procedure: The patient's placed on the bed in supine position. He was previously intubated. His neck was prepped and draped usual sterile fashion. A standard [place] incision was made at the neck. Then using cautery and subcutaneous tissue divided. The platysma divided. The strap muscles were divided midline. We plan traction placed the wound. wound. And then the trachea was exposed. The ADVICE LINE RN placed in a PEG tube in the right mainstem bronchus. The tracheotomy performed between the second and third tracheal rings. The endotracheal tube was then brought back under direct vision and then the #8 Portex extended length tracheostomy tube was placed into the trachea under direct vision. End tidal CO2 was confirmed. The balloon was inflated. The patient had to the ventilator. He was adequately ventilated. The skin incision was closed with 3- 0 nylon. The umbilical tape tracheotomy tie was applied. Patient tolerated the procedure well.
--- NOTE | 2021-05-18 17:53 | XR ---
EXAMINATION TYPE: XR chest 1V portable DATE OF EXAM: 05/18/2021 COMPARISON: Chest radiograph May 18, 2021 HISTORY: Tracheostomy and NGT placement. TECHNIQUE: Single frontal view of the chest is obtained. FINDINGS: There has been interval tracheostomy cannula placement. Gastric tube is seen coursing belo w the diaphragm with the distal tip not seen. Chest wall cardiac device with lead tips overlying the right atrium and right ventricle. Right upper extremity PICC the lead tip over the SVC. Cardiac silhouette is borderline enlarged similar to prior. Pulmonary vasculature is obscured. There is diffuse bilateral hazy opacity with air bronchograms increased from prior. Sizable pneumotho rax. IMPRESSION: 1. Diffuse bilateral airspace disease increased from prior. 2. Lines and tubes as above.
[2021-05-18 18:11] LABS: Glucose,Whole Blood 135 mg/dL (75-99)
[2021-05-18 20:28] LABS: Glucose,Whole Blood 167 mg/dL (75-99)
[2021-05-18] MEDS: ATORVASTATIN 10 MG TAB PO SCH (20:34)
[2021-05-19] MEDS: ARTIFICIAL TEARS-HYPROMELLOSE DROPS 15 ML BTL BOTH EYES SCH ×6 (00:07→20:38)
[2021-05-19] MEDS: PIPERACILLIN-TAZOBACTAM 3.375 GM in SODIUM CHLORIDE 0.9% 100 ML IVPB SCH (01:33)
[2021-05-19] MEDS: fentaNYL (PF) 2,500 MCG in SODIUM CHLORIDE 0.9% 200 ML IV SCH ×2 (01:34→14:40)
[2021-05-19 04:37] LABS: Basophils # (A) 0.1 k/uL (0-0.2); Basophils % (A) 0 %; Eosinophils % (A) 0 %; HCT 36.8 % (39.0-53.0); HGB 10.9 gm/dL (13.0-17.5); Hypochromasia Marked; Lymphocytes # (A) 0.6 k/uL (1.0-4.8); Lymphocytes % (A) 4 %; MCH 29.1 pg (25.0-35.0); MCHC 29.6 g/dL (31.0-37.0); Mean Platelet Volume 9.4; Monocytes # (A) 0.9 k/uL (0-1.0); Monocytes % (A) 5 %; Neutrophils # (A) 15.1 k/uL (1.3-7.7); Neutrophils % (A) 90 %; Platelet Count 474 k/uL (150-450); RBC 3.74 m/uL (4.30-5.90); RDW 13.4 % (11.5-15.5); WBC 16.9 k/uL (3.8-10.6)
[2021-05-19 04:49] LABS: Albumin 2.4 g/dL (3.5-5.0); C Reactive Protein 8.2 mg/dL (<1.0); Calcium 8.3 mg/dL (8.4-10.2); Potassium 5.8 mmol/L (3.5-5.1); Total Bilirubin 0.4 mg/dL (0.2-1.3); Total Protein 5.6 g/dL (6.3-8.2)
[2021-05-19 05:06] LABS: MCV 98.2 fL (80.0-100.0)
[2021-05-19 05:59] LABS: ABG Oxygen Saturation 92.1 % (94-97); ABG PO2 78 mmHg (83-108)
[2021-05-19 06:02] LABS: ABG PCO2 >120 mmHg (35-45); ABG PH 6.98 (7.35-7.45); Allen Test Performed? no
[2021-05-19] MEDS ORDERED: NOREPINEPHRIN 4 MG-0.9% NS PMX 4 MG/250 ML ML IV ONE (06:18)
[2021-05-19 06:53] LABS: Glucose,Whole Blood 201 mg/dL (75-99)
[2021-05-19] MEDS: INSULIN ASPART (NovoLOG) 100 UNIT/ML VIAL SQ SCH ×7 (07:02→21:13)
[2021-05-19] MEDS: LEVOTHYROXINE 137 MCG TAB PO SCH (07:02)
[2021-05-19] MEDS: INSULIN DETEMIR (LEVEMIR) 100 UNIT/ML SYR SQ SCH ×2 (07:02→21:11)
[2021-05-19] MEDS: CISATRACURIUM 200 MG in SODIUM CHLORIDE 0.9% 180 ML IV SCH (07:03)
[2021-05-19 07:41] LABS: ABG Base Excess -0.6 mmol/L; ABG HCO3 28 mmol/L (21-25); ABG Oxygen Saturation 95.9 % (94-97); ABG PO2 83 mmHg (83-108); ABG TCO2 31 mmol/L (19-24)
[2021-05-19 07:45] LABS: ABG PCO2 79 mmHg (35-45); ABG PH 7.16 (7.35-7.45); Allen Test Performed? no
[2021-05-19] MEDS: ALBUTEROL HFA INHALER INHALATION SCH ×4 (07:46→19:09)
--- NOTE | 2021-05-19 07:51 | XR ---
EXAMINATION TYPE: XR chest 1V portable DATE OF EXAM: 05/19/2021 COMPARISON: 05/18/2020 HISTORY: Shortness of breath TECHNIQUE: Single frontal view of the chest is obtained. FINDINGS: Tracheostomy tube, NG tube and cardiac device stable. PICC line noted. Diffuse interstitia l pattern bilateral infiltrate and pleural effusion. Heart enlarged. IMPRESSION: Stable diffuse pleural-parenchymal changes correlate for ARDS, diffuse pneumonia or pulm onary edema.
--- NOTE | 2021-05-19 09:27 | P.PN ---
Subjective Progress Note Date: 05/19/21 Principal diagnosis: Coronavirus pneumonia. Acute hypoxic respiratory failure secondary to COVID-19 pneumonia. On 05/04/2021 patient seen in follow-up on selective care unit. His oxygen demand has increased, he is currently on 100 percent nonrebreather, his oxygen saturations are ranging between 82 and 88%, is having low-grade fevers this afternoon, blood pressures stable. Inflammatory markers are improving on today's labs, LDH is down to 392, CRP is 6.0, pro calcitonin level was 0.32. D- dimer was 0.66. Blood cultures have been negative. Patient remains on dexamethasone 6 mg daily, he is on prophylactic dose Lovenox 40 mg daily. His chest x-ray point diffuse bilateral infiltrates that appear to be progress. Patient could not tolerate high flow nasal cannula and was desaturating on it. On today's evaluation of 05/05/2021 patient seen in follow-up on medical chou rgical floor. Overnight patient was placed on BiPAP support for worsening dyspnea and hypoxia, with pressures of 12/5, and FiO2 of 100%, and his pulse ox is around 89%. Patient is currently up in the chair, is short of breath with any exertion, he was started on bariticinib yesterday, and he continues on Decadron 6 mg daily, and Lovenox 80 mg once daily, his chest x-ray has been reviewed showing stable diffuse bilateral infiltrates. Today's labs have been reviewed, white blood cell count is not 7.9, hemoglobin is 12.6, his lymphocyte count is 1.27, electrolytes are within normal limits, B1 is 36, creatinine is 1.6, his LDH is up slightly to 560 from 392 one yesterday his labs, CRP is rela tively stable with 6.8. Pro-calcitonin level was 0.32. His had no fever or chills overnight, but cultures were negative. In view of his progressive oxygen demand and shortness of breath, we recommended transfer to the intensive care unit for closer monitoring On 05/06/2021 patient seen in follow-up in the intensive care unit where she was transferred yesterday from [facility]. in view of his worsening hypoxia, patient is currently on BiPAP support with pressures of 12/10 and FiO2 100%, his pulse ox is ranging between 86-91%, he sitting up in the recliner where he slept last night, he does not appear to be in any acute distress, however he does desaturate down to 68 when he removes the BiPAP mask even briefly to take a bite of food, or his medication. Is currently on IV fluids with 0.9, secondary to 20 ML per hour. He continues on Baricitinib 2 mg daily, and today is day 2 of treatment, in addition he is on IV Decadron 6 mg daily, is on prophylactic dose of Lovenox 40 mg daily, he is receiving when necessary doses of Ativan for anxiety and breathlessness. Today's chest x-ray has been reviewed showing diffuse bilateral infiltrates that are stable in appearance. Today's labs have been reviewed showing CBC within normal limits, electrolytes were unremarkable, BUN is 39, creatinine is 1.41. Inflammatory markers seems to have increased as far as LDH is up to 1792, and CRP is relatively stable 6.9. His d-dimer today is 0.59. He appears to be sleepy, but no acute distress, he is answering questions appropriately, denies any chest discomfort. He is been in his chair for the most part. His been using the urinal to urinate, he is trying to keep up his oral intake and take bites of food. No other acute events overnight. Reevaluated today on 05/07/2021, patient remains in the ICU, his pulmonary status is marginal at best. Patient is on BiPAP 08/03 he is also on 100% FiO2, with O2 saturation in the high 80s at best. Surprisingly however the patient seems to be in no distress, he is comfortable, sitting at a bedside chair, alert oriented 3, and I have increased his IPAP 14 instead of 12, patient seems to be extremely comfortable. Chest x-ray continues to show bilateral interstitial infiltrates. WBC count is 10.9 hemoglobin 13.9 d-dimer is 0.96 electrolytes are normal LDH 2092 and C-reactive protein is 6. Reevaluated today on 05/08/2021, remains in the ICU, remains on BiPAP, he is on IPAP of 14 and EPAP of 8 and FiO2 of 100%. Patient O2 saturation is marginal in the 80s most of the time. Surprisingly, the patient is not complaining of any shortness of breath, he seems to be comfortable, and relatively asymptomatic. Does not seem to be in distress. Chest x-ray is basically about the same, hence I ordered another Lasix dose to be given today 40 mg IV push 1, although BNP level is not elevated, but I would like to keep him on the dry side as much as p ossible. Patient remains on Lovenox 40 mg subcu daily, he is on Decadron, Glucerna was ordered, and he remains on baricitinib. CBC is relatively normal left lites are normal renal profile showed a BUN of 45 creatinine 1.16. Improving compared to his baseline on admission Reevaluated today on 05/09/2021, patient remains in the ICU, remains on BiPAP 09/04/100% FiO2 patient is basically about the same not much of a change noted over the last 24 hours. Chest x-ray is basically about the same. Patient seems to be comfortable, O2 saturations are marginal basically as high, 92%. Remains on Decadron, Lovenox, and on baricitinib WBC count is 12.3 hemoglobin is 14.1 lites are normal BUN is 53 creatinine 1.15, no Lasix was ordered today as the patient seems to be a bit prerenal On 05/11/2021 patient seen in follow-up in the intensive care unit, he was intubated and placed on mechanical ventilator yesterday on 05/10/2021 for worsening hypoxic respiratory failure, he currently remains sedated, and paralyzed on assist-control mode of ventilation with a rate of 30, tidal I was 450, FiO2 of 90% and PEEP of 15, this morning's blood gas shows pO2 of 86, pCO2 46, and pH of 7.36. He's currently on 0.9 normal saline at 75 ML per hour, fentanyl infusion is at 1 diana per kilo per minute, and then backs is at 1 diana per kilo per minute, and improving and is at 50 mics per kilo per minute, patient has not been started on tube feedings yet. He tolerated protein quite well, this morning he still proned. Today's chest x-ray shows diffuse bilateral lung disease which is stable in appearance, and ET tube at 1.5 cm above nata. Today's labs have been reviewed, showing white blood cell count of 16.1, hemoglobin is 12.1, d-dimer is 4.5, slightly obtunded from previous level, sodium is 141, potassium is 4.5, chloride is 109, CO2 is 24, BUN of 44, creatinine is 1.18, LDH is down to 1175, appendectomy level is still pending for today. Did have some intermittent fevers last night, with a T-max of 101.4F. Remains on Baricitinib, Decadron, and Lovenox 40 mg daily. On 05/12/2021 patient seen in follow-up in the intensive care unit, he remains intubated, sedated and paralyzed, on assist-control mode ventilation, with a rate of 30, tacrolimus 450, FiO2 60% and PEEP of 16, this morning's blood gas shows pO2 of 59, pCO2 49, pH is 7.35. Patient is currently on 0.9 normal saline at a rate of 75 ML per hour, fentanyl infusion is at 1 diana per kilo per minute, Nimbex is at 1 diana per kilo per minute, and improving and is at 30 mics per kilo per minute, he is receiving vital high protein at 40 ML per hour with a goal of 65, today's chest x-ray shows no evident pneumothorax, and bilateral airspace disease persistence. Patient tolerated protein well, however he did sustain some blistering in the shearing injury on his face, in his abdomen. He is currently back in the supine position. He is hemodynamically stable, in sinus mechanism with a rate of 64, not requiring any vasopressor support, his FiO2 was dropped down to 60% from 90% from yesterday. He is afebrile. His d-dimer today is 3.10, LDH is 985, and CRP is 16.1, pro-calcitonin level was 0.51. he is on Olumiant, Lovenox 40 mg twice daily, and Decadron 6 mg daily. He has been tolerating tube feedings, no other acute issues overnight. The patient is seen today 05/13/2021 in follow-up in the intensive care unit. He remains intubated on mechanical ventilator. Currently in assist-control mode at a rate of 36, tidal volume 400, FiO2 60% and a PEEP of 16. Peak airway pressure 43. Morning blood gases revealed a PaO2 of 69, pCO2 57, pH 7.28. Currently sedated on to prevent at 30 mcg/kg/m. Nimbex at 1 mcg/kg/m. Fentanyl 1 g per hour. 0.9 normal saline at 75 ML's per hour. He is being nourished with tube feeds via vital HP at 50 MLS per hour with a goal of 65 ML's per hour. He remains in sinus rhythm. He has been proned as tolerated. There has been having issues with Endotracheal tube balloon leaking. This will be changed out by anesthesia today. Chest x-ray continues to show ARDS with bilateral in terstitial and airspace disease. White count 12.5. Hemoglobin 11.9. Lymphocyte 0.6. D-dimer 2.52. Sodium 138. Potassium 4.7. Creatinine 1.03. Glucose 288. LDH 812. C-reactive protein 6.8. He remains on Baricitinib, Ecotrin, Lovenox, vitamin supplements. Reevaluated today on 05/14/2021, patient remains in the ICU, intubated and mechanically ventilated. He is on assist control rate of 36 tidal volume 4:30 FiO2 of 60% PEEP of 16. ABG showed a pO2 of 60 pCO2 44 pH of 7.39. Patient rem ains on propofol at 30 Nimbex at 1 and fentanyl at 2 mcg/kg/h. Patient had his endotracheal tube change yesterday by anesthesia because there was a significant leak. Today there is no evidence of leaking from the endotracheal tube. Peak airway pressure remains high at 37, plateau pressure is in the low 30s. His x- ray continues to be about the same, continues to have bilateral interstitial infiltrates. WBC count today is 12.8 hemoglobin is 11.9. D-dimer is 2.29. Slightly lower compared to the last 4 days. LDH is down to 760 and C-reactive protein is 6.7 Reevaluated today on 05/15/2021, patient remains in the ICU, intubated and mechanically ventilated. He is on assist control rate of 36 tidal volume 430 FiO2 70% and PEEP of 16 ABG showed a pO2 of 56 pCO2 43 pH of 7.41. Remains on N imbex at 1 mcg/kg/m, fentanyl at 2 mcg/kg/h, propofol at 30 mcg/kg/m, IV fluid at 0.9 normal saline 75 mL/h receiving vital HP at 50/50. Not much of a change noted on the chest x-ray today, not much of a change noted in his clinical status over the last 24 hours. Patient had poor tolerance to proning, hence no further proning was done d-dimer today is 1.72, CBC is relatively normal. Electrolytes are normal. Renal profile is normal. C-reactive protein is 7.3. Not to changing much in the last 3 days. No LDH done today. Liver enzymes are normal Progress note dated 05/16/2021. The patient is again seen in the intensive care unit, room 260. The patient was admitted to the hospital on May 02. He came to the intensive care unit on May 05. He came with acute hypoxemic respiratory failure secondary to coronavirus associated pneumonia. The patient was intubated on May 10, and had a change of his endotracheal tube, on May 13. The patient remains in the intensive care unit on the ventilator. He is on the volume assist control mode, rate 36, tidal [place] 4:30, FiO2 90%, and PEEP of 16. Blood gases show pO2 of 55, pCO2 47, and pH is 7.37. Those blood gases were done on 80%. The patient did receive both the Decadron and Lovenox. He was not a candidate for REM. He did receive some WENDY, but it was subsequently discontinued. Currently, the patient's getting saline at 75 mL an hour, a fentanyl drip at 2 mcg/kg/h, Nimbex drip at 1 mcg/kg/m, propofol at 30 mcg/kg/m, vital high protein at 50 mL an hour, which is goal, and Cleveprex at 2 mg an hour. Lab data includes a white count of 13.1, hemoglobin 11.4, hematocrit 34.4, platelet count 448,000. Sodium 139, potassium 4.3, chlorides 110, CO2 26, anion gap 3, BUN 45, and creatinine 0.82. Chest x-ray is consistent with diffuse bilateral infiltrates. Progress note dated 05/17/2021. 66-year-old male, seen in the intensive care unit, room 260. The patient was admitted to the hospital on May 02, and came to the intensive care unit on May 05. Because of acute hypoxemic respiratory failure and coronavirus associated pneumonia, the patient was intubated on May 10 and had a change in his endotracheal tube on May 13 he remains on the ventilator. He is on the volume assist control mode rate of 36, tidal volume 4:30, FiO2 90%, and PEEP of 16. Blood gases show a pO2 of 58, pCO2 47, and pH is 7.37. The patient is currently on Cleveprex 2 mg an hour, Nimbex at 1 mcg/kg/m, propofol at 30 mcg/kg/m, fentanyl at 2 mcg/kg/h, saline at 75 mL an hour, and vital high protein at 50 mL an hour, which is goal. We are going to give the patient some Lasix 40 mg IV push to 12 hours, as the appears that looking at his I's and O's over the last number of days, the patient has been receiving quite a bit of fluids. Current labs include a white count of 13, hemoglobin 10.9, hematocrit 34.6, and platelet count 383,000. Sodium 139, potassium 4.5, chlorides 109, CO2 25, anion gap 5, BUN 52, and creatinine 0.96. Albumin is 2.2. Progress note dated 05/18/2021. 66-year-old male, again seen in the intensive care unit, room 260. The patient was admitted to the hospital on May 02 and came to the intensive care unit on May 05. Because of coronavirus associated pneumonia, the patient developed acute hypoxemic respiratory failure and required intubation on May 10, and a change in his endotracheal tube on May 13, because of a ruptured sdv pilot/navigator/dds operator balloon. Currently, the patient remains on the ventilator. He is on the volume assist control mode, rate 36, tidal volume 430, FiO2 90%, PEEP of 16. Arterial blood gases show a PaO2 of 62, pCO2 45, pH is 7.43. The patient will be tried on pressure assist control modality, with an inspiratory pressure of 20 cm water, and an inspiratory time, 0.9 seconds. He blood gas will be done an hour after the change. Currently, the patient's on propofol at 30 mcg/kg/m, Cleveprex at 1 mg an hour, Nimbex at 1.5 mcg/kg/m, saline at 75 mL an hour, to be reduced down to KVO, fentanyl at 2 mcg/kg/h, and vital high pro tein at 38 mL an hour, which is goal. White count 11.9, hemoglobin 11.2, hematocrit 35.2, and platelet count 408,000. Sodium 139, potassium 4, chlorides 106, CO2 27, anion gap 6, BUN 51, and creatinine 0.92. The repeat blood gas after switched to a pressure assist control modality, shows a pO2 of 69, a pCO2 of 67, and a pH is 7.28. These blood gases are perfectly okay, and the mild acidosis, moves the oxyhemoglobin dissociation curve to the right. Chest x-ray shows diffuse bilateral infiltrates consistent with acute respiratory distress syndrome. Progress note dated 05/19/2021. 66-year-old male seen again in the ICU, room 260. The patient was admitted to the hospital on May 02 and came to the intensive care unit on May 05. Because of coronavirus associated pneumonia, and acute hypoxemic respiratory failure, patient was intubated on May 10. The patient had his en dotracheal tube changed out on May 13. The patient remains on the ventilator. Yesterday, we switch the patient to pressure assist control modality, with a inspiratory pressure of 20 cm of water, and inspiratory time of 0.9 seconds. I forcefully, his blood gases this morning were very poor showing a pO2 of 78, a CO2 of greater than 120, and a pH is 6.98. The patient was converted back to I am assist control, with settings of rate 36, tidal volume 350, FiO2 100%, and PEEP of 16. Blood gases afterwards, show pO2 of 83, pCO2 79, and a pH is 7.2. Currently, the patient's on Nimbex at 2 mcg/kg/m, propofol at 40 mcg/kg/m, fentanyl 1 mcg/kg/h, norepinephrine at 10 mcg/m, saline at KVO, and vital high protein at 38 mL an hour, which is goal. White count 16.9, hemoglobin 10.9, hematocrit 36.8, and platelet count 474,000. Sodium 140, potassium 5.8, chlorides 105, CO2 31, anion gap 4, BUN 61, creatinine 1.39. LDH 769. Albumin 2.4. Repeat coronavirus test was positive. Chest x-ray again shows diffuse bilateral infiltrates, which are essentially unchanged. Objective - Vital Signs Vital signs: Vital Signs Temp 97.5 F L 05/19/21 04:00 Pulse 68 05/19/21 07:00 Resp 35 H 05/19/21 07:00 BP 96/61 05/19/21 07:00 Pulse Ox 93 L 05/19/21 07:00 Intake & Output 05/18/21 05/19/2121 18:59 06:59 18:59 Intake Total 2716.252 1471.121 98.073 Output Total 1000 710 40 Balance 1716.252 761.121 58.073 Weight 142.5 kg 145.4 kg Intake: IV 1950 276 23 Pressure bag 45 36 3 Sodium Chloride 0.9% 1, 405 240 20 000 ml @ 20 mls/hr IV . Q24H [facility] Rx#:[id number] Sodium Chloride 0.9% 1, 1000 000 ml @ 999 mls/hr IV . Q1H1M [facility] Rx#:[id number] Intake, IV Titration 584.252 687.121 7.073 Amount Cisatracurium 200 mg In 161.285 7.073 Sodium Chloride 0.9% 180 ml @ 1 MCG/KG/MIN 7.578 mls/hr IV .Q24H [facility] Rx#: [id number] Clevidipine Butyrate 25 4.733 mg In Empty Bag 1 bag @ 1 MG/HR 2 mls/hr IV .Q24H [facility] Rx#:[id number] Norepinephrine 8 mg In 0.57 Sodium Chloride 0.9% 250 ml @ 0.05 MCG/KG/MIN 12. 22 mls/hr IV .Q21H7M [facility] Rx#:[id number] fentaNYL (PF) 2,500 mcg 302.752 197.248 In Sodium Chloride 0.9% 200 ml @ Per Protocol IV .Q0M [facility] Rx#:[id number] propofoL 1,000 mg In 276.767 328.018 Empty Bag 1 bag @ Titrate IV .Q0M [facility] Rx#: [id number] Tube Feeding 152 418 38 Other 30 90 30 Output: Urine 975 710 40 Estimated Blood Loss 25 Other: Voiding Method Indwelling Catheter Indwelling Catheter ABP, PAP, CO, CI - Last Documented Arterial Blood Pressure 100/53 - Exam No acute distress, with a midline tracheostomy tube, inserted May 18, the patient is heavily sedated and paralyzed. HEENT examination is grossly unremarkable. Neck supple. Full range of motion. No adenopathy thyromegaly or neck vein distention. Cardiovascular examination reveals regular rhythm and rate. S1-S2 normal. No S3 or S4. No discernible murmur noted. Heart sounds are distant. Heart rate 69 bpm. Lungs reveal coarse bilateral rhonchi. Breath sounds are diminished. No wheezes or crackles. Breath sounds equal bilaterally. Saturations are between 89-93%. Abdomen soft, with bowel sounds. No masses noted. Extremities are intact. No cyanosis clubbing or edema. Skin is without rash or lesion. Neurologic examination cannot be adequately assessed as the patient's currently sedated and paralyzed. - Labs CBC & Chem 7: 05/19/21 04:05 05/19/21 04:05 Labs: Abnormal Lab Results - Last 24 Hours (Table) 05/18/21 05/18/21 05/18/21 Range/Units 09:33 11:19 18:09 WBC (3.8-10.6) k/uL RBC (4.30-5.90) m/uL Hgb (13.0-17.5) gm/dL Hct (39.0-53.0) % MCHC (31.0-37.0) g/dL Plt Count (150-450) k/uL Neutrophils # (1.3-7.7) k/uL Lymphocytes # (1.0-4.8) k/uL D-Dimer (<0.60) mg/L FEU ABG pH 7.28 L (7.35-7.45) ABG pCO2 67 H (35-45) mmHg ABG pO2 69 L (83-108) mmHg ABG HCO3 31 H (21-25) mmol/L ABG Total CO2 33 H (19-24) mmol/L ABG O2 Saturation 90.4 L (94-97) % Potassium (3.5-5.1) mmol/L Carbon Dioxide (22-30) mmol/L BUN (9-20) mg/dL Creatinine (0.66-1.25) mg/dL Glucose (74-99) mg/dL POC Glucose (mg/dL) 145 H 135 H (75-99) mg/dL Calcium (8.4-10.2) mg/dL ALT (4-49) U/L Lactate Dehydrogenase (313-618) U/L C-Reactive Protein (<1.0) mg/dL Total Protein (6.3-8.2) g/dL Albumin (3.5-5.0) g/dL Coronavirus (PCR) (Not Detectd) 05/18/21 05/19/21 05/19/21 Range/Units 20:27 04:05 04:05 WBC 16.9 H (3.8-10.6) k/uL RBC 3.74 L (4.30-5.90) m/uL Hgb 10.9 L (13.0-17.5) gm/dL Hct 36.8 L (39.0-53.0) % MCHC 29.6 L (31.0-37.0) g/dL Plt Count 474 H (150-450) k/uL Neutrophils # 15.1 H (1.3-7.7) k/uL Lymphocytes # 0.6 L (1.0-4.8) k/uL D-Dimer 2.12 H (<0.60) mg/L FEU ABG pH (7.35-7.45) ABG pCO2 (35-45) mmHg ABG pO2 (83-108) mmHg ABG HCO3 (21-25) mmol/L ABG Total CO2 (19-24) mmol/L ABG O2 Saturation (94-97) % Potassium (3.5-5.1) mmol/L Carbon Dioxide (22-30) mmol/L BUN (9-20) mg/dL Creatinine (0.66-1.25) mg/dL Glucose (74-99) mg/dL POC Glucose (mg/dL) 167 H (75-99) mg/dL Calcium (8.4-10.2) mg/dL ALT (4-49) U/L Lactate Dehydrogenase (313-618) U/L C-Reactive Protein (<1.0) mg/dL Total Protein (6.3-8.2) g/dL Albumin (3.5-5.0) g/dL Coronavirus (PCR) (Not Detectd) 05/19/21 05/19/21 05/19/21 Range/Units 04:05 04:05 05:43 WBC (3.8-10.6) k/uL RBC (4.30-5.90) m/uL Hgb (13.0-17.5) gm/dL Hct (39.0-53.0) % MCHC (31.0-37.0) g/dL Plt Count (150-450) k/uL Neutrophils # (1.3-7.7) k/uL Lymphocytes # (1.0-4.8) k/uL D-Dimer (<0.60) mg/L FEU ABG pH 6.98 L* (7.35-7.45) ABG pCO2 >120 H* (35-45) mmHg ABG pO2 78 L (83-108) mmHg ABG HCO3 (21-25) mmol/L ABG Total CO2 (19-24) mmol/L ABG O2 Saturation 92.1 L (94-97) % Potassium 5.8 H (3.5-5.1) mmol/L Carbon Dioxide 31 H (22-30) mmol/L BUN 61 H (9-20) mg/dL Creatinine 1.39 H (0.66-1.25) mg/dL Glucose 215 H (74-99) mg/dL POC Glucose (mg/dL) (75-99) mg/dL Calcium 8.3 L (8.4-10.2) mg/dL ALT 57 H (4-49) U/L Lactate Dehydrogenase 769 H (313-618) U/L C-Reactive Protein 8.2 H (<1.0) mg/dL Total Protein 5.6 L (6.3-8.2) g/dL Albumin 2.4 L (3.5-5.0) g/dL Coronavirus (PCR) Detected A (Not Detectd) 05/19/21 05/19/21 Range/Units 06:50 07:39 WBC (3.8-10.6) k/uL RBC (4.30-5.90) m/uL Hgb (13.0-17.5) gm/dL Hct (39.0-53.0) % MCHC (31.0-37.0) g/dL Plt Count (150-450) k/uL Neutrophils # (1.3-7.7) k/uL Lymphocytes # (1.0-4.8) k/uL D-Dimer (<0.60) mg/L FEU ABG pH 7.16 L* (7.35-7.45) ABG pCO2 79 H* (35-45) mmHg ABG pO2 (83-108) mmHg ABG HCO3 28 H (21-25) mmol/L ABG Total CO2 31 H (19-24) mmol/L ABG O2 Saturation (94-97) % Potassium (3.5-5.1) mmol/L Carbon Dioxide (22-30) mmol/L BUN (9-20) mg/dL Creatinine (0.66-1.25) mg/dL Glucose (74-99) mg/dL POC Glucose (mg/dL) 201 H (75-99) mg/dL Calcium (8.4-10.2) mg/dL ALT (4-49) U/L Lactate Dehydrogenase (313-618) U/L C-Reactive Protein (<1.0) mg/dL Total Protein (6.3-8.2) g/dL Albumin (3.5-5.0) g/dL Coronavirus (PCR) (Not Detectd) Assessment and Plan Assessment: Acute hypoxemic respiratory failure secondary to coronavirus infection/pneumonia, with intubation and mechanical ventilation beginning on May 10. Status post tracheostomy tube placement on May 18. Acute respiratory distress syndrome. Coronary artery disease, with previous coronary artery stenting. Status post permanent pacemaker insertion. History of essential hypertension. History of hyperlipidemia. History of obstructive sleep apnea syndrome, on CPAP. Migraine cephalgia. Acute on chronic kidney disease. Obesity, BMI 42.3. Hypothyroidism. Plan: Plan dated 05/16/2021. The patient is currently on 90% oxygen, and PEEP of 16. The patient is also being sedated with propofol, receiving narcotics in the form of fentanyl, and is chemically paralyzed with Nimbex. The patient is receiving appropriate medications. This includes Lovenox, and Decadron. The patient is being nourished, at goal, with vital high protein. Additional recommendations and suggestions are forthcoming. Prognosis is guarded. The patient doesn't show any significant improvements, he may be headed towards tracheostomy. We will continue to follow make recommendations where appropriate. A pro-calcitonin level will be done, and if normal, antibiotics will be discontinued. The patient is currently on Zosyn. Plan dated 05/17/2021. The patient will get Lasix 40 mg IV push every 12 hours. We will attempt to wean the current medications that he is on including the fentanyl, and Nimbex, if possible. In addition, it blood pressure is more stable, we will wean the Cleveprex. The patient's overall condition is quite complex, and his prognosis is very guarded. If the patient does not make any progress towards weaning and extubation, he will likely require a tracheostomy and PEG tube by the end of the week. The patient remains on Zosyn, and the microbiologic studies have been all negative. Plan dated 05/18/2021. The patient may end up getting his tracheostomy and PEG tube placed today. The patient was converted over to pressure assist control, with inspiratory pressure of 20 cm water, and inspiratory time of 0.9 seconds. Repeat blood gases are more than adequate. The patient remains on propofol, Cleveprex, Nimbex, fentanyl, and tube feeds. The patient's overall prognosis is guarded. Microbiology is currently negative. Pro-calcitonin level is 0.17 and 0.15. The patient's Zosyn can be discontinued tomorrow. We will continue to follow make recommendations where appropriate. For the time being, the patient will stay on pressure assist control modality. Plan dated 05/19/2021. The patient did have a tracheostomy tube performed on May 18. The patient did not tolerate pressure assist control mode switch back to volume assist control. Repeat blood gases are much improved. The patient remains on Nimbex, propofol, fentanyl, norepinephrine, and saline at KVO. The patient is receiving enteral nutrition with vital high protein at goal. Additional recommendations and suggestions are forthcoming. Overall prognosis remains very guarded. Microbiologic data is negative. The patient's Zosyn will be discontinued today. Time with Patient: Greater than 30
[2021-05-19] MEDS: hydrALAZINE HCL 50 MG TAB NG-TUBE SCH ×2 (09:42→20:17)
[2021-05-19] MEDS: CHLORHEXIDINE GLUCONATE 15 ML CUP MUCOUS MEM SCH ×2 (09:51→21:11)
[2021-05-19] MEDS: ASPIRIN 81 MG PO SCH (09:51)
[2021-05-19] MEDS: PANTOPRAZOLE 40 MG/10 ML VIAL IVP SCH (09:51)
[2021-05-19] MEDS: FUROSEMIDE 10 MG/ML 4 ML VIAL IV SCH ×2 (09:51→21:11)
[2021-05-19] MEDS: DEXAMETHASONE SOD PHOSPHATE 10 MG/ML 1 ML VIAL IV SCH (09:51)
[2021-05-19] MEDS: ENOXAPARIN 40 MG/0.4 ML SYRINGE SQ SCH ×2 (09:51→20:16)
[2021-05-19] MEDS: NOREPINEPHRINE 8 MG in SODIUM CHLORIDE 0.9% 250 ML IV SCH (09:53)
[2021-05-19] MEDS: EZETIMIBE 10 MG TAB PO SCH (09:54)
[2021-05-19] MEDS: ESCITALOPRAM 10 MG TAB PO SCH (09:54)
[2021-05-19 12:34] LABS: Glucose,Whole Blood 137 mg/dL (75-99)
--- NOTE | 2021-05-19 13:35 | P.PN ---
Subjective Progress Note Date: 05/19/21 This is 66-year-old gentleman admitted with acute hypoxic respiratory failure secondary to COVID-19 infection. Afebrile. Maintained on Covid cocktail, including Decadron IV.Inflammatory markers trending down.He stated this morning with exertion from 88% tone to 75%. Currently placed on 6 L nasal cannula, O2 sat pending. Chest x-ray reporting progression of diffuse bilateral infiltrates.Blood sugars uncontrolled, A1c 9.1. 05/05/2021 respiratory status worsened yesterday, requiring nonrebreather. Th roughout the night, increased anxiety, patient pulling off masks, requiring minimal of 45 minutes to recover O2 saturation. Xanax initiated for anxiety, patient unable to tolerate, reported nausea/ vomiting. Received Ativan, tolerated well. Currently on BiPAP maintaining O2 sats in the 80s. Continues on Covid regimen. Renal function trending up, creatinine 1.6. Denies chest pain, palpitations. 05/06/2021 transferred into the ICU yesterday afternoon related to worsening hypoxia on BiPAP. Slept in the recliner, maintaining O2 sats mid 80s to low 90s. Chest x-ray reporting persistent bilateral infiltrates. Reports feels less shortness of breath, less anxiety on oral Ativan. Maintained on Covid regimen including Baricitinib. Inflammatory markers increased with the exception of d-dimer. Afebrile, normal WBC. Yesterday GHADA inhibitor, Cozaar discontinued, hydralazine increased secondary to worsening renal function-renal function improving. Hyperglycemic, blood sugars in the mid to low 200s. 05/09/2021 remains on 100% BiPAP, chest x-ray reporting stable diffuse predominant interstitial infiltrates. T-max 99.1, WBC 12.3. continues on Covid regimen including Olumiant. Reports anxiety, depression. BUN 53, creatinine 1.15. Blood sugars elevated. 05/10/2021 maintained on COVID cocktail, including Baricitinib. Continues on 100% BiPAP, maintaining O2 sat 76-79%, respiratory rate in the 20s. ABGs ordered. Chest x-ray reporting persistent diffuse pulmonary infiltrates. Te lemetry sinus rhythm. T-max 100.4, WBC increased to 15.4. Blood sugars controlled. Renal function improving. 05/11/21 patient seen in follow-up in the intensive care unit, he was intubated and placed on mechanical ventilator yesterday on 05/10/2021 for worsening hypoxic respiratory failure.. Pt is currently prone in bed during exam. 05/12/2021 and ABGs reporting pO2 59, FiO2 increased to 70%/+15 Peep. Maintained on fentanyl, diprovan, Nimbex drips. Chest x-ray reporting similar appearance, persistent bilateral airspace disease. Maintained on Covid regimen including Baricitinib and Decadron. Blood sugars elevated, in the 200s this morning. D-dimer, LDH decreasing. CRP increased, 16.1. 05/13/2021 FiO2 of 50%/+15 of PEEP. Cuff leak present.Chest x-ray reporting bilateral interstitial and airspace disease. Continues on Nimbex, diprovan fentanyl. Continues on Covid regimen with Decadron,Baricitinib. Blood sugars in the 200s. BUN 50, creatinine 1.03. Inflammatory markers trending down. Afebrile, and WBC trending down, 12.5. 05/16/2021 endotracheal tube changed on 05/13 secondary to cuff leak. ABGs noted with pCO2 55. FiO2 increased to 90, PEEP +16. Maintained on fentanyl, Nimbex, diprovan and Cleviprex drips. Continues on IV fluid hydration of 0.9 at 75 MLS per hour. Chest x-ray reporting no significant change, bilateral airspace disease persists. Afebrile, WBC 13.1. Tolerating tube feeds with minimal to no residuals. Blood sugars currently ranging 180-200. 05/17/2021 FiO2 90% and PEEP 16. Maintained on Cleviprex, Nimbex, propofol, fentanyl drips as well as IV fluid hydration with saline. Puffy extremities, 24-hour I&O reflecting a positive fluid balance. Tolerating tube feeds at goal with minimal to no residual. Continues on Zosyn. Afebrile, WBC 13. Hemoglobin 10.9, platelets 383. 05/18/2021 FiO2 90%/+16 of PEEP. Currently on pressure control with ABGs in 1 hour. Chest x-ray reporting similar bilateral airspace disease.Telemetry sinus rhythm. Continues on fentanyl ,Nimbex, diprovan and Cleviprex drips. Afebrile, WBC count 11.9.Tracheostomy and PEG tube placement pending. 05/19/21 tracheostomy performed yesterday, postop day #1. FiO2 100%/+16 of PEEP continues on Nimbex, diprovan and fentanyl drips with Levophed initiated during the night. Tolerating tube feeds at goal with minimal to no residuals. Repeat coronavirus positive. Chest x-ray reporting stable diffuse interstitial bilateral infiltrates and pleural effusion, enlarged heart. Creatinine worsening, 1.39. Objective - Vital Signs Vital signs: Vital Signs Temp 97.5 F L 05/19/21 04:00 Pulse 68 05/19/21 07:00 Resp 35 H 05/19/21 07:00 BP 96/61 05/19/21 07:00 Pulse Ox 93 L 05/19/21 07:00 Intake & Output 05/18/21 05/19/21 05/19/21 18:59 06:59 18:59 Intake Total 2716.252 1471.121 98.073 Output Total 1000 710 40 Balance 1716.252 761.121 58.073 Weight 142.5 kg 145.4 kg Intake: IV 1950 276 23 Pressure bag 45 36 3 Sodium Chloride 0.9% 1, 405 240 20 000 ml @ 20 mls/hr IV . Q24H [facility] Rx#:[id number] Sodium Chloride 0.9% 1, 1000 000 ml @ 999 mls/hr IV . Q1H1M [facility] Rx#:[id number] Intake, IV Titration 584.252 687.121 7.073 Amount Cisatracurium 200 mg In 161.285 7.073 Sodium Chloride 0.9% 180 ml @ 1 MCG/KG/MIN 7.578 mls/hr IV .Q24H [facility] Rx#: [id number] Clevidipine Butyrate 25 4.733 mg In Empty Bag 1 bag @ 1 MG/HR 2 mls/hr IV .Q24H [facility] Rx#:[id number] Norepinephrine 8 mg In 0.57 Sodium Chloride 0.9% 250 ml @ 0.05 MCG/KG/MIN 12. 22 mls/hr IV .Q21H7M [facility] Rx#:[id number] fentaNYL (PF) 2,500 mcg 302.752 197.248 In Sodium Chloride 0.9% 200 ml @ Per Protocol IV .Q0M [facility] Rx#:[id number] propofoL 1,000 mg In 276.767 328.018 Empty Bag 1 bag @ Titrate IV .Q0M [facility] Rx#: [id number] Tube Feeding 152 418 38 Other 30 90 30 Output: Urine 975 710 40 Estimated Blood Loss 25 Other: Voiding Method Indwelling Catheter Indwelling Catheter ABP, PAP, CO, CI - Last Documented Arterial Blood Pressure 100/53 - Exam PHYSICAL EXAM: GENERAL EXAM: Intubated, sedated and paralyzed. HEENT: Normocephalic/atraumatic.Normal reaction of pupils, equal size. Conjunctiva pink, sclera white. NECK: Supple, no JVD CHEST: No chest wall deformity. Symmetrical expansion. LUNGS: Equal air entry with coarse rhonchi with bilateral bases diminished. CVS: Regular rate and rhythm, normal S1 and S2, no gallops, no murmurs, no rubs ABDOMEN: Soft, nondistended, no masses palpable, normal bowel sounds. EXTREMITIES: Mild puffiness/edema, no cyanosis, 2+ pulses and upper and lower extremities. SKIN: Warm and dry, No rashes CENTRAL NERVOUS SYSTEM: Sedated, intubated and paralyzed. Microbiology 05/15/21 21:23 Blood Blood Fungal Culture - Preliminary 05/15/21 15:30 Trachea Fungal Culture - Preliminary 05/02/21 20:30 Blood Blood Culture - Final No Growth after 144 hours 05/02/21 20:30 Blood Blood Culture - Final No Growth after 144 hours - Labs CBC & Chem 7: 05/19/21 04:05 05/19/21 04:05 Labs: Abnormal Lab Results - Last 24 Hours (Table) 05/18/21 05/18/21 05/18/21 Range/Units 09:33 11:19 18:09 WBC (3.8-10.6) k/uL RBC (4.30-5.90) m/uL Hgb (13.0-17.5) gm/dL Hct (39.0-53.0) % MCHC (31.0-37.0) g/dL Plt Count (150-450) k/uL Neutrophils # (1.3-7.7) k/uL Lymphocytes # (1.0-4.8) k/uL D-Dimer (<0.60) mg/L FEU ABG pH 7.28 L (7.35-7.45) ABG pCO2 67 H (35-45) mmHg ABG pO2 69 L (83-108) mmHg ABG HCO3 31 H (21-25) mmol/L ABG Total CO2 33 H (19-24) mmol/L ABG O2 Saturation 90.4 L (94-97) % Potassium (3.5-5.1) mmol/L Carbon Dioxide (22-30) mmol/L BUN (9-20) mg/dL Creatinine (0.66-1.25) mg/dL Glucose (74-99) mg/dL POC Glucose (mg/dL) 145 H 135 H (75-99) mg/dL Calcium (8.4-10.2) mg/dL ALT (4-49) U/L Lactate Dehydrogenase (313-618) U/L C-Reactive Protein (<1.0) mg/dL Total Protein (6.3-8.2) g/dL Albumin (3.5-5.0) g/dL Coronavirus (PCR) (Not Detectd) 05/18/21 05/19/21 05/19/21 Range/Units 20:27 04:05 04:05 WBC 16.9 H (3.8-10.6) k/uL RBC 3.74 L (4.30-5.90) m/uL Hgb 10.9 L (13.0-17.5) gm/dL Hct 36.8 L (39.0-53.0) % MCHC 29.6 L (31.0-37.0) g/dL Plt Count 474 H (150-450) k/uL Neutrophils # 15.1 H (1.3-7.7) k/uL Lymphocytes # 0.6 L (1.0-4.8) k/uL D-Dimer 2.12 H (<0.60) mg/L FEU ABG pH (7.35-7.45) ABG pCO2 (35-45) mmHg ABG pO2 (83-108) mmHg ABG HCO3 (21-25) mmol/L ABG Total CO2 (19-24) mmol/L ABG O2 Saturation (94-97) % Potassium (3.5-5.1) mmol/L Carbon Dioxide (22-30) mmol/L BUN (9-20) mg/dL Creatinine (0.66-1.25) mg/dL Glucose (74-99) mg/dL POC Glucose (mg/dL) 167 H (75-99) mg/dL Calcium (8.4-10.2) mg/dL ALT (4-49) U/L Lactate Dehydrogenase (313-618) U/L C-Reactive Protein (<1.0) mg/dL Total Protein (6.3-8.2) g/dL Albumin (3.5-5.0) g/dL Coronavirus (PCR) (Not Detectd) 05/19/21 05/19/21 05/19/21 Range/Units 04:05 04:05 05:43 WBC (3.8-10.6) k/uL RBC (4.30-5.90) m/uL Hgb (13.0-17.5) gm/dL Hct (39.0-53.0) % MCHC (31.0-37.0) g/dL Plt Count (150-450) k/uL Neutrophils # (1.3-7.7) k/uL Lymphocytes # (1.0-4.8) k/uL D-Dimer (<0.60) mg/L FEU ABG pH 6.98 L* (7.35-7.45) ABG pCO2 >120 H* (35-45) mmHg ABG pO2 78 L (83-108) mmHg ABG HCO3 (21-25) mmol/L ABG Total CO2 (19-24) mmol/L ABG O2 Saturation 92.1 L (94-97) % Potassium 5.8 H (3.5-5.1) mmol/L Carbon Dioxide 31 H (22-30) mmol/L BUN 61 H (9-20) mg/dL Creatinine 1.39 H (0.66-1.25) mg/dL Glucose 215 H (74-99) mg/dL POC Glucose (mg/dL) (75-99) mg/dL Calcium 8.3 L (8.4-10.2) mg/dL ALT 57 H (4-49) U/L Lactate Dehydrogenase 769 H (313-618) U/L C-Reactive Protein 8.2 H (<1.0) mg/dL Total Protein 5.6 L (6.3-8.2) g/dL Albumin 2.4 L (3.5-5.0) g/dL Coronavirus (PCR) Detected A (Not Detectd) 05/19/21 05/19/21 Range/Units 06:50 07:39 WBC (3.8-10.6) k/uL RBC (4.30-5.90) m/uL Hgb (13.0-17.5) gm/dL Hct (39.0-53.0) % MCHC (31.0-37.0) g/dL Plt Count (150-450) k/uL Neutrophils # (1.3-7.7) k/uL Lymphocytes # (1.0-4.8) k/uL D-Dimer (<0.60) mg/L FEU ABG pH 7.16 L* (7.35-7.45) ABG pCO2 79 H* (35-45) mmHg ABG pO2 (83-108) mmHg ABG HCO3 28 H (21-25) mmol/L ABG Total CO2 31 H (19-24) mmol/L ABG O2 Saturation (94-97) % Potassium (3.5-5.1) mmol/L Carbon Dioxide (22-30) mmol/L BUN (9-20) mg/dL Creatinine (0.66-1.25) mg/dL Glucose (74-99) mg/dL POC Glucose (mg/dL) 201 H (75-99) mg/dL Calcium (8.4-10.2) mg/dL ALT (4-49) U/L Lactate Dehydrogenase (313-618) U/L C-Reactive Protein (<1.0) mg/dL Total Protein (6.3-8.2) g/dL Albumin (3.5-5.0) g/dL Coronavirus (PCR) (Not Detectd) Assessment and Plan Assessment: Acute COVID-19 pneumonia, status post Baricitinib. Acute hypoxic respiratory failure secondary to the above, mechanical ventilator- dependent, status post tracheostomy 05/18 Sepsis post admission secondary to progression of Covid Hypotension secondary to the above, pressor dependent Acute on chronic kidney failure, stage III Leukopenia, resolved Leukocytosis Diabetes mellitus, uncontrolled, hyperglycemic, hemoglobin A1c 9.1 Obstructive sleep apnea, on CPAP outpatient CAD with history of stenting, permanent pacemaker Hypertension Hyperlipidemia Hypothyroidism Morbid obesity, BMI 42.3 Depression, Anxiety Plan: Continue on current medication regime ,monitoring and symptomatic treatment. COVID cocktail. ICU management as per older adult social work specialist. Prognosis guarded given multiple complex medical issues. The impression and plan of care has been dictated as directed. : I performed a history and examination of this patient, discussed the same with the dictator. I agree with the dictator's note ,documented as a scribe. Any additional findings or plans will be noted.
--- NOTE | 2021-05-19 14:39 | P.PN ---
Subjective Progress Note Date: 05/19/21 CHIEF COMPLAINT: COVID-19 pneumonia HISTORY OF PRESENT ILLNESS: Patient is status post tracheostomy placement with Dr. rolle on 05/18/2021. Patient's ABG this morning was very poor had a pH of 6.98. Critical care service admitted vent adjustments. Currently on FiO2 100% and PEEP of 16. Afebrile. WBC 16.9 PHYSICAL EXAM: VITAL SIGNS: Reviewed. GENERAL: Well-developed in no acute distress. HEENT: No sclera icterus. Extraocular movements grossly intact. Moist buccal mucosa. Head is atraumatic, normocephalic. ABDOMEN: Soft. Nondistended. Nontender. NEUROLOGIC: Alert and oriented. Cranial nerves II through XII grossly intact. ASSESSMENT: 1. Acute hypoxic respiratory failure secondary to COVID-19 pneumonia status post tracheostomy placement 2. Severe protein calorie malnutrition PLAN: -Patient is scheduled for PEG tube placement tomorrow, 05/20/[address] rolle -Hold tube feedings and Lovenox after midnight -Continue ICU management and supportive care Physician [employer] D[employer] Tender note has been reviewed by physician. Signing provider agrees with the documented findings, assessment, and plan of care. Objective - Vital Signs Vital signs: Vital Signs Temp 96.8 F L 05/19/21 12:00 Pulse 60 05/19/21 13:00 Resp 37 H 05/19/21 13:00 BP 125/68 05/19/21 13:00 Pulse Ox 92 L 05/19/21 13:00 Intake & Output 05/18/21 05/19/21 05/19/21 18:59 06:59 18:59 Intake Total 2716.252 1471.121 671.986 Output Total 1000 710 350 Balance 1716.252 761.121 321.986 Weight 142.5 kg 145.4 kg Intake: IV 1950 276 161 Pressure bag 45 36 21 Sodium Chloride 0.9% 1, 405 240 140 000 ml @ 20 mls/hr IV . Q24H [facility] Rx#:[id number] Sodium Chloride 0.9% 1, 1000 000 ml @ 999 mls/hr IV . Q1H1M [facility] Rx#:[id number] Intake, IV Titration 584.252 687.121 154.986 Amount Cisatracurium 200 mg In 161.285 7.073 Sodium Chloride 0.9% 180 ml @ 1 MCG/KG/MIN 7.578 mls/hr IV .Q24H [facility] Rx#: [id number] Clevidipine Butyrate 25 4.733 mg In Empty Bag 1 bag @ 1 MG/HR 2 mls/hr IV .Q24H [facility] Rx#:[id number] Norepinephrine 8 mg In 0.57 10.387 Sodium Chloride 0.9% 250 ml @ 0.05 MCG/KG/MIN 12. 22 mls/hr IV .Q21H7M [facility] Rx#:[id number] fentaNYL (PF) 2,500 mcg 302.752 197.248 In Sodium Chloride 0.9% 200 ml @ Per Protocol IV .Q0M [facility] Rx#:[id number] propofoL 1,000 mg In 276.767 328.018 137.526 Empty Bag 1 bag @ Titrate IV .Q0M [facility] Rx#: [id number] Tube Feeding 152 418 266 Other 30 90 90 Output: Urine 975 710 350 Estimated Blood Loss 25 Other: Voiding Method Indwelling Catheter Indwelling Catheter Indwelling Catheter ABP, PAP, CO, CI - Last Documented Arterial Blood Pressure 129/60 - Labs CBC & Chem 7: 05/19/21 04:05 05/19/21 04:05 Labs: Abnormal Lab Results - Last 24 Hours (Table) 05/18/21 05/18/21 05/19/21 Range/Units 18:09 20:27 04:05 WBC 16.9 H (3.8-10.6) k/uL RBC 3.74 L (4.30-5.90) m/uL Hgb 10.9 L (13.0-17.5) gm/dL Hct 36.8 L (39.0-53.0) % MCHC 29.6 L (31.0-37.0) g/dL Plt Count 474 H (150-450) k/uL Neutrophils # 15.1 H (1.3-7.7) k/uL Lymphocytes # 0.6 L (1.0-4.8) k/uL D-Dimer (<0.60) mg/L FEU ABG pH (7.35-7.45) ABG pCO2 (35-45) mmHg ABG pO2 (83-108) mmHg ABG HCO3 (21-25) mmol/L ABG Total CO2 (19-24) mmol/L ABG O2 Saturation (94-97) % Potassium (3.5-5.1) mmol/L Carbon Dioxide (22-30) mmol/L BUN (9-20) mg/dL Creatinine (0.66-1.25) mg/dL Glucose (74-99) mg/dL POC Glucose (mg/dL) 135 H 167 H (75-99) mg/dL Calcium (8.4-10.2) mg/dL ALT (4-49) U/L Lactate Dehydrogenase (313-618) U/L C-Reactive Protein (<1.0) mg/dL Total Protein (6.3-8.2) g/dL Albumin (3.5-5.0) g/dL Coronavirus (PCR) (Not Detectd) 05/19/21 05/19/21 05/19/21 Range/Units 04:05 04:05 04:05 WBC (3.8-10.6) k/uL RBC (4.30-5.90) m/uL Hgb (13.0-17.5) gm/dL Hct (39.0-53.0) % MCHC (31.0-37.0) g/dL Plt Count (150-450) k/uL Neutrophils # (1.3-7.7) k/uL Lymphocytes # (1.0-4.8) k/uL D-Dimer 2.12 H (<0.60) mg/L FEU ABG pH (7.35-7.45) ABG pCO2 (35-45) mmHg ABG pO2 (83-108) mmHg ABG HCO3 (21-25) mmol/L ABG Total CO2 (19-24) mmol/L ABG O2 Saturation (94-97) % Potassium 5.8 H (3.5-5.1) mmol/L Carbon Dioxide 31 H (22-30) mmol/L BUN 61 H (9-20) mg/dL Creatinine 1.39 H (0.66-1.25) mg/dL Glucose 215 H (74-99) mg/dL POC Glucose (mg/dL) (75-99) mg/dL Calcium 8.3 L (8.4-10.2) mg/dL ALT 57 H (4-49) U/L Lactate Dehydrogenase 769 H (313-618) U/L C-Reactive Protein 8.2 H (<1.0) mg/dL Total Protein 5.6 L (6.3-8.2) g/dL Albumin 2.4 L (3.5-5.0) g/dL Coronavirus (PCR) Detected A (Not Detectd) 05/19/21 05/19/21 05/19/21 Range/Units 05:43 06:50 07:39 WBC (3.8-10.6) k/uL RBC (4.30-5.90) m/uL Hgb (13.0-17.5) gm/dL Hct (39.0-53.0) % MCHC (31.0-37.0) g/dL Plt Count (150-450) k/uL Neutrophils # (1.3-7.7) k/uL Lymphocytes # (1.0-4.8) k/uL D-Dimer (<0.60) mg/L FEU ABG pH 6.98 L* 7.16 L* (7.35-7.45) ABG pCO2 >120 H* 79 H* (35-45) mmHg ABG pO2 78 L (83-108) mmHg ABG HCO3 28 H (21-25) mmol/L ABG Total CO2 31 H (19-24) mmol/L ABG O2 Saturation 92.1 L (94-97) % Potassium (3.5-5.1) mmol/L Carbon Dioxide (22-30) mmol/L BUN (9-20) mg/dL Creatinine (0.66-1.25) mg/dL Glucose (74-99) mg/dL POC Glucose (mg/dL) 201 H (75-99) mg/dL Calcium (8.4-10.2) mg/dL ALT (4-49) U/L Lactate Dehydrogenase (313-618) U/L C-Reactive Protein (<1.0) mg/dL Total Protein (6.3-8.2) g/dL Albumin (3.5-5.0) g/dL Coronavirus (PCR) (Not Detectd) 05/19/21 Range/Units 12:32 WBC (3.8-10.6) k/uL RBC (4.30-5.90) m/uL Hgb (13.0-17.5) gm/dL Hct (39.0-53.0) % MCHC (31.0-37.0) g/dL Plt Count (150-450) k/uL Neutrophils # (1.3-7.7) k/uL Lymphocytes # (1.0-4.8) k/uL D-Dimer (<0.60) mg/L FEU ABG pH (7.35-7.45) ABG pCO2 (35-45) mmHg ABG pO2 (83-108) mmHg ABG HCO3 (21-25) mmol/L ABG Total CO2 (19-24) mmol/L ABG O2 Saturation (94-97) % Potassium (3.5-5.1) mmol/L Carbon Dioxide (22-30) mmol/L BUN (9-20) mg/dL Creatinine (0.66-1.25) mg/dL Glucose (74-99) mg/dL POC Glucose (mg/dL) 137 H (75-99) mg/dL Calcium (8.4-10.2) mg/dL ALT (4-49) U/L Lactate Dehydrogenase (313-618) U/L C-Reactive Protein (<1.0) mg/dL Total Protein (6.3-8.2) g/dL Albumin (3.5-5.0) g/dL Coronavirus (PCR) (Not Detectd)
[2021-05-19 17:36] LABS: Glucose,Whole Blood 164 mg/dL (75-99)
[2021-05-19 20:31] LABS: Glucose,Whole Blood 130 mg/dL (75-99)
[2021-05-19] MEDS: ATORVASTATIN 10 MG TAB PO SCH (21:11)
[2021-05-19] MEDS: SODIUM CHLORIDE 0.9% 1,000 ML IV SCH (21:13)
[2021-05-20] MEDS: ARTIFICIAL TEARS-HYPROMELLOSE DROPS 15 ML BTL BOTH EYES SCH ×7 (00:12→23:33)
[2021-05-20] MEDS: CISATRACURIUM 200 MG in SODIUM CHLORIDE 0.9% 180 ML IV SCH ×2 (00:14→18:20)
[2021-05-20] MEDS: NOREPINEPHRINE 8 MG in SODIUM CHLORIDE 0.9% 250 ML IV SCH (00:24)
[2021-05-20 04:26] VITALS: BP 118/57
[2021-05-20] MEDS: LEVOTHYROXINE 137 MCG TAB PO SCH (04:28)
[2021-05-20 05:17] LABS: ABG Base Excess 3.6 mmol/L; ABG HCO3 31 mmol/L (21-25); ABG Oxygen Saturation 95.6 % (94-97); ABG PCO2 67 mmHg (35-45); ABG PH 7.27 (7.35-7.45); ABG PO2 77 mmHg (83-108); ABG TCO2 33 mmol/L (19-24)
[2021-05-20 05:17] LABS: Basophils % (A) 0 %; Eosinophils % (A) 0 %; HGB 10.3 gm/dL (13.0-17.5); Hypochromasia Slight; Lymphocytes # (A) 0.6 k/uL (1.0-4.8); Lymphocytes % (A) 5 %; MCH 29.4 pg (25.0-35.0); MCHC 31.2 g/dL (31.0-37.0); MCV 94.1 fL (80.0-100.0); Mean Platelet Volume 9.2; Monocytes # (A) 0.6 k/uL (0-1.0); Monocytes % (A) 5 %; Neutrophils # (A) 9.8 k/uL (1.3-7.7); Neutrophils % (A) 88 %; Platelet Count 324 k/uL (150-450); RDW 13.8 % (11.5-15.5); WBC 11.1 k/uL (3.8-10.6)
[2021-05-20 05:19] LABS: Allen Test Performed? No
[2021-05-20 05:29] LABS: Albumin 2.2 g/dL (3.5-5.0); Calcium 7.9 mg/dL (8.4-10.2); Potassium 4.8 mmol/L (3.5-5.1); Total Bilirubin 0.3 mg/dL (0.2-1.3); Total Protein 5.1 g/dL (6.3-8.2)
[2021-05-20] MEDS: INSULIN ASPART (NovoLOG) 100 UNIT/ML VIAL SQ SCH ×6 (07:44→21:05)
[2021-05-20 07:45] LABS: Glucose,Whole Blood 74 mg/dL (75-99)
[2021-05-20] MEDS: INSULIN DETEMIR (LEVEMIR) 100 UNIT/ML SYR SQ SCH (07:45)
[2021-05-20] MEDS: ALBUTEROL HFA INHALER INHALATION SCH ×4 (08:29→19:59)
[2021-05-20] MEDS: FUROSEMIDE 10 MG/ML 4 ML VIAL IV SCH (08:57)
[2021-05-20] MEDS: CHLORHEXIDINE GLUCONATE 15 ML CUP MUCOUS MEM SCH ×2 (08:57→21:05)
[2021-05-20] MEDS: EZETIMIBE 10 MG TAB PO SCH (08:58)
[2021-05-20] MEDS: hydrALAZINE HCL 50 MG TAB NG-TUBE SCH ×2 (08:58→21:05)
[2021-05-20] MEDS: DEXAMETHASONE SOD PHOSPHATE 10 MG/ML 1 ML VIAL IV SCH (08:58)
[2021-05-20] MEDS: ASPIRIN 81 MG PO SCH (08:58)
[2021-05-20] MEDS: PANTOPRAZOLE 40 MG/10 ML VIAL IVP SCH (08:58)
[2021-05-20] MEDS: ESCITALOPRAM 10 MG TAB PO SCH (09:01)
[2021-05-20] MEDS: fentaNYL (PF) 2,500 MCG in SODIUM CHLORIDE 0.9% 200 ML IV SCH (09:01)
[2021-05-20 11:12] LABS: Glucose,Whole Blood 87 mg/dL (75-99)
--- NOTE | 2021-05-20 11:24 | P.PN ---
Subjective Progress Note Date: 05/20/21 Principal diagnosis: Coronavirus pneumonia. Acute hypoxic respiratory failure secondary to COVID-19 pneumonia. On 05/04/2021 patient seen in follow-up on selective care unit. His oxygen demand has increased, he is currently on 100 percent nonrebreather, his oxygen saturations are ranging between 82 and 88%, is having low-grade fevers this afternoon, blood pressures stable. Inflammatory markers are improving on today's labs, LDH is down to 392, CRP is 6.0, pro calcitonin level was 0.32. D- dimer was 0.66. Blood cultures have been negative. Patient remains on dexamethasone 6 mg daily, he is on prophylactic dose Lovenox 40 mg daily. His chest x-ray point diffuse bilateral infiltrates that appear to be progress. Patient could not tolerate high flow nasal cannula and was desaturating on it. On today's evaluation of 05/05/2021 patient seen in follow-up on medical chou rgical floor. Overnight patient was placed on BiPAP support for worsening dyspnea and hypoxia, with pressures of 12/5, and FiO2 of 100%, and his pulse ox is around 89%. Patient is currently up in the chair, is short of breath with any exertion, he was started on bariticinib yesterday, and he continues on Decadron 6 mg daily, and Lovenox 80 mg once daily, his chest x-ray has been reviewed showing stable diffuse bilateral infiltrates. Today's labs have been reviewed, white blood cell count is not 7.9, hemoglobin is 12.6, his lymphocyte count is 1.27, electrolytes are within normal limits, B1 is 36, creatinine is 1.6, his LDH is up slightly to 560 from 392 one yesterday his labs, CRP is rela tively stable with 6.8. Pro-calcitonin level was 0.32. His had no fever or chills overnight, but cultures were negative. In view of his progressive oxygen demand and shortness of breath, we recommended transfer to the intensive care unit for closer monitoring On 05/06/2021 patient seen in follow-up in the intensive care unit where she was transferred yesterday from [facility]. in view of his worsening hypoxia, patient is currently on BiPAP support with pressures of 12/10 and FiO2 100%, his pulse ox is ranging between 86-91%, he sitting up in the recliner where he slept last night, he does not appear to be in any acute distress, however he does desaturate down to 68 when he removes the BiPAP mask even briefly to take a bite of food, or his medication. Is currently on IV fluids with 0.9, secondary to 20 ML per hour. He continues on Baricitinib 2 mg daily, and today is day 2 of treatment, in addition he is on IV Decadron 6 mg daily, is on prophylactic dose of Lovenox 40 mg daily, he is receiving when necessary doses of Ativan for anxiety and breathlessness. Today's chest x-ray has been reviewed showing diffuse bilateral infiltrates that are stable in appearance. Today's labs have been reviewed showing CBC within normal limits, electrolytes were unremarkable, BUN is 39, creatinine is 1.41. Inflammatory markers seems to have increased as far as LDH is up to 1792, and CRP is relatively stable 6.9. His d-dimer today is 0.59. He appears to be sleepy, but no acute distress, he is answering questions appropriately, denies any chest discomfort. He is been in his chair for the most part. His been using the urinal to urinate, he is trying to keep up his oral intake and take bites of food. No other acute events overnight. Reevaluated today on 05/07/2021, patient remains in the ICU, his pulmonary status is marginal at best. Patient is on BiPAP 08/03 he is also on 100% FiO2, with O2 saturation in the high 80s at best. Surprisingly however the patient seems to be in no distress, he is comfortable, sitting at a bedside chair, alert oriented 3, and I have increased his IPAP 14 instead of 12, patient seems to be extremely comfortable. Chest x-ray continues to show bilateral interstitial infiltrates. WBC count is 10.9 hemoglobin 13.9 d-dimer is 0.96 electrolytes are normal LDH 2092 and C-reactive protein is 6. Reevaluated today on 05/08/2021, remains in the ICU, remains on BiPAP, he is on IPAP of 14 and EPAP of 8 and FiO2 of 100%. Patient O2 saturation is marginal in the 80s most of the time. Surprisingly, the patient is not complaining of any shortness of breath, he seems to be comfortable, and relatively asymptomatic. Does not seem to be in distress. Chest x-ray is basically about the same, hence I ordered another Lasix dose to be given today 40 mg IV push 1, although BNP level is not elevated, but I would like to keep him on the dry side as much as p ossible. Patient remains on Lovenox 40 mg subcu daily, he is on Decadron, Glucerna was ordered, and he remains on baricitinib. CBC is relatively normal left lites are normal renal profile showed a BUN of 45 creatinine 1.16. Improving compared to his baseline on admission Reevaluated today on 05/09/2021, patient remains in the ICU, remains on BiPAP 09/04/100% FiO2 patient is basically about the same not much of a change noted over the last 24 hours. Chest x-ray is basically about the same. Patient seems to be comfortable, O2 saturations are marginal basically as high, 92%. Remains on Decadron, Lovenox, and on baricitinib WBC count is 12.3 hemoglobin is 14.1 lites are normal BUN is 53 creatinine 1.15, no Lasix was ordered today as the patient seems to be a bit prerenal On 05/11/2021 patient seen in follow-up in the intensive care unit, he was intubated and placed on mechanical ventilator yesterday on 05/10/2021 for worsening hypoxic respiratory failure, he currently remains sedated, and paralyzed on assist-control mode of ventilation with a rate of 30, tidal I was 450, FiO2 of 90% and PEEP of 15, this morning's blood gas shows pO2 of 86, pCO2 46, and pH of 7.36. He's currently on 0.9 normal saline at 75 ML per hour, fentanyl infusion is at 1 diana per kilo per minute, and then backs is at 1 diana per kilo per minute, and improving and is at 50 mics per kilo per minute, patient has not been started on tube feedings yet. He tolerated protein quite well, this morning he still proned. Today's chest x-ray shows diffuse bilateral lung disease which is stable in appearance, and ET tube at 1.5 cm above nata. Today's labs have been reviewed, showing white blood cell count of 16.1, hemoglobin is 12.1, d-dimer is 4.5, slightly obtunded from previous level, sodium is 141, potassium is 4.5, chloride is 109, CO2 is 24, BUN of 44, creatinine is 1.18, LDH is down to 1175, appendectomy level is still pending for today. Did have some intermittent fevers last night, with a T-max of 101.4F. Remains on Baricitinib, Decadron, and Lovenox 40 mg daily. On 05/12/2021 patient seen in follow-up in the intensive care unit, he remains intubated, sedated and paralyzed, on assist-control mode ventilation, with a rate of 30, tacrolimus 450, FiO2 60% and PEEP of 16, this morning's blood gas shows pO2 of 59, pCO2 49, pH is 7.35. Patient is currently on 0.9 normal saline at a rate of 75 ML per hour, fentanyl infusion is at 1 diana per kilo per minute, Nimbex is at 1 diana per kilo per minute, and improving and is at 30 mics per kilo per minute, he is receiving vital high protein at 40 ML per hour with a goal of 65, today's chest x-ray shows no evident pneumothorax, and bilateral airspace disease persistence. Patient tolerated protein well, however he did sustain some blistering in the shearing injury on his face, in his abdomen. He is currently back in the supine position. He is hemodynamically stable, in sinus mechanism with a rate of 64, not requiring any vasopressor support, his FiO2 was dropped down to 60% from 90% from yesterday. He is afebrile. His d-dimer today is 3.10, LDH is 985, and CRP is 16.1, pro-calcitonin level was 0.51. he is on Olumiant, Lovenox 40 mg twice daily, and Decadron 6 mg daily. He has been tolerating tube feedings, no other acute issues overnight. The patient is seen today 05/13/2021 in follow-up in the intensive care unit. He remains intubated on mechanical ventilator. Currently in assist-control mode at a rate of 36, tidal volume 400, FiO2 60% and a PEEP of 16. Peak airway pressure 43. Morning blood gases revealed a PaO2 of 69, pCO2 57, pH 7.28. Currently sedated on to prevent at 30 mcg/kg/m. Nimbex at 1 mcg/kg/m. Fentanyl 1 g per hour. 0.9 normal saline at 75 ML's per hour. He is being nourished with tube feeds via vital HP at 50 MLS per hour with a goal of 65 ML's per hour. He remains in sinus rhythm. He has been proned as tolerated. There has been having issues with Endotracheal tube balloon leaking. This will be changed out by anesthesia today. Chest x-ray continues to show ARDS with bilateral in terstitial and airspace disease. White count 12.5. Hemoglobin 11.9. Lymphocyte 0.6. D-dimer 2.52. Sodium 138. Potassium 4.7. Creatinine 1.03. Glucose 288. LDH 812. C-reactive protein 6.8. He remains on Baricitinib, Ecotrin, Lovenox, vitamin supplements. Reevaluated today on 05/14/2021, patient remains in the ICU, intubated and mechanically ventilated. He is on assist control rate of 36 tidal volume 4:30 FiO2 of 60% PEEP of 16. ABG showed a pO2 of 60 pCO2 44 pH of 7.39. Patient rem ains on propofol at 30 Nimbex at 1 and fentanyl at 2 mcg/kg/h. Patient had his endotracheal tube change yesterday by anesthesia because there was a significant leak. Today there is no evidence of leaking from the endotracheal tube. Peak airway pressure remains high at 37, plateau pressure is in the low 30s. His x- ray continues to be about the same, continues to have bilateral interstitial infiltrates. WBC count today is 12.8 hemoglobin is 11.9. D-dimer is 2.29. Slightly lower compared to the last 4 days. LDH is down to 760 and C-reactive protein is 6.7 Reevaluated today on 05/15/2021, patient remains in the ICU, intubated and mechanically ventilated. He is on assist control rate of 36 tidal volume 430 FiO2 70% and PEEP of 16 ABG showed a pO2 of 56 pCO2 43 pH of 7.41. Remains on N imbex at 1 mcg/kg/m, fentanyl at 2 mcg/kg/h, propofol at 30 mcg/kg/m, IV fluid at 0.9 normal saline 75 mL/h receiving vital HP at 50/50. Not much of a change noted on the chest x-ray today, not much of a change noted in his clinical status over the last 24 hours. Patient had poor tolerance to proning, hence no further proning was done d-dimer today is 1.72, CBC is relatively normal. Electrolytes are normal. Renal profile is normal. C-reactive protein is 7.3. Not to changing much in the last 3 days. No LDH done today. Liver enzymes are normal Progress note dated 05/16/2021. The patient is again seen in the intensive care unit, room 260. The patient was admitted to the hospital on May 02. He came to the intensive care unit on May 05. He came with acute hypoxemic respiratory failure secondary to coronavirus associated pneumonia. The patient was intubated on May 10, and had a change of his endotracheal tube, on May 13. The patient remains in the intensive care unit on the ventilator. He is on the volume assist control mode, rate 36, tidal L[place] 4:30, FiO2 90%, and PEEP of 16. Blood gases show pO2 of 55, pCO2 47, and pH is 7.37. Those blood gases were done on 80%. The patient did receive both the Decadron and Lovenox. He was not a candidate for REM. He did receive some WENDY, but it was subsequently discontinued. Currently, the patient's getting saline at 75 mL an hour, a fentanyl drip at 2 mcg/kg/h, Nimbex drip at 1 mcg/kg/m, propofol at 30 mcg/kg/m, vital high protein at 50 mL an hour, which is goal, and Cleveprex at 2 mg an hour. Lab data includes a white count of 13.1, hemoglobin 11.4, hematocrit 34.4, platelet count 448,000. Sodium 139, potassium 4.3, chlorides 110, CO2 26, anion gap 3, BUN 45, and creatinine 0.82. Chest x-ray is consistent with diffuse bilateral infiltrates. Progress note dated 05/17/2021. 66-year-old male, seen in the intensive care unit, room 260. The patient was admitted to the hospital on May 02, and came to the intensive care unit on May 05. Because of acute hypoxemic respiratory failure and coronavirus associated pneumonia, the patient was intubated on May 10 and had a change in his endotracheal tube on May 13 he remains on the ventilator. He is on the volume assist control mode rate of 36, tidal volume 4:30, FiO2 90%, and PEEP of 16. Blood gases show a pO2 of 58, pCO2 47, and pH is 7.37. The patient is currently on Cleveprex 2 mg an hour, Nimbex at 1 mcg/kg/m, propofol at 30 mcg/kg/m, fentanyl at 2 mcg/kg/h, saline at 75 mL an hour, and vital high protein at 50 mL an hour, which is goal. We are going to give the patient some Lasix 40 mg IV push to 12 hours, as the appears that looking at his I's and O's over the last number of days, the patient has been receiving quite a bit of fluids. Current labs include a white count of 13, hemoglobin 10.9, hematocrit 34.6, and platelet count 383,000. Sodium 139, potassium 4.5, chlorides 109, CO2 25, anion gap 5, BUN 52, and creatinine 0.96. Albumin is 2.2. Progress note dated 05/18/2021. 66-year-old male, again seen in the intensive care unit, room 260. The patient was admitted to the hospital on May 02 and came to the intensive care unit on May 05. Because of coronavirus associated pneumonia, the patient developed acute hypoxemic respiratory failure and required intubation on May 10, and a change in his endotracheal tube on May 13, because of a ruptured pilot control operator helper balloon. Currently, the patient remains on the ventilator. He is on the volume assist control mode, rate 36, tidal volume 430, FiO2 90%, PEEP of 16. Arterial blood gases show a PaO2 of 62, pCO2 45, pH is 7.43. The patient will be tried on pressure assist control modality, with an inspiratory pressure of 20 cm water, and an inspiratory time, 0.9 seconds. He blood gas will be done an hour after the change. Currently, the patient's on propofol at 30 mcg/kg/m, Cleveprex at 1 mg an hour, Nimbex at 1.5 mcg/kg/m, saline at 75 mL an hour, to be reduced down to KVO, fentanyl at 2 mcg/kg/h, and vital high pro tein at 38 mL an hour, which is goal. White count 11.9, hemoglobin 11.2, hematocrit 35.2, and platelet count 408,000. Sodium 139, potassium 4, chlorides 106, CO2 27, anion gap 6, BUN 51, and creatinine 0.92. The repeat blood gas after switched to a pressure assist control modality, shows a pO2 of 69, a pCO2 of 67, and a pH is 7.28. These blood gases are perfectly okay, and the mild acidosis, moves the oxyhemoglobin dissociation curve to the right. Chest x-ray shows diffuse bilateral infiltrates consistent with acute respiratory distress syndrome. Progress note dated 05/19/2021. 66-year-old male seen again in the ICU, room 260. The patient was admitted to the hospital on May 02 and came to the intensive care unit on May 05. Because of coronavirus associated pneumonia, and acute hypoxemic respiratory failure, patient was intubated on May 10. The patient had his en dotracheal tube changed out on May 13. The patient remains on the ventilator. Yesterday, we switch the patient to pressure assist control modality, with a inspiratory pressure of 20 cm of water, and inspiratory time of 0.9 seconds. I forcefully, his blood gases this morning were very poor showing a pO2 of 78, a CO2 of greater than 120, and a pH is 6.98. The patient was converted back to I am assist control, with settings of rate 36, tidal volume 350, FiO2 100%, and PEEP of 16. Blood gases afterwards, show pO2 of 83, pCO2 79, and a pH is 7.2. Currently, the patient's on Nimbex at 2 mcg/kg/m, propofol at 40 mcg/kg/m, fentanyl 1 mcg/kg/h, norepinephrine at 10 mcg/m, saline at KVO, and vital high protein at 38 mL an hour, which is goal. White count 16.9, hemoglobin 10.9, hematocrit 36.8, and platelet count 474,000. Sodium 140, potassium 5.8, chlorides 105, CO2 31, anion gap 4, BUN 61, creatinine 1.39. LDH 769. Albumin 2.4. Repeat coronavirus test was positive. Chest x-ray again shows diffuse bilateral infiltrates, which are essentially unchanged. Progress note dated 05/20/2021. 66-year-old male again seen in room 260. The patient was admitted to the hospital on May 02 and came to the intensive care unit on May 05. He developed acute hypoxemic respiratory failure secondary to coronavirus associated pneumonia. He was intubated on the , and his endotracheal tube was changed on Vangie 17. The patient remains on the ventilator. The patient did have a tracheostomy. He may get a PEG tube today. Current ventilator settings include the volume assist control mode, rate 36, tidal volume 350, FiO2 90%, and PEEP of 16. Blood gases on the same settings, but 100%, show a PaO2 of 77, pCO2 of 67, and a pH is 7.27. The patient's Lasix will drop back from twice a day to just once a day. The patient's on saline at 20 mL an hour, fentanyl at 1 mcg/kg/h, propofol, at 40 mcg/kg/m, Nimbex at 1 mcg/kg/m, norepinephrine at 6 mcg/m, and his tube feeds are currently on hold for anticipated placement of the PEG tube. White count 11.1, hemoglobin 10.3, hematocrit 33, and platelet count 324,000. Sodium potassium chloride CO2 and anion gap are all normal. BUN 74, creatinine 1.73. AST was 106, ALT 58. No chest x-ray today. Objective - Vital Signs Vital signs: Vital Signs Temp 96.1 F L 05/20/21 08:00 Pulse 64 05/20/21 10:15 Resp 36 H 05/20/21 10:15 BP 118/57 05/20/21 04:00 Pulse Ox 92 L 05/20/21 10:15 Intake & Output 05/19/21 05/20/21 05/20/21 18:59 06:59 18:59 Intake Total 3137.626 2082.506 474.566 Output Total 795 2370 550 Balance 768.769 -1240.494 -75.434 Weight 143.7 kg Intake: IV 276 276 92 Pressure bag 36 36 12 Sodium Chloride 0.9% 1, 240 240 80 000 ml @ 20 mls/hr IV . Q24H [facility] Rx#:[id number] Intake, IV Titration 741.769 603.506 382.566 Amount Cisatracurium 200 mg In 132.363 74.710 Sodium Chloride 0.9% 180 ml @ 1 MCG/KG/MIN 7.578 mls/hr IV .Q24H [facility] Rx#: [id number] Norepinephrine 8 mg In 104.190 136.903 37.149 Sodium Chloride 0.9% 250 ml @ 0.05 MCG/KG/MIN 12. 22 mls/hr IV .Q21H7M [facility] Rx#:[id number] fentaNYL (PF) 2,500 mcg 185.103 250 In Sodium Chloride 0.9% 200 ml @ Per Protocol IV .Q0M [facility] Rx#:[id number] propofoL 1,000 mg In 320.113 391.893 95.417 Empty Bag 1 bag @ Titrate IV .Q0M [facility] Rx#: [id number] Tube Feeding 456 190 Other 90 60 Output: Gastric Drainage 750 50 Urine 795 1620 500 Other: Voiding Method Indwelling Catheter Indwelling Catheter Indwelling Catheter ABP, PAP, CO, CI - Last Documented Arterial Blood Pressure 78/39 - Exam No acute distress, with a midline tracheostomy tube, inserted May 18, the patient is heavily sedated and paralyzed. HEENT examination is grossly unremarkable. Neck supple. Full range of motion. No adenopathy thyromegaly or neck vein distention. Cardiovascular examination reveals regular rhythm and rate. S1-S2 normal. No S3 or S4. No discernible murmur noted. Heart sounds are distant. Heart rate 64 bpm. Lungs reveal coarse bilateral rhonchi. Breath sounds are diminished. No wheezes or crackles. Breath sounds equal bilaterally. Saturations are between 92-94 %. Abdomen soft, with bowel sounds. No masses noted. Extremities are intact. No cyanosis clubbing or edema. Skin is without rash or lesion. Neurologic examination cannot be adequately assessed as the patient's currently sedated and paralyzed. - Labs CBC & Chem 7: 05/20/21 04:40 05/20/21 04:40 Labs: Abnormal Lab Results - Last 24 Hours (Table) 05/19/21 05/19/21 05/19/21 Range/Units 12:32 16:31 17:34 WBC (3.8-10.6) k/uL RBC (4.30-5.90) m/uL Hgb (13.0-17.5) gm/dL Hct (39.0-53.0) % Neutrophils # (1.3-7.7) k/uL Lymphocytes # (1.0-4.8) k/uL ABG pH (7.35-7.45) ABG pCO2 (35-45) mmHg ABG pO2 (83-108) mmHg ABG HCO3 (21-25) mmol/L ABG Total CO2 (19-24) mmol/L Potassium 5.3 H (3.5-5.1) mmol/L BUN (9-20) mg/dL Creatinine (0.66-1.25) mg/dL POC Glucose (mg/dL) 137 H 164 H (75-99) mg/dL Calcium (8.4-10.2) mg/dL AST (17-59) U/L ALT (4-49) U/L Total Protein (6.3-8.2) g/dL Albumin (3.5-5.0) g/dL 05/19/21 05/20/21 05/20/21 Range/Units 20:30 04:40 04:40 WBC 11.1 H (3.8-10.6) k/uL RBC 3.50 L (4.30-5.90) m/uL Hgb 10.3 L (13.0-17.5) gm/dL Hct 33.0 L (39.0-53.0) % Neutrophils # 9.8 H (1.3-7.7) k/uL Lymphocytes # 0.6 L (1.0-4.8) k/uL ABG pH (7.35-7.45) ABG pCO2 (35-45) mmHg ABG pO2 (83-108) mmHg ABG HCO3 (21-25) mmol/L ABG Total CO2 (19-24) mmol/L Potassium (3.5-5.1) mmol/L BUN 74 H (9-20) mg/dL Creatinine 1.73 H (0.66-1.25) mg/dL POC Glucose (mg/dL) 130 H (75-99) mg/dL Calcium 7.9 L (8.4-10.2) mg/dL AST 106 H (17-59) U/L ALT 58 H (4-49) U/L Total Protein 5.1 L (6.3-8.2) g/dL Albumin 2.2 L (3.5-5.0) g/dL 05/20/21 05/20/21 Range/Units 05:12 07:43 WBC (3.8-10.6) k/uL RBC (4.30-5.90) m/uL Hgb (13.0-17.5) gm/dL Hct (39.0-53.0) % Neutrophils # (1.3-7.7) k/uL Lymphocytes # (1.0-4.8) k/uL ABG pH 7.27 L (7.35-7.45) ABG pCO2 67 H (35-45) mmHg ABG pO2 77 L (83-108) mmHg ABG HCO3 31 H (21-25) mmol/L ABG Total CO2 33 H (19-24) mmol/L Potassium (3.5-5.1) mmol/L BUN (9-20) mg/dL Creatinine (0.66-1.25) mg/dL POC Glucose (mg/dL) 74 L (75-99) mg/dL Calcium (8.4-10.2) mg/dL AST (17-59) U/L ALT (4-49) U/L Total Protein (6.3-8.2) g/dL Albumin (3.5-5.0) g/dL Assessment and Plan Assessment: Acute hypoxemic respiratory failure secondary to coronavirus infection/pneumonia, with intubation and mechanical ventilation beginning on May 10. Status post tracheostomy tube placement on May 18, and PEG tube placement on May 20. Acute respiratory distress syndrome. Coronary artery disease, with previous coronary artery stenting. Status post permanent pacemaker insertion. History of essential hypertension. History of hyperlipidemia. History of obstructive sleep apnea syndrome, on CPAP. Migraine cephalgia. Acute on chronic kidney disease. Obesity, BMI 42.3. Hypothyroidism. Plan: Plan dated 05/16/2021. The patient is currently on 90% oxygen, and PEEP of 16. The patient is also being sedated with propofol, receiving narcotics in the form of fentanyl, and is chemically paralyzed with Nimbex. The patient is receiving appropriate medications. This includes Lovenox, and Decadron. The patient is being nourished, at goal, with vital high protein. Additional recommendations and suggestions are forthcoming. Prognosis is guarded. The patient doesn't show any significant improvements, he may be headed towards tracheostomy. We will continue to follow make recommendations where appropriate. A pro-calcitonin level will be done, and if normal, antibiotics will be discontinued. The patient is currently on Zosyn. Plan dated 05/17/2021. The patient will get Lasix 40 mg IV push every 12 hours. We will attempt to wean the current medications that he is on including the fentanyl, and Nimbex, if possible. In addition, it blood pressure is more stable, we will wean the Cleveprex. The patient's overall condition is quite complex, and his prognosis is very guarded. If the patient does not make any progress towards weaning and extubation, he will likely require a tracheostomy and PEG tube by the end of the week. The patient remains on Zosyn, and the microbiologic studies have been all negative. Plan dated 05/18/2021. The patient may end up getting his tracheostomy and PEG tube placed today. The patient was converted over to pressure assist control, with inspiratory pressure of 20 cm water, and inspiratory time of 0.9 seconds. Repeat blood gases are more than adequate. The patient remains on propofol, Cleveprex, Nimbex, fentanyl, and tube feeds. The patient's overall prognosis is guarded. Microbiology is currently negative. Pro-calcitonin level is 0.17 and 0.15. The patient's Zosyn can be discontinued tomorrow. We will continue to follow make recommendations where appropriate. For the time being, the patient will stay on pressure assist control modality. Plan dated 05/19/2021. The patient did have a tracheostomy tube performed on May 18. The patient did not tolerate pressure assist control mode switch back to volume assist control. Repeat blood gases are much improved. The patient remains on Nimbex, propofol, fentanyl, norepinephrine, and saline at KVO. The patient is receiving enteral nutrition with vital high protein at goal. Additional recommendations and suggestions are forthcoming. Overall prognosis remains very guarded. Microbiologic data is negative. The patient's Zosyn will be discontinued today. Plan dated 05/20/2021. The patient apparently will have a PEG tube placement today. The Lasix that he's on, will be reduced from twice a day to once a day. His FiO2 will be weaned per respiratory. The patient remains on fentanyl, propofol, Nimbex, and norepinephrine. Tube feeds are currently on hold. The patient's Zosyn was d iscontinued. Additional recommendations and suggestions are forthcoming. Prognosis is guarded. We will continue to follow and make recommendations where appropriate. The patient's was able to visit with the patient yesterday. Time with Patient: Greater than 30
--- NOTE | 2021-05-20 14:15 | P.PN ---
Subjective Progress Note Date: 05/20/21 This is 66-year-old gentleman admitted with acute hypoxic respiratory failure secondary to COVID-19 infection. Afebrile. Maintained on Covid cocktail, including Decadron IV.Inflammatory markers trending down.He stated this morning with exertion from 88% tone to 75%. Currently placed on 6 L nasal cannula, O2 sat pending. Chest x-ray reporting progression of diffuse bilateral infiltrates.Blood sugars uncontrolled, A1c 9.1. 05/05/2021 respiratory status worsened yesterday, requiring nonrebreather. Th roughout the night, increased anxiety, patient pulling off masks, requiring minimal of 45 minutes to recover O2 saturation. Xanax initiated for anxiety, patient unable to tolerate, reported nausea/ vomiting. Received Ativan, tolerated well. Currently on BiPAP maintaining O2 sats in the 80s. Continues on Covid regimen. Renal function trending up, creatinine 1.6. Denies chest pain, palpitations. 05/06/2021 transferred into the ICU yesterday afternoon related to worsening hypoxia on BiPAP. Slept in the recliner, maintaining O2 sats mid 80s to low 90s. Chest x-ray reporting persistent bilateral infiltrates. Reports feels less shortness of breath, less anxiety on oral Ativan. Maintained on Covid regimen including Baricitinib. Inflammatory markers increased with the exception of d-dimer. Afebrile, normal WBC. Yesterday GHADA inhibitor, Cozaar discontinued, hydralazine increased secondary to worsening renal function-renal function improving. Hyperglycemic, blood sugars in the mid to low 200s. 05/09/2021 remains on 100% BiPAP, chest x-ray reporting stable diffuse predominant interstitial infiltrates. T-max 99.1, WBC 12.3. continues on Covid regimen including Olumiant. Reports anxiety, depression. BUN 53, creatinine 1.15. Blood sugars elevated. 05/10/2021 maintained on COVID cocktail, including Baricitinib. Continues on 100% BiPAP, maintaining O2 sat 76-79%, respiratory rate in the 20s. ABGs ordered. Chest x-ray reporting persistent diffuse pulmonary infiltrates. Te lemetry sinus rhythm. T-max 100.4, WBC increased to 15.4. Blood sugars controlled. Renal function improving. 05/11/21 patient seen in follow-up in the intensive care unit, he was intubated and placed on mechanical ventilator yesterday on 05/10/2021 for worsening hypoxic respiratory failure.. Pt is currently prone in bed during exam. 05/12/2021 and ABGs reporting pO2 59, FiO2 increased to 70%/+15 Peep. Maintained on fentanyl, diprovan, Nimbex drips. Chest x-ray reporting similar appearance, persistent bilateral airspace disease. Maintained on Covid regimen including Baricitinib and Decadron. Blood sugars elevated, in the 200s this morning. D-dimer, LDH decreasing. CRP increased, 16.1. 05/13/2021 FiO2 of 50%/+15 of PEEP. Cuff leak present.Chest x-ray reporting bilateral interstitial and airspace disease. Continues on Nimbex, diprovan fentanyl. Continues on Covid regimen with Decadron,Baricitinib. Blood sugars in the 200s. BUN 50, creatinine 1.03. Inflammatory markers trending down. Afebrile, and WBC trending down, 12.5. 05/16/2021 endotracheal tube changed on 05/13 secondary to cuff leak. ABGs noted with pCO2 55. FiO2 increased to 90, PEEP +16. Maintained on fentanyl, Nimbex, diprovan and Cleviprex drips. Continues on IV fluid hydration of 0.9 at 75 MLS per hour. Chest x-ray reporting no significant change, bilateral airspace disease persists. Afebrile, WBC 13.1. Tolerating tube feeds with minimal to no residuals. Blood sugars currently ranging 180-200. 05/17/2021 FiO2 90% and PEEP 16. Maintained on Cleviprex, Nimbex, propofol, fentanyl drips as well as IV fluid hydration with saline. Puffy extremities, 24-hour I&O reflecting a positive fluid balance. Tolerating tube feeds at goal with minimal to no residual. Continues on Zosyn. Afebrile, WBC 13. Hemoglobin 10.9, platelets 383. 05/18/2021 FiO2 90%/+16 of PEEP. Currently on pressure control with ABGs in 1 hour. Chest x-ray reporting similar bilateral airspace disease.Telemetry sinus rhythm. Continues on fentanyl ,Nimbex, diprovan and Cleviprex drips. Afebrile, WBC count 11.9.Tracheostomy and PEG tube placement pending. 05/19/21 tracheostomy performed yesterday, postop day #1. FiO2 100%/+16 of PEEP continues on Nimbex, diprovan and fentanyl drips with Levophed initiated during the night. Tolerating tube feeds at goal with minimal to no residuals. Repeat coronavirus positive. Chest x-ray reporting stable diffuse interstitial bilateral infiltrates and pleural effusion, enlarged heart. Creatinine worsening, 1.39. 05/20/2021 FiO2 90%/+16 of PEEP. Continues on Nimbex, diprovan, fentanyl, Levophed. PEG tube placement pending. Afebrile. Renal function continues to worsen. Borderline hypoglycemic this morning. Patient's was able to visit with patient yesterday. Objective - Vital Signs Vital signs: Vital Signs Temp 97.5 F L 05/20/21 12:00 Pulse 64 05/20/21 13:00 Resp 10 L 05/20/21 13:00 BP 118/57 05/20/21 04:00 Pulse Ox 92 L 05/20/21 13:00 Intake & Output 05/19/21 05/20/21 05/20/21 18:59 06:59 18:59 Intake Total 1275.273 4734.506 646.432 Output Total 795 2370 1100 Balance 768.769 -1240.494 -453.568 Weight 143.7 kg 143.7 kg Intake: IV 276 276 138 Pressure bag 36 36 18 Sodium Chloride 0.9% 1, 240 240 120 000 ml @ 20 mls/hr IV . Q24H [facility] Rx#:[id number] Intake, IV Titration 741.769 603.506 508.432 Amount Cisatracurium 200 mg In 132.363 74.710 Sodium Chloride 0.9% 180 ml @ 1 MCG/KG/MIN 7.578 mls/hr IV .Q24H [facility] Rx#: [id number] Norepinephrine 8 mg In 104.190 136.903 63.015 Sodium Chloride 0.9% 250 ml @ 0.05 MCG/KG/MIN 12. 22 mls/hr IV .Q21H7M [facility] Rx#:[id number] fentaNYL (PF) 2,500 mcg 185.103 250 In Sodium Chloride 0.9% 200 ml @ Per Protocol IV .Q0M [facility] Rx#:[id number] propofoL 1,000 mg In 320.113 391.893 195.417 Empty Bag 1 bag @ Titrate IV .Q0M [facility] Rx#: [id number] Tube Feeding 456 190 Other 90 60 Output: Gastric Drainage 750 50 Urine 795 1620 1050 Other: Voiding Method Indwelling Catheter Indwelling Catheter Indwelling Catheter ABP, PAP, CO, CI - Last Documented Arterial Blood Pressure 123/50 - Exam PHYSICAL EXAM: GENERAL EXAM: Intubated, sedated and paralyzed. HEENT: Normocephalic/atraumatic.Normal reaction of pupils, equal size. Conjunctiva pink, sclera white. NECK: Supple, no JVD CHEST: No chest wall deformity. Symmetrical expansion. LUNGS: Equal air entry with coarse rhonchi with bilateral bases diminished. CVS: Regular rate and rhythm, normal S1 and S2, no gallops, no murmurs, no rubs ABDOMEN: Soft, nondistended, no masses palpable, normal bowel sounds. EXTREMITIES: Mild puffiness/edema, no cyanosis, 2+ pulses and upper and lower extremities. SKIN: Warm and dry, No rashes CENTRAL NERVOUS SYSTEM: Sedated, intubated and paralyzed. - Labs CBC & Chem 7: 05/20/21 04:40 05/20/21 04:40 Labs: Abnormal Lab Results - Last 24 Hours (Table) 05/19/21 05/19/21 05/19/21 Range/Units 16:31 17:34 20:30 WBC (3.8-10.6) k/uL RBC (4.30-5.90) m/uL Hgb (13.0-17.5) gm/dL Hct (39.0-53.0) % Neutrophils # (1.3-7.7) k/uL Lymphocytes # (1.0-4.8) k/uL ABG pH (7.35-7.45) ABG pCO2 (35-45) mmHg ABG pO2 (83-108) mmHg ABG HCO3 (21-25) mmol/L ABG Total CO2 (19-24) mmol/L Potassium 5.3 H (3.5-5.1) mmol/L BUN (9-20) mg/dL Creatinine (0.66-1.25) mg/dL POC Glucose (mg/dL) 164 H 130 H (75-99) mg/dL Calcium (8.4-10.2) mg/dL AST (17-59) U/L ALT (4-49) U/L Total Protein (6.3-8.2) g/dL Albumin (3.5-5.0) g/dL 05/20/21 05/20/21 05/20/21 Range/Units 04:40 04:40 05:12 WBC 11.1 H (3.8-10.6) k/uL RBC 3.50 L (4.30-5.90) m/uL Hgb 10.3 L (13.0-17.5) gm/dL Hct 33.0 L (39.0-53.0) % Neutrophils # 9.8 H (1.3-7.7) k/uL Lymphocytes # 0.6 L (1.0-4.8) k/uL ABG pH 7.27 L (7.35-7.45) ABG pCO2 67 H (35-45) mmHg ABG pO2 77 L (83-108) mmHg ABG HCO3 31 H (21-25) mmol/L ABG Total CO2 33 H (19-24) mmol/L Potassium (3.5-5.1) mmol/L BUN 74 H (9-20) mg/dL Creatinine 1.73 H (0.66-1.25) mg/dL POC Glucose (mg/dL) (75-99) mg/dL Calcium 7.9 L (8.4-10.2) mg/dL AST 106 H (17-59) U/L ALT 58 H (4-49) U/L Total Protein 5.1 L (6.3-8.2) g/dL Albumin 2.2 L (3.5-5.0) g/dL 05/20/21 Range/Units 07:43 WBC (3.8-10.6) k/uL RBC (4.30-5.90) m/uL Hgb (13.0-17.5) gm/dL Hct (39.0-53.0) % Neutrophils # (1.3-7.7) k/uL Lymphocytes # (1.0-4.8) k/uL ABG pH (7.35-7.45) ABG pCO2 (35-45) mmHg ABG pO2 (83-108) mmHg ABG HCO3 (21-25) mmol/L ABG Total CO2 (19-24) mmol/L Potassium (3.5-5.1) mmol/L BUN (9-20) mg/dL Creatinine (0.66-1.25) mg/dL POC Glucose (mg/dL) 74 L (75-99) mg/dL Calcium (8.4-10.2) mg/dL AST (17-59) U/L ALT (4-49) U/L Total Protein (6.3-8.2) g/dL Albumin (3.5-5.0) g/dL Assessment and Plan Assessment: Acute COVID-19 pneumonia, status post Baricitinib. Acute hypoxic respiratory failure secondary to the above, mechanical ventilator- dependent, status post tracheostomy 05/18 Sepsis post admission secondary to progression of Covid Hypotension secondary to the above, pressor dependent Acute on chronic kidney failure, stage III Leukopenia, resolved Leukocytosis Diabetes mellitus, uncontrolled, hyperglycemic, hemoglobin A1c 9.1 Obstructive sleep apnea, on CPAP outpatient CAD with history of stenting, permanent pacemaker Hypertension Hyperlipidemia Hypothyroidism Morbid obesity, BMI 42.3 Depression, Anxiety Plan: Continue on current medication regime ,monitoring and symptomatic treatment. Tube feeds on hold as PEG tube placement pending. Levemir insulin currently on hold, close monitoring of accucheks. Covid cocktail. 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 Prognosis guarded given multiple complex medical issues. The impression and plan of care has been dictated as directed. : I performed a history and examination of this patient, discussed the same with the dictator. I agree with the dictator's note ,documented as a scribe. Any additional findings or plans will be noted.
[2021-05-20] MEDS: ENOXAPARIN 40 MG/0.4 ML SYRINGE SQ SCH ×2 (14:20→21:05)
--- NOTE | 2021-05-20 15:28 | P.OP ---
Date of Procedure: 05/20/21 Preoperative Diagnosis: Malnutrition Postoperative Diagnosis: Malnutrition Procedure(s) Performed: EGD Anesthesia: MAC Surgeon: Rei Sterling Pathology: none sent Condition: stable Disposition: ICU Description of Procedure: The patient's placed on his bed in the supine position. He received IV sedation . The gastric gastroscope was placed oropharynx and passed in the esophagus and stomach. A light reflux could not be seen on the abdominal wall. Several times made made to maneuver the patient so that a light reflux could not to be seen. However this is impossible due to his thick body habitus. Using a spinal needle the stomach was cannulated. However extremity deep. At this point the proce dure was aborted. Side not for PEG tube due to risk of injury to the colon. This point the scope was withdrawn. Patient tolerated the procedure well.
--- NOTE | 2021-05-20 16:55 | XR ---
EXAMINATION TYPE: XR chest 1V portable DATE OF EXAM: 05/20/2021 COMPARISON: Chest x-ray 05/19/2021 HISTORY: Tracheostomy tube placement, abnormal chest x-ray TECHNIQUE: Single frontal view of the chest is obtained. FINDINGS: Tracheostomy tube is overlying the tracheal air column although the patient is rotated. NG tube is in place, there are overlying leads. Pacemaker stable. Right-sided PICC line is again noted, distal tip not well seen. There is no evident pneumothorax or pleural effusion. Bilateral airspace d isease is again seen. Cardiac mediastinal sweat is likely stable. IMPRESSION: There is no significant interval change, correlate for ARDS, pneumonia, congestive heart failure.
[2021-05-20] MEDS: CLEVIDIPINE BUTYRATE 25 MG in EMPTY BAG 1 BAG IV SCH (17:37)
[2021-05-20 17:38] LABS: Glucose,Whole Blood 102 mg/dL (75-99)
[2021-05-20] MEDS: SODIUM CHLORIDE 0.9% 1,000 ML IV SCH (20:57)
[2021-05-20 21:01] LABS: Glucose,Whole Blood 101 mg/dL (75-99)
[2021-05-20] MEDS: ATORVASTATIN 10 MG TAB PO SCH (21:05)
--- NOTE | 2021-05-21 01:05 | XR ---
EXAMINATION TYPE: XR chest 1V portable DATE OF EXAM: 05/21/2021 COMPARISON: Yesterday HISTORY: Check tube placement TECHNIQUE: . FINDINGS: There is gastric tube in the left upper quadrant and probably in the body of the stomach. There is tr acheostomy tube. There are chest leads. There is some pulmonary interstitial and airspace edema. Ther e is right subclavian catheter with the tip in the superior vena cava IMPRESSION: NG tube is in good position in the body of the stomach. There is pulmonary edema that cou ld be heart failure or RDS and not changed compared to exam yesterday.
[2021-05-21] MEDS: NOREPINEPHRINE 8 MG in SODIUM CHLORIDE 0.9% 250 ML IV SCH ×2 (04:14→08:29)
[2021-05-21 05:06] LABS: ABG Base Excess 3.5 mmol/L; ABG HCO3 31 mmol/L (21-25); ABG Oxygen Saturation 89.2 % (94-97); ABG PCO2 70 mmHg (35-45); ABG PH 7.25 (7.35-7.45); ABG PO2 61 mmHg (83-108); ABG TCO2 33 mmol/L (19-24)
[2021-05-21 05:07] LABS: HCT 31.3 % (39.0-53.0); HGB 9.8 gm/dL (13.0-17.5); Hypochromasia Slight; MCH 29.6 pg (25.0-35.0); MCHC 31.5 g/dL (31.0-37.0); MCV 94.2 fL (80.0-100.0); Mean Platelet Volume 9.3; Platelet Count 301 k/uL (150-450); RBC 3.32 m/uL (4.30-5.90); RDW 13.9 % (11.5-15.5); WBC 14.9 k/uL (3.8-10.6)
[2021-05-21] MEDS: ARTIFICIAL TEARS-HYPROMELLOSE DROPS 15 ML BTL BOTH EYES SCH ×5 (05:14→20:00)
[2021-05-21] MEDS: CISATRACURIUM 200 MG in SODIUM CHLORIDE 0.9% 180 ML IV SCH (05:47)
[2021-05-21] MEDS: INSULIN DETEMIR (LEVEMIR) 100 UNIT/ML SYR SQ SCH (06:17)
[2021-05-21] MEDS: fentaNYL (PF) 2,500 MCG in SODIUM CHLORIDE 0.9% 200 ML IV SCH ×2 (06:17→20:31)
[2021-05-21] MEDS: LEVOTHYROXINE 137 MCG TAB PO SCH (06:17)
[2021-05-21 06:23] LABS: Albumin 2.3 g/dL (3.5-5.0); Potassium 4.8 mmol/L (3.5-5.1); Total Protein 5.2 g/dL (6.3-8.2)
[2021-05-21 06:29] LABS: Glucose,Whole Blood 143 mg/dL (75-99)
[2021-05-21] MEDS: INSULIN ASPART (NovoLOG) 100 UNIT/ML VIAL SQ SCH ×4 (06:29→20:47)
[2021-05-21 06:36] LABS: Total Bilirubin 0.3 mg/dL (0.2-1.3)
--- NOTE | 2021-05-21 07:05 | XR ---
EXAMINATION TYPE: XR chest 1V portable DATE OF EXAM: 05/21/2021 COMPARISON: 05/21/2021 HISTORY: SOB, Follow Up FINDINGS: Indwelling tubes and catheters are unchanged. Diffuse bilateral infiltrates persist with interval progression suggested. Stable appearance of the cardio-mediastinal structures at this time. Pleural effusion unchanged. IMPRESSION: 1. Diffuse bilateral infiltrates persist with interval progression suggested. Clinical correlation a nd follow up until resolution is recommended.
[2021-05-21 07:06] LABS: C Reactive Protein 16.6 mg/dL (<1.0)
[2021-05-21] MEDS: ALBUTEROL HFA INHALER INHALATION SCH ×4 (07:45→19:56)
[2021-05-21] MEDS: PANTOPRAZOLE 40 MG/10 ML VIAL IVP SCH (08:27)
[2021-05-21] MEDS: CHLORHEXIDINE GLUCONATE 15 ML CUP MUCOUS MEM SCH ×2 (08:27→20:00)
[2021-05-21] MEDS: DEXAMETHASONE SOD PHOSPHATE 10 MG/ML 1 ML VIAL IV SCH (08:28)
[2021-05-21] MEDS: EZETIMIBE 10 MG TAB PO SCH (08:28)
[2021-05-21] MEDS: ASPIRIN 81 MG PO SCH (08:28)
[2021-05-21] MEDS: ESCITALOPRAM 10 MG TAB PO SCH (08:28)
[2021-05-21] MEDS: FUROSEMIDE 10 MG/ML 4 ML VIAL IV SCH (08:28)
[2021-05-21 11:49] LABS: Glucose,Whole Blood 191 mg/dL (75-99)
[2021-05-21] MEDS: ENOXAPARIN 40 MG/0.4 ML SYRINGE SQ SCH ×3 (11:53→20:23)
[2021-05-21] MEDS: hydrALAZINE HCL 50 MG TAB NG-TUBE SCH ×2 (11:53→20:00)
[2021-05-21 11:56] LABS: Ferritin 528.5 ng/mL (22.0-322.0)
--- NOTE | 2021-05-21 12:01 | P.PN ---
Subjective Progress Note Date: 05/21/21 Principal diagnosis: Respiratory failure Patient stable on ventilator. White blood cell count 14.9, hemoglobin 9.8. Tracheostomy performed 05/18. Patient was having some bleeding from the tracheostomy site but that has stopped overnight. Attempts at PEG tube placement unsuccessful. Receiving feeds through oral gastric tube. Objective - Vital Signs Vital signs: Vital Signs Temp 98.7 F 05/21/21 08:00 Pulse 67 05/21/21 10:00 Resp 36 H 05/21/21 10:00 BP 118/57 05/20/21 04:00 Pulse Ox 89 L 05/21/21 10:00 Intake & Output 05/20/21 05/21/21 05/21/21 18:59 06:59 18:59 Intake Total 6501.352 6780.099 501.747 Output Total 1625 815 495 Balance -591.534 654.099 6.747 Weight 143.7 kg 149.2 kg Intake: IV 276 276 138 Pressure bag 36 36 18 Sodium Chloride 0.9% 1, 240 240 120 000 ml @ 20 mls/hr IV . Q24H [facility] Rx#:[id number] Intake, IV Titration 757.466 923.099 123.747 Amount Cisatracurium 200 mg In 149.034 176.062 Sodium Chloride 0.9% 180 ml @ 1 MCG/KG/MIN 7.578 mls/hr IV .Q24H [facility] Rx#: [id number] Norepinephrine 8 mg In 63.015 102.770 23.747 Sodium Chloride 0.9% 250 ml @ 0.05 MCG/KG/MIN 12. 22 mls/hr IV .Q21H7M [facility] Rx#:[id number] fentaNYL (PF) 2,500 mcg 250 250 In Sodium Chloride 0.9% 200 ml @ Per Protocol IV .Q0M [facility] Rx#:[id number] propofoL 1,000 mg In 295.417 394.267 100 Empty Bag 1 bag @ Titrate IV .Q0M [facility] Rx#: [id number] Tube Feeding 210 180 Other 60 60 Output: Gastric Drainage 50 Urine 1575 815 495 Other: Voiding Method Indwelling Catheter Indwelling Catheter Indwelling Catheter # Bowel Movements 0 ABP, PAP, CO, CI - Last Documented Arterial Blood Pressure 131/51 - Exam Tracheostomy without evidence of bleeding or infection - Labs CBC & Chem 7: 05/21/21 04:35 05/21/21 04:35 Labs: Abnormal Lab Results - Last 24 Hours (Table) 05/20/21 05/20/21 05/21/21 Range/Units 17:36 21:00 04:35 WBC 14.9 H (3.8-10.6) k/uL RBC 3.32 L (4.30-5.90) m/uL Hgb 9.8 L (13.0-17.5) gm/dL Hct 31.3 L (39.0-53.0) % D-Dimer (<0.60) mg/L FEU ABG pH (7.35-7.45) ABG pCO2 (35-45) mmHg ABG pO2 (83-108) mmHg ABG HCO3 (21-25) mmol/L ABG Total CO2 (19-24) mmol/L ABG O2 Saturation (94-97) % BUN (9-20) mg/dL Creatinine (0.66-1.25) mg/dL Glucose (74-99) mg/dL POC Glucose (mg/dL) 102 H 101 H (75-99) mg/dL Calcium (8.4-10.2) mg/dL Ferritin (22.0-322.0) ng/mL AST (17-59) U/L ALT (4-49) U/L Lactate Dehydrogenase (313-618) U/L CK-MB (CK-2) (0.0-2.4) ng/mL C-Reactive Protein (<1.0) mg/dL Total Protein (6.3-8.2) g/dL Albumin (3.5-5.0) g/dL 05/21/21 05/21/21 05/21/21 Range/Units 04:35 04:35 04:35 WBC (3.8-10.6) k/uL RBC (4.30-5.90) m/uL Hgb (13.0-17.5) gm/dL Hct (39.0-53.0) % D-Dimer 1.22 H (<0.60) mg/L FEU ABG pH (7.35-7.45) ABG pCO2 (35-45) mmHg ABG pO2 (83-108) mmHg ABG HCO3 (21-25) mmol/L ABG Total CO2 (19-24) mmol/L ABG O2 Saturation (94-97) % BUN 80 H (9-20) mg/dL Creatinine 1.75 H (0.66-1.25) mg/dL Glucose 132 H (74-99) mg/dL POC Glucose (mg/dL) (75-99) mg/dL Calcium 8.0 L (8.4-10.2) mg/dL Ferritin 528.5 H (22.0-322.0) ng/mL AST 111 H (17-59) U/L ALT 56 H (4-49) U/L Lactate Dehydrogenase 748 H (313-618) U/L CK-MB (CK-2) 8.8 H (0.0-2.4) ng/mL C-Reactive Protein 16.6 H (<1.0) mg/dL Total Protein 5.2 L (6.3-8.2) g/dL Albumin 2.3 L (3.5-5.0) g/dL 05/21/21 05/21/21 05/21/21 Range/Units 04:56 06:27 11:47 WBC (3.8-10.6) k/uL RBC (4.30-5.90) m/uL Hgb (13.0-17.5) gm/dL Hct (39.0-53.0) % D-Dimer (<0.60) mg/L FEU ABG pH 7.25 L (7.35-7.45) ABG pCO2 70 H (35-45) mmHg ABG pO2 61 L (83-108) mmHg ABG HCO3 31 H (21-25) mmol/L ABG Total CO2 33 H (19-24) mmol/L ABG O2 Saturation 89.2 L (94-97) % BUN (9-20) mg/dL Creatinine (0.66-1.25) mg/dL Glucose (74-99) mg/dL POC Glucose (mg/dL) 143 H 191 H (75-99) mg/dL Calcium (8.4-10.2) mg/dL Ferritin (22.0-322.0) ng/mL AST (17-59) U/L ALT (4-49) U/L Lactate Dehydrogenase (313-618) U/L CK-MB (CK-2) (0.0-2.4) ng/mL C-Reactive Protein (<1.0) mg/dL Total Protein (6.3-8.2) g/dL Albumin (3.5-5.0) g/dL Microbiology - Last 24 Hours (Table) 05/15/21 15:30 Fungal Culture - Preliminary Trachea Pratima albicans Assessment and Plan (1) COVID-19 Narrative/Plan: Patient is stable on the ventilator. No further bleeding seen. Continue feedings through orogastric tube. Will follow. Current Visit: Yes Status: Acute Code(s): U07.1 - COVID-19 SNOMED Code(s): 569105126
--- NOTE | 2021-05-21 12:38 | P.PN ---
Subjective Progress Note Date: 05/21/21 Principal diagnosis: Coronavirus pneumonia. Acute hypoxic respiratory failure secondary to COVID-19 pneumonia. On 05/04/2021 patient seen in follow-up on selective care unit. His oxygen demand has increased, he is currently on 100 percent nonrebreather, his oxygen saturations are ranging between 82 and 88%, is having low-grade fevers this afternoon, blood pressures stable. Inflammatory markers are improving on today's labs, LDH is down to 392, CRP is 6.0, pro calcitonin level was 0.32. D- dimer was 0.66. Blood cultures have been negative. Patient remains on dexamethasone 6 mg daily, he is on prophylactic dose Lovenox 40 mg daily. His chest x-ray point diffuse bilateral infiltrates that appear to be progress. Patient could not tolerate high flow nasal cannula and was desaturating on it. On today's evaluation of 05/05/2021 patient seen in follow-up on medical chou rgical floor. Overnight patient was placed on BiPAP support for worsening dyspnea and hypoxia, with pressures of 12/5, and FiO2 of 100%, and his pulse ox is around 89%. Patient is currently up in the chair, is short of breath with any exertion, he was started on bariticinib yesterday, and he continues on Decadron 6 mg daily, and Lovenox 80 mg once daily, his chest x-ray has been reviewed showing stable diffuse bilateral infiltrates. Today's labs have been reviewed, white blood cell count is not 7.9, hemoglobin is 12.6, his lymphocyte count is 1.27, electrolytes are within normal limits, B1 is 36, creatinine is 1.6, his LDH is up slightly to 560 from 392 one yesterday his labs, CRP is rela tively stable with 6.8. Pro-calcitonin level was 0.32. His had no fever or chills overnight, but cultures were negative. In view of his progressive oxygen demand and shortness of breath, we recommended transfer to the intensive care unit for closer monitoring On 05/06/2021 patient seen in follow-up in the intensive care unit where she was transferred yesterday from [facility]. in view of his worsening hypoxia, patient is currently on BiPAP support with pressures of 12/10 and FiO2 100%, his pulse ox is ranging between 86-91%, he sitting up in the recliner where he slept last night, he does not appear to be in any acute distress, however he does desaturate down to 68 when he removes the BiPAP mask even briefly to take a bite of food, or his medication. Is currently on IV fluids with 0.9, secondary to 20 ML per hour. He continues on Baricitinib 2 mg daily, and today is day 2 of treatment, in addition he is on IV Decadron 6 mg daily, is on prophylactic dose of Lovenox 40 mg daily, he is receiving when necessary doses of Ativan for anxiety and breathlessness. Today's chest x-ray has been reviewed showing diffuse bilateral infiltrates that are stable in appearance. Today's labs have been reviewed showing CBC within normal limits, electrolytes were unremarkable, BUN is 39, creatinine is 1.41. Inflammatory markers seems to have increased as far as LDH is up to 1792, and CRP is relatively stable 6.9. His d-dimer today is 0.59. He appears to be sleepy, but no acute distress, he is answering questions appropriately, denies any chest discomfort. He is been in his chair for the most part. His been using the urinal to urinate, he is trying to keep up his oral intake and take bites of food. No other acute events overnight. Reevaluated today on 05/07/2021, patient remains in the ICU, his pulmonary status is marginal at best. Patient is on BiPAP 08/03 he is also on 100% FiO2, with O2 saturation in the high 80s at best. Surprisingly however the patient seems to be in no distress, he is comfortable, sitting at a bedside chair, alert oriented 3, and I have increased his IPAP 14 instead of 12, patient seems to be extremely comfortable. Chest x-ray continues to show bilateral interstitial infiltrates. WBC count is 10.9 hemoglobin 13.9 d-dimer is 0.96 electrolytes are normal LDH 2092 and C-reactive protein is 6. Reevaluated today on 05/08/2021, remains in the ICU, remains on BiPAP, he is on IPAP of 14 and EPAP of 8 and FiO2 of 100%. Patient O2 saturation is marginal in the 80s most of the time. Surprisingly, the patient is not complaining of any shortness of breath, he seems to be comfortable, and relatively asymptomatic. Does not seem to be in distress. Chest x-ray is basically about the same, hence I ordered another Lasix dose to be given today 40 mg IV push 1, although BNP level is not elevated, but I would like to keep him on the dry side as much as p ossible. Patient remains on Lovenox 40 mg subcu daily, he is on Decadron, Glucerna was ordered, and he remains on baricitinib. CBC is relatively normal left lites are normal renal profile showed a BUN of 45 creatinine 1.16. Improving compared to his baseline on admission Reevaluated today on 05/09/2021, patient remains in the ICU, remains on BiPAP 09/04/100% FiO2 patient is basically about the same not much of a change noted over the last 24 hours. Chest x-ray is basically about the same. Patient seems to be comfortable, O2 saturations are marginal basically as high, 92%. Remains on Decadron, Lovenox, and on baricitinib WBC count is 12.3 hemoglobin is 14.1 lites are normal BUN is 53 creatinine 1.15, no Lasix was ordered today as the patient seems to be a bit prerenal On 05/11/2021 patient seen in follow-up in the intensive care unit, he was intubated and placed on mechanical ventilator yesterday on 05/10/2021 for worsening hypoxic respiratory failure, he currently remains sedated, and paralyzed on assist-control mode of ventilation with a rate of 30, tidal I was 450, FiO2 of 90% and PEEP of 15, this morning's blood gas shows pO2 of 86, pCO2 46, and pH of 7.36. He's currently on 0.9 normal saline at 75 ML per hour, fentanyl infusion is at 1 diana per kilo per minute, and then backs is at 1 diana per kilo per minute, and improving and is at 50 mics per kilo per minute, patient has not been started on tube feedings yet. He tolerated protein quite well, this morning he still proned. Today's chest x-ray shows diffuse bilateral lung disease which is stable in appearance, and ET tube at 1.5 cm above nata. Today's labs have been reviewed, showing white blood cell count of 16.1, hemoglobin is 12.1, d-dimer is 4.5, slightly obtunded from previous level, sodium is 141, potassium is 4.5, chloride is 109, CO2 is 24, BUN of 44, creatinine is 1.18, LDH is down to 1175, appendectomy level is still pending for today. Did have some intermittent fevers last night, with a T-max of 101.4F. Remains on Baricitinib, Decadron, and Lovenox 40 mg daily. On 05/12/2021 patient seen in follow-up in the intensive care unit, he remains intubated, sedated and paralyzed, on assist-control mode ventilation, with a rate of 30, tacrolimus 450, FiO2 60% and PEEP of 16, this morning's blood gas shows pO2 of 59, pCO2 49, pH is 7.35. Patient is currently on 0.9 normal saline at a rate of 75 ML per hour, fentanyl infusion is at 1 diana per kilo per minute, Nimbex is at 1 diana per kilo per minute, and improving and is at 30 mics per kilo per minute, he is receiving vital high protein at 40 ML per hour with a goal of 65, today's chest x-ray shows no evident pneumothorax, and bilateral airspace disease persistence. Patient tolerated protein well, however he did sustain some blistering in the shearing injury on his face, in his abdomen. He is currently back in the supine position. He is hemodynamically stable, in sinus mechanism with a rate of 64, not requiring any vasopressor support, his FiO2 was dropped down to 60% from 90% from yesterday. He is afebrile. His d-dimer today is 3.10, LDH is 985, and CRP is 16.1, pro-calcitonin level was 0.51. he is on Olumiant, Lovenox 40 mg twice daily, and Decadron 6 mg daily. He has been tolerating tube feedings, no other acute issues overnight. The patient is seen today 05/13/2021 in follow-up in the intensive care unit. He remains intubated on mechanical ventilator. Currently in assist-control mode at a rate of 36, tidal volume 400, FiO2 60% and a PEEP of 16. Peak airway pressure 43. Morning blood gases revealed a PaO2 of 69, pCO2 57, pH 7.28. Currently sedated on to prevent at 30 mcg/kg/m. Nimbex at 1 mcg/kg/m. Fentanyl 1 g per hour. 0.9 normal saline at 75 ML's per hour. He is being nourished with tube feeds via vital HP at 50 MLS per hour with a goal of 65 ML's per hour. He remains in sinus rhythm. He has been proned as tolerated. There has been having issues with Endotracheal tube balloon leaking. This will be changed out by anesthesia today. Chest x-ray continues to show ARDS with bilateral in terstitial and airspace disease. White count 12.5. Hemoglobin 11.9. Lymphocyte 0.6. D-dimer 2.52. Sodium 138. Potassium 4.7. Creatinine 1.03. Glucose 288. LDH 812. C-reactive protein 6.8. He remains on Baricitinib, Ecotrin, Lovenox, vitamin supplements. Reevaluated today on 05/14/2021, patient remains in the ICU, intubated and mechanically ventilated. He is on assist control rate of 36 tidal volume 4:30 FiO2 of 60% PEEP of 16. ABG showed a pO2 of 60 pCO2 44 pH of 7.39. Patient rem ains on propofol at 30 Nimbex at 1 and fentanyl at 2 mcg/kg/h. Patient had his endotracheal tube change yesterday by anesthesia because there was a significant leak. Today there is no evidence of leaking from the endotracheal tube. Peak airway pressure remains high at 37, plateau pressure is in the low 30s. His x- ray continues to be about the same, continues to have bilateral interstitial infiltrates. WBC count today is 12.8 hemoglobin is 11.9. D-dimer is 2.29. Slightly lower compared to the last 4 days. LDH is down to 760 and C-reactive protein is 6.7 Reevaluated today on 05/15/2021, patient remains in the ICU, intubated and mechanically ventilated. He is on assist control rate of 36 tidal volume 430 FiO2 70% and PEEP of 16 ABG showed a pO2 of 56 pCO2 43 pH of 7.41. Remains on N imbex at 1 mcg/kg/m, fentanyl at 2 mcg/kg/h, propofol at 30 mcg/kg/m, IV fluid at 0.9 normal saline 75 mL/h receiving vital HP at 50/50. Not much of a change noted on the chest x-ray today, not much of a change noted in his clinical status over the last 24 hours. Patient had poor tolerance to proning, hence no further proning was done d-dimer today is 1.72, CBC is relatively normal. Electrolytes are normal. Renal profile is normal. C-reactive protein is 7.3. Not to changing much in the last 3 days. No LDH done today. Liver enzymes are normal Progress note dated 05/16/2021. The patient is again seen in the intensive care unit, room 260. The patient was admitted to the hospital on May 02. He came to the intensive care unit on May 05. He came with acute hypoxemic respiratory failure secondary to coronavirus associated pneumonia. The patient was intubated on May 10, and had a change of his endotracheal tube, on May 13. The patient remains in the intensive care unit on the ventilator. He is on the volume assist control mode, rate 36, tidal L[place] 4:30, FiO2 90%, and PEEP of 16. Blood gases show pO2 of 55, pCO2 47, and pH is 7.37. Those blood gases were done on 80%. The patient did receive both the Decadron and Lovenox. He was not a candidate for REM. He did receive some WENDY, but it was subsequently discontinued. Currently, the patient's getting saline at 75 mL an hour, a fentanyl drip at 2 mcg/kg/h, Nimbex drip at 1 mcg/kg/m, propofol at 30 mcg/kg/m, vital high protein at 50 mL an hour, which is goal, and Cleveprex at 2 mg an hour. Lab data includes a white count of 13.1, hemoglobin 11.4, hematocrit 34.4, platelet count 448,000. Sodium 139, potassium 4.3, chlorides 110, CO2 26, anion gap 3, BUN 45, and creatinine 0.82. Chest x-ray is consistent with diffuse bilateral infiltrates. Progress note dated 05/17/2021. 66-year-old male, seen in the intensive care unit, room 260. The patient was admitted to the hospital on May 02, and came to the intensive care unit on May 05. Because of acute hypoxemic respiratory failure and coronavirus associated pneumonia, the patient was intubated on May 10 and had a change in his endotracheal tube on May 13 he remains on the ventilator. He is on the volume assist control mode rate of 36, tidal volume 4:30, FiO2 90%, and PEEP of 16. Blood gases show a pO2 of 58, pCO2 47, and pH is 7.37. The patient is currently on Cleveprex 2 mg an hour, Nimbex at 1 mcg/kg/m, propofol at 30 mcg/kg/m, fentanyl at 2 mcg/kg/h, saline at 75 mL an hour, and vital high protein at 50 mL an hour, which is goal. We are going to give the patient some Lasix 40 mg IV push to 12 hours, as the appears that looking at his I's and O's over the last number of days, the patient has been receiving quite a bit of fluids. Current labs include a white count of 13, hemoglobin 10.9, hematocrit 34.6, and platelet count 383,000. Sodium 139, potassium 4.5, chlorides 109, CO2 25, anion gap 5, BUN 52, and creatinine 0.96. Albumin is 2.2. Progress note dated 05/18/2021. 66-year-old male, again seen in the intensive care unit, room 260. The patient was admitted to the hospital on May 02 and came to the intensive care unit on May 05. Because of coronavirus associated pneumonia, the patient developed acute hypoxemic respiratory failure and required intubation on May 10, and a change in his endotracheal tube on May 13, because of a ruptured check pilot balloon. Currently, the patient remains on the ventilator. He is on the volume assist control mode, rate 36, tidal volume 430, FiO2 90%, PEEP of 16. Arterial blood gases show a PaO2 of 62, pCO2 45, pH is 7.43. The patient will be tried on pressure assist control modality, with an inspiratory pressure of 20 cm water, and an inspiratory time, 0.9 seconds. He blood gas will be done an hour after the change. Currently, the patient's on propofol at 30 mcg/kg/m, Cleveprex at 1 mg an hour, Nimbex at 1.5 mcg/kg/m, saline at 75 mL an hour, to be reduced down to KVO, fentanyl at 2 mcg/kg/h, and vital high pro tein at 38 mL an hour, which is goal. White count 11.9, hemoglobin 11.2, hematocrit 35.2, and platelet count 408,000. Sodium 139, potassium 4, chlorides 106, CO2 27, anion gap 6, BUN 51, and creatinine 0.92. The repeat blood gas after switched to a pressure assist control modality, shows a pO2 of 69, a pCO2 of 67, and a pH is 7.28. These blood gases are perfectly okay, and the mild acidosis, moves the oxyhemoglobin dissociation curve to the right. Chest x-ray shows diffuse bilateral infiltrates consistent with acute respiratory distress syndrome. Progress note dated 05/19/2021. 66-year-old male seen again in the ICU, room 260. The patient was admitted to the hospital on May 02 and came to the intensive care unit on May 05. Because of coronavirus associated pneumonia, and acute hypoxemic respiratory failure, patient was intubated on May 10. The patient had his en dotracheal tube changed out on May 13. The patient remains on the ventilator. Yesterday, we switch the patient to pressure assist control modality, with a inspiratory pressure of 20 cm of water, and inspiratory time of 0.9 seconds. I forcefully, his blood gases this morning were very poor showing a pO2 of 78, a CO2 of greater than 120, and a pH is 6.98. The patient was converted back to I am assist control, with settings of rate 36, tidal volume 350, FiO2 100%, and PEEP of 16. Blood gases afterwards, show pO2 of 83, pCO2 79, and a pH is 7.2. Currently, the patient's on Nimbex at 2 mcg/kg/m, propofol at 40 mcg/kg/m, fentanyl 1 mcg/kg/h, norepinephrine at 10 mcg/m, saline at KVO, and vital high protein at 38 mL an hour, which is goal. White count 16.9, hemoglobin 10.9, hematocrit 36.8, and platelet count 474,000. Sodium 140, potassium 5.8, chlorides 105, CO2 31, anion gap 4, BUN 61, creatinine 1.39. LDH 769. Albumin 2.4. Repeat coronavirus test was positive. Chest x-ray again shows diffuse bilateral infiltrates, which are essentially unchanged. Progress note dated 05/20/2021. 66-year-old male again seen in room 260. The patient was admitted to the hospital on May 02 and came to the intensive care unit on May 05. He developed acute hypoxemic respiratory failure secondary to coronavirus associated pneumonia. He was intubated on the , and his endotracheal tube was changed on Vangie 17. The patient remains on the ventilator. The patient did have a tracheostomy. He may get a PEG tube today. Current ventilator settings include the volume assist control mode, rate 36, tidal volume 350, FiO2 90%, and PEEP of 16. Blood gases on the same settings, but 100%, show a PaO2 of 77, pCO2 of 67, and a pH is 7.27. The patient's Lasix will drop back from twice a day to just once a day. The patient's on saline at 20 mL an hour, fentanyl at 1 mcg/kg/h, propofol, at 40 mcg/kg/m, Nimbex at 1 mcg/kg/m, norepinephrine at 6 mcg/m, and his tube feeds are currently on hold for anticipated placement of the PEG tube. White count 11.1, hemoglobin 10.3, hematocrit 33, and platelet count 324,000. Sodium potassium chloride CO2 and anion gap are all normal. BUN 74, creatinine 1.73. AST was 106, ALT 58. No chest x-ray today. Progress note dated 05/21/2021. 66-year-old male, again seen in room 260 in the intensive care unit. The patient was admitted to the hospital on May 02 and came into the intensive care unit on May 05. He developed acute hypoxemic respiratory failure secondary to coronavirus associated pneumonia and was intubated on the , and had his endotracheal tube changed on the , because of a ruptured check pilot ba lloon. The patient remains on the mechanical ventilator. He is on the volume assist control mode, rate 36, tidal volumes 350, FiO2 90%, and PEEP of 15. Arterial blood gases show pO2 61 pCO2 of 70, and a pH is 7.25. Currently, the patient is on Nimbex at 1.8 mcg/kg/m, norepinephrine at 0.04 mcg/kg/m, propofol at 40 mcg/kg/m, fentanyl at 1 mcg/kg/h, saline at KVO, and vital high protein at 43 mL an hour, which is goal. We will attempt to wean the patient off of Nimbex. White count 14.9, hemoglobin 9.8, hematocrit 31.3, and platelet count 301,000. D-dimer is 1.22. Blood gases have really been noted. Sodium 148, potassium 4.8, chlorides 107, CO2 28, anion gap 6, BUN 80, and creatinine 1.75. Chest x-ray shows diffuse bilateral infiltrates. Objective - Vital Signs Vital signs: Vital Signs Temp 98.1 F 05/21/21 12:00 Pulse 76 05/21/21 12:00 Resp 36 H 05/21/21 12:00 BP 118/57 05/20/21 04:00 Pulse Ox 90 L 05/21/21 12:00 Intake & Output 05/20/21 05/21/21 05/21/21 18:59 06:59 18:59 Intake Total 4413.908 9951.099 585.633 Output Total 1625 815 495 Balance -591.534 654.099 90.633 Weight 143.7 kg 149.2 kg Intake: IV 276 276 138 Pressure bag 36 36 18 Sodium Chloride 0.9% 1, 240 240 120 000 ml @ 20 mls/hr IV . Q24H [facility] Rx#:[id number] Intake, IV Titration 757.466 923.099 207.633 Amount Cisatracurium 200 mg In 149.034 176.062 83.886 Sodium Chloride 0.9% 180 ml @ 1 MCG/KG/MIN 7.578 mls/hr IV .Q24H [facility] Rx#: [id number] Norepinephrine 8 mg In 63.015 102.770 23.747 Sodium Chloride 0.9% 250 ml @ 0.05 MCG/KG/MIN 12. 22 mls/hr IV .Q21H7M [facility] Rx#:[id number] fentaNYL (PF) 2,500 mcg 250 250 In Sodium Chloride 0.9% 200 ml @ Per Protocol IV .Q0M [facility] Rx#:[id number] propofoL 1,000 mg In 295.417 394.267 100 Empty Bag 1 bag @ Titrate IV .Q0M [facility] Rx#: [id number] Tube Feeding 210 180 Other 60 60 Output: Gastric Drainage 50 Urine 1575 815 495 Other: Voiding Method Indwelling Catheter Indwelling Catheter Indwelling Catheter # Bowel Movements 0 ABP, PAP, CO, CI - Last Documented Arterial Blood Pressure 118/49 - Exam No acute distress, with a midline tracheostomy tube, inserted May 18, the patient is heavily sedated and paralyzed. HEENT examination is grossly unremarkable. Neck supple. Full range of motion. No adenopathy thyromegaly or neck vein distention. Cardiovascular examination reveals regular rhythm and rate. S1-S2 normal. No S3 or S4. No discernible murmur noted. Heart sounds are distant. Heart rate 76 bpm. Lungs reveal coarse bilateral rhonchi. Breath sounds are diminished. No wheezes or crackles. Breath sounds equal bilaterally. Saturations are between 89-91%. Abdomen soft, with bowel sounds. No masses noted. Extremities are intact. No cyanosis clubbing or edema. Skin is without rash or lesion. Neurologic examination cannot be adequately assessed as the patient's currently sedated and paralyzed. - Labs CBC & Chem 7: 05/21/21 04:35 05/21/21 04:35 Labs: Abnormal Lab Results - Last 24 Hours (Table) 05/20/21 05/20/21 05/21/21 Range/Units 17:36 21:00 04:35 WBC 14.9 H (3.8-10.6) k/uL RBC 3.32 L (4.30-5.90) m/uL Hgb 9.8 L (13.0-17.5) gm/dL Hct 31.3 L (39.0-53.0) % D-Dimer (<0.60) mg/L FEU ABG pH (7.35-7.45) ABG pCO2 (35-45) mmHg ABG pO2 (83-108) mmHg ABG HCO3 (21-25) mmol/L ABG Total CO2 (19-24) mmol/L ABG O2 Saturation (94-97) % BUN (9-20) mg/dL Creatinine (0.66-1.25) mg/dL Glucose (74-99) mg/dL POC Glucose (mg/dL) 102 H 101 H (75-99) mg/dL Calcium (8.4-10.2) mg/dL Ferritin (22.0-322.0) ng/mL AST (17-59) U/L ALT (4-49) U/L Lactate Dehydrogenase (313-618) U/L CK-MB (CK-2) (0.0-2.4) ng/mL C-Reactive Protein (<1.0) mg/dL Total Protein (6.3-8.2) g/dL Albumin (3.5-5.0) g/dL 05/21/21 05/21/21 05/21/21 Range/Units 04:35 04:35 04:35 WBC (3.8-10.6) k/uL RBC (4.30-5.90) m/uL Hgb (13.0-17.5) gm/dL Hct (39.0-53.0) % D-Dimer 1.22 H (<0.60) mg/L FEU ABG pH (7.35-7.45) ABG pCO2 (35-45) mmHg ABG pO2 (83-108) mmHg ABG HCO3 (21-25) mmol/L ABG Total CO2 (19-24) mmol/L ABG O2 Saturation (94-97) % BUN 80 H (9-20) mg/dL Creatinine 1.75 H (0.66-1.25) mg/dL Glucose 132 H (74-99) mg/dL POC Glucose (mg/dL) (75-99) mg/dL Calcium 8.0 L (8.4-10.2) mg/dL Ferritin 528.5 H (22.0-322.0) ng/mL AST 111 H (17-59) U/L ALT 56 H (4-49) U/L Lactate Dehydrogenase 748 H (313-618) U/L CK-MB (CK-2) 8.8 H (0.0-2.4) ng/mL C-Reactive Protein 16.6 H (<1.0) mg/dL Total Protein 5.2 L (6.3-8.2) g/dL Albumin 2.3 L (3.5-5.0) g/dL 05/21/21 05/21/21 05/21/21 Range/Units 04:56 06:27 11:47 WBC (3.8-10.6) k/uL RBC (4.30-5.90) m/uL Hgb (13.0-17.5) gm/dL Hct (39.0-53.0) % D-Dimer (<0.60) mg/L FEU ABG pH 7.25 L (7.35-7.45) ABG pCO2 70 H (35-45) mmHg ABG pO2 61 L (83-108) mmHg ABG HCO3 31 H (21-25) mmol/L ABG Total CO2 33 H (19-24) mmol/L ABG O2 Saturation 89.2 L (94-97) % BUN (9-20) mg/dL Creatinine (0.66-1.25) mg/dL Glucose (74-99) mg/dL POC Glucose (mg/dL) 143 H 191 H (75-99) mg/dL Calcium (8.4-10.2) mg/dL Ferritin (22.0-322.0) ng/mL AST (17-59) U/L ALT (4-49) U/L Lactate Dehydrogenase (313-618) U/L CK-MB (CK-2) (0.0-2.4) ng/mL C-Reactive Protein (<1.0) mg/dL Total Protein (6.3-8.2) g/dL Albumin (3.5-5.0) g/dL Microbiology - Last 24 Hours (Table) 05/15/21 15:30 Fungal Culture - Preliminary Trachea Pratima albicans Assessment and Plan Assessment: Acute hypoxemic respiratory failure secondary to coronavirus infection/pneumonia, with intubation and mechanical ventilation beginning on pt. Status post tracheostomy tube placement on May 18. PEG tube attempted on May 20, but procedure aborted by surgeon. Acute respiratory distress syndrome. Coronary artery disease, with previous coronary artery stenting. Status post permanent pacemaker insertion. History of essential hypertension. History of hyperlipidemia. History of obstructive sleep apnea syndrome, on CPAP. Migraine cephalgia. Acute on chronic kidney disease. Obesity, BMI 42.3. Hypothyroidism. Plan: Plan dated 05/16/2021. The patient is currently on 90% oxygen, and PEEP of 16. The patient is also being sedated with propofol, receiving narcotics in the form of fentanyl, and is chemically paralyzed with Nimbex. The patient is receiving appropriate medications. This includes Lovenox, and Decadron. The patient is being nourished, at goal, with vital high protein. Additional recommendations and suggestions are forthcoming. Prognosis is guarded. The patient doesn't show any significant improvements, he may be headed towards tracheostomy. We will continue to follow make recommendations where appropriate. A pro-calcitonin level will be done, and if normal, antibiotics will be discontinued. The patient is currently on Zosyn. Plan dated 05/17/2021. The patient will get Lasix 40 mg IV push every 12 hours. We will attempt to wean the current medications that he is on including the fentanyl, and Nimbex, if possible. In addition, it blood pressure is more stable, we will wean the Cleveprex. The patient's overall condition is quite complex, and his prognosis is very guarded. If the patient does not make any progress towards weaning and extubation, he will likely require a tracheostomy and PEG tube by the end of the week. The patient remains on Zosyn, and the microbiologic studies have been all negative. Plan dated 05/18/2021. The patient may end up getting his tracheostomy and PEG tube placed today. The patient was converted over to pressure assist control, with inspiratory pressure of 20 cm water, and inspiratory time of 0.9 seconds. Repeat blood gases are more than adequate. The patient remains on propofol, Cleveprex, Nimbex, fentanyl, and tube feeds. The patient's overall prognosis is guarded. Microbiology is currently negative. Pro-calcitonin level is 0.17 and 0.15. The patient's Zosyn can be discontinued tomorrow. We will continue to follow make recommendations where appropriate. For the time being, the patient will stay on pressure assist control modality. Plan dated 05/19/2021. The patient did have a tracheostomy tube performed on May 18. The patient did not tolerate pressure assist control mode switch back to volume assist control. Repeat blood gases are much improved. The patient remains on Nimbex, propofol, fentanyl, norepinephrine, and saline at KVO. The patient is receiving enteral nutrition with vital high protein at goal. Additional recommendations and suggestions are forthcoming. Overall prognosis remains very guarded. Microbiologic data is negative. The patient's Zosyn will be discontinued today. Plan dated 05/20/2021. The patient apparently will have a PEG tube placement today. The Lasix that he's on, will be reduced from twice a day to once a day. His FiO2 will be weaned per respiratory. The patient remains on fentanyl, propofol, Nimbex, and norepinephrine. Tube feeds are currently on hold. The patient's Zosyn was discontinued. Additional recommendations and suggestions are forthcoming. Prognosis is guarded. We will continue to follow and make recommendations where appropriate. The patient's was able to visit with the patient yesterday. Plan dated 05/19/2021. The patient was to have a PEG tube, but the procedure was aborted by the surgeon. Apparently was unsafe to place the PEG tube. There is risk of injury to the colon. Currently, the patient is on Nimbex, norepinephrine, propofol, and fentanyl. The patient is receiving tube feeds at goal. We will attempt to wean the Nimbex off. If the nurse has to go up on the propofol and/or the fentanyl, that is okay. Additional recommendations and suggestions are forthcom ing. Medications are reviewed. We will continue to follow the patient and make recommendations where appropriate. Overall prognosis remains guarded. Time with Patient: Greater than 30
[2021-05-21 18:29] LABS: Glucose,Whole Blood 240 mg/dL (75-99)
[2021-05-21] MEDS: CLEVIDIPINE BUTYRATE 25 MG in EMPTY BAG 1 BAG IV SCH (18:56)
[2021-05-21] MEDS: ATORVASTATIN 10 MG TAB PO SCH (19:59)
[2021-05-21 20:20] LABS: Glucose,Whole Blood 236 mg/dL (75-99)
[2021-05-21] MEDS: SODIUM CHLORIDE 0.9% 1,000 ML IV SCH (20:39)
--- NOTE | 2021-05-22 00:06 | P.PN ---
Subjective Progress Note Date: 05/21/21 Principal diagnosis: Acute Hypoxic Respiratory failure due to COVID-19 Pneumonia Mr. Niño is a 66-year-old male with a past medical history of coronary artery disease, diabetes mellitus, GERD, hypertension, hyperlipidemia, obstructive sleep apnea, thyroid disorder admitted to the hospital for acute hypoxic respiratory failure secondary to COVID-19 infection. On 05/21/2021 Patient is seen and examined in the ICU. Patient had tracheostomy performed on 05/18/2021. He is currently intubated and on ventilatory support. Patient is on Nimbex, norepinephrine, propofol and fentanyl drips. Review of systems could not be done as the patient is intubated and mechanically ventilated. Patient's current medications: Tylenol, Ventolin, aspirin, Lipitor, Decadron, Lovenox, Lexapro, Zetia, Lasix, hydralazine, Levemir, sliding scale of insulin, levothyroxine, Protonix Objective - Vital Signs Vital signs: Vital Signs Temp 98.1 F 05/21/21 16:00 Pulse 62 05/21/21 16:00 Resp 36 H 05/21/21 16:00 BP 118/57 05/20/21 04:00 Pulse Ox 90 L 05/21/21 16:00 Intake & Output 05/20/21 05/21/21 05/21/21 18:59 06:59 18:59 Intake Total 8310.159 5529.099 904.734 Output Total 1625 815 585 Balance -591.534 654.099 319.734 Weight 143.7 kg 149.2 kg Intake: IV 276 276 207 Pressure bag 36 36 27 Sodium Chloride 0.9% 1, 240 240 180 000 ml @ 20 mls/hr IV . Q24H [facility] Rx#:[id number] Intake, IV Titration 757.466 923.099 341.734 Amount Cisatracurium 200 mg In 149.034 176.062 117.987 Sodium Chloride 0.9% 180 ml @ 1 MCG/KG/MIN 7.578 mls/hr IV .Q24H [facility] Rx#: [id number] Norepinephrine 8 mg In 63.015 102.770 23.747 Sodium Chloride 0.9% 250 ml @ 0.05 MCG/KG/MIN 12. 22 mls/hr IV .Q21H7M [facility] Rx#:[id number] fentaNYL (PF) 2,500 mcg 250 250 In Sodium Chloride 0.9% 200 ml @ Per Protocol IV .Q0M [facility] Rx#:[id number] propofoL 1,000 mg In 295.417 394.267 200 Empty Bag 1 bag @ Titrate IV .Q0M [facility] Rx#: [id number] Tube Feeding 210 296 Other 60 60 Output: Gastric Drainage 50 Urine 1575 815 585 Other: Voiding Method Indwelling Catheter Indwelling Catheter Indwelling Catheter # Bowel Movements 0 ABP, PAP, CO, CI - Last Documented Arterial Blood Pressure 98/43 - Exam PHYSICAL EXAM: GENERAL EXAM: Intubated, sedated and paralyzed. HEENT: Normocephalic/atraumatic.Normal reaction of pupils, equal size. No pallor CHEST: No chest wall deformity. Symmetrical expansion. LUNGS: Equal air entry with coarse rhonchi with bilateral bases diminished. CVS: Regular rate and rhythm, normal S1 and S2, no gallops, no murmurs, no rubs ABDOMEN: Soft, nondistended, no masses palpable, normal bowel sounds. EXTREMITIES: Mild puffiness/edema, no cyanosis, 2+ pulses and upper and lower extremities. SKIN: Warm and dry, No rashes CENTRAL NERVOUS SYSTEM: Sedated, intubated and paralyzed. - Labs CBC & Chem 7: 05/22/21 05:10 05/22/21 05:10 Labs: Abnormal Lab Results - Last 24 Hours (Table) 05/20/21 05/20/21 05/21/21 Range/Units 17:36 21:00 04:35 WBC 14.9 H (3.8-10.6) k/uL RBC 3.32 L (4.30-5.90) m/uL Hgb 9.8 L (13.0-17.5) gm/dL Hct 31.3 L (39.0-53.0) % D-Dimer (<0.60) mg/L FEU ABG pH (7.35-7.45) ABG pCO2 (35-45) mmHg ABG pO2 (83-108) mmHg ABG HCO3 (21-25) mmol/L ABG Total CO2 (19-24) mmol/L ABG O2 Saturation (94-97) % BUN (9-20) mg/dL Creatinine (0.66-1.25) mg/dL Glucose (74-99) mg/dL POC Glucose (mg/dL) 102 H 101 H (75-99) mg/dL Calcium (8.4-10.2) mg/dL Ferritin (22.0-322.0) ng/mL AST (17-59) U/L ALT (4-49) U/L Lactate Dehydrogenase (313-618) U/L CK-MB (CK-2) (0.0-2.4) ng/mL C-Reactive Protein (<1.0) mg/dL Total Protein (6.3-8.2) g/dL Albumin (3.5-5.0) g/dL 05/21/21 05/21/21 05/21/21 Range/Units 04:35 04:35 04:35 WBC (3.8-10.6) k/uL RBC (4.30-5.90) m/uL Hgb (13.0-17.5) gm/dL Hct (39.0-53.0) % D-Dimer 1.22 H (<0.60) mg/L FEU ABG pH (7.35-7.45) ABG pCO2 (35-45) mmHg ABG pO2 (83-108) mmHg ABG HCO3 (21-25) mmol/L ABG Total CO2 (19-24) mmol/L ABG O2 Saturation (94-97) % BUN 80 H (9-20) mg/dL Creatinine 1.75 H (0.66-1.25) mg/dL Glucose 132 H (74-99) mg/dL POC Glucose (mg/dL) (75-99) mg/dL Calcium 8.0 L (8.4-10.2) mg/dL Ferritin 528.5 H (22.0-322.0) ng/mL AST 111 H (17-59) U/L ALT 56 H (4-49) U/L Lactate Dehydrogenase 748 H (313-618) U/L CK-MB (CK-2) 8.8 H (0.0-2.4) ng/mL C-Reactive Protein 16.6 H (<1.0) mg/dL Total Protein 5.2 L (6.3-8.2) g/dL Albumin 2.3 L (3.5-5.0) g/dL 05/21/21 05/21/21 05/21/21 Range/Units 04:56 06:27 11:47 WBC (3.8-10.6) k/uL RBC (4.30-5.90) m/uL Hgb (13.0-17.5) gm/dL Hct (39.0-53.0) % D-Dimer (<0.60) mg/L FEU ABG pH 7.25 L (7.35-7.45) ABG pCO2 70 H (35-45) mmHg ABG pO2 61 L (83-108) mmHg ABG HCO3 31 H (21-25) mmol/L ABG Total CO2 33 H (19-24) mmol/L ABG O2 Saturation 89.2 L (94-97) % BUN (9-20) mg/dL Creatinine (0.66-1.25) mg/dL Glucose (74-99) mg/dL POC Glucose (mg/dL) 143 H 191 H (75-99) mg/dL Calcium (8.4-10.2) mg/dL Ferritin (22.0-322.0) ng/mL AST (17-59) U/L ALT (4-49) U/L Lactate Dehydrogenase (313-618) U/L CK-MB (CK-2) (0.0-2.4) ng/mL C-Reactive Protein (<1.0) mg/dL Total Protein (6.3-8.2) g/dL Albumin (3.5-5.0) g/dL Microbiology - Last 24 Hours (Table) 05/15/21 15:30 Fungal Culture - Preliminary Trachea Pratima albicans Assessment and Plan Assessment: ASSESSMENT Acute COVID-19 pneumonia, status post Baricitinib. Acute hypoxic respiratory failure secondary to the above, mechanical ventilator-dependent, status post tracheostomy 05/18 Sepsis post admission secondary to progression of Covid Hypotension secondary to the above, pressor dependent Acute on chronic kidney failure, stage III Leukopenia, resolved Leukocytosis Diabetes mellitus, uncontrolled, hyperglycemic, hemoglobin A1c 9.1 Obstructive sleep apnea, on CPAP outpatient CAD with history of stenting, permanent pacemaker Hypertension Hyperlipidemia Hypothyroidism Morbid obesity, BMI 42.3 Depression, Anxiety Plan: Continue on current medication regimn,monitoring and symptomatic treatment. PEG tube placement pending.He has an OG tube in place. Will adjust the dose of insulin depending upon the blood sugar levels. ICU management as per patient access. Prognosis guarded given multiple complex medical issues.
[2021-05-22] MEDS: ARTIFICIAL TEARS-HYPROMELLOSE DROPS 15 ML BTL BOTH EYES SCH ×6 (00:25→20:36)
[2021-05-22] MEDS: fentaNYL (PF) 2,500 MCG in SODIUM CHLORIDE 0.9% 200 ML IV SCH ×3 (03:17→20:37)
[2021-05-22] MEDS: NOREPINEPHRINE 8 MG in SODIUM CHLORIDE 0.9% 250 ML IV SCH ×2 (05:00→16:25)
[2021-05-22 05:38] LABS: HCT 27.2 % (39.0-53.0); HGB 8.8 gm/dL (13.0-17.5); MCH 29.9 pg (25.0-35.0); MCHC 32.6 g/dL (31.0-37.0); MCV 91.9 fL (80.0-100.0); Mean Platelet Volume 9.2; Platelet Count 302 k/uL (150-450); RBC 2.96 m/uL (4.30-5.90); RDW 14.4 % (11.5-15.5); WBC 11.8 k/uL (3.8-10.6)
[2021-05-22 05:53] LABS: ABG Base Excess 2.9 mmol/L; ABG HCO3 30 mmol/L (21-25); ABG Oxygen Saturation 86.5 % (94-97); ABG PH 7.23 (7.35-7.45); ABG TCO2 33 mmol/L (19-24); Allen Test Performed? Yes
[2021-05-22 06:00] LABS: ABG PCO2 72 mmHg (35-45)
[2021-05-22 06:01] LABS: ABG PO2 56 mmHg (83-108)
[2021-05-22 06:02] LABS: Albumin 2.2 g/dL (3.5-5.0); Calcium 7.9 mg/dL (8.4-10.2); Magnesium 2.5 mg/dL (1.6-2.3); Potassium 4.4 mmol/L (3.5-5.1); Total Bilirubin 0.3 mg/dL (0.2-1.3)
[2021-05-22 06:26] LABS: C Reactive Protein 18.9 mg/dL (<1.0)
--- NOTE | 2021-05-22 06:49 | XR ---
EXAMINATION TYPE: XR chest 1V portable DATE OF EXAM: 05/22/2021 COMPARISON: 05/21/2021 HISTORY: Tracheostomy tube placement TECHNIQUE: Single frontal view of the chest is obtained. FINDINGS: There is a 2-lead cardiac pacemaker, tracheostomy tube and NG tube within the stomach. There is a partially consolidative opacity in the mid and lower lung zones which is stable compared t o the prior study. There are no large pleural effusions. There is no pneumothorax. Heart size is normal for the techniqu e. The osseous structures are intact IMPRESSION: Diffuse lung infiltrates in the mid lower lung zones unchanged since the prior study.
[2021-05-22] MEDS: INSULIN DETEMIR (LEVEMIR) 100 UNIT/ML SYR SQ SCH ×2 (07:01→20:35)
[2021-05-22] MEDS: INSULIN ASPART (NovoLOG) 100 UNIT/ML VIAL SQ SCH ×4 (07:01→20:35)
[2021-05-22] MEDS: LEVOTHYROXINE 137 MCG TAB PO SCH (07:01)
[2021-05-22] MEDS: ALBUTEROL HFA INHALER INHALATION SCH ×4 (08:13→19:00)
[2021-05-22] MEDS: CHLORHEXIDINE GLUCONATE 15 ML CUP MUCOUS MEM SCH ×2 (08:14→20:36)
[2021-05-22] MEDS: FUROSEMIDE 10 MG/ML 4 ML VIAL IV SCH (08:14)
[2021-05-22] MEDS: EZETIMIBE 10 MG TAB PO SCH (08:14)
[2021-05-22] MEDS: PANTOPRAZOLE 40 MG/10 ML VIAL IVP SCH (08:14)
[2021-05-22] MEDS: DEXAMETHASONE SOD PHOSPHATE 10 MG/ML 1 ML VIAL IV SCH (08:14)
[2021-05-22] MEDS: ESCITALOPRAM 10 MG TAB PO SCH (08:14)
[2021-05-22] MEDS: ASPIRIN 81 MG PO SCH (08:14)
[2021-05-22] MEDS: hydrALAZINE HCL 50 MG TAB NG-TUBE SCH ×2 (08:15→20:36)
[2021-05-22] MEDS: ENOXAPARIN 40 MG/0.4 ML SYRINGE SQ SCH ×2 (08:15→20:36)
--- NOTE | 2021-05-22 10:57 | P.PN ---
Subjective Progress Note Date: 05/22/21 Principal diagnosis: Respiratory failure Patient remains on ventilatory support. Still receiving feedings through orogastric tube. No bleeding from tracheostomy. Lovenox is on hold. Objective - Vital Signs Vital signs: Vital Signs Temp 96 F L 05/22/21 08:00 Pulse 68 05/22/21 10:00 Resp 36 H 05/22/21 10:00 BP 118/57 05/20/21 04:00 Pulse Ox 84 L 05/22/21 10:00 Intake & Output 05/21/21 05/22/21 05/22/21 18:59 06:59 18:59 Intake Total 6035.004 1595.567 608.279 Output Total 770 570 315 Balance 227.744 0907.567 293.279 Weight 148.8 kg Intake: IV 299 253 92 Pressure bag 39 33 12 Sodium Chloride 0.9% 1, 260 220 80 000 ml @ 20 mls/hr IV . Q24H [facility] Rx#:[id number] Intake, IV Titration 149.116 5496.567 284.279 Amount Cisatracurium 200 mg In 117.987 Sodium Chloride 0.9% 180 ml @ 1 MCG/KG/MIN 7.578 mls/hr IV .Q24H [facility] Rx#: [id number] Norepinephrine 8 mg In 23.747 258.000 Sodium Chloride 0.9% 250 ml @ 0.05 MCG/KG/MIN 12. 22 mls/hr IV .Q21H7M [facility] Rx#:[id number] fentaNYL (PF) 2,500 mcg 470.177 184.279 In Sodium Chloride 0.9% 200 ml @ Per Protocol IV .Q0M [facility] Rx#:[id number] propofoL 1,000 mg In 200 Empty Bag 1 bag @ Titrate IV .Q0M [facility] Rx#: [id number] propofoL 1,000 mg In 360.390 100 Empty Bag 1 bag @ Titrate IV .Q0M [facility] Rx#: [id number] Tube Feeding 468 473 172 Other 90 90 60 Output: Urine 770 570 315 Other: Voiding Method Indwelling Catheter Indwelling Catheter Indwelling Catheter ABP, PAP, CO, CI - Last Documented Arterial Blood Pressure 122/52 - Exam Tracheostomy site without bleeding or infection - Labs CBC & Chem 7: 05/22/21 05:10 05/22/21 05:10 Labs: Abnormal Lab Results - Last 24 Hours (Table) 05/21/21 05/21/21 05/21/21 Range/Units 04:35 11:47 18:27 WBC (3.8-10.6) k/uL RBC (4.30-5.90) m/uL Hgb (13.0-17.5) gm/dL Hct (39.0-53.0) % D-Dimer (<0.60) mg/L FEU ABG pH (7.35-7.45) ABG pCO2 (35-45) mmHg ABG pO2 (83-108) mmHg ABG HCO3 (21-25) mmol/L ABG Total CO2 (19-24) mmol/L ABG O2 Saturation (94-97) % BUN (9-20) mg/dL Creatinine (0.66-1.25) mg/dL Glucose (74-99) mg/dL POC Glucose (mg/dL) 191 H 240 H (75-99) mg/dL Calcium (8.4-10.2) mg/dL Magnesium (1.6-2.3) mg/dL Ferritin 528.5 H (22.0-322.0) ng/mL AST (17-59) U/L Lactate Dehydrogenase (313-618) U/L CK-MB (CK-2) (0.0-2.4) ng/mL C-Reactive Protein (<1.0) mg/dL Total Protein (6.3-8.2) g/dL Albumin (3.5-5.0) g/dL 05/21/21 05/22/21 05/22/21 Range/Units 20:18 05:10 05:10 WBC 11.8 H (3.8-10.6) k/uL RBC 2.96 L (4.30-5.90) m/uL Hgb 8.8 L (13.0-17.5) gm/dL Hct 27.2 L (39.0-53.0) % D-Dimer 1.31 H (<0.60) mg/L FEU ABG pH (7.35-7.45) ABG pCO2 (35-45) mmHg ABG pO2 (83-108) mmHg ABG HCO3 (21-25) mmol/L ABG Total CO2 (19-24) mmol/L ABG O2 Saturation (94-97) % BUN (9-20) mg/dL Creatinine (0.66-1.25) mg/dL Glucose (74-99) mg/dL POC Glucose (mg/dL) 236 H (75-99) mg/dL Calcium (8.4-10.2) mg/dL Magnesium (1.6-2.3) mg/dL Ferritin (22.0-322.0) ng/mL AST (17-59) U/L Lactate Dehydrogenase (313-618) U/L CK-MB (CK-2) (0.0-2.4) ng/mL C-Reactive Protein (<1.0) mg/dL Total Protein (6.3-8.2) g/dL Albumin (3.5-5.0) g/dL 05/22/21 05/22/21 05/22/21 Range/Units 05:10 05:10 05:49 WBC (3.8-10.6) k/uL RBC (4.30-5.90) m/uL Hgb (13.0-17.5) gm/dL Hct (39.0-53.0) % D-Dimer (<0.60) mg/L FEU ABG pH 7.23 L (7.35-7.45) ABG pCO2 72 H* (35-45) mmHg ABG pO2 56 L* (83-108) mmHg ABG HCO3 30 H (21-25) mmol/L ABG Total CO2 33 H (19-24) mmol/L ABG O2 Saturation 86.5 L (94-97) % BUN 94 H (9-20) mg/dL Creatinine 1.94 H (0.66-1.25) mg/dL Glucose 192 H (74-99) mg/dL POC Glucose (mg/dL) (75-99) mg/dL Calcium 7.9 L (8.4-10.2) mg/dL Magnesium 2.5 H (1.6-2.3) mg/dL Ferritin 644.0 H (22.0-322.0) ng/mL AST 68 H (17-59) U/L Lactate Dehydrogenase 696 H (313-618) U/L CK-MB (CK-2) 7.0 H (0.0-2.4) ng/mL C-Reactive Protein 18.9 H (<1.0) mg/dL Total Protein 5.0 L (6.3-8.2) g/dL Albumin 2.2 L (3.5-5.0) g/dL Assessment and Plan (1) COVID-19 Narrative/Plan: Patient remains stable. Continue tube feeds through oral gastric tube. Monitor for recurrent tracheostomy site bleeding. Current Visit: Yes Status: Acute Code(s): U07.1 - COVID-19 SNOMED Code(s): 166956993
[2021-05-22 12:06] LABS: Glucose,Whole Blood 248 mg/dL (75-99)
--- NOTE | 2021-05-22 12:09 | P.PN ---
Subjective Progress Note Date: 05/22/21 Principal diagnosis: Coronavirus pneumonia. Acute hypoxic respiratory failure secondary to COVID-19 pneumonia. On 05/04/2021 patient seen in follow-up on selective care unit. His oxygen demand has increased, he is currently on 100 percent nonrebreather, his oxygen saturations are ranging between 82 and 88%, is having low-grade fevers this afternoon, blood pressures stable. Inflammatory markers are improving on today's labs, LDH is down to 392, CRP is 6.0, pro calcitonin level was 0.32. D- dimer was 0.66. Blood cultures have been negative. Patient remains on dexamethasone 6 mg daily, he is on prophylactic dose Lovenox 40 mg daily. His chest x-ray point diffuse bilateral infiltrates that appear to be progress. Patient could not tolerate high flow nasal cannula and was desaturating on it. On today's evaluation of 05/05/2021 patient seen in follow-up on medical chou rgical floor. Overnight patient was placed on BiPAP support for worsening dyspnea and hypoxia, with pressures of 12/5, and FiO2 of 100%, and his pulse ox is around 89%. Patient is currently up in the chair, is short of breath with any exertion, he was started on bariticinib yesterday, and he continues on Decadron 6 mg daily, and Lovenox 80 mg once daily, his chest x-ray has been reviewed showing stable diffuse bilateral infiltrates. Today's labs have been reviewed, white blood cell count is not 7.9, hemoglobin is 12.6, his lymphocyte count is 1.27, electrolytes are within normal limits, B1 is 36, creatinine is 1.6, his LDH is up slightly to 560 from 392 one yesterday his labs, CRP is rela tively stable with 6.8. Pro-calcitonin level was 0.32. His had no fever or chills overnight, but cultures were negative. In view of his progressive oxygen demand and shortness of breath, we recommended transfer to the intensive care unit for closer monitoring On 05/06/2021 patient seen in follow-up in the intensive care unit where she was transferred yesterday from [facility]. in view of his worsening hypoxia, patient is currently on BiPAP support with pressures of 12/10 and FiO2 100%, his pulse ox is ranging between 86-91%, he sitting up in the recliner where he slept last night, he does not appear to be in any acute distress, however he does desaturate down to 68 when he removes the BiPAP mask even briefly to take a bite of food, or his medication. Is currently on IV fluids with 0.9, secondary to 20 ML per hour. He continues on Baricitinib 2 mg daily, and today is day 2 of treatment, in addition he is on IV Decadron 6 mg daily, is on prophylactic dose of Lovenox 40 mg daily, he is receiving when necessary doses of Ativan for anxiety and breathlessness. Today's chest x-ray has been reviewed showing diffuse bilateral infiltrates that are stable in appearance. Today's labs have been reviewed showing CBC within normal limits, electrolytes were unremarkable, BUN is 39, creatinine is 1.41. Inflammatory markers seems to have increased as far as LDH is up to 1792, and CRP is relatively stable 6.9. His d-dimer today is 0.59. He appears to be sleepy, but no acute distress, he is answering questions appropriately, denies any chest discomfort. He is been in his chair for the most part. His been using the urinal to urinate, he is trying to keep up his oral intake and take bites of food. No other acute events overnight. Reevaluated today on 05/07/2021, patient remains in the ICU, his pulmonary status is marginal at best. Patient is on BiPAP 08/03 he is also on 100% FiO2, with O2 saturation in the high 80s at best. Surprisingly however the patient seems to be in no distress, he is comfortable, sitting at a bedside chair, alert oriented 3, and I have increased his IPAP 14 instead of 12, patient seems to be extremely comfortable. Chest x-ray continues to show bilateral interstitial infiltrates. WBC count is 10.9 hemoglobin 13.9 d-dimer is 0.96 electrolytes are normal LDH 2092 and C-reactive protein is 6. Reevaluated today on 05/08/2021, remains in the ICU, remains on BiPAP, he is on IPAP of 14 and EPAP of 8 and FiO2 of 100%. Patient O2 saturation is marginal in the 80s most of the time. Surprisingly, the patient is not complaining of any shortness of breath, he seems to be comfortable, and relatively asymptomatic. Does not seem to be in distress. Chest x-ray is basically about the same, hence I ordered another Lasix dose to be given today 40 mg IV push 1, although BNP level is not elevated, but I would like to keep him on the dry side as much as p ossible. Patient remains on Lovenox 40 mg subcu daily, he is on Decadron, Glucerna was ordered, and he remains on baricitinib. CBC is relatively normal left lites are normal renal profile showed a BUN of 45 creatinine 1.16. Improving compared to his baseline on admission Reevaluated today on 05/09/2021, patient remains in the ICU, remains on BiPAP 09/04/100% FiO2 patient is basically about the same not much of a change noted over the last 24 hours. Chest x-ray is basically about the same. Patient seems to be comfortable, O2 saturations are marginal basically as high, 92%. Remains on Decadron, Lovenox, and on baricitinib WBC count is 12.3 hemoglobin is 14.1 lites are normal BUN is 53 creatinine 1.15, no Lasix was ordered today as the patient seems to be a bit prerenal On 05/11/2021 patient seen in follow-up in the intensive care unit, he was intubated and placed on mechanical ventilator yesterday on 05/10/2021 for worsening hypoxic respiratory failure, he currently remains sedated, and paralyzed on assist-control mode of ventilation with a rate of 30, tidal I was 450, FiO2 of 90% and PEEP of 15, this morning's blood gas shows pO2 of 86, pCO2 46, and pH of 7.36. He's currently on 0.9 normal saline at 75 ML per hour, fentanyl infusion is at 1 diana per kilo per minute, and then backs is at 1 diana per kilo per minute, and improving and is at 50 mics per kilo per minute, patient has not been started on tube feedings yet. He tolerated protein quite well, this morning he still proned. Today's chest x-ray shows diffuse bilateral lung disease which is stable in appearance, and ET tube at 1.5 cm above nata. Today's labs have been reviewed, showing white blood cell count of 16.1, hemoglobin is 12.1, d-dimer is 4.5, slightly obtunded from previous level, sodium is 141, potassium is 4.5, chloride is 109, CO2 is 24, BUN of 44, creatinine is 1.18, LDH is down to 1175, appendectomy level is still pending for today. Did have some intermittent fevers last night, with a T-max of 101.4F. Remains on Baricitinib, Decadron, and Lovenox 40 mg daily. On 05/12/2021 patient seen in follow-up in the intensive care unit, he remains intubated, sedated and paralyzed, on assist-control mode ventilation, with a rate of 30, tacrolimus 450, FiO2 60% and PEEP of 16, this morning's blood gas shows pO2 of 59, pCO2 49, pH is 7.35. Patient is currently on 0.9 normal saline at a rate of 75 ML per hour, fentanyl infusion is at 1 diana per kilo per minute, Nimbex is at 1 diana per kilo per minute, and improving and is at 30 mics per kilo per minute, he is receiving vital high protein at 40 ML per hour with a goal of 65, today's chest x-ray shows no evident pneumothorax, and bilateral airspace disease persistence. Patient tolerated protein well, however he did sustain some blistering in the shearing injury on his face, in his abdomen. He is currently back in the supine position. He is hemodynamically stable, in sinus mechanism with a rate of 64, not requiring any vasopressor support, his FiO2 was dropped down to 60% from 90% from yesterday. He is afebrile. His d-dimer today is 3.10, LDH is 985, and CRP is 16.1, pro-calcitonin level was 0.51. he is on Olumiant, Lovenox 40 mg twice daily, and Decadron 6 mg daily. He has been tolerating tube feedings, no other acute issues overnight. The patient is seen today 05/13/2021 in follow-up in the intensive care unit. He remains intubated on mechanical ventilator. Currently in assist-control mode at a rate of 36, tidal volume 400, FiO2 60% and a PEEP of 16. Peak airway pressure 43. Morning blood gases revealed a PaO2 of 69, pCO2 57, pH 7.28. Currently sedated on to prevent at 30 mcg/kg/m. Nimbex at 1 mcg/kg/m. Fentanyl 1 g per hour. 0.9 normal saline at 75 ML's per hour. He is being nourished with tube feeds via vital HP at 50 MLS per hour with a goal of 65 ML's per hour. He remains in sinus rhythm. He has been proned as tolerated. There has been having issues with Endotracheal tube balloon leaking. This will be changed out by anesthesia today. Chest x-ray continues to show ARDS with bilateral in terstitial and airspace disease. White count 12.5. Hemoglobin 11.9. Lymphocyte 0.6. D-dimer 2.52. Sodium 138. Potassium 4.7. Creatinine 1.03. Glucose 288. LDH 812. C-reactive protein 6.8. He remains on Baricitinib, Ecotrin, Lovenox, vitamin supplements. Reevaluated today on 05/14/2021, patient remains in the ICU, intubated and mechanically ventilated. He is on assist control rate of 36 tidal volume 4:30 FiO2 of 60% PEEP of 16. ABG showed a pO2 of 60 pCO2 44 pH of 7.39. Patient rem ains on propofol at 30 Nimbex at 1 and fentanyl at 2 mcg/kg/h. Patient had his endotracheal tube change yesterday by anesthesia because there was a significant leak. Today there is no evidence of leaking from the endotracheal tube. Peak airway pressure remains high at 37, plateau pressure is in the low 30s. His x- ray continues to be about the same, continues to have bilateral interstitial infiltrates. WBC count today is 12.8 hemoglobin is 11.9. D-dimer is 2.29. Slightly lower compared to the last 4 days. LDH is down to 760 and C-reactive protein is 6.7 Reevaluated today on 05/15/2021, patient remains in the ICU, intubated and mechanically ventilated. He is on assist control rate of 36 tidal volume 430 FiO2 70% and PEEP of 16 ABG showed a pO2 of 56 pCO2 43 pH of 7.41. Remains on N imbex at 1 mcg/kg/m, fentanyl at 2 mcg/kg/h, propofol at 30 mcg/kg/m, IV fluid at 0.9 normal saline 75 mL/h receiving vital HP at 50/50. Not much of a change noted on the chest x-ray today, not much of a change noted in his clinical status over the last 24 hours. Patient had poor tolerance to proning, hence no further proning was done d-dimer today is 1.72, CBC is relatively normal. Electrolytes are normal. Renal profile is normal. C-reactive protein is 7.3. Not to changing much in the last 3 days. No LDH done today. Liver enzymes are normal Progress note dated 05/16/2021. The patient is again seen in the intensive care unit, room 260. The patient was admitted to the hospital on May 02. He came to the intensive care unit on May 05. He came with acute hypoxemic respiratory failure secondary to coronavirus associated pneumonia. The patient was intubated on May 10, and had a change of his endotracheal tube, on May 13. The patient remains in the intensive care unit on the ventilator. He is on the volume assist control mode, rate 36, tidal Lyme 4:30, FiO2 90%, and PEEP of 16. Blood gases show pO2 of 55, pCO2 47, and pH is 7.37. Those blood gases were done on 80%. The patient did receive both the Decadron and Lovenox. He was not a candidate for REM. He did receive some WENDY, but it was subsequently discontinued. Currently, the patient's getting saline at 75 mL an hour, a fentanyl drip at 2 mcg/kg/h, Nimbex drip at 1 mcg/kg/m, propofol at 30 mcg/kg/m, vital high protein at 50 mL an hour, which is goal, and Cleveprex at 2 mg an hour. Lab data includes a white count of 13.1, hemoglobin 11.4, hematocrit 34.4, platelet count 448,000. Sodium 139, potassium 4.3, chlorides 110, CO2 26, anion gap 3, BUN 45, and creatinine 0.82. Chest x-ray is consistent with diffuse bilateral infiltrates. Progress note dated 05/17/2021. 66-year-old male, seen in the intensive care unit, room 260. The patient was admitted to the hospital on May 02, and came to the intensive care unit on May 05. Because of acute hypoxemic respiratory failure and coronavirus associated pneumonia, the patient was intubated on May 10 and had a change in his endotracheal tube on May 13 he remains on the ventilator. He is on the volume assist control mode rate of 36, tidal volume 4:30, FiO2 90%, and PEEP of 16. Blood gases show a pO2 of 58, pCO2 47, and pH is 7.37. The patient is currently on Cleveprex 2 mg an hour, Nimbex at 1 mcg/kg/m, propofol at 30 mcg/kg/m, fentanyl at 2 mcg/kg/h, saline at 75 mL an hour, and vital high protein at 50 mL an hour, which is goal. We are going to give the patient some Lasix 40 mg IV push to 12 hours, as the appears that looking at his I's and O's over the last number of days, the patient has been receiving quite a bit of fluids. Current labs include a white count of 13, hemoglobin 10.9, hematocrit 34.6, and platelet count 383,000. Sodium 139, potassium 4.5, chlorides 109, CO2 25, anion gap 5, BUN 52, and creatinine 0.96. Albumin is 2.2. Progress note dated 05/18/2021. 66-year-old male, again seen in the intensive care unit, room 260. The patient was admitted to the hospital on May 02 and came to the intensive care unit on May 05. Because of coronavirus associated pneumonia, the patient developed acute hypoxemic respiratory failure and required intubation on May 10, and a change in his endotracheal tube on May 13, because of a ruptured banquet pilot balloon. Currently, the patient remains on the ventilator. He is on the volume assist control mode, rate 36, tidal volume 430, FiO2 90%, PEEP of 16. Arterial blood gases show a PaO2 of 62, pCO2 45, pH is 7.43. The patient will be tried on pressure assist control modality, with an inspiratory pressure of 20 cm water, and an inspiratory time, 0.9 seconds. He blood gas will be done an hour after the change. Currently, the patient's on propofol at 30 mcg/kg/m, Cleveprex at 1 mg an hour, Nimbex at 1.5 mcg/kg/m, saline at 75 mL an hour, to be reduced down to KVO, fentanyl at 2 mcg/kg/h, and vital high pro tein at 38 mL an hour, which is goal. White count 11.9, hemoglobin 11.2, hematocrit 35.2, and platelet count 408,000. Sodium 139, potassium 4, chlorides 106, CO2 27, anion gap 6, BUN 51, and creatinine 0.92. The repeat blood gas after switched to a pressure assist control modality, shows a pO2 of 69, a pCO2 of 67, and a pH is 7.28. These blood gases are perfectly okay, and the mild acidosis, moves the oxyhemoglobin dissociation curve to the right. Chest x-ray shows diffuse bilateral infiltrates consistent with acute respiratory distress syndrome. Progress note dated 05/19/2021. 66-year-old male seen again in the ICU, room 260. The patient was admitted to the hospital on May 02 and came to the intensive care unit on May 05. Because of coronavirus associated pneumonia, and acute hypoxemic respiratory failure, patient was intubated on May 10. The patient had his en dotracheal tube changed out on May 13. The patient remains on the ventilator. Yesterday, we switch the patient to pressure assist control modality, with a inspiratory pressure of 20 cm of water, and inspiratory time of 0.9 seconds. I forcefully, his blood gases this morning were very poor showing a pO2 of 78, a CO2 of greater than 120, and a pH is 6.98. The patient was converted back to I am assist control, with settings of rate 36, tidal volume 350, FiO2 100%, and PEEP of 16. Blood gases afterwards, show pO2 of 83, pCO2 79, and a pH is 7.2. Currently, the patient's on Nimbex at 2 mcg/kg/m, propofol at 40 mcg/kg/m, fentanyl 1 mcg/kg/h, norepinephrine at 10 mcg/m, saline at KVO, and vital high protein at 38 mL an hour, which is goal. White count 16.9, hemoglobin 10.9, hematocrit 36.8, and platelet count 474,000. Sodium 140, potassium 5.8, chlorides 105, CO2 31, anion gap 4, BUN 61, creatinine 1.39. LDH 769. Albumin 2.4. Repeat coronavirus test was positive. Chest x-ray again shows diffuse bilateral infiltrates, which are essentially unchanged. Progress note dated 05/20/2021. 66-year-old male again seen in room 260. The patient was admitted to the hospital on May 02 and came to the intensive care unit on May 05. He developed acute hypoxemic respiratory failure secondary to coronavirus associated pneumonia. He was intubated on the , and his endotracheal tube was changed on Vangie 17. The patient remains on the ventilator. The patient did have a tracheostomy. He may get a PEG tube today. Current ventilator settings include the volume assist control mode, rate 36, tidal volume 350, FiO2 90%, and PEEP of 16. Blood gases on the same settings, but 100%, show a PaO2 of 77, pCO2 of 67, and a pH is 7.27. The patient's Lasix will drop back from twice a day to just once a day. The patient's on saline at 20 mL an hour, fentanyl at 1 mcg/kg/h, propofol, at 40 mcg/kg/m, Nimbex at 1 mcg/kg/m, norepinephrine at 6 mcg/m, and his tube feeds are currently on hold for anticipated placement of the PEG tube. White count 11.1, hemoglobin 10.3, hematocrit 33, and platelet count 324,000. Sodium potassium chloride CO2 and anion gap are all normal. BUN 74, creatinine 1.73. AST was 106, ALT 58. No chest x-ray today. Progress note dated 05/21/2021. 66-year-old male, again seen in room 260 in the intensive care unit. The patient was admitted to the hospital on May 02 and came into the intensive care unit on May 05. He developed acute hypoxemic respiratory failure secondary to coronavirus associated pneumonia and was intubated on the , and had his endotracheal tube changed on the , because of a ruptured banquet pilot ba lloon. The patient remains on the mechanical ventilator. He is on the volume assist control mode, rate 36, tidal volumes 350, FiO2 90%, and PEEP of 15. Arterial blood gases show pO2 61 pCO2 of 70, and a pH is 7.25. Currently, the patient is on Nimbex at 1.8 mcg/kg/m, norepinephrine at 0.04 mcg/kg/m, propofol at 40 mcg/kg/m, fentanyl at 1 mcg/kg/h, saline at KVO, and vital high protein at 43 mL an hour, which is goal. We will attempt to wean the patient off of Nimbex. White count 14.9, hemoglobin 9.8, hematocrit 31.3, and platelet count 301,000. D-dimer is 1.22. Blood gases have really been noted. Sodium 148, potassium 4.8, chlorides 107, CO2 28, anion gap 6, BUN 80, and creatinine 1.75. Chest x-ray shows diffuse bilateral infiltrates. Progress note dated 05/22/2021. 66-year-old male, again seen in room 260, in the intensive care unit. The patient was admitted to the hospital on May 02 and came into the intensive care unit on May 05. He developed acute hypoxemic respiratory failure secondary to coronavirus associated pneumonia and was intubated on the , and had his endotracheal tube changed on the . The patient has been on the ventilator since. The patient is currently on the volume assist control mode, rate 36, tidal volume 350, FiO2 90%, and PEEP of 15. Blood gases show pO2 of 56, pCO2 72, and a pH is 7.23. The patient's measured static lung compliance is 15 ml's per centimeter water. His peak airway pressures are high. He has very stiff lungs. He is getting saline at KVO, propofol at 50 mcg/kg/m, fentanyl at 2 mcg/kg/h, norepinephrine at 12 mcg/m, and vital high protein at goal, which is 43 mL an hour. I've asked the nurses to increase his fentanyl and propofol, so that we can control his respiratory rate bit more, and maybe have a positive influence on his peak airway pressures. White count 11.8, hemoglobin 8.8, hematocrit 27.2, and platelet count was normal. Sodium, potassium, chloride, CO2, anion gap are all normal. BUN 94, with a creatinine of 1.94. The patient's LDH is 696, C-reactive protein is 18.9. Albumin is 2.2. Chest x-ray continues to show diffuse lung infiltrates, consistent with the known diagnosis of coronavirus pneumonia. Objective - Vital Signs Vital signs: Vital Signs Temp 96 F L 05/22/21 08:00 Pulse 68 05/22/21 11:00 Resp 36 H 05/22/21 11:00 BP 118/57 05/20/21 04:00 Pulse Ox 80 L 05/22/21 11:00 Intake & Output 05/21/21 05/22/21 05/22/21 18:59 06:59 18:59 Intake Total 5024.009 3805.567 919.672 Output Total 770 570 465 Balance 437.889 0358.567 454.672 Weight 148.8 kg Intake: IV 299 253 115 Pressure bag 39 33 15 Sodium Chloride 0.9% 1, 260 220 100 000 ml @ 20 mls/hr IV . Q24H [facility] Rx#:[id number] Intake, IV Titration 494.060 6396.567 529.672 Amount Cisatracurium 200 mg In 117.987 Sodium Chloride 0.9% 180 ml @ 1 MCG/KG/MIN 7.578 mls/hr IV .Q24H [facility] Rx#: [id number] Norepinephrine 8 mg In 23.747 258.000 89.933 Sodium Chloride 0.9% 250 ml @ 0.05 MCG/KG/MIN 12. 22 mls/hr IV .Q21H7M [facility] Rx#:[id number] fentaNYL (PF) 2,500 mcg 470.177 239.739 In Sodium Chloride 0.9% 200 ml @ Per Protocol IV .Q0M [facility] Rx#:[id number] propofoL 1,000 mg In 200 Empty Bag 1 bag @ Titrate IV .Q0M [facility] Rx#: [id number] propofoL 1,000 mg In 360.390 200.00 Empty Bag 1 bag @ Titrate IV .Q0M [facility] Rx#: [id number] Tube Feeding 468 473 215 Other 90 90 60 Output: Urine 770 570 465 Other: Voiding Method Indwelling Catheter Indwelling Catheter Indwelling Catheter ABP, PAP, CO, CI - Last Documented Arterial Blood Pressure 138/58 - Exam No acute distress, with a midline tracheostomy tube, inserted May 18, the patient is heavily sedated but not paralyzed. HEENT examination is grossly unremarkable. Neck supple. Full range of motion. No adenopathy thyromegaly or neck vein distention. Cardiovascular examination reveals regular rhythm and rate. S1-S2 normal. No S3 or S4. No discernible murmur noted. Heart sounds are distant. Heart rate 68 bpm. Lungs reveal coarse bilateral rhonchi. Breath sounds are diminished. No wh eezes or crackles. Breath sounds equal bilaterally. Saturations are between 87-90 %. Abdomen soft, with bowel sounds. No masses noted. Extremities are intact. No cyanosis clubbing or edema. Skin is without rash or lesion. Neurologic examination cannot be adequately assessed as the patient's currently sedated. - Labs CBC & Chem 7: 05/22/21 05:10 05/22/21 05:10 Labs: Abnormal Lab Results - Last 24 Hours (Table) 05/21/21 05/21/21 05/22/21 Range/Units 18:27 20:18 05:10 WBC 11.8 H (3.8-10.6) k/uL RBC 2.96 L (4.30-5.90) m/uL Hgb 8.8 L (13.0-17.5) gm/dL Hct 27.2 L (39.0-53.0) % D-Dimer (<0.60) mg/L FEU ABG pH (7.35-7.45) ABG pCO2 (35-45) mmHg ABG pO2 (83-108) mmHg ABG HCO3 (21-25) mmol/L ABG Total CO2 (19-24) mmol/L ABG O2 Saturation (94-97) % BUN (9-20) mg/dL Creatinine (0.66-1.25) mg/dL Glucose (74-99) mg/dL POC Glucose (mg/dL) 240 H 236 H (75-99) mg/dL Calcium (8.4-10.2) mg/dL Magnesium (1.6-2.3) mg/dL Ferritin (22.0-322.0) ng/mL AST (17-59) U/L Lactate Dehydrogenase (313-618) U/L CK-MB (CK-2) (0.0-2.4) ng/mL C-Reactive Protein (<1.0) mg/dL Total Protein (6.3-8.2) g/dL Albumin (3.5-5.0) g/dL 05/22/21 05/22/21 05/22/21 Range/Units 05:10 05:10 05:10 WBC (3.8-10.6) k/uL RBC (4.30-5.90) m/uL Hgb (13.0-17.5) gm/dL Hct (39.0-53.0) % D-Dimer 1.31 H (<0.60) mg/L FEU ABG pH (7.35-7.45) ABG pCO2 (35-45) mmHg ABG pO2 (83-108) mmHg ABG HCO3 (21-25) mmol/L ABG Total CO2 (19-24) mmol/L ABG O2 Saturation (94-97) % BUN 94 H (9-20) mg/dL Creatinine 1.94 H (0.66-1.25) mg/dL Glucose 192 H (74-99) mg/dL POC Glucose (mg/dL) (75-99) mg/dL Calcium 7.9 L (8.4-10.2) mg/dL Magnesium 2.5 H (1.6-2.3) mg/dL Ferritin 644.0 H (22.0-322.0) ng/mL AST 68 H (17-59) U/L Lactate Dehydrogenase 696 H (313-618) U/L CK-MB (CK-2) 7.0 H (0.0-2.4) ng/mL C-Reactive Protein 18.9 H (<1.0) mg/dL Total Protein 5.0 L (6.3-8.2) g/dL Albumin 2.2 L (3.5-5.0) g/dL 05/22/21 Range/Units 05:49 WBC (3.8-10.6) k/uL RBC (4.30-5.90) m/uL Hgb (13.0-17.5) gm/dL Hct (39.0-53.0) % D-Dimer (<0.60) mg/L FEU ABG pH 7.23 L (7.35-7.45) ABG pCO2 72 H* (35-45) mmHg ABG pO2 56 L* (83-108) mmHg ABG HCO3 30 H (21-25) mmol/L ABG Total CO2 33 H (19-24) mmol/L ABG O2 Saturation 86.5 L (94-97) % BUN (9-20) mg/dL Creatinine (0.66-1.25) mg/dL Glucose (74-99) mg/dL POC Glucose (mg/dL) (75-99) mg/dL Calcium (8.4-10.2) mg/dL Magnesium (1.6-2.3) mg/dL Ferritin (22.0-322.0) ng/mL AST (17-59) U/L Lactate Dehydrogenase (313-618) U/L CK-MB (CK-2) (0.0-2.4) ng/mL C-Reactive Protein (<1.0) mg/dL Total Protein (6.3-8.2) g/dL Albumin (3.5-5.0) g/dL Assessment and Plan Assessment: Acute hypoxemic respiratory failure secondary to coronavirus infection/pneumonia, with intubation and mechanical ventilation beginning on May 10. Status post tracheostomy tube placement on May 18. PEG tube attempted on May 20, but procedure aborted by surgeon. Acute respiratory distress syndrome. Coronary artery disease, with previous coronary artery stenting. Status post permanent pacemaker insertion. History of essential hypertension. History of hyperlipidemia. History of obstructive sleep apnea syndrome, on CPAP. Migraine cephalgia. Acute on chronic kidney disease. Obesity, BMI 42.3. Hypothyroidism. Plan: Plan dated 05/16/2021. The patient is currently on 90% oxygen, and PEEP of 16. The patient is also being sedated with propofol, receiving narcotics in the form of fentanyl, and is chemically paralyzed with Nimbex. The patient is receiving appropriate medications. This includes Lovenox, and Decadron. The patient is being nourished, at goal, with vital high protein. Additional recommendations and suggestions are forthcoming. Prognosis is guarded. The patient doesn't show any significant improvements, he may be headed towards tracheostomy. We will continue to follow make recommendations where appropriate. A pro-calcitonin level will be done, and if normal, antibiotics will be discontinued. The patient is currently on Zosyn. Plan dated 05/17/2021. The patient will get Lasix 40 mg IV push every 12 hours. We will attempt to wean the current medications that he is on including the fentanyl, and Nimbex, if possible. In addition, it blood pressure is more stable, we will wean the Cleveprex. The patient's overall condition is quite complex, and his prognosis is very guarded. If the patient does not make any progress towards weaning and extubation, he will likely require a tracheostomy and PEG tube by the end of the week. The patient remains on Zosyn, and the microbiologic studies have been all negative. Plan dated 05/18/2021. The patient may end up getting his tracheostomy and PEG tube placed today. The patient was converted over to pressure assist control, with inspiratory pressure of 20 cm water, and inspiratory time of 0.9 seconds. Repeat blood gases are more than adequate. The patient remains on propofol, Cleveprex, Nimbex, fentanyl, and tube feeds. The patient's overall prognosis is guarded. Diana robiology is currently negative. Pro-calcitonin level is 0.17 and 0.15. The patient's Zosyn can be discontinued tomorrow. We will continue to follow make recommendations where appropriate. For the time being, the patient will stay on pressure assist control modality. Plan dated 05/19/2021. The patient did have a tracheostomy tube performed on May 18. The patient did not tolerate pressure assist control mode switch back to volume assist control. Repeat blood gases are much improved. The patient remains on Nimbex, propofol, fentanyl, norepinephrine, and saline at KVO. The patient is receiving enteral nutrition with vital high protein at goal. Additional recommendations and suggestions are forthcoming. Overall prognosis remains very guarded. Microbiologic data is negative. The patient's Zosyn will be discontinued today. Plan dated 05/20/2021. The patient apparently will have a PEG tube placement today. The Lasix that he's on, will be reduced from twice a day to once a day. His FiO2 will be weaned per respiratory. The patient remains on fentanyl, propofol, Nimbex, and norepinephrine. Tube feeds are currently on hold. The patient's Zosyn was discontinued. Additional recommendations and suggestions are forthcoming. Prognosis is guarded. We will continue to follow and make recommendations where appropriate. The patient's was able to visit with the patient yesterday. Plan dated 05/19/2021. The patient was to have a PEG tube, but the procedure was aborted by the surgeon. Apparently was unsafe to place the PEG tube. There is risk of injury to the colon. Currently, the patient is on Nimbex, norepinephrine, propofol, and fentanyl. The patient is receiving tube feeds at goal. We will attempt to wean the Nimbex off. If the nurse has to go up on the propofol and/or the fentanyl, that is okay. Additional recommendations and suggestions are forthcoming. Medications are reviewed. We will continue to follow the patient and make recommendations where appropriate. Overall prognosis remains guarded. Plan dated 05/22/2021. Currently, the patient is being under sedated. The patient's propofol and fentanyl be increased a bit. Hopefully, that will settle the patient's respiratory rate down, and have a positive impact on the patient's airway pressures. We will continue to follow make recommendations were appropriate. On a positive note, we are able to wean the patient off of Nimbex. The patient remains on norepinephrine at 12 mcg/m. The patient is being nourished at goal, which is 43 mL an hour of vital high protein. Overall prognosis remains very guarded. PEG tube could not be placed by the surgeon. We will continue to follow make recommendations where appropriate. Time with Patient: Greater than 30
[2021-05-22] MEDS: CISATRACURIUM 200 MG in SODIUM CHLORIDE 0.9% 180 ML IV SCH (12:36)
--- NOTE | 2021-05-22 16:38 | P.PN ---
Subjective Progress Note Date: 05/22/21 Principal diagnosis: Acute Hypoxic Respiratory failure due to COVID-19 Pneumonia Mr. Niño is a 66-year-old male with a past medical history of coronary artery disease, diabetes mellitus, GERD, hypertension, hyperlipidemia, obstructive sleep apnea, thyroid disorder admitted to the hospital for acute hypoxic respiratory failure secondary to COVID-19 infection. On 05/21/2021 Patient is seen and examined in the ICU. Patient had tracheostomy performed on 05/18/2021. He is currently intubated and on ventilatory support. Patient is on Nimbex, norepinephrine, propofol and fentanyl drips. Review of systems could not be done as the patient is intubated and mechanically ventilated. Patient's current medications: Tylenol, Ventolin, aspirin, Lipitor, Decadron, Lovenox, Lexapro, Zetia, Lasix, hydralazine, Levemir, sliding scale of insulin, levothyroxine, Protonix On 05/22/2021 Patient is seen and examined in the ICU. Patient continues to be on mechanical ventilation and sedated. His ABGs from this morning pH of 7.23, pCO2 72, pO2 56 on 90% FiO2. He is on propofol, fentanyl and norepinephrine. Patient has G- tube in place and tracheostomy in place. Patient's vitals temperature 97.4, heart rate 60 and reviewing his labs white count 11.8, hemoglobin 8.8, platelets 302. Sodium 141, potassium 4.4, chloride 107, bicarbonate 20, creatinine 94, creatinine 1.94. Albumin is 2.2 Active Medications Acetaminophen (Acetaminophen Tab 325 Mg Tab) 650 mg PO Q6HR PRN PRN Reason: Fever and/ or Pain Last Admin: 05/08/21 13:27 Dose: 650 mg Documented by: Albuterol Sulfate (Albuterol Hfa Inhaler) 2 puff INHALATION RT-QID [facility] Last Admin: 05/22/21 15:45 Dose: 2 puff Documented by: Artificial Tears (Artificial Tears-Hypromellose Drops 15 Ml Btl) 2 drops BOTH EYES Q4HR [facility] Last Admin: 05/22/21 16:26 Dose: 2 drops Documented by: Aspirin (Aspirin 81 Mg) 81 mg PO DAILY [facility] Last Admin: 05/22/21 08:14 Dose: 81 mg Documented by: Atorvastatin Calcium (Atorvastatin 10 Mg Tab) 10 mg PO HS [facility] Last Admin: 05/21/21 19:59 Dose: 10 mg Documented by: Chlorhexidine Gluconate (Chlorhexidine Gluconate 15 Ml Cup) 15 ml MUCOUS MEM BID [facility] Last Admin: 05/22/21 08:14 Dose: 15 ml Documented by: Dexamethasone Sodium Phosphate (Dexamethasone Sod Phosphate 10 Mg/Ml 1 Ml Vial) 6 mg IV DAILY [facility] Last Admin: 05/22/21 08:14 Dose: 6 mg Documented by: Ezetimibe (Ezetimibe 10 Mg Tab) 10 mg PO DAILY [facility] Last Admin: 05/22/21 08:14 Dose: 10 mg Documented by: Enoxaparin Sodium (Enoxaparin 40 Mg/0.4 Ml Syringe) 40 mg SQ BID [facility] Last Admin: 05/22/21 08:15 Dose: Not Given Documented by: Escitalopram Oxalate (Escitalopram 10 Mg Tab) 10 mg PO DAILY [facility] Last Admin: 05/22/21 08:14 Dose: 10 mg Documented by: Furosemide (Furosemide 10 Mg/Ml 4 Ml Vial) 40 mg IV DAILY [facility] Last Admin: 05/22/21 08:14 Dose: 40 mg Documented by: Hydralazine HCl (Hydralazine Hcl 50 Mg Tab) 50 mg NG-TUBE BID [facility] Last Admin: 05/22/21 08:15 Dose: Not Given Documented by: Cisatracurium Besylate 200 mg/ (Sodium Chloride) 200 mls @ 7.578 mls/hr IV .Q24H [facility]; Protocol Last Admin: 05/22/21 12:36 Dose: 1 mcg/kg/min, 7.578 mls/hr Documented by: Sodium Chloride (Saline 0.9%) 1,000 mls @ 20 mls/hr IV .Q24H [facility] Last Admin: 05/21/21 20:39 Dose: 20 mls/hr Documented by: Norepinephrine Bitartrate 8 mg (/ Sodium Chloride) 258 mls @ 12.22 mls/hr IV .Q21H7M [facility]; Protocol Last Titration: 05/22/21 16:33 Dose: 0.14 mcg/kg/min, 34.215 mls/hr Documented by: Clevidipine 25 mg/ IV Solution 50 mls @ 2 mls/hr IV .Q24H [facility]; Protocol Last Admin: 05/21/21 18:56 Dose: Not Given Documented by: Fentanyl Citrate 2,500 mcg/ (Sodium Chloride) 250 mls @ 0 mls/hr IV .Q0M [facility]; Protocol Last Titration: 05/22/21 13:00 Dose: 2 mcg/kg/hr, 28.26 mls/hr Documented by: Propofol 1,000 mg/ IV Solution 100 mls @ 0 mls/hr IV .Q0M [facility]; Protocol Last Titration: 05/22/21 16:33 Dose: 40 mcg/kg/min, 35.712 mls/hr Documented by: Insulin Aspart (Insulin Aspart (Novolog) 100 Unit/Ml Vial) 0 unit SQ ACHS [facility]; Protocol Last Admin: 05/22/21 12:09 Dose: 5 unit Documented by: Insulin Detemir (Insulin Detemir (Levemir) 100 Unit/Ml Syr) 25 unit SQ DAILY@0700 [facility] Last Admin: 05/22/21 07:01 Dose: 25 unit Documented by: Insulin Detemir (Insulin Detemir (Levemir) 100 Unit/Ml Syr) 30 unit SQ [facility] Levothyroxine Sodium (Levothyroxine 137 Mcg Tab) 137 mcg PO DAILY@0630 [facility] Last Admin: 05/22/21 07:01 Dose: 137 mcg Documented by: Pantoprazole Sodium (Pantoprazole 40 Mg/10 Ml Vial) 40 mg IVP DAILY [facility] Last Admin: 05/22/21 08:14 Dose: 40 mg Documented by: Objective - Vital Signs Vital signs: Vital Signs Temp 97.4 F L 05/22/21 12:00 Pulse 64 05/22/21 14:00 Resp 36 H 05/22/21 14:00 BP 118/57 05/20/21 04:00 Pulse Ox 78 L 05/22/21 14:00 Intake & Output 05/21/21 05/22/21 05/22/21 18:59 06:59 18:59 Intake Total 9880.405 3188.567 1450.853 Output Total 770 570 970 Balance 708.491 2736.567 480.853 Weight 148.8 kg Intake: IV 299 253 184 Pressure bag 39 33 24 Sodium Chloride 0.9% 1, 260 220 160 000 ml @ 20 mls/hr IV . Q24H [facility] Rx#:[id number] Intake, IV Titration 330.340 4923.567 862.853 Amount Cisatracurium 200 mg In 117.987 0 Sodium Chloride 0.9% 180 ml @ 1 MCG/KG/MIN 7.578 mls/hr IV .Q24H [facility] Rx#: [id number] Norepinephrine 8 mg In 23.747 258.000 211.476 Sodium Chloride 0.9% 250 ml @ 0.05 MCG/KG/MIN 12. 22 mls/hr IV .Q21H7M [facility] Rx#:[id number] fentaNYL (PF) 2,500 mcg 470.177 285.325 In Sodium Chloride 0.9% 200 ml @ Per Protocol IV .Q0M [facility] Rx#:[id number] propofoL 1,000 mg In 200 Empty Bag 1 bag @ Titrate IV .Q0M [facility] Rx#: [id number] propofoL 1,000 mg In 360.390 222.156 Empty Bag 1 bag @ Titrate IV .Q0M [facility] Rx#: [id number] propofoL 1,000 mg In 143.896 Empty Bag 1 bag @ Titrate IV .Q0M [facility] Rx#: [id number] Tube Feeding 468 473 344 Other 90 90 60 Output: Urine 770 570 970 Other: Voiding Method Indwelling Catheter Indwelling Catheter Indwelling Catheter ABP, PAP, CO, CI - Last Documented Arterial Blood Pressure 133/53 - Exam PHYSICAL EXAM: GENERAL EXAM: Intubated, sedated and paralyzed. M obese HEENT: Normocephalic/atraumatic.Normal reaction of pupils, equal size. No pallor CHEST: No chest wall deformity. Symmetrical expansion. LUNGS: Equal air entry with coarse rhonchi with bilateral bases diminished. CVS: Regular rate and rhythm, normal S1 and S2, no gallops, no murmurs, no rubs ABDOMEN: Soft, nondistended, no masses palpable, normal bowel sounds. EXTREMITIES: Mild puffiness/edema, no cyanosis, 2+ pulses and upper and lower extremities. SKIN: Warm and dry, No rashes CENTRAL NERVOUS SYSTEM: Sedated, intubated and paralyzed. - Labs CBC & Chem 7: 05/22/21 05:10 05/22/21 05:10 Labs: Abnormal Lab Results - Last 24 Hours (Table) 05/21/21 05/21/21 05/22/21 Range/Units 18:27 20:18 05:10 WBC 11.8 H (3.8-10.6) k/uL RBC 2.96 L (4.30-5.90) m/uL Hgb 8.8 L (13.0-17.5) gm/dL Hct 27.2 L (39.0-53.0) % D-Dimer (<0.60) mg/L FEU ABG pH (7.35-7.45) ABG pCO2 (35-45) mmHg ABG pO2 (83-108) mmHg ABG HCO3 (21-25) mmol/L ABG Total CO2 (19-24) mmol/L ABG O2 Saturation (94-97) % BUN (9-20) mg/dL Creatinine (0.66-1.25) mg/dL Glucose (74-99) mg/dL POC Glucose (mg/dL) 240 H 236 H (75-99) mg/dL Calcium (8.4-10.2) mg/dL Magnesium (1.6-2.3) mg/dL Ferritin (22.0-322.0) ng/mL AST (17-59) U/L Lactate Dehydrogenase (313-618) U/L CK-MB (CK-2) (0.0-2.4) ng/mL C-Reactive Protein (<1.0) mg/dL Total Protein (6.3-8.2) g/dL Albumin (3.5-5.0) g/dL 05/22/21 05/22/21 05/22/21 Range/Units 05:10 05:10 05:10 WBC (3.8-10.6) k/uL RBC (4.30-5.90) m/uL Hgb (13.0-17.5) gm/dL Hct (39.0-53.0) % D-Dimer 1.31 H (<0.60) mg/L FEU ABG pH (7.35-7.45) ABG pCO2 (35-45) mmHg ABG pO2 (83-108) mmHg ABG HCO3 (21-25) mmol/L ABG Total CO2 (19-24) mmol/L ABG O2 Saturation (94-97) % BUN 94 H (9-20) mg/dL Creatinine 1.94 H (0.66-1.25) mg/dL Glucose 192 H (74-99) mg/dL POC Glucose (mg/dL) (75-99) mg/dL Calcium 7.9 L (8.4-10.2) mg/dL Magnesium 2.5 H (1.6-2.3) mg/dL Ferritin 644.0 H (22.0-322.0) ng/mL AST 68 H (17-59) U/L Lactate Dehydrogenase 696 H (313-618) U/L CK-MB (CK-2) 7.0 H (0.0-2.4) ng/mL C-Reactive Protein 18.9 H (<1.0) mg/dL Total Protein 5.0 L (6.3-8.2) g/dL Albumin 2.2 L (3.5-5.0) g/dL 05/22/21 05/22/21 Range/Units 05:49 12:04 WBC (3.8-10.6) k/uL RBC (4.30-5.90) m/uL Hgb (13.0-17.5) gm/dL Hct (39.0-53.0) % D-Dimer (<0.60) mg/L FEU ABG pH 7.23 L (7.35-7.45) ABG pCO2 72 H* (35-45) mmHg ABG pO2 56 L* (83-108) mmHg ABG HCO3 30 H (21-25) mmol/L ABG Total CO2 33 H (19-24) mmol/L ABG O2 Saturation 86.5 L (94-97) % BUN (9-20) mg/dL Creatinine (0.66-1.25) mg/dL Glucose (74-99) mg/dL POC Glucose (mg/dL) 248 H (75-99) mg/dL Calcium (8.4-10.2) mg/dL Magnesium (1.6-2.3) mg/dL Ferritin (22.0-322.0) ng/mL AST (17-59) U/L Lactate Dehydrogenase (313-618) U/L CK-MB (CK-2) (0.0-2.4) ng/mL C-Reactive Protein (<1.0) mg/dL Total Protein (6.3-8.2) g/dL Albumin (3.5-5.0) g/dL Assessment and Plan Assessment: ASSESSMENT Acute COVID-19 pneumonia, status post Baricitinib. Acute hypoxic respiratory failure secondary to the above, mechanical ventilator- dependent, status post tracheostomy 05/18 Sepsis post admission secondary to progression of Covid Hypotension secondary to the above, pressor dependent Acute on chronic kidney failure, stage III Leukopenia, resolved Leukocytosis Diabetes mellitus, uncontrolled, hyperglycemic, hemoglobin A1c 9.1 Obstructive sleep apnea, on CPAP outpatient CAD with history of stenting, permanent pacemaker Hypertension Hyperlipidemia Hypothyroidism Morbid obesity, BMI 42.3 Depression, Anxiety Severe protein calorie malnutrition Plan: Continue on current medication regimn,monitoring and symptomatic treatment. PEG tube placement pending.He has an OG tube in place. Will adjust the dose of insulin depending upon the blood sugar levels-his nighttime dose of Levemir was on hold, he has been restarted on 25 units of Levemir daily at bedtime along with 30 units every morning. ICU management as per hospital liaison. Prognosis guarded given multiple complex medical issues.
[2021-05-22 17:12] LABS: Glucose,Whole Blood 264 mg/dL (75-99)
[2021-05-22] MEDS: CLEVIDIPINE BUTYRATE 25 MG in EMPTY BAG 1 BAG IV SCH (18:51)
[2021-05-22 20:27] LABS: Glucose,Whole Blood 256 mg/dL (75-99)
[2021-05-22] MEDS: ATORVASTATIN 10 MG TAB PO SCH (20:35)
[2021-05-22] MEDS: SODIUM CHLORIDE 0.9% 1,000 ML IV SCH (20:36)
[2021-05-23] MEDS ORDERED: CISATRACURIUM 2 MG/ML 5 ML VIAL IV ONE (02:20)
--- NOTE | 2021-05-23 03:41 | XR ---
EXAMINATION TYPE: XR chest 1V portable DATE OF EXAM: 05/23/2021 COMPARISON: 05/22/2021 HISTORY: Respiratory failure TECHNIQUE: FINDINGS: There is tracheostomy tube. There is pulmonary interstitial and airspace moderate edema. Th ere is left axillary pacemaker. There is nasogastric tube and the tip is over the stomach. IMPRESSION: Moderately severe pulmonary airspace edema which is not changed compared to yesterday.
[2021-05-23 04:51] LABS: HCT 30.4 % (39.0-53.0); HGB 9.5 gm/dL (13.0-17.5); Hypochromasia Slight; MCHC 31.4 g/dL (31.0-37.0); MCV 95.5 fL (80.0-100.0); Mean Platelet Volume 9.9; Platelet Count 288 k/uL (150-450); RBC 3.18 m/uL (4.30-5.90); RDW 14.2 % (11.5-15.5); WBC 18.3 k/uL (3.8-10.6)
[2021-05-23 05:03] LABS: Albumin 2.3 g/dL (3.5-5.0); Calcium 8.2 mg/dL (8.4-10.2); Total Bilirubin 0.3 mg/dL (0.2-1.3); Total Protein 5.4 g/dL (6.3-8.2)
[2021-05-23 05:16] LABS: ABG Base Excess 1.6 mmol/L; ABG HCO3 30 mmol/L (21-25); ABG Oxygen Saturation 83.1 % (94-97); ABG PH 7.21 (7.35-7.45); ABG TCO2 32 mmol/L (19-24); Allen Test Performed? Yes
[2021-05-23 05:18] LABS: C Reactive Protein 18.1 mg/dL (<1.0)
[2021-05-23 05:24] LABS: ABG PCO2 74 mmHg (35-45)
[2021-05-23 05:25] LABS: ABG PO2 51 mmHg (83-108)
[2021-05-23] MEDS: NOREPINEPHRINE 8 MG in SODIUM CHLORIDE 0.9% 250 ML IV SCH ×4 (06:00→21:49)
[2021-05-23] MEDS: fentaNYL (PF) 2,500 MCG in SODIUM CHLORIDE 0.9% 200 ML IV SCH ×2 (06:00→14:42)
[2021-05-23] MEDS: ARTIFICIAL TEARS-HYPROMELLOSE DROPS 15 ML BTL BOTH EYES SCH ×5 (06:47→20:06)
[2021-05-23] MEDS: LEVOTHYROXINE 137 MCG TAB PO SCH (06:47)
[2021-05-23] MEDS: CISATRACURIUM 200 MG in SODIUM CHLORIDE 0.9% 180 ML IV SCH ×2 (07:02→17:34)
--- NOTE | 2021-05-23 07:53 | P.PN ---
Subjective Progress Note Date: 05/23/21 05/23/2021, the patient remains intubated and sedated and paralyzed. He is post COVID-19 related pneumonia and ARDS. The patient is currently on assist control mode of ventilation with tidal volume of 350, FiO2 of 100%, PEEP of 15 and his respiratory rate is around 36. Peak air pressures 60, anesthetic pressures of 45. The patient was depression throughout the night. At one point, there was loss in his ability to ventilate. As such, the patient was taken off the mechanical ventilator and the patient was given bag ventilation. The patient was extubated on 05/10/2021. The patient was also done 05/18/2021. His got a B[place] tracheostomy tube in place. The chest x-ray from today showing diffuse bilateral pulmonary infiltrates. I'm not absolutely sure if the tracheostomy tube is within the trachea. I can see the tip and the airway possibly. Otherwise, hemodynamically, he is on stable and the patient is currently on 20 mics per minute of norepinephrine infusion to maintain a systolic blood pressure above 110 and a mean arterial pressure above 60. Remains on propofol infusion which is running at 50 mics and fentanyl 2 mcg/kg/h and then backed is running at 2 mcg/kg/h. He is on IV Decadron. No antibiotics. Anti-coagulation has been on hold as the patient was having some bleeding around the tracheostomy stoma. LDH level is 703 and a CRP level is at 18.1. Most recent d-dimer level is at 1.32. Most recent creatinine is at 1.76 which is slightly improved compared to yesterday and the most recent white cell count is is at 18.3 which is higher compared to yesterday. Hemoglobin is stable at 9.5. He is receiving enteral feeding for nutritional support with vital high protein at the rate of 40 mL an hour. He has a orogastric tube in place. PEG tube insertion has failed. His current pulse ox is around 74%. Objective - Vital Signs Vital signs: Vital Signs Temp 94.2 F L 05/23/21 04:00 Pulse 62 05/23/21 07:00 Resp 36 H 05/23/21 07:00 BP 118/57 05/20/21 04:00 Pulse Ox 80 L 05/23/21 07:00 Intake & Output 05/22/21 05/23/21 05/23/21 18:59 06:59 18:59 Intake Total 1954.961 5161.063 68.202 Output Total 1285 470 Balance 876.162 8548.063 68.202 Weight 149 kg Intake: IV 299 276 Pressure bag 39 36 Sodium Chloride 0.9% 1, 260 240 000 ml @ 20 mls/hr IV . Q24H [facility] Rx#:[id number] Intake, IV Titration 089.082 1193.063 68.202 Amount Cisatracurium 200 mg In 0 105.587 68.202 Sodium Chloride 0.9% 180 ml @ 1 MCG/KG/MIN 7.578 mls/hr IV .Q24H [facility] Rx#: [id number] Norepinephrine 8 mg In 240.315 229.161 Sodium Chloride 0.9% 250 ml @ 0.05 MCG/KG/MIN 12. 22 mls/hr IV .Q21H7M [facility] Rx#:[id number] fentaNYL (PF) 2,500 mcg 285.325 464.675 In Sodium Chloride 0.9% 200 ml @ Per Protocol IV .Q0M [facility] Rx#:[id number] propofoL 1,000 mg In 222.156 Empty Bag 1 bag @ Titrate IV .Q0M [facility] Rx#: [id number] propofoL 1,000 mg In 149.848 344.640 Empty Bag 1 bag @ Titrate IV .Q0M [facility] Rx#: [id number] Tube Feeding 559 473 Other 90 90 Output: Urine 1285 470 Other: Voiding Method Indwelling Catheter Indwelling Catheter ABP, PAP, CO, CI - Last Documented Arterial Blood Pressure 126/45 - Exam No acute distress, with a midline tracheostomy tube, inserted May 18, the patient is heavily sedated and paralyzed. The peak airway pressure is around 64 HEENT examination is grossly unremarkable. The Ostomy stoma is currently dry. There is no evidence of any active bleeding at this point in time. No evidence of leak around the tracheostomy stoma. Neck supple. Full range of motion. No adenopathy thyromegaly or neck vein d istention. Cardiovascular examination reveals regular rhythm and rate. S1-S2 normal. No S3 or S4. No discernible murmur noted. Heart sounds are distant. Lungs reveal coarse bilateral rhonchi. Breath sounds are diminished. No wheezes or crackles. Breath sounds equal bilaterally. Abdomen soft, with bowel sounds. No masses noted. Extremities are intact. No cyanosis clubbing and he has significant edema. Therapeutic line in his right upper extremity. He has edema in all 4 extre mities. Left wrist arterial line catheter in place. Skin is without rash or lesion. Neurologic examination cannot be adequately assessed as the patient's currently sedated and paralyzed - Labs CBC & Chem 7: 05/23/21 04:40 05/23/21 04:40 Labs: Abnormal Lab Results - Last 24 Hours (Table) 05/22/21 05/22/21 05/22/21 Range/Units 05:10 12:04 17:11 WBC (3.8-10.6) k/uL RBC (4.30-5.90) m/uL Hgb (13.0-17.5) gm/dL Hct (39.0-53.0) % D-Dimer (<0.60) mg/L FEU ABG pH (7.35-7.45) ABG pCO2 (35-45) mmHg ABG pO2 (83-108) mmHg ABG HCO3 (21-25) mmol/L ABG Total CO2 (19-24) mmol/L ABG O2 Saturation (94-97) % BUN (9-20) mg/dL Creatinine (0.66-1.25) mg/dL Glucose (74-99) mg/dL POC Glucose (mg/dL) 248 H 264 H (75-99) mg/dL Calcium (8.4-10.2) mg/dL Ferritin 644.0 H (22.0-322.0) ng/mL Lactate Dehydrogenase (313-618) U/L CK-MB (CK-2) (0.0-2.4) ng/mL C-Reactive Protein (<1.0) mg/dL Total Protein (6.3-8.2) g/dL Albumin (3.5-5.0) g/dL 05/22/21 05/23/21 05/23/21 Range/Units 20:25 04:40 04:40 WBC 18.3 H (3.8-10.6) k/uL RBC 3.18 L (4.30-5.90) m/uL Hgb 9.5 L (13.0-17.5) gm/dL Hct 30.4 L (39.0-53.0) % D-Dimer 1.32 H (<0.60) mg/L FEU ABG pH (7.35-7.45) ABG pCO2 (35-45) mmHg ABG pO2 (83-108) mmHg ABG HCO3 (21-25) mmol/L ABG Total CO2 (19-24) mmol/L ABG O2 Saturation (94-97) % BUN (9-20) mg/dL Creatinine (0.66-1.25) mg/dL Glucose (74-99) mg/dL POC Glucose (mg/dL) 256 H (75-99) mg/dL Calcium (8.4-10.2) mg/dL Ferritin (22.0-322.0) ng/mL Lactate Dehydrogenase (313-618) U/L CK-MB (CK-2) (0.0-2.4) ng/mL C-Reactive Protein (<1.0) mg/dL Total Protein (6.3-8.2) g/dL Albumin (3.5-5.0) g/dL 05/23/21 05/23/21 05/23/21 Range/Units 04:40 04:40 05:10 WBC (3.8-10.6) k/uL RBC (4.30-5.90) m/uL Hgb (13.0-17.5) gm/dL Hct (39.0-53.0) % D-Dimer (<0.60) mg/L FEU ABG pH 7.21 L (7.35-7.45) ABG pCO2 74 H* (35-45) mmHg ABG pO2 51 L* (83-108) mmHg ABG HCO3 30 H (21-25) mmol/L ABG Total CO2 32 H (19-24) mmol/L ABG O2 Saturation 83.1 L (94-97) % BUN 101 H* (9-20) mg/dL Creatinine 1.76 H (0.66-1.25) mg/dL Glucose 200 H (74-99) mg/dL POC Glucose (mg/dL) (75-99) mg/dL Calcium 8.2 L (8.4-10.2) mg/dL Ferritin (22.0-322.0) ng/mL Lactate Dehydrogenase 703 H (313-618) U/L CK-MB (CK-2) 3.6 H (0.0-2.4) ng/mL C-Reactive Protein 18.1 H (<1.0) mg/dL Total Protein 5.4 L (6.3-8.2) g/dL Albumin 2.3 L (3.5-5.0) g/dL Assessment and Plan Plan: 1 ARDS post COVID 19 related pneumonia. The patient is currently in acute hypoxemic respiratory failure secondary to coronavirus infection/pneumonia, with intubation and mechanical ventilation beginning on May 10. Status post tracheostomy tube placement on May 18. PEG tube attempted on May 20, but procedure aborted by surgeon. On today's evaluation, the patient was doing poorly. Unable to ventilate. Peak airway pressures were quite elevated. Blood gases was showing significant hypoxemia and addition to respiratory acidosis. Chest x-ray is consistent with ARDS post Covid 19 related pneumonia. The patient has a tracheostomy tube yet the positioning of the tube is quite questionable. 2 Acute respiratory distress syndrome. 3 Coronary artery disease, with previous coronary artery stenting. 4 Status post permanent pacemaker insertion. 5 History of essential hypertension. 6 History of hyperlipidemia. 7 History of obstructive sleep apnea syndrome, on CPAP. 8 Migraine cephalgia. 9 Acute on chronic kidney disease. In stable at 1.78. 10 Obesity, BMI 42.3. 11 Hypothyroidism 12 chronic anemia, multifactorial 13 hypotension, currently under investigation. Consider underlying infection/sepsis. Consider issues with high airway pressure and elevation of the intrathoracic pressure contributing to significant hypotension. Currently on pressors with norepinephrine infusion running at 20 g per minute. Plan Keep the patient sedated and paralyzed for now Continue the combination of fentanyl and propofol and keep Nimbex running The position of the tube was checked by her bedside portable bronchoscope. The tip of the tracheostomy tube was within the trachea. Nevertheless, there was dilation tissue along the posterior wall of the membranous trachea causing at least 50% occlusion of the tracheostomy tip. As such, the cuff was deflated and the balloon was advanced to bypass the granulation tissue. At that point, the airway pressure dropped significantly down in the low 40s. The current peak airway pressure is around 43 with a static pressure of 38. Based on ongoing hypoxemia, increased the PEEP up to 18. I doubt the tidal volume to 320. We'll going to give this patient a total of 100 mg of sodium bicarb. We are going to repeat the blood gas and 1 hour. Continue steroids. Anterior enteral feeding for nutritional support. Restart anticoagulation with Lovenox 40 mg subcu every 24 hours. We'll continue to follow. Obviously condition is critical and prognosis poor baseline above-mentioned comorbidities. Care evaluation that was done and more than 30 minutes. Condition is obviously critical. Time with Patient: Greater than 30
[2021-05-23] MEDS ORDERED: SODIUM BICARB 8.4% 50 ML SYR (1 MEQ/ML) IV STA (08:03)
[2021-05-23] MEDS: DEXAMETHASONE SOD PHOSPHATE 10 MG/ML 1 ML VIAL IV SCH (08:26)
[2021-05-23] MEDS: PANTOPRAZOLE 40 MG/10 ML VIAL IVP SCH (08:26)
[2021-05-23] MEDS: CHLORHEXIDINE GLUCONATE 15 ML CUP MUCOUS MEM SCH ×2 (08:26→20:45)
[2021-05-23] MEDS: ENOXAPARIN 40 MG/0.4 ML SYRINGE SQ SCH ×2 (08:26→20:07)
[2021-05-23] MEDS: INSULIN DETEMIR (LEVEMIR) 100 UNIT/ML SYR SQ SCH ×2 (08:26→20:45)
[2021-05-23] MEDS: ASPIRIN 81 MG PO SCH (08:26)
[2021-05-23] MEDS: hydrALAZINE HCL 50 MG TAB NG-TUBE SCH ×2 (08:27→20:47)
[2021-05-23] MEDS: EZETIMIBE 10 MG TAB PO SCH (08:27)
[2021-05-23] MEDS: ESCITALOPRAM 10 MG TAB PO SCH (08:27)
[2021-05-23] MEDS: FUROSEMIDE 10 MG/ML 4 ML VIAL IV SCH ×2 (08:27→20:45)
[2021-05-23] MEDS: INSULIN ASPART (NovoLOG) 100 UNIT/ML VIAL SQ SCH ×4 (08:28→20:45)
[2021-05-23] MEDS ORDERED: SODIUM BICARB 8.4% 50 ML SYR (1 MEQ/ML) ONE (08:43)
[2021-05-23] MEDS: ALBUTEROL HFA INHALER INHALATION SCH ×4 (08:52→20:25)
[2021-05-23 10:13] VITALS: BMI 49.9
[2021-05-23 10:33] LABS: ABG Base Excess 4.4 mmol/L; ABG HCO3 32 mmol/L (21-25); ABG Oxygen Saturation 77.8 % (94-97); ABG PH 7.24 (7.35-7.45); ABG TCO2 34 mmol/L (19-24)
[2021-05-23 10:36] LABS: ABG PCO2 73 mmHg (35-45); ABG PO2 44 mmHg (83-108); Allen Test Performed? no
[2021-05-23 13:11] LABS: Glucose,Whole Blood 170 mg/dL (75-99)
--- NOTE | 2021-05-23 13:47 | P.PN ---
Subjective Progress Note Date: 05/23/21 CHIEF COMPLAINT: COVID-19 pneumonia HISTORY OF PRESENT ILLNESS: Patient is status post tracheostomy placement with Dr. rolle on 05/18/2021. Patient remains in the ICU intubated, sedated and paralyzed. FiO2 100%. PEEP 15. Over the weekend patient had some bleeding from his tracheostomy this has now resolved. Critical care service did restart the anticoagulation. PEG tube placement last week was unsuccessful. Patient had decrease in his oxygen saturation on 50%. Patient had bronchoscopy with Dr. Kumar to check position of the tracheostomy tube. Patient seen and examined with Dr. rolle PHYSICAL EXAM: VITAL SIGNS: Reviewed. GENERAL: Well-developed in no acute distress. HEENT: No sclera icterus. Extraocular movements grossly intact. Moist buccal mucosa. Head is atraumatic, normocephalic. Tracheostomy site clean dry and intact ABDOMEN: Soft. Nondistended. Nontender. NEUROLOGIC: Alert and oriented. Cranial nerves II through XII grossly intact. ASSESSMENT: 1. Acute hypoxic respiratory failure secondary to COVID-19 pneumonia status post tracheostomy placement 2. Severe protein calorie malnutrition PLAN: -Continue ICU management -Continue supportive care Physician Director [employer] note has been reviewed by physician. Signing provider agrees with the documented findings, assessment, and plan of care. Objective - Vital Signs Vital signs: Vital Signs Temp 94.2 F L 05/23/21 04:00 Pulse 60 05/23/21 11:00 Resp 35 H 05/23/21 11:00 BP 118/57 05/20/21 04:00 Pulse Ox 75 L 05/23/21 11:00 Intake & Output 05/22/21 05/23/21 05/23/21 18:59 06:59 18:59 Intake Total 8974.944 7900.471 570.472 Output Total 1285 470 610 Balance 598.531 2514.471 -39.528 Weight 149 kg 149 kg Intake: IV 299 276 92 Pressure bag 39 36 12 Sodium Chloride 0.9% 1, 260 240 80 000 ml @ 20 mls/hr IV . Q24H [facility] Rx#:[id number] Intake, IV Titration 844.129 3593.471 478.472 Amount Cisatracurium 200 mg In 0 105.587 68.202 Sodium Chloride 0.9% 180 ml @ 1 MCG/KG/MIN 7.578 mls/hr IV .Q24H [facility] Rx#: [id number] Norepinephrine 8 mg In 240.315 229.161 222.478 Sodium Chloride 0.9% 250 ml @ 0.05 MCG/KG/MIN 12. 22 mls/hr IV .Q21H7M [facility] Rx#:[id number] fentaNYL (PF) 2,500 mcg 285.325 464.675 In Sodium Chloride 0.9% 200 ml @ Per Protocol IV .Q0M [facility] Rx#:[id number] propofoL 1,000 mg In 222.156 Empty Bag 1 bag @ Titrate IV .Q0M [facility] Rx#: [id number] propofoL 1,000 mg In 149.848 494.048 187.792 Empty Bag 1 bag @ Titrate IV .Q0M [facility] Rx#: [id number] Tube Feeding 559 473 Other 90 90 Output: Urine 1285 470 610 Other: Voiding Method Indwelling Catheter Indwelling Catheter ABP, PAP, CO, CI - Last Documented Arterial Blood Pressure 130/44 - Labs CBC & Chem 7: 05/23/21 04:40 05/23/21 04:40 Labs: Abnormal Lab Results - Last 24 Hours (Table) 05/22/21 05/22/21 05/23/21 Range/Units 17:11 20:25 04:40 WBC 18.3 H (3.8-10.6) k/uL RBC 3.18 L (4.30-5.90) m/uL Hgb 9.5 L (13.0-17.5) gm/dL Hct 30.4 L (39.0-53.0) % D-Dimer (<0.60) mg/L FEU ABG pH (7.35-7.45) ABG pCO2 (35-45) mmHg ABG pO2 (83-108) mmHg ABG HCO3 (21-25) mmol/L ABG Total CO2 (19-24) mmol/L ABG O2 Saturation (94-97) % BUN (9-20) mg/dL Creatinine (0.66-1.25) mg/dL Glucose (74-99) mg/dL POC Glucose (mg/dL) 264 H 256 H (75-99) mg/dL Calcium (8.4-10.2) mg/dL Lactate Dehydrogenase (313-618) U/L CK-MB (CK-2) (0.0-2.4) ng/mL C-Reactive Protein (<1.0) mg/dL Total Protein (6.3-8.2) g/dL Albumin (3.5-5.0) g/dL 05/23/21 05/23/21 05/23/21 Range/Units 04:40 04:40 04:40 WBC (3.8-10.6) k/uL RBC (4.30-5.90) m/uL Hgb (13.0-17.5) gm/dL Hct (39.0-53.0) % D-Dimer 1.32 H (<0.60) mg/L FEU ABG pH (7.35-7.45) ABG pCO2 (35-45) mmHg ABG pO2 (83-108) mmHg ABG HCO3 (21-25) mmol/L ABG Total CO2 (19-24) mmol/L ABG O2 Saturation (94-97) % BUN 101 H* (9-20) mg/dL Creatinine 1.76 H (0.66-1.25) mg/dL Glucose 200 H (74-99) mg/dL POC Glucose (mg/dL) (75-99) mg/dL Calcium 8.2 L (8.4-10.2) mg/dL Lactate Dehydrogenase 703 H (313-618) U/L CK-MB (CK-2) 3.6 H (0.0-2.4) ng/mL C-Reactive Protein 18.1 H (<1.0) mg/dL Total Protein 5.4 L (6.3-8.2) g/dL Albumin 2.3 L (3.5-5.0) g/dL 05/23/21 05/23/21 05/23/21 Range/Units 05:10 10:31 13:09 WBC (3.8-10.6) k/uL RBC (4.30-5.90) m/uL Hgb (13.0-17.5) gm/dL Hct (39.0-53.0) % D-Dimer (<0.60) mg/L FEU ABG pH 7.21 L 7.24 L (7.35-7.45) ABG pCO2 74 H* 73 H* (35-45) mmHg ABG pO2 51 L* 44 L* (83-108) mmHg ABG HCO3 30 H 32 H (21-25) mmol/L ABG Total CO2 32 H 34 H (19-24) mmol/L ABG O2 Saturation 83.1 L 77.8 L (94-97) % BUN (9-20) mg/dL Creatinine (0.66-1.25) mg/dL Glucose (74-99) mg/dL POC Glucose (mg/dL) 170 H (75-99) mg/dL Calcium (8.4-10.2) mg/dL Lactate Dehydrogenase (313-618) U/L CK-MB (CK-2) (0.0-2.4) ng/mL C-Reactive Protein (<1.0) mg/dL Total Protein (6.3-8.2) g/dL Albumin (3.5-5.0) g/dL
--- NOTE | 2021-05-23 14:22 | P.PN ---
Subjective Progress Note Date: 05/23/21 This is 66-year-old gentleman admitted with acute hypoxic respiratory failure secondary to COVID-19 infection. Afebrile. Maintained on Covid cocktail, including Decadron IV.Inflammatory markers trending down.He stated this morning with exertion from 88% tone to 75%. Currently placed on 6 L nasal cannula, O2 sat pending. Chest x-ray reporting progression of diffuse bilateral infiltrates.Blood sugars uncontrolled, A1c 9.1. 05/05/2021 respiratory status worsened yesterday, requiring nonrebreather. Th roughout the night, increased anxiety, patient pulling off masks, requiring minimal of 45 minutes to recover O2 saturation. Xanax initiated for anxiety, patient unable to tolerate, reported nausea/ vomiting. Received Ativan, tolerated well. Currently on BiPAP maintaining O2 sats in the 80s. Continues on Covid regimen. Renal function trending up, creatinine 1.6. Denies chest pain, palpitations. 05/06/2021 transferred into the ICU yesterday afternoon related to worsening hypoxia on BiPAP. Slept in the recliner, maintaining O2 sats mid 80s to low 90s. Chest x-ray reporting persistent bilateral infiltrates. Reports feels less shortness of breath, less anxiety on oral Ativan. Maintained on Covid regimen including Baricitinib. Inflammatory markers increased with the exception of d-dimer. Afebrile, normal WBC. Yesterday GHADA inhibitor, Cozaar discontinued, hydralazine increased secondary to worsening renal function-renal function improving. Hyperglycemic, blood sugars in the mid to low 200s. 05/09/2021 remains on 100% BiPAP, chest x-ray reporting stable diffuse predominant interstitial infiltrates. T-max 99.1, WBC 12.3. continues on Covid regimen including Olumiant. Reports anxiety, depression. BUN 53, creatinine 1.15. Blood sugars elevated. 05/10/2021 maintained on COVID cocktail, including Baricitinib. Continues on 100% BiPAP, maintaining O2 sat 76-79%, respiratory rate in the 20s. ABGs ordered. Chest x-ray reporting persistent diffuse pulmonary infiltrates. Te lemetry sinus rhythm. T-max 100.4, WBC increased to 15.4. Blood sugars controlled. Renal function improving. 05/11/21 patient seen in follow-up in the intensive care unit, he was intubated and placed on mechanical ventilator yesterday on 05/10/2021 for worsening hypoxic respiratory failure.. Pt is currently prone in bed during exam. 05/12/2021 and ABGs reporting pO2 59, FiO2 increased to 70%/+15 Peep. Maintained on fentanyl, diprovan, Nimbex drips. Chest x-ray reporting similar appearance, persistent bilateral airspace disease. Maintained on Covid regimen including Baricitinib and Decadron. Blood sugars elevated, in the 200s this morning. D-dimer, LDH decreasing. CRP increased, 16.1. 05/13/2021 FiO2 of 50%/+15 of PEEP. Cuff leak present.Chest x-ray reporting bilateral interstitial and airspace disease. Continues on Nimbex, diprovan fentanyl. Continues on Covid regimen with Decadron,Baricitinib. Blood sugars in the 200s. BUN 50, creatinine 1.03. Inflammatory markers trending down. Afebrile, and WBC trending down, 12.5. 05/16/2021 endotracheal tube changed on 05/13 secondary to cuff leak. ABGs noted with pCO2 55. FiO2 increased to 90, PEEP +16. Maintained on fentanyl, Nimbex, diprovan and Cleviprex drips. Continues on IV fluid hydration of 0.9 at 75 MLS per hour. Chest x-ray reporting no significant change, bilateral airspace disease persists. Afebrile, WBC 13.1. Tolerating tube feeds with minimal to no residuals. Blood sugars currently ranging 180-200. 05/17/2021 FiO2 90% and PEEP 16. Maintained on Cleviprex, Nimbex, propofol, fentanyl drips as well as IV fluid hydration with saline. Puffy extremities, 24-hour I&O reflecting a positive fluid balance. Tolerating tube feeds at goal with minimal to no residual. Continues on Zosyn. Afebrile, WBC 13. Hemoglobin 10.9, platelets 383. 05/18/2021 FiO2 90%/+16 of PEEP. Currently on pressure control with ABGs in 1 hour. Chest x-ray reporting similar bilateral airspace disease.Telemetry sinus rhythm. Continues on fentanyl ,Nimbex, diprovan and Cleviprex drips. Afebrile, WBC count 11.9.Tracheostomy and PEG tube placement pending. 05/19/21 tracheostomy performed yesterday, postop day #1. FiO2 100%/+16 of PEEP continues on Nimbex, diprovan and fentanyl drips with Levophed initiated during the night. Tolerating tube feeds at goal with minimal to no residuals. Repeat coronavirus positive. Chest x-ray reporting stable diffuse interstitial bilateral infiltrates and pleural effusion, enlarged heart. Creatinine worsening, 1.39. 05/20/2021 FiO2 90%/+16 of PEEP. Continues on Nimbex, diprovan, fentanyl, Levophed. PEG tube placement pending. Afebrile. Renal function continues to worsen. Borderline hypoglycemic this morning. Patient's was able to visit with patient yesterday. 05/23/2021 Failed PEG tube insertion on 05/20/2021. Chest x-ray reporting moderately severe pulmonary airspace edema unchanged compared to yesterday.This morning high peak pressuring, unable to ventilate, accompanied by hypotension. Anticoagulation had been on hold secondary to bleeding around the tracheostomy stoma. Questionable tracheostomy tube placement within the trachea.Bronchoscopy performed at the bedside with the tracheostomy placement adjusted-refer to die sizer note. Levophed increased. Continues on diprovan, Nimbex, fentanyl. Currently maintained on 100% FiO2/+18 of PEEP. Unable to obtain temperature, currently on heating blanket. Respiratory acidosis Receiving sodium bicarb. Family had been in earlier this morning. Creatinine mildly improved. Objective - Vital Signs Vital signs: Vital Signs Temp 94.2 F L 05/23/21 04:00 Pulse 60 05/23/21 11:00 Resp 35 H 05/23/21 11:00 BP 118/57 05/20/21 04:00 Pulse Ox 75 L 05/23/21 11:00 Intake & Output 05/22/21 05/23/21 05/23/21 18:59 06:59 18:59 Intake Total 9426.707 7938.471 616.472 Output Total 5801 518 5841 Balance 046.917 5722.471 -493.528 Weight 149 kg 149 kg Intake: IV 299 276 138 Pressure bag 39 36 18 Sodium Chloride 0.9% 1, 260 240 120 000 ml @ 20 mls/hr IV . Q24H [facility] Rx#:[id number] Intake, IV Titration 661.112 6526.471 478.472 Amount Cisatracurium 200 mg In 0 105.587 68.202 Sodium Chloride 0.9% 180 ml @ 1 MCG/KG/MIN 7.578 mls/hr IV .Q24H [facility] Rx#: [id number] Norepinephrine 8 mg In 240.315 229.161 222.478 Sodium Chloride 0.9% 250 ml @ 0.05 MCG/KG/MIN 12. 22 mls/hr IV .Q21H7M [facility] Rx#:[id number] fentaNYL (PF) 2,500 mcg 285.325 464.675 In Sodium Chloride 0.9% 200 ml @ Per Protocol IV .Q0M [facility] Rx#:[id number] propofoL 1,000 mg In 222.156 Empty Bag 1 bag @ Titrate IV .Q0M [facility] Rx#: [id number] propofoL 1,000 mg In 149.848 494.048 187.792 Empty Bag 1 bag @ Titrate IV .Q0M [facility] Rx#: [id number] Tube Feeding 559 473 Other 90 90 Output: Urine 3152 766 5092 Other: Voiding Method Indwelling Catheter Indwelling Catheter Indwelling Catheter ABP, PAP, CO, CI - Last Documented Arterial Blood Pressure 130/44 - Exam PHYSICAL EXAM: GENERAL EXAM: Intubated, sedated and paralyzed. HEENT: Normocephalic/atraumatic.Normal reaction of pupils, equal size. Conjunctiva pink, sclera white. NECK: Supple, no JVD CHEST: No chest wall deformity. Symmetrical expansion. LUNGS: Equal air entry with coarse rhonchi with bilateral bases diminished. CVS: Regular rate and rhythm, normal S1 and S2, no gallops, no murmurs, no rubs ABDOMEN: Soft, nondistended, no masses palpable, normal bowel sounds. EXTREMITIES: Mild puffiness/edema, no cyanosis, 2+ pulses and upper and lower extremities. SKIN: Warm and dry, No rashes CENTRAL NERVOUS SYSTEM: Sedated, intubated and paralyzed. - Labs CBC & Chem 7: 05/23/21 04:40 05/23/21 04:40 Labs: Abnormal Lab Results - Last 24 Hours (Table) 05/22/21 05/22/21 05/23/21 Range/Units 17:11 20:25 04:40 WBC 18.3 H (3.8-10.6) k/uL RBC 3.18 L (4.30-5.90) m/uL Hgb 9.5 L (13.0-17.5) gm/dL Hct 30.4 L (39.0-53.0) % D-Dimer (<0.60) mg/L FEU ABG pH (7.35-7.45) ABG pCO2 (35-45) mmHg ABG pO2 (83-108) mmHg ABG HCO3 (21-25) mmol/L ABG Total CO2 (19-24) mmol/L ABG O2 Saturation (94-97) % BUN (9-20) mg/dL Creatinine (0.66-1.25) mg/dL Glucose (74-99) mg/dL POC Glucose (mg/dL) 264 H 256 H (75-99) mg/dL Calcium (8.4-10.2) mg/dL Lactate Dehydrogenase (313-618) U/L CK-MB (CK-2) (0.0-2.4) ng/mL C-Reactive Protein (<1.0) mg/dL Total Protein (6.3-8.2) g/dL Albumin (3.5-5.0) g/dL 05/23/21 05/23/21 05/23/21 Range/Units 04:40 04:40 04:40 WBC (3.8-10.6) k/uL RBC (4.30-5.90) m/uL Hgb (13.0-17.5) gm/dL Hct (39.0-53.0) % D-Dimer 1.32 H (<0.60) mg/L FEU ABG pH (7.35-7.45) ABG pCO2 (35-45) mmHg ABG pO2 (83-108) mmHg ABG HCO3 (21-25) mmol/L ABG Total CO2 (19-24) mmol/L ABG O2 Saturation (94-97) % BUN 101 H* (9-20) mg/dL Creatinine 1.76 H (0.66-1.25) mg/dL Glucose 200 H (74-99) mg/dL POC Glucose (mg/dL) (75-99) mg/dL Calcium 8.2 L (8.4-10.2) mg/dL Lactate Dehydrogenase 703 H (313-618) U/L CK-MB (CK-2) 3.6 H (0.0-2.4) ng/mL C-Reactive Protein 18.1 H (<1.0) mg/dL Total Protein 5.4 L (6.3-8.2) g/dL Albumin 2.3 L (3.5-5.0) g/dL 05/23/21 05/23/21 05/23/21 Range/Units 05:10 10:31 13:09 WBC (3.8-10.6) k/uL RBC (4.30-5.90) m/uL Hgb (13.0-17.5) gm/dL Hct (39.0-53.0) % D-Dimer (<0.60) mg/L FEU ABG pH 7.21 L 7.24 L (7.35-7.45) ABG pCO2 74 H* 73 H* (35-45) mmHg ABG pO2 51 L* 44 L* (83-108) mmHg ABG HCO3 30 H 32 H (21-25) mmol/L ABG Total CO2 32 H 34 H (19-24) mmol/L ABG O2 Saturation 83.1 L 77.8 L (94-97) % BUN (9-20) mg/dL Creatinine (0.66-1.25) mg/dL Glucose (74-99) mg/dL POC Glucose (mg/dL) 170 H (75-99) mg/dL Calcium (8.4-10.2) mg/dL Lactate Dehydrogenase (313-618) U/L CK-MB (CK-2) (0.0-2.4) ng/mL C-Reactive Protein (<1.0) mg/dL Total Protein (6.3-8.2) g/dL Albumin (3.5-5.0) g/dL Assessment and Plan Assessment: Acute COVID-19 pneumonia status post Baricitinib. ARDS Acute hypoxic respiratory failure secondary to the above, mechanical ventilator- dependent, status post tracheostomy 05/18, Respiratory acidosis Sepsis post admission secondary to progression of Covid Hypotension secondary to the above, pressor dependent Hypothermia Acute on chronic kidney failure, stage III Leukopenia, resolved Leukocytosis Diabetes mellitus, uncontrolled, hyperglycemic, hemoglobin A1c 9.1 Obstructive sleep apnea, on CPAP outpatient CAD with history of stenting, permanent pacemaker Hypertension Hyperlipidemia Hypothyroidism Morbid obesity, BMI 42.3 Depression, Anxiety Plan: Continue on current medication regime ,monitoring and symptomatic t reatment. ICU management as per die sizer. Staff reports family had been at the bedside earlier this morning. Maintain supportive care. Prognosis guarded given multiple complex medical issues. The impression and plan of care has been dictated as directed. : I performed a history and examination of this patient, discussed the same with the dictator. I agree with the dictator's note ,documented as a scribe. Any additional findings or plans will be noted.
[2021-05-23 15:10] LABS: ABG Base Excess 4.6 mmol/L; ABG HCO3 33 mmol/L (21-25); ABG Oxygen Saturation 83.9 % (94-97); ABG TCO2 36 mmol/L (19-24)
[2021-05-23 15:12] LABS: ABG PCO2 89 mmHg (35-45); ABG PH 7.18 (7.35-7.45); ABG PO2 55 mmHg (83-108); Allen Test Performed? no
--- NOTE | 2021-05-23 15:48 | P.PCN ---
Date of Procedure: 05/23/21 Preoperative Diagnosis: Acute coronary syndrome related pneumonia with ARDS Postoperative Diagnosis: 1 granulation tissue blocking the tip of the tracheostomy tube 2 difficulties with ventilation with high peak pressuring Procedure(s) Performed: Flexible bronchoscopy, minute ventilation of the tracheostomy tube Anesthesia: MEGAN Surgeon: Cathy Kumar Pathology: none sent Condition: critical Disposition: ICU Operative Findings: This is a bedside bronchoscopy that was done in the intensive care unit. The patient was treated pressure in and the patient was having difficulties in ventilation while being on a mechanical ventilator. Note that the patient has community related ARDS and the patient has a Bivona tracheostomy tube in place. The peak of her pressure was 65 with metastatic airway pressure of 42 mmHg. Blood gases was noted. Chest x-ray was noted and there was a question and a concern about the positioning of the tracheostomy tube This procedure was done at the bedside. The disposable flexible bronchoscope was used. A regular doctor was attached to the tracheostomy tube. The procedure was done as the patient was being adequately ventilated and oxygenated. The flexible bronchoscope was introduced through the tracheostomy tube and was advanced and immediately the tip of the tracheostomy tube was identified. The tracheostomy tube was within the trachea. Nevertheless, there was granulation tissue that was going from the membranous trachea causing narrowing of the tracheostomy tube opening by around 50% of his normal caliber. Note that the membranous trachea was also dynamic and was causing dynamic obstruction in addition to mechanical obstruction with exhalation maneuvers. At that point, the tracheostomy tube security lock was released. The tube was advanced further to bypass the area of granulation tissue. I was able to pass into atrial fibrillation tissue and achieve adequate airway patency and immediately after this procedure, there were pressure dropped down significantly with a peak air pressure of around 44 metastatic airway pressure of 38. The tracheostomy tube was secured in place. No complications. Patient was kept sedated and paralyzed. Bronchoscope was removed. Blood gases to follow. Noted oxygenation was poor during this procedure with a pulse ox being in the mid 70s while being on assist control mode of mechanical ventilation with tidal volume of 350, PEEP of 15 and FiO2 of 100% and a respiratory rate of 36.
[2021-05-23 17:15] LABS: Ferritin 769.8 ng/mL (22.0-322.0)
[2021-05-23] MEDS: CLEVIDIPINE BUTYRATE 25 MG in EMPTY BAG 1 BAG IV SCH (19:39)
[2021-05-23 20:25] LABS: Glucose,Whole Blood 196 mg/dL (75-99)
[2021-05-23] MEDS: ATORVASTATIN 10 MG TAB PO SCH (20:45)
[2021-05-23] MEDS: SODIUM CHLORIDE 0.9% 1,000 ML IV SCH (20:46)
[2021-05-24] MEDS: fentaNYL (PF) 2,500 MCG in SODIUM CHLORIDE 0.9% 200 ML IV SCH (00:02)
[2021-05-24] MEDS: ARTIFICIAL TEARS-HYPROMELLOSE DROPS 15 ML BTL BOTH EYES SCH ×2 (00:24→04:40)
[2021-05-24] MEDS: NOREPINEPHRINE 8 MG in SODIUM CHLORIDE 0.9% 250 ML IV SCH ×2 (02:54→05:50)
[2021-05-24 04:05] LABS: ABG Base Excess 2.2 mmol/L; ABG HCO3 32 mmol/L (21-25); ABG Oxygen Saturation 80.4 % (94-97); ABG TCO2 35 mmol/L (19-24); Allen Test Performed? Yes
[2021-05-24 04:08] LABS: ABG PCO2 108 mmHg (35-45); ABG PH 7.08 (7.35-7.45)
[2021-05-24 04:09] LABS: ABG PO2 52 mmHg (83-108)
[2021-05-24] MEDS ORDERED: EPINEPHrine 10 ML SYRINGE (0.1 MG/ML) ONE (04:12)
[2021-05-24 04:22] LABS: Basophils % (A) 0 %; Eosinophils % (A) 0 %; HCT 31.5 % (39.0-53.0); HGB 9.5 gm/dL (13.0-17.5); Hypochromasia Moderate; Lymphocytes # (A) 0.6 k/uL (1.0-4.8); Lymphocytes % (A) 4 %; MCHC 30.2 g/dL (31.0-37.0); MCV 96.3 fL (80.0-100.0); Mean Platelet Volume 9.7; Monocytes # (A) 0.6 k/uL (0-1.0); Monocytes % (A) 5 %; Neutrophils # (A) 12.8 k/uL (1.3-7.7); Neutrophils % (A) 91 %; Platelet Count 270 k/uL (150-450); RBC 3.27 m/uL (4.30-5.90); RDW 14.1 % (11.5-15.5); WBC 14.1 k/uL (3.8-10.6)
[2021-05-24 04:33] LABS: Albumin 2.3 g/dL (3.5-5.0); Calcium 7.8 mg/dL (8.4-10.2); Potassium 5.5 mmol/L (3.5-5.1); Total Bilirubin 0.3 mg/dL (0.2-1.3); Total Protein 5.4 g/dL (6.3-8.2)
[2021-05-24] MEDS: CISATRACURIUM 200 MG in SODIUM CHLORIDE 0.9% 180 ML IV SCH (04:33)
--- NOTE | 2021-05-24 04:41 | XR ---
EXAMINATION TYPE: XR chest 1V portable DATE OF EXAM: 05/24/2021 COMPARISON: Yesterday HISTORY: Respiratory failure TECHNIQUE: Single view FINDINGS: There is tracheostomy tube. There is pulmonary interstitial and airspace edema. There is na sogastric tube in the stomach. There is right subclavian catheter in the tip is not well seen. IMPRESSION: There is moderate pulmonary edema which is slightly improved compared to yesterday.
--- NOTE | 2021-05-24 04:49 | P.EN ---
Code Blue Note Activated at 0412. 5 in the scene shortly after. Reviewed the chart and discussed the case with RN. The patient has had a prolonged hospitalization due to COVID-19 with hypoxic respiratory failure requiring tracheostomy. Patient had gradually worsening blood pressure despite IV Levophed and subsequently lost his pulse for which ACLS protocol was immediately activated with high quality CPR performed. Epinephrine IV push 1 was given with subsequent ROSC. The family and intensivists were notified by the RN. The patient continues to be in critical condition.
[2021-05-24 05:06] VITALS: TEMP 98.6
[2021-05-24] MEDS: LEVOTHYROXINE 137 MCG TAB PO SCH (06:31)
[2021-05-24] MEDS: INSULIN DETEMIR (LEVEMIR) 100 UNIT/ML SYR SQ SCH (07:15)
[2021-05-24] MEDS: INSULIN ASPART (NovoLOG) 100 UNIT/ML VIAL SQ SCH (07:15)
[2021-05-24 08:16] VITALS: PULSE 64; RESP 20
[2021-05-24] MEDS: ALBUTEROL HFA INHALER INHALATION SCH (08:34)
--- NOTE | 2021-05-24 09:03 | P.PN ---
Progress Note - Text Progress Note Date: 05/24/21 This is a progress on this patient with 66-year-old COVID-19 related pneumonia with ARDS post tracheostomy tube insertion. The patient continued to have issues with oxygenation and ventilation throughout the day yesterday. Adjustments on the tracheostomy tube was done. Overnight, he continued to have peak pressuring and he was having also issues with oxygenation and ventilation. Subsequently, the patient had a cardiac pulmonary arrest of around 4:12 AM. He received CPR. And he was given epinephrine and there was return of circulation. I had already talked to the family about comfort care measures. The made a decision to proceed with comfort care and not to call the patient again. As such, the patient was extubated and he was given a terminal wean. Within a few minutes, the patient had a complete cardiac pulmonary arrest and the patient was pronounced . Family was at the bedside. Morning labs were reviewed from 05/24/2021. Morning blood gases was reviewed. The patient a pH of 7.08 with a pCO2 of 108 and pO2 of 50 to on the ventilator settings as set forth yesterday.
--- NOTE | 2021-05-26 17:01 | CDI ---
Documentation Clarification Form Date: 05/26/2021 02:56:00 PM From: Prachi Turcios RN, CCDS Admit Date: 05/02/2021 11:46:00 PM Patient Name: Naresh Niño Visit Number: [id number] Discharge Date: 05/24/2021 09:45:00 AM ATTENTION: The Clinical Documentation Specialists (CDI) and [facility] Coding Staff appreciate your assistance in clarifying documentation. Please respond to the clarification below the line at the bottom and electronically sign. The CDI & [facility] Coding staff will review the response and follow-up if needed. Please note: Queries are made part of the Legal Health Record. If you have any questions, please contact the author of this message via ITS. Dr. Cathy Kumar Granulation tissue blocking the tip of the tracheostomy tube is documented in the procedure note on 05/23/21 and patient had a tracheostomy tube insertion on 05/18/21. Additional clarification is requested regarding the relationship, if any, that exists between the diagnosis and the tracheostomy tube. 05/10 Endotracheal intubation 05/18 Tracheostomy tube placed 05/23 Flexible bronchoscopy: there was granulation tissue that was going from the membranous trachea causing narrowing of the tracheostomy tube opening. Note that the membranous trachea was also dynamic and was causing dynamic obstruction in addition to mechanical obstruction with exhalation maneuvers. Patients Preoperative Diagnosis: Acute coronary syndrome related pneumonia with ARDS Post-Operative Diagnosis: Granulation tissue blocking the tip of the tracheostomy tube 05/18 Procedure performed: Flexible bronchoscopy, minute ventilation of the tracheostomy tube History/Risk Factors: Covid-19 Pneumonia, Respiratory Failure Clinical Indicators: 66-year-old male present on 05/02 with acute COVID-19 pneumonia and hypoxic respiratory failure. His symptoms started 10-11 days prior to coming to ED. On 05/06 he was transferred to ICU for BiPAP support and worsening dyspnea. Intubated on 05/10/21 for worsening hypoxic respiratory failure. 05/13/21 Intubated with Peak airway pressure 43. 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 05/14 No evidence of leaking from the endotracheal tube. Peak airway pressure remains high at 37, plateau pressure is in the low 30s. Chest x-ray shows diffuse bilateral infiltrates consistent with acute respiratory distress syndrome. 05/18 Tracheostomy tube placement. 05/22 Intubated on and on ventilator since. His peak airway pressures are high. He has very stiff lungs. Fentanyl and Propofol increased to control respiratory rate. Saturation are between 87-90 % 05/23 Peak air pressures 64Was given bag ventilation. doing poorly, Unable to ventilate. Blood gases was showing significant hypoxemia and addition to respiratory acidosis. Chest x-ray consistent with ARDS post Covid-19 related pneumonia. Tracheostomy tube checked by bronchoscope was within the trachea. There was dilation tissue along the posterior wall of the membranous trachea causing at least 50% occlusion of the tracheostomy tip Treatment ICU Monitoring/management Mechanical ventilator monitoring per pulmonary Baricitinib 2MG PO Daily 05/04-05/10) 4MG PO 05/10-05/13 Monitor blood gases per pulmonary orders Decadron 6 MG IV Daily Fentanyl per orders Proprofol per orders What relationship, if any, exists between the diagnosis of granulation tissue and the tracheostomy tube? [ ] Granulation tissue is a complication of the tracheostomy tube [ x] Granulation tissue is an expected outcome of the tracheostomy tube [ ] Granulation tissue is related to patients co-morbid, (specify conditions), not a complication of the tracheostomy tube [ ] Other please specify ____ [ ] Unable to determine (Template Last Revised: October 2020) MTDD
--- NOTE | 2021-06-02 08:52 | CDI ---
Documentation Clarification Form Date: 06/02/21 From: Sunshine Gillis Admit Date: 05/02/2021 11:46:00 PM Patient Name: Naresh Niño Visit Number: [id number] Discharge Date: 05/24/2021 09:45:00 AM ATTENTION: The Clinical Documentation Specialists (CDI) and [facility] Coding Staff appreciate your assistance in clarifying documentation. Please respond to the clarification below the line at the bottom and electronically sign. The CDI & [facility] Coding staff will review the response and follow-up if needed. Please note: Queries are made part of the Legal Health Record. If you have any questions, please contact the author of this message via ITS. Dr. Mikal Naqvi, The patient was found to have sepsis post admission secondary to progression of COVID. Additional clarification regarding the etiology/cause of the clinical indicators is requested. History/Risk Factors: COVID, DM, Morbid obesity Clinical Indicators: Unvaccinated male, with fever and chills. He developed ARDS, acute kidney failure 05/02 WBC: 2.6 05/01 Lactic acid: 1.9 Blood cultures: No growth 05/02 Vitals signs: T 103.1, P-100, R 24, BP 146/79, O2 Sat 90 Treatment: Intubated w mechanical ventilation, subsequently tracheostomy placed, IV Zosyn. IV Dexamethasone, Baricitnib In your professional opinion, please clarify if acute kidney failure, ARDS, if these findings signify one of the following conditions: [ ] Severe Sepsis with organ failure [ ] Other, please specify [ ] Unable to determine MTDD
--- NOTE | 2021-07-06 21:19 | P.DS ---
Providers Date of admission: 05/02/21 23:46 Expected date of discharge: 05/24/21 Attending physician: Mikal Naqvi Consults: 05/02/21 23:12 Consult Physician Routine Consulting Provider: Sandeep Lora Consult Reason/Comments: COVID-19; Hypoxia Do you want consulting provider notified?: Yes 05/18/21 08:30 Consult Physician Routine Consulting Provider: Rei Sterling Consult Reason/Comments: trach/peg Do you want consulting provider notified?: Yes Primary care physician: Mikal Naqvi - Discharge Diagnosis(es) (1) COVID-19 Status: Acute (2) Hypoxia Status: Acute (3) Knlwc-[id number] kidney injury Status: Acute (4) Coronary artery disease Status: Acute (5) Morbid exogenous obesity Status: Acute (6) Acute respiratory disease due to COVID-19 virus Status: Acute (7) Sepsis due to severe acute respiratory syndrome coronavirus 2 (SARS-CoV-2) Status: Acute Hospital Course: Patient was admitted with severe COVID-19 pneumonia developed increased complications due to multiple comorbid conditions condition worsen underwent intubation in the tracheostomy. Patient 05/24/21 at 8;10. Patient Condition at Discharge: Serious Plan - Discharge Summary Discharge Rx Participant: No New Discharge Prescriptions: No Action Enalapril [Vasotec] 20 mg PO DAILY Aspirin [Adult Low Dose Aspirin EC] 81 mg PO DAILY metFORMIN HCL [Glucophage] 1,000 mg PO BID hydrALAZINE HCL [Apresoline] 50 mg PO BID Levothyroxine Sodium [Synthroid] 137 mcg PO DAILY Pioglitazone [Actos] 30 mg PO DAILY Losartan Potassium 100 mg PO DAILY Chlorthalidone 25 mg PO MOTH Ezetimibe [Zetia] 10 mg PO DAILY Atorvastatin Calcium [Lipitor] 10 mg PO HS Carvedilol [Coreg] 25 mg PO BID Glimepiride [Amaryl] 2 mg PO DAILY Discharge Medication List Aspirin [Adult Low Dose Aspirin EC] 81 mg PO DAILY 10/22/17 [History] Enalapril [Vasotec] 20 mg PO DAILY 10/22/17 [History] hydrALAZINE HCL [Apresoline] 50 mg PO BID 10/22/17 [History] metFORMIN HCL [Glucophage] 1,000 mg PO BID 10/22/17 [History] Levothyroxine Sodium [Synthroid] 137 mcg PO DAILY 10/24/17 [History] Chlorthalidone 25 mg PO MOTH 01/22/18 [History] Losartan Potassium 100 mg PO DAILY 01/22/18 [History] Pioglitazone [Actos] 30 mg PO DAILY 01/22/18 [History] Atorvastatin Calcium [Lipitor] 10 mg PO HS 05/02/21 [History] Carvedilol [Coreg] 25 mg PO BID 05/02/21 [History] Ezetimibe [Zetia] 10 mg PO DAILY 05/02/21 [History] Glimepiride [Amaryl] 2 mg PO DAILY 05/02/21 [History] Follow up Appointment(s)/Referral(s): Mikal Naqvi DO [Primary Care Provider] - As Needed Discharge Disposition: - Preliminary Cause of Preliminary Cause of : COVID-19 pneumonia
== END 2021-05-24 09:45 | disposition expired | DRG 3 ==
LOC: EC 19:22 → 4SSUR 23:46 → 2SICU 05-05 14:40
PROVIDERS: ADMIT Family Medicine; ATTEND Family Medicine
DX: U07.1 COVID-19 (principal); A41.89 Other specified sepsis; J12.82 Pneumonia due to coronavirus disease 2019; E43 Unspecified severe protein-calorie malnutrition; J80 Acute respiratory distress syndrome; R65.20 Severe sepsis without septic shock; N17.9 Acute kidney failure, unspecified; E87.2 Acidosis; J90 Pleural effusion, not elsewhere classified; D68.32 Hemorrhagic disorder due to extrinsic circulating anticoagulants; A08.39 Other viral enteritis; Z68.42 Body mass index [BMI] 45.0-49.9, adult; J93.82 Other air leak; D63.1 Anemia in chronic kidney disease; E11.22 Type 2 diabetes mellitus with diabetic chronic kidney disease; E66.01 Morbid (severe) obesity due to excess calories; E11.65 Type 2 diabetes mellitus with hyperglycemia; N18.30 Chronic kidney disease, stage 3 unspecified; I46.9 Cardiac arrest, cause unspecified; Z66 Do not resuscitate; Z51.5 Encounter for palliative care; K21.9 Gastro-esophageal reflux disease without esophagitis; G47.33 Obstructive sleep apnea (adult) (pediatric); I13.10 Hypertensive heart and chronic kidney disease without heart failure, with stage 1 through stage 4 chronic kidney disease, or unspecified chronic kidney disease; I95.9 Hypotension, unspecified; E87.5 Hyperkalemia; F41.9 Anxiety disorder, unspecified; F32.9 Major depressive disorder, single episode, unspecified; E78.5 Hyperlipidemia, unspecified; E03.9 Hypothyroidism, unspecified; I25.10 Atherosclerotic heart disease of native coronary artery without angina pectoris; T45.515A Adverse effect of anticoagulants, initial encounter; G43.909 Migraine, unspecified, not intractable, without status migrainosus; I25.2 Old myocardial infarction; Z53.9 Procedure and treatment not carried out, unspecified reason; R74.01 Elevation of levels of liver transaminase levels; D72.819 Decreased white blood cell count, unspecified; Z79.82 Long term (current) use of aspirin; Z20.828 Contact with and (suspected) exposure to other viral communicable diseases; Z79.890 Hormone replacement therapy; Z79.84 Long term (current) use of oral hypoglycemic drugs; Z79.899 Other long term (current) drug therapy; Z86.14 Personal history of Methicillin resistant Staphylococcus aureus infection; Z96.652 Presence of left artificial knee joint; Z95.5 Presence of coronary angioplasty implant and graft; Z87.39 Personal history of other diseases of the musculoskeletal system and connective tissue; Z98.42 Cataract extraction status, left eye; Z98.41 Cataract extraction status, right eye; Z87.2 Personal history of diseases of the skin and subcutaneous tissue; Z95.0 Presence of cardiac pacemaker; Z98.890 Other specified postprocedural states; Z71.3 Dietary counseling and surveillance; Z88.5 Allergy status to narcotic agent; Z80.9 Family history of malignant neoplasm, unspecified
CPT/HCPCS: 31622; 36410; 36415; 36573; 43246; 71045; 76937; 80048; 80053; 82550; 82553; 82728; 82805; 83036; 83605; 83615; 83735; 83880; 84132; 84145; 84450; 84460; 85025; 85027; 85379; 85384; 85610; 85730; 86140; 87040; 87102; 87103; 87635; 93005; 94002; 94003; 94640; 94660; 94760; 99285